=== PATIENT | male | born 1935 | race African-American/Black ===

== ENCOUNTER 2016-10-03 15:33 | Inpatient (IN) ==
[2016-10-03] MEDS ORDERED: MAGNESIUM SULF RIDER 2 GM in PREMIX 1 EACH IV PRN (17:44)
[2016-10-03] MEDS ORDERED: DOCUSATE SODIUM 100 MG CAPSULE PO PRN (17:44)
[2016-10-03] MEDS ORDERED: ZALEPLON 5 MG CAPSULE PO PRN (17:44)
[2016-10-03] MEDS ORDERED: ONDANSETRON 4 MG/2 ML VIAL IV PRN (17:44)
[2016-10-03] MEDS ORDERED: MAGNESIUM SULF RIDER 4 GM in PREMIX 1 EACH IV PRN (17:44)
--- NOTE | 2016-10-03 17:58 | Cardiology History & Physical ---
Assessment and Plan (1) Edema Status: Acute Assessment and plan: 81-year-old black male, history of nonischemic cardiomyopathy, with recovered ejection fraction. Hypertension, chronic A. fib, history of CVA. He is presenting with edema, significant 3rd spacing, involving pericardial and pleural space and periphery. He is hemodynamically stable. -Edema. Assess etiology. Check CBC, CMP, TFTs, CRP, ESR. We'll initiate diuresis for decompensated right-sided heart failure, volume overload and work him up for potential extracardiac factors. -CXR -Continue anticoagulation for atrial fibrillation. -Resume BP regimen -Keep on telemetry Current Visit: Yes (2) NICM (nonischemic cardiomyopathy) Status: Acute Current Visit: Yes (3) Atrial fibrillation Status: Acute Current Visit: Yes (4) HTN (hypertension) Status: Acute Current Visit: Yes History of Present Illness Chief complaint: CHF, pericardial/pleural effusion History of present illness: Mr. Celaya is a 81 year old BM, followed by dr. Valle, with history of nonischemic cardiomyopathy, recovered ejection fraction, chronic pericardial effusion. He noticed progressive shortness of breath, weakness for the past 3 weeks. In office echo today with a for moderate to large pericardial effusion, without tamponade, also pleural effusion. He was hospitalized for inpatient management. He also has chronic atrial fibrillation, history of CVA, hypertension, hyperlipidemia. He is resting comfortably in bed currently, does not complain of chest pain. Shortness of breath is moderate. He also has tense bilateral lower extremity swelling. Home Medications Medication Instructions Recorded Confirmed Type Aspirin EC Tab 81 mg PO DAILY 10/03/16 10/03/16 History Carvedilol [Coreg] 25 mg PO BID 10/03/16 10/03/16 History Dabigatran [Pradaxa] 150 mg PO BID 10/03/16 10/03/16 History Finasteride [Proscar] 5 mg PO DAILY 10/03/16 10/03/16 History Furosemide Tab [Lasix Tab] 40 mg PO DAILY 10/03/16 10/03/16 History Gabapentin Cap/Tab [Neurontin 300 mg PO DAILY 10/03/16 10/03/16 History Cap/Tab] Levothyroxine Tab [Synthroid Tab] 125 mcg PO DAILY@0700 10/03/16 10/03/16 History Lisinopril 40 mg PO DAILY 10/03/16 10/03/16 History Lovastatin 20 mg PO BEDTIME 10/03/16 10/03/16 History Omeprazole 20 mg PO DAILY 10/03/16 10/03/16 History Polyethylene Glycol 3350 17 gm PO DAILY PRN 10/03/16 10/03/16 History amLODIPine [Norvasc] 5 mg PO DAILY 10/03/16 10/03/16 History hydroCHLOROthiazide 12.5 mg PO DAILY 10/03/16 10/03/16 History [Hydrochlorothiazide] Allergies Allergy/AdvReac Type Severity Reaction Status Date / Time No Known Allergies Allergy Verified 10/03/16 16:40 12 point system: reviewed and no additional remarkable complaints except as stated Medical,Surgical,& Family Hx - Medical History Cardio: History of: CAD, Hypertension Neurology: History of: Cerebrovascular Accident (1996 (speech and left sided weakness)) HEENT: History of: Eye Problem (prostethic eye) - Surgical History Cardiac Surgeries: Patient Denies: Cardiac Catheterization - Social History Smoking Status: Former smoker Frequency of Alcohol Use: None Cardiology Physical Exam - Constitutional Vitals: Intake and Output 10/03/16 10/03/16 10/03/16 07:59 15:59 23:59 Output Total 300 / 300 Balance -300 / -300 Output: Urine 300 / 300 Other: Voiding Method Urinal Weight 104.3 kg Patient Weight 10/03/16 23:59 Weight 104.3 kg General appearance: over weight - Head Head exam: Present: normal inspection - Eye Eye exam: Absent: conjunctival injection Pupils: Absent: dilated - ENT ENT exam: Present: normal exam - Neck Neck exam: Present: normal inspection - Respiratory Respiratory exam: Present: decreased breath sounds. Absent: accessory muscle use, prolonged expiratory phase - Cardiovascular Cardiovascular exam: Present: regular rate and rhythm, systolic murmur - GI/Abdominal GI/Abdominal exam: Present: hypoactive bowel sounds - Extremities Exam Extremities exam: Present: edema (3+, tense) - Back Exam Back exam: Present: normal inspection - Neurological Exam Neurological exam: Present: alert, oriented X3 - Psychiatric Psychiatric exam: Present: normal affect, normal mood - Skin Skin exam: Present: normal color, warm. Absent: cyanosis Result/EKG - Labs Lab Results: I have reviewed the past 24 hour labs - EKG EKG results: interpreted by me Quality Measures - VTE Contraindication to Pharmacological VTE Prophylaxis: Already on Theraputic Agent , No Prophylaxis Needed
[2016-10-03] MEDS ORDERED: POLYETHYLENE GLYCOL POWDER 17 GM PACK PO PRN (18:06)
--- NOTE | 2016-10-03 18:21 | XRay Report ---
XR chest 1V portable Indication: SOB Comparison: None Technique: Single frontal view of the chest Findings: Marked cardiomegaly. Hazy opacification within the bilateral mid and lower lungs suspicious for pulmonary edema and less likely pneumonia. Small bilateral pleural fluid suggested. Surgical clips noted within the neck base. Osseous and surrounding soft tissue structures demonstrate no acute abnormality. IMPRESSION: As above. PROCEDURE INTERPRETED AT [facility] DEPARTMENT OF RADIOLOGY Final Report Signed by: Dr Jarrett Huff
[2016-10-03 18:55] LABS: Basophils # 0.1 10*3/uL (0.0-0.2); Basophils % 0.9 % (0.0-0.8); Eosinophils % 0.5 % (0.00-10.9); Hematocrit 39.6 VOL% (42.0-52.0); Hemoglobin 12.8 GM/DL (14.0-18.0); Immature Granulocytes % 1.1 %; Immature Granulocytes Absolute 0.06 #; Lymphocytes # 2.3 10*3/uL (1.4-4.0); Lymphocytes % 40.5 % (21.2-54.2); Mean Corpuscular HGB Conc 32.3 GM/DL (32-36); Mean Corpuscular Hemoglobin 30 PG (27-34); Mean Corpuscular Volume 93.8 FL (87-102); Mean Platelet Volume 11.2 FL (9.6-12.0); Monocytes # 0.7 10*3/uL (0.11-0.8); Monocytes % 12.5 % (1.7-12.7); Neutrophils # 2.5 10*3/uL (1.4-7.4); Neutrophils % 44.5 % (38.7-73.9); Platelet Count 111 10*3/uL (130-400); Red Blood Count 4.22 10*6/uL (3.8-5.5); Red Cell Distribution Width 14.7 % (9.3-17.3); White Blood Count 5.7 10*3/uL (4.5-13.71)
[2016-10-03 19:23] LABS: Albumin 3.4 G/DL (3.4-5.0); Bilirubin,Total 0.7 MG/DL (0.2-1.0); Calcium 8.5 MG/DL (8.5-10.1); Magnesium 2.1 MG/DL (1.8-2.4); Osmolality,Calculated 281.3 MOS/KG (273-304); Potassium 3.6 MMOL/L (3.5-5.1); Thyroid Stimulating Hormone 24.3 uIU/ml (0.358-3.74); Troponin I Only < 0.015 NG/ML (0.00-0.045)
[2016-10-03] MEDS: FUROSEMIDE 40 MG/4 ML VIAL IV SCH (19:24)
[2016-10-03] MEDS: DABIGATRAN 150 MG CAPSULE PO SCH (20:44)
[2016-10-03] MEDS: CARVEDILOL 25 MG TABLET PO SCH (20:44)
[2016-10-03] MEDS ORDERED: LOVASTATIN 20 MG TABLET PO SCH (21:00)
--- NOTE | 2016-10-03 22:43 | Ultrasound Report ---
US thyroid Indication: Hypothyroid. Comparison: None. Technique: Multiple longitudinal and transverse real-time sonographic images of the thyroid are obtained. Findings: The right lobe of the thyroid measures 2.0 x 0.7 x 1.3 cm. The left lobe of the thyroid measures 2.3 x 1.2 x 0.6 cm. The thyroid isthmus measures 0.28 cm in thickness. Solid appearing hypoechoic nodule demonstrated within the right thyroid lobe which measures up to 1.3 cm. IMPRESSION: Solid appearing hypoechoic nodule demonstrated within the right thyroid lobe which measures up to 1.3 cm. Recommend continued ultrasound surveillance. PROCEDURE INTERPRETED AT [facility] DEPARTMENT OF RADIOLOGY Final Report Signed by: Dr Jarrett Huff
[2016-10-04] MEDS ORDERED: LEVOTHYROXINE 125 MCG TABLET PO SCH (07:00)
--- NOTE | 2016-10-04 07:39 | EKG Report ---
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
[2016-10-04 08:19] LABS: Basophils % 0.9 % (0.0-0.8); Eosinophils % 0.9 % (0.00-10.9); Hematocrit 38.9 VOL% (42.0-52.0); Hemoglobin 12.5 GM/DL (14.0-18.0); Immature Granulocytes % 0.6 %; Immature Granulocytes Absolute 0.03 #; Lymphocytes # 1.9 10*3/uL (1.4-4.0); Lymphocytes % 41.8 % (21.2-54.2); Mean Corpuscular HGB Conc 32.1 GM/DL (32-36); Mean Corpuscular Hemoglobin 30 PG (27-34); Mean Platelet Volume 11.3 FL (9.6-12.0); Monocytes # 0.8 10*3/uL (0.11-0.8); Monocytes % 16.9 % (1.7-12.7); Neutrophils # 1.8 10*3/uL (1.4-7.4); Neutrophils % 38.9 % (38.7-73.9); Platelet Count 136 10*3/uL (130-400); Red Blood Count 4.23 10*6/uL (3.8-5.5); Red Cell Distribution Width 14.7 % (9.3-17.3); White Blood Count 4.6 10*3/uL (4.5-13.71)
[2016-10-04 08:40] LABS: Hypochromasia 1+; Lymphocytes 62 % (20-55); Microcytosis 1+; Platelet Estimate Adequate; Segmented Neutrophils 27 % (50-85); Total Cells Counted 100
--- NOTE | 2016-10-04 08:41 | EKG Report ---
Stationary ECG Study [facility] Test Date: 10/03/2016 6:05:19 PM Pat Name: JOSEPH LICONA Department: Room: 264 Gender: M Set Decorator: ANAHY : 1935 Requested by: Esteban Jose Order Number: [id number] Reading MD: NICHOLAS FUNG Intervals [place] Rate: 93 P: 999 CO: 0 QRS: 32 QRSD: 85 T: 56 QT: 343 QTc: 394 Interpretive Statements ATRIAL FIBRILLATION ABNORMAL RHYTHM ECG Electronically Signed On 10-04-16 11:43:53 RETAIL CLERK by NICHOLAS FUNG [id number]
[2016-10-04 08:51] LABS: Calcium 8.5 MG/DL (8.5-10.1); Magnesium 2.2 MG/DL (1.8-2.4); Osmolality,Calculated 278.4 MOS/KG (273-304); Potassium 3.3 MMOL/L (3.5-5.1)
[2016-10-04] MEDS ORDERED: FINASTERIDE 5 MG TABLET PO SCH (09:00)
[2016-10-04] MEDS ORDERED: GABAPENTIN 300 MG CAPSULE PO SCH (09:00)
[2016-10-04] MEDS ORDERED: ASPIRIN EC 81 MG TABLET PO SCH (09:00)
[2016-10-04] MEDS ORDERED: LISINOPRIL 20 MG TABLET PO SCH (09:00)
[2016-10-04] MEDS ORDERED: PANTOPRAZOLE 40 MG TABLET PO SCH ×2 (09:00)
[2016-10-04] MEDS: FUROSEMIDE 40 MG/4 ML VIAL IV SCH (09:42)
[2016-10-04] MEDS: CARVEDILOL 25 MG TABLET PO SCH (09:42)
[2016-10-04] MEDS: DABIGATRAN 150 MG CAPSULE PO SCH (09:42)
[2016-10-04] MEDS ORDERED: LEVOTHYROXINE 175 MCG TABLET PO SCH (14:48)
--- NOTE | 2016-10-04 15:10 | Discharge Summary ---
Hospital Course - Hospital Course Hospital Course: Mr. Rodriguez is an 81-year-old black man, history of nonischemic cardiomyopathy, recovered ejection fraction, chronic atrial fibrillation, anticoagulated prolapse. He had progressive shortness of breath for a month now. He was evaluated recently and CT scan showed pericardial and pleural effusion. He was admitted for workup and treatment of suspected heart failure. On admission, he had bilateral myxedema, the oxygen saturation was normal, he was not having any orthopnea or orthostatic symptoms. Labs showed no evidence of myocardial injury. His heart rate remained in the normal range, occasionally bradycardic, in atrial fibrillation. IV Lasix was used, provided symptomatic relief. Labs showed elevated TSH of 25 , but normal free T4. His home Synthroid dose is 125 g daily. This was increased 175 g. Thyroid ultrasound confirmed a solitary thyroid nodule. -Follow-up with Dr. Valle in one week. -He will need outpatient workup for solitary thyroid nodule. -Continue Synthroid at 175 g daily, recheck TFTs in 4-6 weeks. -Lasix 40 mg by mouth twice a day. This was increased from 40 mg once a day. -Started potassium supplement 20 mics a day as he developed mild hypokalemia with iv diuresis. Cont lisinopril -continue anticoagulation for AF. Rate well controlled. Diagnosis - Discharge Diagnosis (1) Edema Status: Acute (2) NICM (nonischemic cardiomyopathy) Status: Acute (3) Atrial fibrillation Status: Acute (4) HTN (hypertension) Status: Acute Discharge Plan - Discharge Data Disposition: Disch To Home/Self Care Condition at Discharge: Stable Discharge Diet: advance to your usual diet Activity: resume usual activities as tolerated Hygiene: no restrictions Weight Bearing at Discharge: full weight bearing Driving: not until seen by doctor Contact your physician if you experience:: fever over 101, Difficulty voiding, Redness or swelling, Nausea/Vomiting, Shortness of breath, Bleeding, pain uncontrolled by pain medications - Discharge Medications New Furosemide Tab [Lasix Tab] 40 mg PO BID DIURETIC #60 tablet Potassium Chloride Cap/Tab [K Dur] 20 meq PO DAILY #30 tablet Continue Dabigatran [Pradaxa] 150 mg PO BID Polyethylene Glycol 3350 17 gm PO DAILY PRN PRN Reason: Constipation Aspirin EC Tab 81 mg PO DAILY Omeprazole 20 mg PO DAILY Lovastatin 20 mg PO BEDTIME Lisinopril 40 mg PO DAILY Gabapentin Cap/Tab [Neurontin Cap/Tab] 300 mg PO DAILY Finasteride [Proscar] 5 mg PO DAILY Carvedilol [Coreg] 25 mg PO BID Discontinued Levothyroxine Tab [Synthroid Tab] 125 mcg PO DAILY@0700 Furosemide Tab [Lasix Tab] 40 mg PO DAILY hydroCHLOROthiazide [Hydrochlorothiazide] 12.5 mg PO DAILY amLODIPine [Norvasc] 5 mg PO DAILY - Follow Up or Referral Follow Up: Kendra Valle MD [Physician] - 1 Week - Forms/Instructions Exam - Constitutional Vitals: Period Temp Pulse Resp BP Sys/Novak Pulse Ox Last 24 Hr 97.1 F-99.2 F 74-88 13-24 118-178/75-120 92-98 General appearance: over weight - Head Head exam: Present: normal inspection - Eye Eye exam: Absent: conjunctival injection Pupils: Absent: dilated - ENT ENT exam: Present: normal external ear exam - Neck Neck exam: Present: normal inspection - Respiratory Respiratory exam: Present: decreased breath sounds - Cardiovascular Cardiovascular exam: Present: irregular rhythm, systolic murmur - GI/Abdominal GI/Abdominal exam: Present: normal bowel sounds - Extremities Exam Extremities exam: Present: other (myxedema) - Back Exam Back exam: Present: normal inspection - Neurological Exam Neurological exam: Present: alert, oriented X3, other (slow speech) - Psychiatric Psychiatric exam: Present: normal affect, normal mood - Skin Skin exam: Present: normal color, warm. Absent: cyanosis Discharge Results Procedures and tests throughout hospitalization: Pending Orders 10/03/16 16:37 MRSA Surveillence, Inf Control Routine 10/04/16 07:27 Free T3 (Triiodothyronine), S IN AM Labs on day of discharge: Labs from last 24 hours 10/04/16 10/04/16 10/03/16 07:27 07:27 18:06 WBC 4.6 RBC 4.23 Hgb 12.5 L Hct 38.9 L MCV 92.0 MCH 30 MCHC 32.1 RDW 14.7 Plt Count 136 D MPV 11.3 Neut % (Auto) 38.9 Lymph % (Auto) 41.8 Woods % (Auto) 16.9 H Eos % (Auto) 0.9 Baso % (Auto) 0.9 H Neut # (Auto) 1.8 Lymph # (Auto) 1.9 Woods # (Auto) 0.8 Eos # (Auto) 0.0 Baso # (Auto) 0.0 Total Counted 100 Immature Gran % 0.6 Nucleated RBC % 0.0 Immature Gran # 0.03 Segmented Neutrophils 27 L Lymphocytes 62 H Monocytes 11 Nucleated RBCs # 0.00 Platelet Estimate Adequate Hypochromasia 1+ Microcytosis 1+ ESR Westergren Sodium 140 Potassium 3.3 L Chloride 98 Carbon Dioxide 34 H Anion Gap 11.3 BUN 15 Creatinine 1.00 GFR Calculation 108 BUN/Creatinine Ratio 15.00 Glucose 79 Calculated Osmolality 278.4 Calcium 8.5 Magnesium 2.2 Total Bilirubin AST ALT Alkaline Phosphatase Total Creatine Kinase CK-MB (CK-2) Troponin I C-Reactive Protein B-Natriuretic Peptide Total Protein Albumin Globulin Albumin/Globulin Ratio Free T4 1.00 TSH 3rd Generation 10/03/16 10/03/16 10/03/16 18:06 18:06 18:06 WBC RBC Hgb Hct MCV MCH MCHC RDW Plt Count MPV Neut % (Auto) Lymph % (Auto) Woods % (Auto) Eos % (Auto) Baso % (Auto) Neut # (Auto) Lymph # (Auto) Woods # (Auto) Eos # (Auto) Baso # (Auto) Total Counted Immature Gran % Nucleated RBC % Immature Gran # Segmented Neutrophils Lymphocytes Monocytes Nucleated RBCs # Platelet Estimate Hypochromasia Microcytosis ESR Westergren 4 Sodium Potassium Chloride Carbon Dioxide Anion Gap BUN Creatinine GFR Calculation BUN/Creatinine Ratio Glucose Calculated Osmolality Calcium Magnesium Total Bilirubin AST ALT Alkaline Phosphatase Total Creatine Kinase CK-MB (CK-2) Troponin I C-Reactive Protein < 0.29 B-Natriuretic Peptide 473 H Total Protein Albumin Globulin Albumin/Globulin Ratio Free T4 TSH 3rd Generation 10/03/16 10/03/16 10/03/16 18:06 18:06 18:06 WBC 5.7 RBC 4.22 Hgb 12.8 L Hct 39.6 L MCV 93.8 MCH 30 MCHC 32.3 RDW 14.7 Plt Count 111 L MPV 11.2 Neut % (Auto) 44.5 Lymph % (Auto) 40.5 Woods % (Auto) 12.5 Eos % (Auto) 0.5 Baso % (Auto) 0.9 H Neut # (Auto) 2.5 Lymph # (Auto) 2.3 Woods # (Auto) 0.7 Eos # (Auto) 0.0 Baso # (Auto) 0.1 Total Counted Immature Gran % 1.1 Nucleated RBC % 0.0 Immature Gran # 0.06 Segmented Neutrophils Lymphocytes Monocytes Nucleated RBCs # 0.00 Platelet Estimate Hypochromasia Microcytosis ESR Westergren Sodium 141 Potassium 3.6 Chloride 101 Carbon Dioxide 33 H Anion Gap 10.6 BUN 14 Creatinine 1.00 GFR Calculation 107 BUN/Creatinine Ratio 14.00 Glucose 96 Calculated Osmolality 281.3 Calcium 8.5 Magnesium 2.1 Total Bilirubin 0.70 AST 10 ALT 9 L Alkaline Phosphatase 39 L Total Creatine Kinase 39 CK-MB (CK-2) < 1.0 Troponin I < 0.015 C-Reactive Protein B-Natriuretic Peptide Total Protein 7.0 Albumin 3.4 Globulin 3.6 H Albumin/Globulin Ratio 0.9 L Free T4 TSH 3rd Generation 24.300 H Preliminary micro results at discharge 10/03/16 16:37 MRSA Surveillance Culture - Preliminary Nares No MRSA isolated. - Imaging and Cardiology Cardiology Procedure: image reviewed by me, report reviewed by me DS: Provider Date of admission: 10/03/16 17:44 Primary care physician: Alana Sepulveda Attending physician on admission: Esteban Jose MD Consults: 10/03/16 19:26 Consult to Pharmacy [CONS] Routine Reason for Pharmacy Consult: Adjust Meds Renal Funct Discharging clinician: Esteban Jose MD Expected date of discharge: 10/04/16
[2016-10-04] MEDS ORDERED: POTASSIUM CHLORIDE 20 MEQ TABLET PO SCH (15:30)
[2016-10-04 15:54] VITALS: BP 122/77
[2016-10-04] MEDS ORDERED: FUROSEMIDE 40 MG TABLET PO SCH (16:00)
== END 2016-10-04 16:45 | disposition home or self-care (01) | DRG 292 ==
LOC: EDBD → N.CC 15:54 → N.TELES 10-04 04:34
PROVIDERS: ADMIT Internal Medicine Clinical Cardiac Electrophysiology; ATTEND Internal Medicine Clinical Cardiac Electrophysiology

== ENCOUNTER 2016-12-14 10:14 | Inpatient (IN) ==
[2016-12-14] MEDS ORDERED: DIPH/TET/ACEL PERT BOOSTER VACCINE 0.5 ML VIAL IM ONE ×2 (10:30→11:08)
[2016-12-14] MEDS ORDERED: METOPROLOL TARTRATE 5 MG/5 ML VIAL IV STA (10:30)
--- NOTE | 2016-12-14 10:42 | Emergency Department Note ---
Jaron Cruz Brittany, am scribing for, and in the presence of, Emir Del Valle MD 10: 36. Ivon Cruz James D, MD, personally performed the services described in this documentation, ascribed by Merary Salmeron in my presence, and it is both accurate and complete . Arrival - Arrival Chief Complaint: Syncope Stated Complaint: SYNCOPE/ SOB ED Nursing Triage Note: PT WAS SITTING IN HIS CHAIR AT HOME AND HAD SYNCOPE EPISODE. PT DENIES HEADACHE. PT HAS NO DEFICITS. PTS BP NOTED TO BE EXTREMLY ELEVATED IN TRIAGE. PT DENIES TAKING MORNING MEDS. PT HAS HEMTOMA TO LT.OCCIPITAL AREA. NOSE LACERATION NOTED. PT VOIDED ON HIMSELF DURING THIS INCIDENT. 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 He reports he was sitting in a chair when he passed out. He reports he only remembers sitting in his chair and becoming lightheaded and dizzy. He reports he noticed his heart rate to be racing. His family states the syncopal episode was not witnessed. His found him passed out on the front porch. Pt denies any neck pain, MAHAN, or chest pain, but notes mild abd pain. Pt is currently taking Pradaxa. Pt has no other complaints/pain in the ED at this time. Pt has a PMHx of CHF, CAD, CVA, HTN, peripheral neuropathy, A-fib , and dyslipidemia. Pt denies a surgical Hx. Pt denies a family medical Hx. Pt denies a social Hx. 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) Consistency: constant Severity: moderate Allergies/Adverse Reactions: Allergies Allergy/AdvReac Type Severity Reaction Status Date / Time No Known Allergies Allergy Unverified 12/14/16 10:18 Home Medications: Home Medications Medication Instructions Recorded Confirmed Type Aspirin EC Tab 81 mg PO DAILY 10/03/16 12/14/16 History Carvedilol [Coreg] 25 mg PO BID 10/03/16 12/14/16 History Dabigatran [Pradaxa] 150 mg PO BID 10/03/16 12/14/16 History Finasteride [Proscar] 5 mg PO DAILY 10/03/16 12/14/16 History Gabapentin Cap/Tab [Neurontin 300 mg PO DAILY 10/03/16 12/14/16 History Cap/Tab] Lisinopril 40 mg PO DAILY 10/03/16 12/14/16 History Lovastatin 20 mg PO BEDTIME 10/03/16 12/14/16 History Levothyroxine Tab [Synthroid Tab] 175 mcg PO DAILY@0700 #30 tablet 10/04/16 Rx Furosemide Tab [Lasix Tab] 20 mg PO BID DIURETIC 12/14/16 12/14/16 History Potassium Chloride [Klor-Con M20] 20 meq PO DAILY 12/14/16 12/14/16 History hydrALAZINE TAB [Apresoline Tab] 50 mg PO TID 12/14/16 12/14/16 History Review of System - Review of System 12 point system: reviewed and no additional remarkable complaints except as stated - Review of System Cardiovascular: Present: syncope. Absent: chest pain Gastrointestinal: Present: abdominal pain (Mild abd pain ) Musculoskeletal: Absent: neck pain Neurological: Absent: headache Additional ROS comments: Elevated BP Medical,Surgical,& Family Hx - Medical History Cardio: History of: CHF, CAD, Hypertension, Valvular Heart Disease (A-FIB) Neurology: History of: Cerebrovascular Accident, Peripheral Neuropathy HEENT: History of: Eye Problem (prostethic eye) Endocrine: History of: Dyslipidemia - Surgical History Cardiac Surgeries: Patient Denies: Cardiac Catheterization - Social History Smoking Status: Unknown if ever smoked Exam Vital Signs: Vital Signs Temperature 97.4 F L 12/14/16 10:15 Pulse Rate 104 H 12/14/16 10:15 Respiratory Rate 26 H 12/14/16 10:15 Blood Pressure 181/123 12/14/16 10:15 O2 Sat by Pulse Oximetry 99 12/14/16 10:15 GENERAL: This is a chronically ill appearing black male in no apparent distress. VITAL SIGNS: Reviewed HEENT: Abrasion of the left parietal scalp. Small abrasion overlying the nasal bridge. Right cornea opacified, left pupil round reactive to light. Extraocular movements are intact. Oropharynx is benign with moist mucous membranes. NECK: Neck is soft and supple without tenderness. There are no masses. There is no lymphadenopathy. LUNGS: Lungs are clear to auscultation. Chest rises symmetrically. There is no chest wall tenderness. CV: Heart is irregularly irregular without murmurs rubs or gallops. ABDOMEN: Abdomen is soft, nontender to palpation. There are no abdominal abnormal masses palpated. There is no organomegaly. Bowel sounds are present and active. SKIN: Skin is warm and dry. No rash. EXTREMITIES: Patient has full range of motion without tenderness. There is no pedal edema. NEUROLOGIC: Awake alert and oriented 4. Cranial nerves II through XII are grossly intact. Motor is 5 over 5 in all extremities bilaterally. GCS is 15. Course - Consultations Consultation #1: Discussed with hospitalist. Patient will be admitted to their service. Time: 13:15 Results - Labs CBC & BMP: 12/14/16 10:29 12/14/16 10:29 Lab Results: I have reviewed the patients labs Labs: Laboratory Tests 12/14/16 12/14/16 10:29 10:29 INR 2.8 Troponin I < 0.015 - EKG EKG results: interpreted by ERMD - Impressions EKG: Atrial fib with a rate of 90, occasional PVCs, nonspecific ST-T wave changes, normal axis. - Diagnostic Findings Procedure: Chest x-ray: image reviewed by me (Massive cardiomegaly, minimal increased pulmonary markings bilaterally.), CT: image reviewed by me (CT head: No acute intracranial lesion or hemorrhage. CT cervical spine: No acute fracture or subluxation. Patient has multilevel DDD.) Disposition Clinical Impression: Syncope, Atrial fibrillation, Chronic anticoagulation Case discussed with: patient, patient's family Disposition: Still a Patient Condition: Stable Time of Disposition: 13:15
[2016-12-14 10:55] LABS: Basophils % 0.7 % (0.0-0.8); Eosinophils % 0.2 % (0.00-10.9); Hematocrit 40.1 VOL% (42.0-52.0); Hemoglobin 12.5 GM/DL (14.0-18.0); Immature Granulocytes % 0.9 %; Immature Granulocytes Absolute 0.05 #; Lymphocytes # 1.8 10*3/uL (1.4-4.0); Lymphocytes % 33.2 % (21.2-54.2); Mean Corpuscular HGB Conc 31.2 GM/DL (32-36); Mean Corpuscular Hemoglobin 30 PG (27-34); Mean Corpuscular Volume 96.6 FL (87-102); Mean Platelet Volume 11.9 FL (9.6-12.0); Monocytes # 0.7 10*3/uL (0.11-0.8); Monocytes % 12.8 % (1.7-12.7); Neutrophils # 2.9 10*3/uL (1.4-7.4); Neutrophils % 52.2 % (38.7-73.9); Platelet Count 124 T/CUMM (130-400); Red Blood Count 4.15 MC/CUMM (3.8-5.5); Red Cell Distribution Width 14.3 % (9.3-17.3); White Blood Count 5.6 T/CUMM (4-12)
[2016-12-14] MEDS ORDERED: hydrALAZINE 20 MG/1 ML VIAL IV STA (11:00)
--- NOTE | 2016-12-14 11:00 | EKG Report ---
Stationary ECG Study [facility] Test Date: 12/14/2016 10:58:29 AM Pat Name: JOSEPH LICONA Department: Room: Gender: M Cook Pressure: CLARA : 1935 Requested by: Emir Mendoza Order Number: [id number] Reading MD: KELLY BRICENO Intervals [place] Rate: 90 P: 999 FL: 0 QRS: 48 QRSD: 87 T: 49 QT: 338 QTc: 385 Interpretive Statements ATRIAL FIBRILLATION WITH ABERRANT CONDUCTION OR VENTRICULAR PREMATURE COMPLEXES Electronically Signed On 12-16-16 18:44:26 CDT by KELLY BRICENO [email or web address]
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
[2016-12-14] MEDS ORDERED: hydrALAZINE 20 MG/1 ML VIAL ONE (11:07)
[2016-12-14] MEDS ORDERED: METOPROLOL TARTRATE 5 MG/5 ML VIAL IV ONE (11:07)
--- NOTE | 2016-12-14 11:08 | XRay Report ---
Portable chest Date: 12/14/2016 Clinical history: Shortness of breath Comparison: 10/03/2016 Technique: Portable AP sitting chest Findings: Prominent cardiomegaly with the heart having a globular configuration. Progressive parenchymal findings with small pleural effusions. Postoperative findings within the thyroid bed with degenerative changes. Impression: Prominent cardiomegaly with the heart having a globular configuration which consistent with cardiomyopathy or pericardial effusion. Progressive mild to moderate CHF with small pleural effusions. PROCEDURE INTERPRETED AT [facility] DEPARTMENT OF RADIOLOGY Final Report Signed by: Dr. Reina Cordova
--- NOTE | 2016-12-14 11:17 | CT Report ---
Exam: CT cervical spine without contrast Date: 12/14/2016 Comparison: None Reason: Neck pain, neck injury, syncope Technique: Axial images of the cervical spine were obtained without the use of contrast. Sagittal and coronal reformatted images were also acquired. Total DLP is 316.30 mGy*cm. Findings: Unfortunately the scans are degraded by motion artifact. The alignment of the cervical spine is unremarkable with no definite fracture, dislocation, or spinal cord pathology. Postoperative findings in the thyroid bed with arterial calcifications. At C2-C3, diffuse osteophyte/disc complex which contacts the thecal sac. No spinal stenosis with minimal right foraminal stenosis. At C3-C4, diffuse osteophyte/disc complex which compresses the thecal sac. Minimal spinal stenosis and right foraminal stenosis with moderate left foraminal stenosis. At C4-C5, diffuse osteophyte/disc complex which compresses the thecal sac. Minimal spinal stenosis with moderate bilateral foraminal stenosis. At C5-C6, disc space narrowing with diffuse osteophyte/disc complex which compresses the thecal sac. Minimal to moderate spinal stenosis with moderate to severe bilateral foraminal stenosis. At C6-C7, disc space narrowing with diffuse osteophyte/disc complex which compresses the thecal sac. Minimal spinal stenosis and bilateral foraminal stenosis. At C7-T1, diffuse osteophyte/disc complex which contacts the thecal sac. No spinal stenosis or foraminal stenosis. Impression: Motion artifact limits the exam. No definite acute fracture or dislocation with multilevel DDD as above noted. Postoperative findings in the thyroid bed. This CT exam was performed using one or more of the following dose reduction techniques: Automatic exposure control, adjustment of the MA and/or KV according to patient size, or use of iterative reconstruction technique. PROCEDURE INTERPRETED AT [facility] DEPARTMENT OF RADIOLOGY Final Report Signed by: Dr. Reina Cordova
[2016-12-14 11:35] LABS: Alanine Aminotransferase 10 U/L (16-61); Albumin 3.6 G/DL (3.4-5.0); Alkaline Phosphatase 41 U/L (45-117); Aspartate Amino Transferase 12 U/L (0-37); Blood Urea Nitrogen 22 MG/DL (7-18); Calcium 8.5 MG/DL (8.5-10.1); Glucose 96 MG/DL (74-106); Magnesium 2.1 MG/DL (1.8-2.4); Osmolality,Calculated 290.7 MOS/KG (273-304); Potassium 3.9 MMOL/L (3.5-5.1); Sodium 145 MMOL/L (136-145); Total Protein 7.2 G/DL (6.4-8.3); Troponin I Only < 0.015 NG/ML (0.00-0.045)
[2016-12-14 11:39] LABS: INR 2.8
[2016-12-14 11:41] LABS: PT Patient Result 31.9 SECS
[2016-12-14 13:41] LABS: Apearance,Urine CLEAR (Clear); Bilirubin,Urine Negative (Negative); Blood, Urine Small mg/dL (Negative); Glucose,Urine (UA) Negative (Negative); Hyaline Casts,Urine 6 /LPF (0-3); Ketones,Urine Negative (Negative); Mucus,Urine Occasional /LPF (Occasional); Nitrite,Urine Negative (Negative); Protein,Urine Negative; RBC,Urine 2 /HPF (0-4); Squamous Epithelial Cell,Urine Occasional /HPF (0-10); Urine Color Straw (Yellow); Urine Specific Gravity 1.005 (1.001-1.035); Urine Urobilinogen < 2.0 EU/DL (0.2-1.0)
[2016-12-14] MEDS ORDERED: FUROSEMIDE 40 MG/4 ML VIAL IV STA (13:42)
[2016-12-14] MEDS ORDERED: DOCUSATE SODIUM 100 MG CAPSULE PO PRN (13:42)
[2016-12-14] MEDS ORDERED: ONDANSETRON 4 MG/2 ML VIAL IV PRN (13:42)
[2016-12-14] MEDS ORDERED: ACETAMINOPHEN 325 MG TABLET PO PRN (13:42)
[2016-12-14] MEDS ORDERED: ALBUTEROL/IPRATROPIUM 3 ML NEB RESP TX PRN (13:46)
--- NOTE | 2016-12-14 13:52 | Hospitalist History & Physical ---
Assessment and Plan (1) Syncope Status: Acute Assessment and plan: We will admit this patient and perform a full work-up. Will obtain carotid doppler, echo, and CXR. We will monitor his neurological status closely for any subtle changes. Current Visit: Yes (2) Atrial fibrillation Status: Acute Assessment and plan: Will resume home medications as previously ordered for rate control. Current Visit: No History of Present Illness Chief complaint: Ground level fall secondary to syncope History of present illness: This is a pleasant 81 year old elderly - [place] man with a rather impressive medical history of NICM, A-fib, HTN, CVA, and peripheral neuropath that presented to the ED after sustaining a ground-level fall after a syncopal episode. Apparently, the patient was sitting outside in a chair when he suddenly became lightheaded and passed out. Prior to this presenting episode, he states that his heart started "racing" while he was standing up,which prompted him to sit in the chair. He has no memory of what transpired proceeding these events. He remembers waking up with his standing over him yelling loudly. He is currently coagulated with Pradaxa. He was evaluated and multiple radiographs were obtained; which revealed no acute abnormalities. Due to his advanced age and con-morbidities, he will be admitted under the hospitalist services for continuation of care. Home Medications Medication Instructions Recorded Confirmed Type Aspirin EC Tab 81 mg PO DAILY 10/03/16 12/14/16 History Carvedilol [Coreg] 25 mg PO BID 10/03/16 12/14/16 History Dabigatran [Pradaxa] 150 mg PO BID 10/03/16 12/14/16 History Finasteride [Proscar] 5 mg PO DAILY 10/03/16 12/14/16 History Gabapentin Cap/Tab [Neurontin 300 mg PO DAILY 10/03/16 12/14/16 History Cap/Tab] Lisinopril 40 mg PO DAILY 10/03/16 12/14/16 History Lovastatin 20 mg PO BEDTIME 10/03/16 12/14/16 History Levothyroxine Tab [Synthroid Tab] 175 mcg PO DAILY@0700 #30 tablet 10/04/16 Rx Furosemide Tab [Lasix Tab] 20 mg PO BID DIURETIC 12/14/16 12/14/16 History Potassium Chloride [Klor-Con M20] 20 meq PO DAILY 12/14/16 12/14/16 History hydrALAZINE TAB [Apresoline Tab] 50 mg PO TID 12/14/16 12/14/16 History Allergies Allergy/AdvReac Type Severity Reaction Status Date / Time No Known Allergies Allergy Unverified 12/14/16 10:18 Medical,Surgical,& Family Hx - Medical History Cardio: History of: CHF, CAD, Hypertension, Valvular Heart Disease (A-FIB) Neurology: History of: Cerebrovascular Accident, Peripheral Neuropathy HEENT: History of: Eye Problem (prostethic eye) Endocrine: History of: Dyslipidemia - Surgical History Cardiac Surgeries: Patient Denies: Cardiac Catheterization - Social History Smoking Status: Unknown if ever smoked - Constitutional Constitutional: Absent: anorexia, chills, daytime sleepiness, excessive sweating , fatigue, fever(s), increased appetite, weakness, weight gain, weight loss - EENT Eyes: Absent: diplopia, loss of vision Ears: Absent: as per HPI Nose, mouth and throat: Present: as per HPI, vertigo. Absent: dysphagia, epistaxis, headache(s), neck mass, neck pain, sore throat - Cardiovascular Cardiovascular: Present: lightheadedness, palpitations. Absent: chest pain at rest, chest pain with activity, claudication - Respiratory Respiratory: Present: dyspnea, wheezing - Gastrointestinal Gastrointestinal: Present: abdominal pain. Absent: nausea, vomiting - Genitourinary Genitourinary: Present: as per HPI - Musculoskeletal Musculoskeletal: Present: as per HPI - Neurological Neurological: Present: headache(s), syncope - Psychiatric Psychiatric: Present: as per HPI - Hematologic/Lymphatic Hematologic/Lymphatic: Present: easy bleeding (Uses Pradaxa), easy bruising Exam - Constitutional Vitals: Period Temp Pulse Resp BP Sys/Novak Pulse Ox Last 24 Hr 97.4 F-97.4 F 87-104 18-26 181-204/123-127 86-99 General appearance: normal weight, mild distress - Head Head exam: Present: normal inspection - Eye Eye exam: Present: EOMI. Absent: periorbital swelling, scleral icterus, laceration to eyelids Pupils: Present: PREMA, normal accommodation - ENT ENT exam: Present: normal exam - Neck Neck exam: Present: normal inspection. Absent: lymphadenopathy, meningismus, tenderness, thyromegaly - Respiratory Respiratory exam: Present: accessory muscle use. Absent: wheezes - Cardiovascular Cardiovascular exam: Present: irregular rhythm. Absent: carotid bruit, diastolic murmur, gallop, JVD, rubs, systolic murmur - GI/Abdominal GI/Abdominal exam: Present: normal bowel sounds, tenderness - Extremities Exam Extremities exam: Present: normal inspection, full ROM, edema (+3 to bilateral lower extremties) - Back Exam Back exam: Present: normal inspection - Neurological Exam Neurological exam: Present: alert, oriented X3, CN II-XII intact - Psychiatric Psychiatric exam: Present: normal affect - Skin Skin exam: Present: normal color, dry Results - Labs CBC & BMP: 12/14/16 10:29 12/14/16 10:29 Lab Results: I have reviewed the past 24 hour labs
[2016-12-14] MEDS ORDERED: FUROSEMIDE 40 MG/4 ML VIAL ONE (14:18)
[2016-12-14 14:24] LABS: Risk Ratio 2.43
--- NOTE | 2016-12-14 16:32 | Ultrasound Report ---
US carotid duplex BI Indication: Syncope. Comparison: None. Technique: Multiple longitudinal and transverse real-time sonographic images of the bilateral carotid arterial systems are obtained with grayscale, spectral, and color Doppler analysis. Findings: Peak systolic velocities within the right CCA, proximal ICA, and distal ICA are 57, 40, and 40 cm/s respectively. Peak systolic velocities within the left CCA, proximal ICA, and distal ICA are 56, 93, and 90 cm/s respectively. ICA/CCA ratios on the right and left are 0.7 and 1.7 respectively. Antegrade flow demonstrated within the bilateral vertebral arteries. Grayscale imaging demonstrates mild bilateral atherosclerotic plaque formation. IMPRESSION: No convincing sonographic evidence of significant (50% or greater) narrowing of either cervical internal carotid artery. NASCET criteria utilized. PROCEDURE INTERPRETED AT [facility] DEPARTMENT OF RADIOLOGY Final Report Signed by: Dr Jarrett Huff
[2016-12-15 06:49] LABS: Basophils % 0.6 % (0.0-0.8); Eosinophils % 0.1 % (0.00-10.9); Hematocrit 36.6 VOL% (42.0-52.0); Hemoglobin 11.3 GM/DL (14.0-18.0); Immature Granulocytes % 0.7 %; Immature Granulocytes Absolute 0.05 #; Lymphocytes # 1.8 10*3/uL (1.4-4.0); Lymphocytes % 25.4 % (21.2-54.2); Mean Corpuscular HGB Conc 30.9 GM/DL (32-36); Mean Corpuscular Hemoglobin 30 PG (27-34); Mean Corpuscular Volume 96.6 FL (87-102); Mean Platelet Volume 11.3 FL (9.6-12.0); Monocytes % 13.9 % (1.7-12.7); Neutrophils # 4.2 10*3/uL (1.4-7.4); Neutrophils % 59.3 % (38.7-73.9); Platelet Count 105 T/CUMM (130-400); Red Blood Count 3.79 MC/CUMM (3.8-5.5); Red Cell Distribution Width 14.3 % (9.3-17.3); White Blood Count 7.1 T/CUMM (4-12)
--- NOTE | 2016-12-15 07:16 | EKG Report ---
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
--- NOTE | 2016-12-15 07:18 | XRay Report ---
Exam: Chest 2 views Date: December 15, 2016 at 5:58 AM Comparison: Chest 1 view December 14, 2016 Reason: Shortness of breath Findings: The cardiac silhouette is again enlarged, and there are surgical clips at the thyroid bed. There are mild scattered opacities within both lower lung zones, mainly on the left. This likely represents atelectasis and possibly minimal pulmonary edema. Superimposed pneumonia is not excluded at the left lower lung zone. No pneumothorax is identified, but minimal bilateral pleural fluid is suspected. The osseous structures appear stable. Impression: There is interval improvement in the previously seen pulmonary edema. However, there are persistent mild scattered opacities within both lower lung zones, mainly on the left. This likely represents atelectasis and possibly minimal pulmonary edema. Superimposed pneumonia is not excluded at the left lower lung zone. PROCEDURE INTERPRETED AT [facility] DEPARTMENT OF RADIOLOGY Final Report Signed by: Dr. Konstantin Ahumada
[2016-12-15 07:38] LABS: Albumin 3.1 G/DL (3.4-5.0); Bilirubin,Total 1.1 MG/DL (0.2-1.0); Calcium 8.3 MG/DL (8.5-10.1); Osmolality,Calculated 294.4 MOS/KG (273-304); Potassium 3.4 MMOL/L (3.5-5.1); Thyroid Stimulating Hormone 5.66 uIU/ml (0.358-3.74); Total Protein 6.3 G/DL (6.4-8.3)
[2016-12-15] MEDS ORDERED: FUROSEMIDE 40 MG/4 ML VIAL IV ONE (08:00)
--- NOTE | 2016-12-15 08:07 | Hospitalist Progress Note ---
Assessment and Plan (1) Syncope Status: Acute Assessment and plan: The patient was admitted to the hospital with a fainting episode. Carotid Doppler study reveals no evidence of stenosis. Neurology consultation is not available this week. The patient is improving with diuresis. Will restart his home medications today and observe an additional 24 hours. We will recheck electrolytes tomorrow and anticipate discharge home if the patient's current improvement holds. Current Visit: Yes Qualifiers: Syncope type: vasovagal syncope Qualified Code(s): R55 - Syncope and collapse (2) NICM (nonischemic cardiomyopathy) Status: Acute Current Visit: No (3) Atrial fibrillation Status: Acute Current Visit: No Hospitalist: Subjective Interval history: The patient was admitted yesterday evening after he had a fall from chair to the ground. The patient had some palpitations prior to the fall. The patient has chronic atrial fibrillation. We had some diuresis yesterday. The patient feels better today and less breathless. Exam - Constitutional Vitals: Period Temp Pulse Resp BP Sys/Novak Pulse Ox Last 24 Hr 97.4 F-99.6 F 81-101 16-26 125-159/68-114 91-100 Exam: Constitutional System: No distress. No tremulousness. Laying flat Head: Normocephalic, atraumatic. Ears, Nose and Throat System: No evidence of Otitis or Mastoiditis. No epistaxis or discharge Eyes System: Pupils equal, round, and reactive. Extraocular muscles intact. Neck: Supple, without adenopathy, 1+ jugular venous distention. No thyromegaly , neck mass, or prior surgery apparent. Respiratory System: Chest few rales in bases to auscultation. Cardiovascular System: Heart with irregular rate and rhythm. No murmur. GI System: Abdomen soft, nontender. Normo active bowel sounds present. Musculoskeletal System: limbs with no pedal edema. Full distal pulses. Neurological System: No discernable sensory deficit. No aphasia Psychiatric System: Conversation is rational Results - Labs CBC & BMP: 12/15/16 06:03 12/15/16 06:03 Lab Results: I have reviewed the past 24 hour labs Quality Measures - Stroke Symptom Onset Unknown: No
[2016-12-15] MEDS: FINASTERIDE 5 MG TABLET PO SCH (09:29)
[2016-12-15] MEDS: POTASSIUM CHLORIDE 20 MEQ TABLET PO SCH (09:29)
[2016-12-15] MEDS: DABIGATRAN 150 MG CAPSULE PO SCH ×2 (09:29→20:53)
[2016-12-15] MEDS: ASPIRIN EC 81 MG TABLET PO SCH (09:29)
[2016-12-15] MEDS: GABAPENTIN 300 MG CAPSULE PO SCH (09:29)
[2016-12-15] MEDS: CARVEDILOL 25 MG TABLET PO SCH ×2 (09:29→20:53)
[2016-12-15] MEDS: PANTOPRAZOLE 40 MG TABLET PO SCH (09:30)
[2016-12-15] MEDS: LISINOPRIL 20 MG TABLET PO SCH (09:30)
--- NOTE | 2016-12-15 15:43 | ECHO Report ---
Beto Celaya Exam Date: 12/15/2016 14:21 Referring Physician: Technologist: Halina Clark RDCS Age: 81 Ht (in): 72 Wt (lb): 250 Gender: M Exam Location: [facility] Echo Indications: Syncope and collapse, Atrial fibrillation, Cardiomyopathy, unspecified, Dyspnea, unspecified, Peripheral neuropathy, previous CVA BP: 145 / 83 HR: 75 Rhythm: Atrial fibrillation Technical Quality: Good IMPRESSIONS Preserved ejection fraction 55% with no regional wall motion abnormality. Atrial fibrillation Moderate to large pericardial effusion with no evidence of right atrial or ventricular collapse and no significant variation in mitral inflow with a marginal variation in tricuspid inflow but atrial fibrillation with resting heart rate of 57 bpm. The most variation occurs with prolonged RR intervals. There is no respirometer tracing. There is a left pleural effusion. Right atrial and ventricular enlargement with pulmonary hypertension estimated to be 54 mmHg plus the right atrial pressure MEASUREMENTS (Male / Female) Normal Values 2D ECHO LV Diastolic Diameter PLAX 4.9 cm 4.2 - 5.9 / 3.9 - 5.3 cm LV Systolic Diameter PLAX 2.6 cm LV Fractional Shortening PLAX 46.5 % IVS Diastolic Thickness 1.0 cm 0.6 - 1.0 / 0.6 - 0.9 cm LVPW Diastolic Thickness 1.0 cm 0.6 - 1.0 / 0.6 - 0.9 cm RV Internal Dim ED PLAX 3.2 cm Aortic Root Diameter 3.6 cm LA Systolic Diameter LX 6.6 cm 3.0 - 4.0 / 2.7 - 3.8 cm DOPPLER TR Peak Velocity 368.0 cm/s TR Peak Gradient 54.2 mmHg FINDINGS Left Ventricle Normal left ventricular cavity size. Normal left ventricular wall thickness. Left ventricular ejection fraction is estimated at 55 %. Diastolic parameters are incomplete. The patient is in atrial fibrillation Right Ventricle The right ventricle is increased in size and function is normal. There is no collapse of the right ventricle in diastole. Right Atrium Moderately increased right atrial size. There is no collapse of the right atrium Left Atrium Moderately increased left atrial size. There is no collapse of the left atrium Mitral Valve Mitral valve sclerosis. Mild mitral annular calcification. Mild mitral valve regurgitation. Aortic Valve Moderate aortic valve calcification. Mean gradient 11 mmHg, ELOISE 2 cm. Mild aortic valve regurgitation with pressure half-time exceeding 500 ms Tricuspid Valve Morphologically normal tricuspid valve. Mild tricuspid valve regurgitation. Tricuspid regurgitation velocities suggest a RVSP of 54 mmHg plus the right atrial pressure.. Pulmonic Valve Morphologically normal pulmonic valve. Trace pulmonary valve regurgitation. Pericardium Moderate to large pericardial effusion. There is no evidence of right atrial or right ventricular collapse. There is approximately 7% variation of mitral inflow by respiratory change and a 40% variation of tricuspid inflow variation with respirations however the patient is in atrial fibrillation and there is great variation in heart rate. The patient's heart rate is 57 bpm at the time of the inflow measurements. Aorta Normal ascending aorta dimension. Mary Crowe (Electronically Signed) Final Date: 15 December 2016 15:42
[2016-12-15] MEDS: FUROSEMIDE 20 MG TABLET PO SCH (17:22)
[2016-12-15] MEDS ORDERED: LOVASTATIN 20 MG TABLET PO SCH (21:00)
[2016-12-16 06:49] LABS: Magnesium 2.1 MG/DL (1.8-2.4); Osmolality,Calculated 292.6 MOS/KG (273-304); Potassium 3.5 MMOL/L (3.5-5.1)
[2016-12-16] MEDS ORDERED: LEVOTHYROXINE 175 MCG TABLET PO SCH (07:00)
[2016-12-16 08:30] VITALS: BP 113/64
[2016-12-16] MEDS: GABAPENTIN 300 MG CAPSULE PO SCH (08:32)
[2016-12-16] MEDS: DABIGATRAN 150 MG CAPSULE PO SCH (08:32)
[2016-12-16] MEDS: ASPIRIN EC 81 MG TABLET PO SCH (08:32)
[2016-12-16] MEDS: LISINOPRIL 20 MG TABLET PO SCH (08:33)
[2016-12-16] MEDS: FINASTERIDE 5 MG TABLET PO SCH (08:33)
[2016-12-16] MEDS: PANTOPRAZOLE 40 MG TABLET PO SCH (08:33)
[2016-12-16] MEDS: POTASSIUM CHLORIDE 20 MEQ TABLET PO SCH (08:33)
[2016-12-16] MEDS: CARVEDILOL 25 MG TABLET PO SCH (08:33)
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
[2016-12-16] MEDS: FUROSEMIDE 20 MG TABLET PO SCH (11:04)
[2016-12-16] MEDS ORDERED: FUROSEMIDE 40 MG TABLET PO SCH (16:00)
--- NOTE | 2016-12-26 16:34 | Physician Query Form ---
CLICK EDIT DOCUMENT TO SELECT QUERY ANSWER --> OK --> SIGN Desiree Downs RN Clinical [employer] W) [phone] (f) [phone] [email or web address] PROVIDERS: Make your selection(s) from the choices in EACH section by typing an "x" and enter comments in the comment section. Please use your independent medical judgment in providing your response. This request does not imply that any particular answer is desired or expected. CLINICAL INDICATORS: (Providers should not edit this section) Based on documentation of "Acute syncope" "Acute Afib" "he noticed his heart rate to be racing" "Will observe cardiac rhythm overnight" Based on the above, could you clarify the appropriate diagnosis, if significant , that supports the above abnormalities and additional evaluation, monitoring, and/or treatment rendered: ( X) Acute syncope due to Afib ( ) Acute syncope NOT due to Afib ( ) Acute syncope due to other ( ) Other, please specify: ( ) Clinically unable to determine COMMENTS: Use of terms such as suspected, likely, or probable (associated with a specific diagnosis that is being evaluated, monitored, or treated as if it exists) are acceptable and can be restated in the discharge summary if not ruled out. [email or web address]
--- NOTE | 2016-12-28 16:34 | Physician Query Form ---
CLICK EDIT DOCUMENT TO SELECT QUERY ANSWER --> OK --> SIGN Desiree Downs RN Clinical Sh[employer] Cutter W) [phone] (f) [phone] [email or web address] PROVIDERS: Make your selection(s) from the choices in EACH section by typing an "x" and enter comments in the comment section. Please use your independent medical judgment in providing your response. This request does not imply that any particular answer is desired or expected. CLINICAL INDICATORS: (Providers should not edit this section) Based on documentation of history of CHF. "weakness and shortness of breath" "improved rapidly with some doses of IV Lasix" Echo shows an EF of 55%. Please provide further specificity regarding CHF. ACUITY: ( X) Acute ( ) Chronic ( ) Acute on Chronic ( ) Clinicallly unable to determine TYPE: ( ) Systolic ( X) Diastolic ( ) Combined Systolic/Diastolic ( ) Other, please specify: ( ) Clinically unable to determine ( ) The patient does NOT have CHF COMMENTS: Use of terms such as suspected, likely, or probable (associated with a specific diagnosis that is being evaluated, monitored, or treated as if it exists) are acceptable and can be restated in the discharge summary if not ruled out. [facility]
== END 2016-12-16 11:37 | disposition home or self-care (01) | DRG 308 ==
LOC: EDUNIT# → EDBD → N.ED 10:14 → N.EDINP 13:39 → N.5E 15:05
PROVIDERS: ADMIT Internal Medicine; ATTEND Internal Medicine

== ENCOUNTER 2017-01-11 19:02 | Inpatient (IN) ==
[2017-01-11] MEDS ORDERED: VECURONIUM 10 MG VIAL IV ONE ×5 (19:22→21:15)
[2017-01-11] MEDS: PHENYLEPHRINE DRIP 40 MG/250 ML PREMIX IV SCH (19:26)
[2017-01-11] MEDS ORDERED: PHENYLEPHRINE DRIP 40 MG/250 ML PREMIX IV ONE ×2 (19:26→22:17)
[2017-01-11] MEDS ORDERED: CLINDAMYCIN INJ 50 ML IV ONE (19:29)
[2017-01-11] MEDS ORDERED: SODIUM CHLORIDE 0.9% 500 ML IV STA (19:33)
[2017-01-11] MEDS ORDERED: CLINDAMYCIN INJ 600 MG in PREMIX 1 EACH IV STA (19:33)
[2017-01-11] MEDS ORDERED: methylPREDNISolone SOD SUC 125 MG/2 ML VIAL IV STA (19:33)
[2017-01-11] MEDS ORDERED: VANCOMYCIN INJ 1,000 MG in SODIUM CHLORIDE 0.9% 250 ML IV STA (19:33)
[2017-01-11] MEDS ORDERED: FUROSEMIDE 100 MG/10 ML VIAL IV STA (19:33)
[2017-01-11] MEDS ORDERED: MORPHINE 2 MG/1 ML SYRINGE IV STA (19:33)
[2017-01-11] MEDS ORDERED: ONDANSETRON 4 MG/2 ML VIAL IV STA (19:33)
[2017-01-11] MEDS ORDERED: ETOMIDATE 20 MG/10 ML VIAL IV ONE (19:42)
[2017-01-11] MEDS ORDERED: SUCCINYLCHOLINE 200 MG/10 ML VIAL ONE (19:43)
--- NOTE | 2017-01-11 19:49 | XRay Report ---
Portable chest Date: 01/11/2017 Clinical history: Endotracheal tube placement Comparison: 12/20/2016 Technique: Portable AP sitting chest Findings: Persistent prominent cardiomegaly with uncoiling of the aorta. The endotracheal tube is in satisfactory position. Decreased diffuse parenchymal findings with smaller pleural effusions. Persistent atelectasis with stable mediastinum. Degenerative changes are noted with postoperative findings in the thyroid bed. Impression: Improved but persistent [id number] pulmonary edema with smaller pleural effusions. Subsegmental atelectasis. The endotracheal tube is in satisfactory position. PROCEDURE INTERPRETED AT [facility] DEPARTMENT OF RADIOLOGY Final Report Signed by: Dr. Reina Cordova
[2017-01-11 19:53] LABS: Apearance,Urine Slightly Hazy (Clear); Bacteria,Urine Few /HPF (Few); Bilirubin,Urine Negative (Negative); Blood, Urine Negative (Negative); Glucose,Urine (UA) Negative (Negative); Hyaline Casts,Urine 6 /LPF (0-3); Ketones,Urine Negative (Negative); Mucus,Urine Occasional /LPF (Occasional); Nitrite,Urine Negative (Negative); Protein,Urine Negative; RBC,Urine 1 /HPF (0-4); Urine Color Yellow (Yellow); Urine Specific Gravity 1.014 (1.001-1.035); WBC,Urine 22 /HPF (0-6)
[2017-01-11 19:57] LABS: ABG Base Excess 7.2 MMOL/L (-2.5-2.5); ABG Oxygen Saturation 97.1 % (95-100); ABG PCO2 54.6 MM HG (35-48); ABG TCO2 29.8 MMOL/L (23-27); Allen Test Positive; Pt O2 Delivery Device Ventilator
[2017-01-11] MEDS ORDERED: methylPREDNISolone SOD SUC 125 MG/2 ML VIAL ONE (20:09)
[2017-01-11] MEDS ORDERED: MORPHINE 2 MG/1 ML SYRINGE ONE (20:09)
[2017-01-11] MEDS ORDERED: ONDANSETRON 4 MG/2 ML VIAL ONE (20:09)
[2017-01-11] MEDS ORDERED: FUROSEMIDE 20 MG/2 ML VIAL ONE (20:09)
[2017-01-11] MEDS ORDERED: FUROSEMIDE 40 MG/4 ML VIAL ONE (20:09)
--- NOTE | 2017-01-11 20:11 | Emergency Department Note ---
Rai Cruz Mantricia, am scribing for, and in the presence of, Ovidio Ballard MD 19:28. Elio Cruz Charles R, MD, personally performed the services described in this documentation, ascribed by Scot Atwood in my presence, and it is both accurate and complete . Arrival - Arrival Chief Complaint: Shortness of Breath Stated Complaint: aspiration ED Nursing Triage Note: ems states pt became sob while being fed at [facility]. pt is on nrb at 10l, 96% o2 sat, gurgling respirations. Mode of Arrival: Stretcher Source: EMS Time Seen by Provider: 01/11/17 19:13 - History of Present Illness HPI Narrative: Pt is a 81 y/o black male arriving to ED by EMS with c/o SOB. EMS states pt became SOB while being fed at [facility]. Pt is on NRB at 10l, 96% o2 sat, and gurgling respirations. Onset (ago): day(s) Consistency: constant Severity scale (1-10): 10 Allergies/Adverse Reactions: Allergies Allergy/AdvReac Type Severity Reaction Status Date / Time No Known Allergies Allergy Verified 12/20/16 00:54 Home Medications: Home Medications Medication Instructions Recorded Confirmed Type Aspirin EC Tab 81 mg PO DAILY 10/03/16 01/11/17 History Carvedilol [Coreg] 25 mg PO BID 10/03/16 01/11/17 History Dabigatran [Pradaxa] 150 mg PO BID 10/03/16 01/11/17 History Finasteride [Proscar] 5 mg PO DAILY 10/03/16 01/11/17 History Gabapentin Cap/Tab [Neurontin 300 mg PO DAILY 10/03/16 01/11/17 History Cap/Tab] Lisinopril 40 mg PO DAILY 10/03/16 01/11/17 History Lovastatin 20 mg PO BEDTIME 10/03/16 01/11/17 History Levothyroxine Tab [Synthroid Tab] 175 mcg PO DAILY@0700 #30 tablet 10/04/16 Rx Potassium Chloride [Klor-Con M20] 20 meq PO DAILY 12/14/16 01/11/17 History hydrALAZINE TAB [Apresoline Tab] 50 mg PO TID 12/14/16 01/11/17 History Furosemide Tab [Lasix Tab] 40 mg PO BID DIURETIC #90 tablet 12/16/16 01/11/17 Rx NIFEdipine [Nifedipine ER] 30 mg PO DAILY 01/11/17 01/11/17 History Review of System - Review of System ROS unobtainable: due to endotracheal tube - Review of System Constitutional: Present: other (SOB) Respiratory: Present: respiratory distress Medical,Surgical,& Family Hx - Medical History Cardio: History of: CHF, CAD, Hypertension, Valvular Heart Disease (A-FIB) Neurology: History of: Cerebrovascular Accident, Peripheral Neuropathy HEENT: History of: Eye Problem (prostethic eye) Endocrine: History of: Dyslipidemia - Surgical History Cardiac Surgeries: Patient Denies: Cardiac Catheterization - Social History Smoking Status: Unknown if ever smoked Frequency of Alcohol Use: None Type of Drug Use: Unknown Exam Vital Signs: Vital Signs Temperature 100.6 F H 01/11/17 19:10 Pulse Rate 136 H 01/11/17 19:10 Respiratory Rate 12 01/11/17 21:14 Blood Pressure 78/54 01/11/17 19:10 O2 Sat by Pulse Oximetry 96 01/11/17 19:10 - General Exam limited due to: other (anasarca edema up to breasts) General appearance: in distress - Head Head exam: Present: atraumatic, normocephalic, normal inspection - Eye Eye exam: Present: normal appearance, PERRL, EOMI - ENT ENT exam: Present: normal exam, normal oropharynx - Neck Neck exam: Present: trachea midline. Absent: tenderness - Chest Chest inspection: Present: normal inspection, symmetric chest wall rise. Absent : tenderness - Respiratory Respiratory exam: Present: other (gurgling) - Cardiovascular Cardiovascular exam: Present: normal rhythm, tachycardia, normal heart sounds - Abdominal Exam Abdominal exam: Present: soft, distention. Absent: tenderness, guarding, rebound - Extremities Exam Extremities exam: Present: pedal edema (full of fluid). Absent: tenderness - Neurological Exam Neurological exam: Present: alert. Absent: oriented X3 (unresponsive) - Skin Skin exam: Present: warm, dry, intact, normal color Course Course Narrative: Family was notified the patient's condition being critical and the intubation - Reevaluation(s) Reevaluation #1: After intubation patient has done much better with O2 saturations near 100%. The flash pulmonary edema has significantly improved. Of note there was food in the airway just above the vocal cords when I was intubated the patient suggestive of aspiration which also is is confirmed by family members who saw the patient aspirated food at the alf Time: 20:11 - Consultations Consultation #1: Dr De La Rosa will admit pt Time: 21:31 Procedures - Central Line Placement Right Femoral Time Out Performed: No Patient Placed on Monitor/Pulse Ox: Yes MD Prep: gown, gloves Ultrasound Used for Placement: Yes (Triple lumen confirmed) Central Line Lumen Inserted: triple Post Procedure: sutured in place, good blood return, all ports aspirated, flushed, capped, sterile dressing applied Patient Tolerated Procedure: well Complications: none - Intubation Time out performed: Yes sedative: Etomidate Mg Given: 10 paralytic: Vecuronium Mg Given: 10 Laryngoscope: fiber optic video scope Assist Device Used: fiber optic device ET Tube Size: 7.5 ET Tube Uncuffed: Yes Tube Secured Depth (cm): 23 Tube Secured Location: lips Tube Placement Confirmation: visualized tube passing through cords, equal breath sounds bilaterally, confirmation detector color change Patient Tolerated Procedure: no complications Intubation Complications: none Results - Labs CBC & BMP: 01/11/17 20:38 01/11/17 20:38 Lab Results: I have reviewed the patients labs - Diagnostic Findings Procedure: Chest x-ray: report reviewed by me ( The tip of the nasogastric tube projects in the stomach just beyond the GE junction. Improved but persistent [id number] pulmonary edema with smaller pleural effusions. Subsegmental atelectasis. The endotracheal tube is in satisfactory position. ) Critical Care Time Critical Care Time: Yes Total Critical Care Time: 90 (intubation) Disposition Clinical Impression: Congestive heart failure, NICM (nonischemic cardiomyopathy), Atrial fibrillation, Acute respiratory failure, Aspiration into airway, Fever, UTI ( urinary tract infection), Hypotension, Sepsis Case discussed with: patient, patient's family Disposition: Still a Patient Condition: Critical Time of Disposition: 20:10
[2017-01-11] MEDS ORDERED: NOREPINEPHRINE 4 MG/4 ML VIAL IV ONE (20:24)
[2017-01-11] MEDS: NOREPINEPHRINE 16 MG in SODIUM CHLORIDE 0.9% 234 ML IV SCH (20:32)
--- NOTE | 2017-01-11 20:32 | XRay Report ---
Portable chest Date: 01/11/2017 Clinical history: Nasogastric tube placement Comparison: 01/11/2017 Technique: Portable AP sitting chest Findings: The tip of the nasogastric tube projects in the stomach just beyond the GE junction. Impression: The tip of the nasogastric tube projects in the stomach just beyond the GE junction. The tube should be advanced farther into the stomach. PROCEDURE INTERPRETED AT [facility] DEPARTMENT OF RADIOLOGY Final Report Signed by: Dr. Reina Cordova
[2017-01-11] MEDS ORDERED: DILTIAZEM 50 MG/10 ML VIAL IV ONE (20:50)
[2017-01-11] MEDS ORDERED: DILTIAZEM 50 MG/10 ML VIAL IV STA (20:51)
[2017-01-11 21:03] LABS: Basophils % 0.1 % (0.0-0.8); Eosinophils % 0.2 % (0.00-10.9); Hematocrit 35.2 VOL% (42.0-52.0); Hemoglobin 10.5 GM/DL (14.0-18.0); Immature Granulocytes % 0.5 %; Immature Granulocytes Absolute 0.07 #; Lymphocytes # 0.9 10*3/uL (1.4-4.0); Lymphocytes % 6.4 % (21.2-54.2); Mean Corpuscular HGB Conc 29.8 GM/DL (32-36); Mean Corpuscular Hemoglobin 30 PG (27-34); Mean Corpuscular Volume 100.3 FL (87-102); Mean Platelet Volume 11.7 FL (9.6-12.0); Monocytes # 0.7 10*3/uL (0.11-0.8); Monocytes % 4.9 % (1.7-12.7); Neutrophils # 12.4 10*3/uL (1.4-7.4); Neutrophils % 87.9 % (38.7-73.9); Platelet Count 235 T/CUMM (130-400); Red Blood Count 3.51 MC/CUMM (3.8-5.5); Red Cell Distribution Width 15.1 % (9.3-17.3); White Blood Count 14.2 T/CUMM (4-12)
[2017-01-11] MEDS ORDERED: SODIUM CHLORIDE 0.9% 1,000 ML IV STA (21:06)
[2017-01-11 21:12] LABS: INR 1.6
[2017-01-11] MEDS ORDERED: VECURONIUM 10 MG VIAL IV STA (21:20)
[2017-01-11] MEDS ORDERED: VANCOMYCIN 1,000 MG VIAL ONE (21:26)
[2017-01-11 21:35] LABS: Albumin 2.1 G/DL (3.4-5.0); Bilirubin,Total 0.4 MG/DL (0.2-1.0); Calcium 7.4 MG/DL (8.5-10.1); Magnesium 2.3 MG/DL (1.8-2.4); Osmolality,Calculated 305.1 MOS/KG (273-304); Potassium 4.6 MMOL/L (3.5-5.1); Total Protein 6.2 G/DL (6.4-8.3); Troponin I Only 0.018 NG/ML (0.00-0.045)
[2017-01-11] MEDS ORDERED: ALBUTEROL/IPRATROPIUM 3 ML NEB RESP TX PRN (21:40)
[2017-01-11] MEDS ORDERED: ONDANSETRON 4 MG/2 ML VIAL IV PRN (21:40)
[2017-01-11] MEDS ORDERED: ALBUTEROL 2.5 MG/3 ML NEB RESP TX PRN (21:45)
[2017-01-11] MEDS ORDERED: LEVOFLOXACIN INJ 750 MG in PREMIX 1 EACH IV SCH (22:00)
[2017-01-11] MEDS ORDERED: ENOXAPARIN 30 MG/0.3 ML SYRINGE SUBCUT SCH (22:00)
[2017-01-11] MEDS ORDERED: PROPOFOL 1,000 MG/100 ML BOTTLE IV ONE (23:00)
[2017-01-11] MEDS: DEXTROSE 5% NACL 0.45% 1,000 ML IV SCH (23:15)
[2017-01-11] MEDS: PROPOFOL 1,000 MG/100 ML BOTTLE IV SCH (23:15)
[2017-01-11 23:54] LABS: ABG HCO3 29.9 MMOL/L (20-26); ABG Oxygen Saturation 99.3 % (95-100); ABG PCO2 54.4 MM HG (35-48); ABG PH 7.384 (7.35-7.45); ABG TCO2 29.1 MMOL/L (23-27); Allen Test Positive; Pt O2 Delivery Device Ventilator
[2017-01-12] MEDS: PHENYLEPHRINE DRIP 40 MG/250 ML PREMIX IV SCH ×3 (00:05→19:03)
--- NOTE | 2017-01-12 00:10 | Hospitalist History & Physical ---
Assessment and Plan - Time spent with patient Time spent with patient: Greater than 30 minutes (1) Sepsis Status: Acute Assessment and plan: Due to aspiration pneumonia Lactic acid 1.4. Current Visit: Yes Qualifiers: Sepsis type: sepsis due to unspecified organism Qualified Code(s): A41.9 - Sepsis, unspecified organism (2) Aspiration pneumonia Status: Acute Assessment and plan: Patient started on Levaquin and Azactam. Consult pulmonary for vent management. Admit to ICU Current Visit: Yes Qualifiers: Aspiration pneumonia type: due to regurgitated food Laterality: right Lung location: unspecified part of lung Qualified Code(s): J69.0 - Pneumonitis due to inhalation of food and vomit (3) History of intracranial hemorrhage Status: Acute Assessment and plan: Intracranial hemorrhage on Pradaxa 3 weeks ago. Required hospitalization at [facility]. Current Visit: Yes (4) Atrial fibrillation Status: Chronic Current Visit: No Qualifiers: Atrial fibrillation type: chronic Qualified Code(s): I48.2 - Chronic atrial fibrillation (5) HTN (hypertension) Status: Chronic Current Visit: No Qualifiers: Hypertension type: essential hypertension Qualified Code(s): I10 - Essential (primary) hypertension (6) Acute respiratory failure Status: Acute Assessment and plan: Due to acute aspiration syndrome and pneumonia. Current Visit: Yes Qualifiers: Respiratory failure complication: hypoxia Qualified Code(s): J96.01 - Acute respiratory failure with hypoxia (7) Hypotension Status: Acute Current Visit: Yes Qualifiers: Hypotension type: unspecified hypotension type Qualified Code(s): I95.9 - Hypotension, unspecified (8) Acute kidney injury Status: Acute Assessment and plan: Secondary to sepsis. Continue IV fluids. Current Visit: Yes History of Present Illness Chief complaint: Shortness of breath, gurgling respirations History of present illness: Mr. Celaya is a 81 year old male arriving to ED by EMS with c/o SOB. EMS states pt became SOB while being fed at [facility]. Pt is on NRB at 10 L, 96% o2 sat, and gurgling respirations. The patient was emergently intubated in the emergency department for acute respiratory failure. He was noted to have food particulates at the vocal cords and is believed to have aspirated. His daughter is at the bedside and provides all of the history. The patient was recently hospitalized in [place] for intracranial hemorrhage related to anticoagulation. This has since been discontinued. The patient spent approximately 2-3 weeks in the hospital in [place]. [facility] where he has been for approximately 1 week. As a result of his recent brain hemorrhage, the patient has had some difficulty swallowing and was on a pured diet. This further suggests and confirms his acute presentation of acute aspiration and aspiration syndrome causing respiratory failure. The patient's also noted to have sacral decubitus ulcer which the family reports began during his hospitalization in [place] approximately 3 weeks ago. Prior to his brain hemorrhage, a month ago, the patient was otherwise mobile and lived at home. His history is significant for prior ischemic stroke 15 or more years ago. At this time he is intubated and sedated and is hypotensive on pressor therapy. He is critically ill and is being transferred to the intensive care unit. Home Medications Medication Instructions Recorded Confirmed Type Aspirin EC Tab 81 mg PO DAILY 10/03/16 01/11/17 History Carvedilol [Coreg] 25 mg PO BID 10/03/16 01/11/17 History Dabigatran [Pradaxa] 150 mg PO BID 10/03/16 01/11/17 History Finasteride [Proscar] 5 mg PO DAILY 10/03/16 01/11/17 History Gabapentin Cap/Tab [Neurontin 300 mg PO DAILY 10/03/16 01/11/17 History Cap/Tab] Lisinopril 40 mg PO DAILY 10/03/16 01/11/17 History Lovastatin 20 mg PO BEDTIME 10/03/16 01/11/17 History Levothyroxine Tab [Synthroid Tab] 175 mcg PO DAILY@0700 #30 tablet 10/04/16 Rx Potassium Chloride [Klor-Con M20] 20 meq PO DAILY 12/14/16 01/11/17 History hydrALAZINE TAB [Apresoline Tab] 50 mg PO TID 12/14/16 01/11/17 History Furosemide Tab [Lasix Tab] 40 mg PO BID DIURETIC #90 tablet 12/16/16 01/11/17 Rx NIFEdipine [Nifedipine ER] 30 mg PO DAILY 01/11/17 01/11/17 History Allergies Allergy/AdvReac Type Severity Reaction Status Date / Time No Known Allergies Allergy Verified 12/20/16 00:54 Medical,Surgical,& Family Hx - Medical History Cardio: History of: Cerebrovascular Disease, CHF, CAD, Hypertension, Valvular Heart Disease (A-FIB) Neurology: History of: Cerebral Hemorrhage (Recent hemorrhage 3-4 weeks ago), Cerebrovascular Accident (Ischemic stroke 15+ years ago), Peripheral Neuropathy HEENT: History of: Eye Problem (prostethic eye) Endocrine: History of: Dyslipidemia - Surgical History Cardiac Surgeries: Patient Denies: Cardiac Catheterization - Family History Family History: Reports;: Family Hypertension - Social History Smoking Status: Unknown if ever smoked Frequency of Alcohol Use: None Type of Drug Use: Unknown Marital Status: Lives With:: custodial Functional capacity: bed bound ROS unobtainable: due to endotracheal tube Exam - Constitutional Vitals: Period Temp Pulse Resp BP Sys/Novak Pulse Ox Last 24 Hr 98 12-12 117/76 99 Exam: Constitutional System: Mild distress. No tremulousness. Intubated and sedated Head: Normocephalic, atraumatic. Ears, Nose and Throat System: No pain or tenderness. No epistaxis or discharge. endotracheal tube in place. Eyes System: Pupils equal, round, and reactive. Neck: Supple, without adenopathy, No jugular venous distention. No thyromegaly, neck mass, or prior surgery apparent. Respiratory System: Chest with rhonchi to auscultation bilaterally. Cardiovascular System: Heart with regular rate and rhythm. No murmur. GI System: Abdomen soft, nontender. Normo active bowel sounds present. Musculoskeletal System: limbs with 2-3+ pedal edema bilaterally. Full distal pulses. Neurological System: No discernable sensory deficit. No aphasia Psychiatric System: Conversation is rational Sacral decubitus ulcer noted Results - Labs CBC & BMP: 01/11/17 20:38 01/11/17 20:38 Lab Results: I have reviewed the past 24 hour labs - Diagnostic Findings Procedure: X-ray: image reviewed by me, report reviewed by me Quality Measures - VTE Contraindication to Pharmacological VTE Prophylaxis: Already on Theraputic Agent , No Prophylaxis Needed
[2017-01-12] MEDS: ALBUTEROL/IPRATROPIUM 3 ML NEB RESP TX SCH ×4 (00:39→19:10)
[2017-01-12] MEDS: AZTREONAM 2,000 MG in SODIUM CHLORIDE 0.9% 100 ML IV SCH ×4 (02:04→20:24)
[2017-01-12 02:53] LABS: ABG Base Excess 7.9 MMOL/L (-2.5-2.5); ABG HCO3 32.9 MMOL/L (20-26); ABG Oxygen Saturation 98.9 % (95-100); ABG PCO2 47.8 MM HG (35-48); ABG PH 7.455 (7.35-7.45); ABG PO2 187.8 MM HG (80-95); ABG TCO2 34.3 MMOL/L (23-27); Allen Test Positive; Pt O2 Delivery Device Ventilator
[2017-01-12 04:12] LABS: Basophils % 0.1 % (0.0-0.8); Hematocrit 34.6 VOL% (42.0-52.0); Hemoglobin 10.4 GM/DL (14.0-18.0); Immature Granulocytes % 1.2 %; Immature Granulocytes Absolute 0.25 #; Lymphocytes # 0.8 10*3/uL (1.4-4.0); Lymphocytes % 3.9 % (21.2-54.2); Mean Corpuscular HGB Conc 30.1 GM/DL (32-36); Mean Corpuscular Hemoglobin 30 PG (27-34); Mean Corpuscular Volume 100.3 FL (87-102); Mean Platelet Volume 11.5 FL (9.6-12.0); Monocytes # 0.4 10*3/uL (0.11-0.8); Monocytes % 1.9 % (1.7-12.7); Neutrophils # 20.1 10*3/uL (1.4-7.4); Neutrophils % 92.9 % (38.7-73.9); Platelet Count 228 T/CUMM (130-400); Red Blood Count 3.45 MC/CUMM (3.8-5.5); Red Cell Distribution Width 15.1 % (9.3-17.3); White Blood Count 21.6 T/CUMM (4-12)
[2017-01-12 05:21] LABS: Band Neutrophils 2 % (0-10); Hypochromasia 1+; Lymphocytes 2 % (20-55); Platelet Estimate Adequate; Segmented Neutrophils 92 % (50-85); Total Cells Counted 100
[2017-01-12 05:25] LABS: Bilirubin,Total 0.5 MG/DL (0.2-1.0); Calcium 7.8 MG/DL (8.5-10.1); Magnesium 2.5 MG/DL (1.8-2.4); Osmolality,Calculated 308.1 MOS/KG (273-304); Potassium 4.5 MMOL/L (3.5-5.1); Total Protein 5.8 G/DL (6.4-8.3)
[2017-01-12] MEDS: DEXTROSE 5% NACL 0.45% 1,000 ML IV SCH ×3 (06:15→22:28)
--- NOTE | 2017-01-12 06:45 | EKG Report ---
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
--- NOTE | 2017-01-12 07:53 | XRay Report ---
XR chest 1V portable Indication: Shortness of breath Comparison: 11 January 2017 Findings: The heart and mediastinum are stable in size and configuration. The lines and tubes are unchanged in position. The pulmonary vascularity is normal in caliber. There is increased in the bilateral lower lung density right greater than left. No other lung infiltrates, effusions, pneumothorax or other abnormality is demonstrated. Impression: Increased bilateral lower lung density, may indicate atelectasis or infiltrate. PROCEDURE INTERPRETED AT [facility] DEPARTMENT OF RADIOLOGY Final Report Signed by: Dr. Jackson Adam
--- NOTE | 2017-01-12 08:34 | Pulmonology Consult Note ---
History of Present Illness Chief complaint: Ventilator. Aspiration. Hypotension. History of present illness: Mr. Celaya is a 81 year old black male whom I been asked to see in pulmonary consultation for evaluation and treatment and management of pulmonary problems and mechanical ventilation. This patient became short of breath while being fed at [facility]. He required emergency intubation in the emergency room for acute respiratory failure. He had food particles on the vocal cords and it was thought that he had aspirated. His daughter said he was recently hospitalized in [place] for intracranial hemorrhage related to anticoagulation. Since that time anticoagulation has been discontinued. Patient has atrial fib and I assume that this is the reason he was anticoagulated but he also has massive lower extremity edema. He was in the hospital in [place] for 2-3 weeks and was discharged to a [place] [facility] where he been for a week. He was on a pured diet because he had trouble swallowing. On his admit exam he was also noted to have a sacral decubitus ulcer family said that prior to his hospitalization in [place] he was mobile and lived at home.. Note that this patient's home medicines include Pradaxa. The review of systems was obtained from the patient's admit notes. Patient is unable to give a review of systems of the remainder of the review of systems is negative. Allergies. See below Home medicines. See below Past history. November 2016 hospitalization at [place] for enter cerebral bleed related to anticoagulation. Distant past history of a stroke. Atrial fib. High blood pressure. Hyperlipidemia. Hypothyroidism. BPH. Valvular heart disease. History of peripheral neuropathy. He has a prosthetic eye. Social history. Does not use alcohol. Tobacco status is unknown. . Lives in a [place] [facility] and is bedbound. Family history. Positive high blood pressure Chest x-ray. Bilateral pleural effusions greater on the right than the left. Bibasilar atelectasis. ABGs. Mechanical ventilation. FiO2 80%. PH is 7.455, PCO2 is 47.8, PO2 is 188 and bicarb is 32.9. Lab. Sodium is 149. Potassium is 4.5. Creatinine and admission was 1.7 has fallen 1.6 with a BUN of 37. Calcium is low magnesium is slightly high at 2.5. Protein and albumin are low at 5.8 and 2.0 respectively. Globulin is high at 3.8. Urine shows no evidence of infection. Amylase and lipase are normal. Natruretic peptide is elevated 377. C-reactive protein is elevated 10.3. Sedimentation rate is 8. Physical exam Vital signs. See below Neurologic. Patient can be aroused. Neck. Symmetrical. Lymphatics. No submandibular cervical supraclavicular or epitrochlear adenopathy Chest. Mild large airway congestion Heart irregular atrial fib at about 110 bpm Abdomen. Obese. Rare bowel sounds Lower extremities. +2/4 bilateral pedal and pretibial edema that extends at least to the tibial plateaus. Arterial. Carotids are faintly palpable. Upper extremity pulses are palpable lower extremity pulses nonpalpable Venous exam neck and upper extremities are normal lower extremities show chronic venous stasis changes The remainder the exam is noncontributory. Impression. 1. Acute respiratory failure requiring intubation mechanical ventilation. Sunflower to be secondary to acute aspiration. 2. Recent intracerebral bleed with neuro logical sequela including difficulty swallowing 3. Hypothyroidism 4. Mild anemia 5. Low calcium probably secondary to low albumin. Look for vitamin D deficiency. 6. Hypotension requiring pressor agents. 7. Hypoproteinemia, hypoalbuminemia, mild increase globulins. 8. Atrial fib 9. Valvular heart disease. Type unknown 10. History of high blood pressure 11. Azotemia. Creatinine 1.6. 12. See past history. Plan. 1. Bronchoscopy to evaluate for aspiration 2. Repeat BNP 3. Doppler venograms of lower extremities 4. Ankle ventilation weaning protocol 5. Mechanical ventilation physical therapy protocol 6. Agree with protocol antibiotics but will decrease Levaquin from 750-500 mg because of azotemia. 7. Wean pressor agents as tolerated 8. TSH 9. Echocardiogram. Evaluate output and abnormal valves 10. Vitamin D level 11. See orders 6. Do not anticoagulate as part of the deep venous thrombophlebitis prevention protocol 7. Proton pump inhibitor protocol Home Medications Medication Instructions Recorded Confirmed Type Aspirin EC Tab 81 mg PO DAILY 10/03/16 01/11/17 History Carvedilol [Coreg] 25 mg PO BID 10/03/16 01/11/17 History Dabigatran [Pradaxa] 150 mg PO BID 10/03/16 01/11/17 History Finasteride [Proscar] 5 mg PO DAILY 10/03/16 01/11/17 History Gabapentin Cap/Tab [Neurontin 300 mg PO DAILY 10/03/16 01/11/17 History Cap/Tab] Lisinopril 40 mg PO DAILY 10/03/16 01/11/17 History Lovastatin 20 mg PO BEDTIME 10/03/16 01/11/17 History Levothyroxine Tab [Synthroid Tab] 175 mcg PO DAILY@0700 #30 tablet 10/04/16 Rx Potassium Chloride [Klor-Con M20] 20 meq PO DAILY 12/14/16 01/11/17 History hydrALAZINE TAB [Apresoline Tab] 50 mg PO TID 12/14/16 01/11/17 History Furosemide Tab [Lasix Tab] 40 mg PO BID DIURETIC #90 tablet 12/16/16 01/11/17 Rx NIFEdipine [Nifedipine ER] 30 mg PO DAILY 01/11/17 01/11/17 History Allergies Allergy/AdvReac Type Severity Reaction Status Date / Time No Known Allergies Allergy Verified 12/20/16 00:54 Exam (Pulmonay) H&P - Constitutional Vitals: Period Temp Pulse Resp BP Sys/Novak Pulse Ox Last 24 Hr 98.4 F 98-137 12-18 73-135/50-91 93-100 Medical,Surgical,& Family Hx - Medical History Cardio: History of: Cerebrovascular Disease, CHF, CAD, Hypertension, Valvular Heart Disease (A-FIB) Neurology: History of: Cerebral Hemorrhage (Recent hemorrhage 3-4 weeks ago), Cerebrovascular Accident (Ischemic stroke 15+ years ago), Peripheral Neuropathy HEENT: History of: Eye Problem (prostethic eye) Endocrine: History of: Dyslipidemia - Surgical History Cardiac Surgeries: Patient Denies: Cardiac Catheterization Neurologic Surgeries: Surgical HX of: Cerebral Hemorrhage (Recent hemorrhage 3- 4 weeks ago) - Family History Family History: Reports;: Family Hypertension - Social History Smoking Status: Unknown if ever smoked Frequency of Alcohol Use: None Type of Drug Use: Unknown Results - Labs CBC & BMP: 01/12/17 04:05 01/12/17 04:05 Quality Measures - VTE Contraindication to Pharmacological VTE Prophylaxis: Already on Theraputic Agent , No Prophylaxis Needed
[2017-01-12] MEDS ORDERED: ASPIRIN EC 81 MG TABLET PO SCH (09:00)
[2017-01-12] MEDS ORDERED: DABIGATRAN 150 MG CAPSULE PO SCH (09:00)
[2017-01-12] MEDS ORDERED: IBUPROFEN 600 MG TABLET PO PRN (10:18)
[2017-01-12] MEDS ORDERED: ALUMINUM/MAGNES/SIMETH MAX STR 30 ML UDCUP PO PRN (10:19)
[2017-01-12] MEDS ORDERED: DEXTROSE 50% 25 GM/50 ML VIAL IV PRN (10:21)
[2017-01-12] MEDS ORDERED: GLUCAGON 1 MG VIAL IM PRN (10:21)
[2017-01-12] MEDS: ASPIRIN CHEW 81 MG TABLET PO SCH (10:28)
--- NOTE | 2017-01-12 11:05 | Event Note ---
In hospital diagnostic and therapeutic fiberoptic bronchoscopy. Lavages from the right upper lung, right lower lung, left upper lung and left lower lung were sent for Gram stain, bacterial cultures, fungal stains and cultures. This is a 81-year-old black male who is admitted with respiratory failure. In the emergency room he required intubation mechanical ventilation. History was that he had aspirated. His chest x-ray showed atelectasis at both bases. He had been suctioned as thoroughly as possible and these changes did not resolve. For these reasons she was evaluated with fiberoptic bronchoscopy. #7-1/2 endotracheal tube is in good position. Distal trachea was normal the peter was sharp. The right mainstem bronchus was totally occluded with thick tenacious secretions and what appeared to be pured food. Along the way a small piece of meat was pulled out and a number of green peas were pulled out. These were mainly in the right lower lung. There was some mild underlying erythema and edema. The right lower lung subsegments were lavaged until clear. There was a good bit of retained secretions and possible gastric material in the right upper lung. There was some associated erythema. Right upper lung was lavaged until clear. The right mainstem bronchus was also full of secretions. Mixed in with this was pured food but no intact piece or meat was found. The left upper lung and left lower lung segments were lavaged until clear. There was erosive friable bronchitis in the right lower lung. The bronchitis was not stenotic. There were no endobronchial lesions that appear to be cancerous on either side. The patient tolerated procedure well there were no complications. Follow-up x- ray is pending Impression. 1. Respiratory failure requiring intubation mechanical ventilation. 2. Aspiration of food and gastric contents 3. Ineffective cough 4. Retained food gastric contents and secretions 5. Mild friable erosive bronchitis in the right upper lung, right lower lung, left upper lung and left lower lung. 6. Atelectasis. 7. See above Plan. 1. Check bronchoscopy specimens 2. Follow-up x-ray
--- NOTE | 2017-01-12 11:16 | General Surgery Consult Note ---
Assessment and Plan (1) Sacral decubitus ulcer Status: Acute Assessment and plan: This patient has a large infected sacral decubitus ulcer. He was presumed to be septic from aspiration pneumonia but I think is definitely possible that this is a source control problem with his infected sacral decubitus ulcer. He is on 2 pressors and is very sick but I think debridement will be necessary to eliminate this is an infectious cause of his illness. We will get consent from family and do this shortly. Current Visit: Yes History of Present Illness Chief complaint: Sepsis History of present illness: Mr. Celaya is a 81 year old male who is admitted from snf thought to be secondary to aspiration pneumonia sepsis but a large decubitus wound was found on his sacrum altering him today had a very foul odor to it. Patient is intubated and on 2 separate pressors. He is tachycardic in the 120s. White blood cell count is elevated. Home Medications Medication Instructions Recorded Confirmed Type Aspirin EC Tab 81 mg PO DAILY 10/03/16 01/11/17 History Carvedilol [Coreg] 25 mg PO BID 10/03/16 01/11/17 History Dabigatran [Pradaxa] 150 mg PO BID 10/03/16 01/11/17 History Finasteride [Proscar] 5 mg PO DAILY 10/03/16 01/11/17 History Gabapentin Cap/Tab [Neurontin 300 mg PO DAILY 10/03/16 01/11/17 History Cap/Tab] Lisinopril 40 mg PO DAILY 10/03/16 01/11/17 History Lovastatin 20 mg PO BEDTIME 10/03/16 01/11/17 History Levothyroxine Tab [Synthroid Tab] 175 mcg PO DAILY@0700 #30 tablet 10/04/16 Rx Potassium Chloride [Klor-Con M20] 20 meq PO DAILY 12/14/16 01/11/17 History hydrALAZINE TAB [Apresoline Tab] 50 mg PO TID 12/14/16 01/11/17 History Furosemide Tab [Lasix Tab] 40 mg PO BID DIURETIC #90 tablet 12/16/16 01/11/17 Rx NIFEdipine [Nifedipine ER] 30 mg PO DAILY 01/11/17 01/11/17 History Allergies Allergy/AdvReac Type Severity Reaction Status Date / Time No Known Allergies Allergy Verified 12/20/16 00:54 Medical,Surgical,& Family Hx - Medical History Cardio: History of: Cerebrovascular Disease, CHF, CAD, Hypertension, Valvular Heart Disease (A-FIB) Neurology: History of: Cerebral Hemorrhage (Recent hemorrhage 3-4 weeks ago), Cerebrovascular Accident (Ischemic stroke 15+ years ago), Peripheral Neuropathy HEENT: History of: Eye Problem (prostethic eye) Endocrine: History of: Dyslipidemia - Surgical History Cardiac Surgeries: Patient Denies: Cardiac Catheterization Neurologic Surgeries: Surgical HX of: Cerebral Hemorrhage (Recent hemorrhage 3- 4 weeks ago) - Family History Family History: Reports;: Family Hypertension - Social History Smoking Status: Unknown if ever smoked Frequency of Alcohol Use: None Type of Drug Use: Unknown - Constitutional Constitutional: Present: as per HPI - EENT Nose, mouth and throat: Present: as per HPI - Cardiovascular Cardiovascular: Present: as per HPI - Respiratory Respiratory: Present: as per HPI - Gastrointestinal Gastrointestinal: Present: as per HPI - Genitourinary Genitourinary: Present: as per HPI - Musculoskeletal Musculoskeletal: Present: as per HPI - Neurological Neurological: Present: as per HPI - Endocrine Endocrine: Present: as per HPI Hematologic/Lymphatic: Present: as per HPI Exam - Constitutional Vitals: Period Temp Pulse Resp BP Sys/Novak Pulse Ox Last 24 Hr 98.0 F-98.4 F 95-137 10-18 73-135/50-91 9-100 General appearance: severe distress, over weight - Head Head exam: Present: normal inspection, normocephalic - ENT ENT exam: Present: normal exam Mouth exam: Present: normal external inspection - Neck Neck exam: Present: normal inspection, trachea midline - Respiratory Respiratory exam: Present: other (coarse breath sounds bilaterally) - Cardiovascular Cardiovascular exam: Present: tachycardia. Absent: irregular rhythm, systolic murmur - GI/Abdominal GI/Abdominal exam: Present: soft. Absent: tenderness, rebound - Extremities Exam Extremities exam: Present: edema - Back Exam Back exam: Present: normal inspection - Skin Skin exam: Present: normal color, warm, other (Large sacral decubitus wound with foul odor and no active drainage) Quality Measures - VTE Contraindication to Pharmacological VTE Prophylaxis: Already on Theraputic Agent , No Prophylaxis Needed Results - Labs CBC & BMP: 01/12/17 04:05 01/12/17 04:05 - Diagnostic Findings Procedure: Chest x-ray: image reviewed by me, report reviewed by me
[2017-01-12 11:35] LABS: Free T4 (Free Thyroxine) 0.86 NG/DL (0.76-1.46); Thyroid Stimulating Hormone 5.8 uIU/ml (0.358-3.74)
[2017-01-12] MEDS ORDERED: BUPIVACAINE MPF 0.25% /EPI 30 ML VIAL ONE (12:21)
[2017-01-12] MEDS ORDERED: LIDOCAINE 2%/EPI 20 ML VIAL ONE (12:21)
[2017-01-12] MEDS: INSULIN LISPRO 100 UNIT/ML SUBCUT SCH ×2 (12:38→17:57)
--- NOTE | 2017-01-12 13:46 | Operative Note ---
Date of procedure: 01/12/17 Pre-op diagnosis: Infected necrotic sacral decubitus ulcer stage IV Post-op diagnosis: same Procedure: Preoperative diagnosis Infected stage IV sacral decubitus ulcer Postoperative diagnosis Same Procedures performed Excisional debridement of necrotic skin and subcutaneous tissue sacral decubitus ulcer measuring 100 cm Findings An extensive area of necrosis was present over the sacrum with purulent foul- smelling fluid. Excisional debridement was performed back to healthy bleeding tissue. Complications None apparent Specimen Cultures Anesthesia GETA Blood loss 10 mL Indications Infected stage IV sacral decubitus ulcer Description of procedure The patient was taken to the operating room and transferred to the operating table in supine position. General anesthesia was administered. The patient was rolled into a right lateral decubitus position. The buttocks and sacrum was prepped with Betadine and draped sterilely. Timeout was performed. Excisional debridement was performed of the skin and subcutaneous tissue with the Bovie electrocautery measuring 100 cm total over the sacral decubitus wound. The wound had some foul-smelling fluid fluid coming out of it and cultures were sent from this to the lab. The debridement was performed back to healthy tissue that was bleeding well with the exception of the sloughing area over the sacrum and the coccyx which was left alone with hopes for chemical debridement of this. The wound was packed with Dakin's wet-to-dry dressing and the patient was transferred back to the ICU Anesthesia: JASMYNE Surgeon / Physician: Bernard Adler Estimated blood loss: minimal Specimens: other (cultures) Condition: critical Disposition: ICU Results - Labs CBC & BMP: 01/12/17 04:05 01/12/17 04:05 Discharge Plan - Discharge Medications No Action Dabigatran [Pradaxa] 150 mg PO BID Aspirin EC Tab 81 mg PO DAILY Levothyroxine Tab [Synthroid Tab] 175 mcg PO DAILY@0700 #30 tablet hydrALAZINE TAB [Apresoline Tab] 50 mg PO TID Potassium Chloride [Klor-Con M20] 20 meq PO DAILY NIFEdipine [Nifedipine ER] 30 mg PO DAILY Lovastatin 20 mg PO BEDTIME Lisinopril 40 mg PO DAILY Gabapentin Cap/Tab [Neurontin Cap/Tab] 300 mg PO DAILY Finasteride [Proscar] 5 mg PO DAILY Carvedilol [Coreg] 25 mg PO BID Furosemide Tab [Lasix Tab] 40 mg PO BID DIURETIC #90 tablet - Follow Up or Referral - Forms/Instructions
[2017-01-12] MEDS ORDERED: MIDAZOLAM 2 MG/2 ML VIAL ONE (13:57)
--- NOTE | 2017-01-12 14:32 | Ultrasound Report ---
Exam: Bilateral lower extremity venous Doppler ultrasound Comparison: None Clinical history: Lower extremity edema Technique: Duplex scan of the lower extremity veins using B-mode/grayscale scaled imaging and Doppler spectral analysis and color flow. Findings: Major venous structures of the lower extremities demonstrate a normal course and caliber. Normal color-flow study and spectral analysis. There is normal compression and augmentation of bilateral common femoral, superficial femoral and popliteal veins. The proximal bilateral greater saphenous veins appear to be patent. Impression: No evidence to suggest deep venous thrombosis within either lower extremity. Ultrasound images were captured and stored. PROCEDURE INTERPRETED AT [facility] DEPARTMENT OF RADIOLOGY Final Report Signed by: Dr. Reina Cordova
[2017-01-12] MEDS: PANTOPRAZOLE 40 MG VIAL IV SCH (14:57)
[2017-01-12] MEDS: PROPOFOL 1,000 MG/100 ML BOTTLE IV SCH (15:14)
--- NOTE | 2017-01-12 15:31 | ECHO Report ---
Beto Celaya Exam Date: 01/12/2017 12:19 Referring Physician: Technologist: Halina Clark RDCS Age: 81 Ht (in): 70 Wt (lb): 248 Gender: M Exam Location: [facility] [place] Echo Indications: Aspiration, Shortness of breath, Acute respiratory failure, unspecified whether with hypoxia or hypercapnia, Edema, unspecified, Pleural effusion, not elsewhere classified, Atrial fibrillation BP: 102 / 77 HR: 103 Rhythm: Atrial fibrillation Technical Quality: IMPRESSIONS Technically adequate study 3+ left atrial enlargement Normal LV systolic function with ejection fraction estimated to be 60% without segmental wall motion normality 1+ aortic stenosis (mean and peak gradient 12/18 mmHg), and 1+ aortic regurgitation Mitral annular calcification with 1+ MR 2-3+ TR with RVSP 39 mmHg plus RAP Small to moderate-size circumferential pericardial effusion, without findings to suggest temporal Pleural effusions noted MEASUREMENTS (Male / Female) Normal Values 2D ECHO LV Diastolic Diameter PLAX 4.3 cm 4.2 - 5.9 / 3.9 - 5.3 cm LV Systolic Diameter PLAX 2.3 cm LV Fractional Shortening PLAX 47.9 % IVS Diastolic Thickness 0.9 cm 0.6 - 1.0 / 0.6 - 0.9 cm LVPW Diastolic Thickness 0.9 cm 0.6 - 1.0 / 0.6 - 0.9 cm RV Internal Dim ED PLAX 3.0 cm Aortic Root Diameter 3.4 cm LA Systolic Diameter LX 5.3 cm 3.0 - 4.0 / 2.7 - 3.8 cm DOPPLER TR Peak Velocity 311.0 cm/s TR Peak Gradient 38.7 mmHg FINDINGS Left Ventricle Normal left ventricular cavity size. Normal left ventricular wall thickness. Left ventricular ejection fraction is estimated at 60 %. Right Ventricle The right ventricle is normal in size and function. Right Atrium Mild atrial enlargement in apical view (elongated RA). Left Atrium Mild atrial enlargement in apical view (elongated LA). Mitral Valve Mildly thickened mitral valve with mild mitral regurgitation. Aortic Valve Aortic valve sclerosis. Mean gradient 12 mmHg, ELOISE 2.6 cm. Tricuspid Valve Morphologically normal tricuspid valve. Mild tricuspid valve regurgitation. Tricuspid regurgitation velocities suggest a PAP of 49 mmHg. Pulmonic Valve Morphologically normal pulmonic valve without significant stenosis. There is no pulmonic regurgitation. Pericardium Small pericardial effusion. Right and left pleural effusion. Aorta Normal ascending aorta dimension. Alan Ashby (Electronically Signed) Final Date: 12 January 2017 15:13
[2017-01-12] MEDS: CARVEDILOL 25 MG TABLET PO SCH (20:27)
[2017-01-12] MEDS: LEVOFLOXACIN INJ 500 MG in PREMIX 1 EACH IV SCH (21:36)
[2017-01-13] MEDS: INSULIN LISPRO 100 UNIT/ML SUBCUT SCH ×4 (00:13→17:59)
[2017-01-13] MEDS: ALBUTEROL/IPRATROPIUM 3 ML NEB RESP TX SCH ×4 (00:33→19:54)
[2017-01-13] MEDS: PHENYLEPHRINE DRIP 40 MG/250 ML PREMIX IV SCH ×6 (01:04→22:46)
[2017-01-13] MEDS: AZTREONAM 2,000 MG in SODIUM CHLORIDE 0.9% 100 ML IV SCH ×4 (02:11→19:28)
[2017-01-13 04:55] LABS: ABG Base Excess 4.4 MMOL/L (-2.5-2.5); ABG HCO3 28.4 MMOL/L (20-26); ABG Oxygen Saturation 99.7 % (95-100); ABG PCO2 45.3 MM HG (35-48); ABG PH 7.421 (7.35-7.45); ABG TCO2 26.6 MMOL/L (23-27)
[2017-01-13] MEDS: PROPOFOL 1,000 MG/100 ML BOTTLE IV SCH (05:08)
[2017-01-13] MEDS: NOREPINEPHRINE 16 MG in SODIUM CHLORIDE 0.9% 234 ML IV SCH (05:09)
[2017-01-13 05:31] LABS: Calcium 7.6 MG/DL (8.5-10.1); Magnesium 2.2 MG/DL (1.8-2.4); Osmolality,Calculated 307.4 MOS/KG (273-304); Potassium 3.9 MMOL/L (3.5-5.1)
[2017-01-13 05:47] LABS: Phosphorous 3.9 MG/DL (2.5-4.9); Prealbumin 4.9 MG/DL (20-40)
[2017-01-13] MEDS: DEXTROSE 5% NACL 0.45% 1,000 ML IV SCH ×3 (06:08→22:46)
[2017-01-13] MEDS: LEVOTHYROXINE 175 MCG TABLET PO SCH (06:09)
--- NOTE | 2017-01-13 09:04 | Event Note ---
General Surgery Progress Note Chief complaint This patient is a 81-year-old man who was admitted with aspiration pneumonia and sepsis but also found to have a foul-smelling sacral decubitus wound that was controlled with excisional debridement with drainage of abscess on 01/12/2017 Interval history The patient initially weaned off pressors nicely but he is now going back on his requirements of phenylephrine. He does wake up and follows some commands per the nurses. Physical exam The patient is afebrile but he is hypotensive and on phenylephrine His sacral decubitus wound has some necrotic tissue at the superior aspect of the wound on the muscle level but there is no foul odor or purulent drainage today. Labs Reviewed Imaging Reviewed Assessment and plan Continue wound care with Dakin's twice daily to the sacral wound. We will see how much debridement diskettes with dressing changes but he may need to go back to the operating room sometime next week if he continues to have areas of necrosis that is not controlled with dressing changes. I do not feel that there is any infectious source control problems at the sacral decubitus wound at this time.
--- NOTE | 2017-01-13 09:20 | XRay Report ---
History: Endotracheal tube placement. History of CHF, hypertension, and coronary artery disease Date: 01/13/2017 Study: Chest x-ray AP portable Comparison exam: 01/12/2017 The endotracheal tube is well-positioned with its tip approximately 4 cm superior to the level of the peter. The nasogastric tube enters the stomach. There is continued cardiomegaly. The mediastinal contours are unchanged. The pulmonary vasculature is not grossly engorged. There is patchy and strandy bibasilar atelectasis/infiltrate, improved on the right and increased on the left. There is at least mild bilateral pleural effusion. Surgical clips overlie the thyroid bed region bilaterally as before. Osseous structures are similar. Impression: Satisfactory positioning of endotracheal tube. Continued bibasilar atelectasis/infiltrate, improved on the right and increased on the left PROCEDURE INTERPRETED AT [facility] DEPARTMENT OF RADIOLOGY Final Report Signed by: Dr. Shraddha Ford
[2017-01-13] MEDS: CARVEDILOL 25 MG TABLET PO SCH ×2 (09:22→20:59)
[2017-01-13] MEDS: ASPIRIN CHEW 81 MG TABLET PO SCH (09:22)
[2017-01-13] MEDS: PANTOPRAZOLE 40 MG VIAL IV SCH (09:22)
[2017-01-13] MEDS: FINASTERIDE 5 MG TABLET PO SCH (09:23)
[2017-01-13] MEDS ORDERED: SODIUM HYPOCHLORITE 0.25% IRRIG 473 ML BOTTLE TOP SCH (09:30)
[2017-01-13] MEDS: SODIUM HYPOCHLORITE 0.25% IRRIG 473 ML BOTTLE TOP SCH (10:06)
--- NOTE | 2017-01-13 10:48 | Pulmonology Progress Note ---
Pulmonary - PN: Subj Interval history: 81y/o M with respiratory failure due to aspiration 2/2 recent ICH. Overnight levophed was titrated off but pt continues on neosynephrine. CPAP trials are ongoing. ETT in good position on CXR this AM. Sacral decub ulcer evaluated / debrided at bedside this AM without any reported areas concerning for infection , but area of necrosis may need repeat OR trip early next week. Exam (Progress Note) - Constitutional Vitals: Period Temp Pulse Resp BP Sys/Novak Pulse Ox Last 24 Hr 96.9 F-98.5 F 88-123 12-14 84-138/49-81 95-100 General appearance: normal weight, no acute distress - Head Head exam: Present: normal inspection - Eye Eye exam: Present: EOMI Pupils: Present: PREMA - ENT ENT exam: Present: normal exam - Neck Neck exam: Present: normal inspection - Respiratory Respiratory exam: Present: clear to auscultation bilaterally - Cardiovascular Cardiovascular exam: Present: irregular rhythm. Absent: gallop, rubs - GI/Abdominal GI/Abdominal exam: Present: normal bowel sounds, soft - Extremities Exam Extremities exam: Present: normal inspection - Neurological Exam Neurological exam: Present: other (sedated on ventilator) - Skin Skin exam: Present: warm, dry Results - Labs CBC & BMP: 01/12/17 04:05 01/13/17 04:50 - Diagnostic Findings Procedure: Chest x-ray: image reviewed by me (worsened left basilar opacification, improved on Right. Cardiomegaly. ETT in good position.) Assessment and Plan (1) Acute respiratory failure Status: Acute Assessment and plan: 2/2 aspiration event & volume overload. Doing well on vent. Plan to titrate down FiO2 as tolerated for goal sat >90%. Continue CPAP trials. Daily CXR to monitor worsened left effusion / atelectasis. Current Visit: Yes Qualifiers: Respiratory failure complication: hypoxia Qualified Code(s): J96.01 - Acute respiratory failure with hypoxia (2) Acute kidney injury Status: Acute Assessment and plan: Slowly improving, trend & dose meds appropriately. Current Visit: Yes (3) Aspiration pneumonia Status: Acute Assessment and plan: Continue current antibiotics & need recheck CBC this AM given the up-trending WBC yesterday. Current Visit: Yes Qualifiers: Aspiration pneumonia type: due to regurgitated food Laterality: right Lung location: unspecified part of lung Qualified Code(s): J69.0 - Pneumonitis due to inhalation of food and vomit (4) Hypotension Status: Acute Assessment and plan: Requiring pressors. Urine culture positive yesterday, possible new source for infection. Continue antibiotics & wean pressors as allowed. Current Visit: Yes Qualifiers: Hypotension type: unspecified hypotension type Qualified Code(s): I95.9 - Hypotension, unspecified (5) History of intracranial hemorrhage Status: Acute Current Visit: Yes (6) Urinary tract infection Status: Acute Assessment and plan: GPC on urine culture, awaiting speciation. Continue current antibiotics. Current Visit: Yes
--- NOTE | 2017-01-13 12:05 | Hospitalist Progress Note ---
Assessment and Plan (1) Aspiration pneumonia Status: Acute Assessment and plan: Impression: 1. Aspiration pneumonia, improving 2. Atrial fibrillation, rate control 3. Acute respiratory failure, improved Plan: The patient appears to be improving. He is currently on spontaneous ventilator settings. He is still requiring some pressure support. We will continue current management, including IV antibiotics and ventilator support until pulmonary feels like it is safe to extubate. This note was completed using [employer] voice recognition software. 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 Current Visit: Yes Qualifiers: Aspiration pneumonia type: due to regurgitated food Laterality: right Lung location: unspecified part of lung Qualified Code(s): J69.0 - Pneumonitis due to inhalation of food and vomit Hospitalist: Subjective Interval history: Follow-up aspiration pneumonia with sepsis and atrial fibrillation. The patient remains fairly comfortable on the ventilator. We appreciate pulmonary assistance. Heart rate is controlled. He is currently on spontaneous ventilation with pressure support. Exam - Constitutional Vitals: Period Temp Pulse Resp BP Sys/Novak Pulse Ox Last 24 Hr 96.9 F-98.5 F 88-123 12-18 82-138/49-81 95-100 Heart rate is irregular with a rate of about 100. Cardiac examination reveals a regular rhythm with no murmur or gallop. Tones are distant. He has scattered rhonchi in the chest. Abdomen is soft without any significant mass. He has generalized anasarca, likely due to malnutrition and hypoalbuminemia. Results - Labs CBC & BMP: 01/12/17 04:05 01/13/17 04:50 Lab Results: I have reviewed the past 24 hour labs Quality Measures - VTE Contraindication to Pharmacological VTE Prophylaxis: Already on Theraputic Agent , No Prophylaxis Needed
[2017-01-13] MEDS: LEVOFLOXACIN INJ 500 MG in PREMIX 1 EACH IV SCH (20:59)
[2017-01-14] MEDS: ALBUTEROL/IPRATROPIUM 3 ML NEB RESP TX SCH ×4 (00:25→19:36)
[2017-01-14] MEDS: PHENYLEPHRINE INJ 160 MG in SODIUM CHLORIDE 0.9% 234 ML IV SCH ×2 (01:26→19:12)
[2017-01-14] MEDS: NOREPINEPHRINE 16 MG in SODIUM CHLORIDE 0.9% 234 ML IV SCH ×2 (01:44→21:25)
[2017-01-14] MEDS: INSULIN LISPRO 100 UNIT/ML SUBCUT SCH ×4 (01:45→17:53)
[2017-01-14] MEDS: AZTREONAM 2,000 MG in SODIUM CHLORIDE 0.9% 100 ML IV SCH ×4 (02:24→19:14)
[2017-01-14] MEDS: SODIUM HYPOCHLORITE 0.25% IRRIG 473 ML BOTTLE TOP SCH ×2 (04:00→08:39)
[2017-01-14 04:48] LABS: ABG Base Excess 3.9 MMOL/L (-2.5-2.5); ABG HCO3 27.9 MMOL/L (20-26); ABG Oxygen Saturation 99.3 % (95-100); ABG PCO2 42.8 MM HG (35-48); ABG PH 7.433 (7.35-7.45); ABG TCO2 25.9 MMOL/L (23-27)
[2017-01-14 05:23] LABS: Calcium 7.2 MG/DL (8.5-10.1); Osmolality,Calculated 303.6 MOS/KG (273-304); Potassium 3.7 MMOL/L (3.5-5.1)
[2017-01-14] MEDS: LEVOTHYROXINE 175 MCG TABLET PO SCH (07:01)
[2017-01-14] MEDS: DEXTROSE 5% NACL 0.45% 1,000 ML IV SCH (07:01)
[2017-01-14] MEDS: PROPOFOL 1,000 MG/100 ML BOTTLE IV SCH ×2 (07:21→18:47)
[2017-01-14] MEDS: PANTOPRAZOLE 40 MG VIAL IV SCH (08:38)
[2017-01-14] MEDS: ASPIRIN CHEW 81 MG TABLET PO SCH (08:39)
[2017-01-14] MEDS: FINASTERIDE 5 MG TABLET PO SCH (08:39)
--- NOTE | 2017-01-14 08:42 | XRay Report ---
History: Patient on ventilator. History of CHF, hypertension, and coronary artery disease Date: 01/14/2017 Study: Chest x-ray AP portable Comparison exam: 01/13/2017 The endotracheal and nasogastric tubes are stable in position. There is continued cardiomegaly. The mediastinal contour is unchanged. The pulmonary vasculature is slightly prominent. There is continued hazy density over the lower lung zones, left greater than right, which may represent a combination of layering pleural effusion and underlying atelectasis/edema. Likely no gross overall change has occurred when allowing for shifting pleural effusion. There is no pneumothorax. Osseous structures are unchanged. Impression: No gross overall change when allowing for differences in shifting pleural effusion. PROCEDURE INTERPRETED AT [facility] DEPARTMENT OF RADIOLOGY Final Report Signed by: Dr. Shraddha Ford
[2017-01-14] MEDS: CARVEDILOL 25 MG TABLET PO SCH (11:07)
--- NOTE | 2017-01-14 11:12 | Hospitalist Progress Note ---
Assessment and Plan (1) Aspiration pneumonia Status: Acute Assessment and plan: Impression: 1. Aspiration pneumonia, improving 2. Atrial fibrillation, rate control 3. Acute respiratory failure, improved Plan: The patient appears to be improving. Continue on spontaneous ventilator settings. He is still requiring some pressure support. We will continue current management, including IV antibiotics and ventilator support until pulmonary feels like it is safe to extubate. Hold carvedilol for now, until his blood pressures able to tolerate it. We could consider diuretics if his blood pressure comes up with the discontinuation of the carvedilol.. This note was completed using [employer] voice recognition software. 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 Current Visit: Yes Qualifiers: Aspiration pneumonia type: due to regurgitated food Laterality: right Lung location: unspecified part of lung Qualified Code(s): J69.0 - Pneumonitis due to inhalation of food and vomit Hospitalist: Subjective Interval history: Follow-up aspiration pneumonia with acute respiratory failure and atrial fibrillation. The patient remains on spontaneous ventilation with a rate of about 16 and 10 cm of pressure support. He appears to be tolerating this fairly well. The generalized anasarca persists. His heart rate is controlled, but he has become hypotensive with administration of the carvedilol. He is tolerating tube feedings. Exam - Constitutional Vitals: Period Temp Pulse Resp BP Sys/Novak Pulse Ox Last 24 Hr 97.4 F-98.7 F 83-120 11-24 81-133/33-78 97-100 He is afebrile. Heart is irregular with no murmur. He has a few rhonchi in the chest. He has generalized pitting edema. Response to noxious stimulation is minimal. Results - Labs CBC & BMP: 01/12/17 04:05 01/14/17 04:20 Lab Results: I have reviewed the past 24 hour labs (Creatinine is down to normal. BUN remains elevated.) Quality Measures - VTE Contraindication to Pharmacological VTE Prophylaxis: Already on Theraputic Agent , No Prophylaxis Needed
--- NOTE | 2017-01-14 12:47 | Pulmonology Progress Note ---
Pulmonary - PN: Subj Interval history: 81y/o M with respiratory failure due to aspiration 2/2 recent ICH. Overnight patient continued to require low-dose Surinder-Synephrine. CPAP trials are ongoing and patient is doing well. OR for surgical debridement is planned for tomorrow. One blood culture growing gram-negative rods. Urine culture growing GPC's.. Exam (Progress Note) - Constitutional Vitals: Period Temp Pulse Resp BP Sys/Novak Pulse Ox Last 24 Hr 97.4 F-98.7 F 83-120 11-24 81-133/33-78 97-100 General appearance: over weight - Head Head exam: Present: normal inspection - Eye Eye exam: Present: EOMI Pupils: Present: PREMA - Neck Neck exam: Present: normal inspection - Respiratory Respiratory exam: Present: rales (Bibasilar). Absent: accessory muscle use - Cardiovascular Cardiovascular exam: Present: irregular rhythm - GI/Abdominal GI/Abdominal exam: Present: normal bowel sounds, soft. Absent: tenderness - Extremities Exam Extremities exam: Present: edema (Anasarca) - Neurological Exam Neurological exam: Present: alert, CN II-XII intact - Skin Skin exam: Present: warm, dry Results - Labs CBC & BMP: 01/12/17 04:05 01/14/17 04:20 - Diagnostic Findings Procedure: Chest x-ray: image reviewed by me (Significant volume overload with bilateral pleural effusions) Assessment and Plan (1) Acute respiratory failure Status: Acute Assessment and plan: 2/2 aspiration event & volume overload. Doing well on vent and tolerating CPAP trials well. Patient will likely be able to be extubated after OR procedure tomorrow. Current Visit: Yes Qualifiers: Respiratory failure complication: hypoxia Qualified Code(s): J96.01 - Acute respiratory failure with hypoxia (2) Acute kidney injury Status: Acute Assessment and plan: Improved. Current Visit: Yes (3) Aspiration pneumonia Status: Acute Assessment and plan: Continue current antibiotics. Recheck CBC. Current Visit: Yes Qualifiers: Aspiration pneumonia type: due to regurgitated food Laterality: right Lung location: unspecified part of lung Qualified Code(s): J69.0 - Pneumonitis due to inhalation of food and vomit (4) Hypotension Status: Acute Assessment and plan: Requiring pressors. Urine culture positive yesterday, possible new source for infection. Continue antibiotics & wean pressors as allowed. Current Visit: Yes Qualifiers: Hypotension type: unspecified hypotension type Qualified Code(s): I95.9 - Hypotension, unspecified (5) History of intracranial hemorrhage Status: Acute Current Visit: Yes (6) Urinary tract infection Status: Acute Assessment and plan: GPC on urine culture, awaiting speciation. Continue current antibiotics while awaiting speciation. Current Visit: Yes (7) Blood bacterial culture positive Status: Acute Assessment and plan: Gram-negative rods from one blood culture. Should be adequately covered by aztreonam and Levaquin. Current Visit: Yes (8) Congestive heart failure Status: Acute Assessment and plan: Significant evidence of volume overload on exam and chest x-ray. Will discontinue IV fluids and recommend diuresis once blood pressure allows. Current Visit: Yes (9) Sacral decubitus ulcer Status: Acute Assessment and plan: Surgical debridement in the OR is planned for tomorrow. Defer to surgery Current Visit: Yes
--- NOTE | 2017-01-14 13:04 | Event Note ---
General Surgery Progress Note Chief complaint This patient is a 81-year-old man who was admitted with aspiration pneumonia and sepsis but also found to have a foul-smelling sacral decubitus wound that was controlled with excisional debridement with drainage of abscess on 01/12/2017 Interval history There are no significant changes today. Physical exam The patient is afebrile but he is hypotensive and on phenylephrine and he is on a stable amount compared to yesterday His sacral decubitus wound has some necrotic tissue at the superior aspect of the wound on the muscle level but there is no foul odor or purulent drainage today. This has not progressed at all since yesterday Labs Reviewed Imaging Reviewed Assessment and plan Continue wound care with Dakin's twice daily to the sacral wound. Continue local wound care. No further debridement is needed at this time.
[2017-01-14] MEDS: LEVOFLOXACIN INJ 500 MG in PREMIX 1 EACH IV SCH (21:26)
[2017-01-15] MEDS: INSULIN LISPRO 100 UNIT/ML SUBCUT SCH ×4 (00:31→18:19)
[2017-01-15] MEDS: ALBUTEROL/IPRATROPIUM 3 ML NEB RESP TX SCH ×4 (00:52→19:20)
[2017-01-15] MEDS: AZTREONAM 2,000 MG in SODIUM CHLORIDE 0.9% 100 ML IV SCH ×4 (02:00→20:29)
[2017-01-15 03:53] LABS: ABG HCO3 30.2 MMOL/L (20-26); ABG Oxygen Saturation 98.9 % (95-100); ABG PH 7.474 (7.35-7.45); ABG TCO2 31.4 MMOL/L (23-27)
[2017-01-15] MEDS: SODIUM HYPOCHLORITE 0.25% IRRIG 473 ML BOTTLE TOP SCH ×2 (04:00→08:14)
[2017-01-15 04:02] LABS: Basophils % 0.2 % (0.0-0.8); Eosinophils # 0.1 10*3/uL (0.0-0.87); Eosinophils % 1.1 % (0.00-10.9); Hematocrit 32.5 VOL% (42.0-52.0); Hemoglobin 9.8 GM/DL (14.0-18.0); Immature Granulocytes % 0.5 %; Immature Granulocytes Absolute 0.07 #; Lymphocytes # 2.3 10*3/uL (1.4-4.0); Lymphocytes % 18.3 % (21.2-54.2); Mean Corpuscular HGB Conc 30.2 GM/DL (32-36); Mean Corpuscular Hemoglobin 30 PG (27-34); Mean Corpuscular Volume 97.9 FL (87-102); Mean Platelet Volume 11.8 FL (9.6-12.0); Monocytes # 1.1 10*3/uL (0.11-0.8); Monocytes % 8.8 % (1.7-12.7); Neutrophils # 9.1 10*3/uL (1.4-7.4); Neutrophils % 71.1 % (38.7-73.9); Platelet Count 262 T/CUMM (130-400); Red Blood Count 3.32 MC/CUMM (3.8-5.5); Red Cell Distribution Width 14.6 % (9.3-17.3); White Blood Count 12.8 T/CUMM (4-12)
[2017-01-15 04:26] LABS: Calcium 7.1 MG/DL (8.5-10.1); Osmolality,Calculated 302.6 MOS/KG (273-304); Potassium 3.6 MMOL/L (3.5-5.1)
[2017-01-15 04:29] LABS: Hypochromasia 1+; Platelet Estimate Adequate
[2017-01-15 04:40] LABS: Phosphorous 2.4 MG/DL (2.5-4.9); Prealbumin 8.2 MG/DL (20-40)
[2017-01-15] MEDS: PHENYLEPHRINE INJ 160 MG in SODIUM CHLORIDE 0.9% 234 ML IV SCH (05:54)
[2017-01-15] MEDS: LEVOTHYROXINE 175 MCG TABLET PO SCH (06:00)
[2017-01-15] MEDS: PROPOFOL 1,000 MG/100 ML BOTTLE IV SCH ×2 (07:14→21:21)
--- NOTE | 2017-01-15 07:26 | XRay Report ---
XR chest 1V portable Indication: Intubation Comparison: Chest x-ray 01/14/2017 Technique: Portable AP chest was performed. Findings: Multiple tubes and medical support devices appear stable. Haziness in the lung bases as well as somewhat more focal stranding opacities in the left lung base are unchanged. Small bilateral pleural effusions are suggested. Impression: 1. Appearance of the chest suggests little interval change. Findings as detailed. 01/15/2017 7:22 AM PROCEDURE INTERPRETED AT [facility] DEPARTMENT OF RADIOLOGY Final Report Signed by: Dr. Tej Martinez
[2017-01-15] MEDS: PANTOPRAZOLE 40 MG VIAL IV SCH (08:13)
[2017-01-15] MEDS: FINASTERIDE 5 MG TABLET PO SCH (08:13)
[2017-01-15] MEDS: ASPIRIN CHEW 81 MG TABLET PO SCH (08:13)
--- NOTE | 2017-01-15 10:24 | Pulmonology Progress Note ---
Pulmonary - PN: Subj Interval history: This is a 81-year-old black male. I saw him in pulmonary consultation on 2016. He had aspirated and he required fiberoptic bronchoscopy. Small pieces of meat and multiple green peas were removed during bronchoscopy. See my note concerning that. My impressions were. 1. Acute respiratory failure requiring intubation mechanical ventilation. Ursa to be secondary to acute aspiration. 2. Recent intracerebral bleed with neuro logical sequela including difficulty swallowing 3. Hypothyroidism 4. Mild anemia 5. Low calcium probably secondary to low albumin. Look for vitamin D deficiency. 01/15/2017, vitamin D level is low 6. Hypotension requiring pressor agents. For 2016. Now normotensive off pressors. 7. Hypoproteinemia, hypoalbuminemia, mild increase globulins. 8. Atrial fib 9. Valvular heart disease. Type unknown. 01/15/2017. Echocardiogram showed ejection fraction of 60%. There was +1 aortic stenosis with a mean peak gradient of 12/18 mmHg, +1 aortic regurgitation, +1 mitral regurgitation. Pulmonary artery pressures were 39 mmHg with +2 or 3 tricuspid regurgitation. Small to moderate size circumferential pericardial effusion with no evidence of tamponade. Pleural fluid was also noted. 10. History of high blood pressure 11. Azotemia. Creatinine 1.6. 12. See past history. 01/15/2017. Today's chest x-ray shows cardiomegaly with small bilateral pleural effusions and atelectasis in the right middle lung and the left lower lung. ABGs on mechanical ventilation showed pH is 7.47, PCO2 of 42, PO2 of 158 and a bicarb of 30.2. Natruretic peptide is elevated at 300. Vitamin D level is low at 6.8. White blood cell count is 12,800 with 71 segs 18 lymphs and 9 monos. Electrolytes are normal. Creatinine has dropped from 1.70-1.00 with a BUN of 47. Urine has grown Enterococcus faecalis. Blood cultures from 01/11/2017 were reported as growing a gram-negative tommie. Cultures and sensitivities are not yet available. Bronchial lavage from 01/12/2017 is growing a yeast. Abscess culture from 01/12/2017 is growing a gram-negative tommie and gram-positive cocci. So far no identification or sensitivities to antibiotics are available. Labs been reviewed. Medicines have been reviewed. Physical exam. Vital signs. See below. Neurologic. Patient can be awakened. Neck. Symmetrical. No meningismus Lymphatics. No submandibular cervical supraclavicular or epitrochlear adenopathy Chest. Mild coarse large airway congestion Heart. No gallop Abdomen. Rare bowel sounds. Extremities. Nothing to suggest deep venous thrombophlebitis. The remainder the exam is noncontributory. Plan. 1. 01/12/2017. Bronchoscopy to evaluate for aspiration 2. Repeat BNP 3. 01/12/2017. Doppler venograms of lower extremities 4. 01/12/2017. Mechanical ventilation weaning protocol 5. 01/12/2017. Mechanical ventilation physical therapy protocol 6. 01/12/2017. Agree with protocol antibiotics but will decrease Levaquin from 750-500 mg because of azotemia. 7. 01/12/2017. Wean pressor agents as tolerated 8. TSH 9. Echocardiogram. Evaluate output and abnormal valves 10. Vitamin D level 11. See orders 12. 01/15/2017. Follow-up fiberoptic bronchoscopy has been scheduled for 2016. Continue weaning protocol. Patient is now on stage IV. See my note above from today. Exam (Progress Note) - Constitutional Vitals: Period Temp Pulse Resp BP Sys/Novak Pulse Ox Last 24 Hr 97.5 F-99.4 F 84-122 2-22 83-134/50-76 97-100 Results - Labs CBC & BMP: 01/15/17 03:40 01/15/17 03:40
--- NOTE | 2017-01-15 11:22 | Event Note ---
General Surgery Progress Note Chief complaint This patient is a 81-year-old man who was admitted with aspiration pneumonia and sepsis but also found to have a foul-smelling sacral decubitus wound that was controlled with excisional debridement with drainage of abscess on 01/12/2017 Interval history The patient has no changes medically. He still on the ventilator. Physical exam The sacral wound is starting to clean up some with dressing changes there is no purulent drainage or foul odor Labs Reviewed Imaging Reviewed Assessment and plan Continue wound care with Dakin's twice daily to the sacral wound. Continue local wound care. No further debridement is needed at this time.
[2017-01-15] MEDS: CHOLECALCIFEROL 1,000 UNIT TABLET PO SCH (11:48)
--- NOTE | 2017-01-15 17:22 | Hospitalist Progress Note ---
Assessment and Plan (1) Acute respiratory failure Status: Acute Assessment and plan: Continue attempts to wean off the vent. Dr. Ventura and tends to bronched tomorrow again. Previous bronched on the growing Alexandria albicans. Current Visit: Yes Qualifiers: Respiratory failure complication: hypoxia Qualified Code(s): J96.01 - Acute respiratory failure with hypoxia (2) Aspiration pneumonia Status: Acute Assessment and plan: Status post bronched 1 on 01/12. Intend to bronched again tomorrow. Continue aztreonam, started daptomycin and Rocephin. Current Visit: Yes Qualifiers: Aspiration pneumonia type: due to regurgitated food Laterality: right Lung location: unspecified part of lung Qualified Code(s): J69.0 - Pneumonitis due to inhalation of food and vomit (3) Bacteremia Status: Acute Assessment and plan: Growing gram-negative rods most likely E. coli. Repeat blood cultures today. Change antibiotics from Levaquin to Rocephin Current Visit: Yes (4) Septic shock Status: Acute Assessment and plan: Still on pressors, Coreg on hold Current Visit: Yes (5) Atrial fibrillation Status: Chronic Assessment and plan: Still in atrial fib not rate controlled due to hypotension Current Visit: No Qualifiers: Atrial fibrillation type: chronic Qualified Code(s): I48.2 - Chronic atrial fibrillation (6) Urinary tract infection Status: Acute Assessment and plan: Growing enterococcus will start daptomycin Current Visit: Yes (7) Acute kidney injury Status: Acute Assessment and plan: Renal failure improving creatinine from 1.70 down to 1 Current Visit: Yes (8) Sacral decubitus ulcer Status: Acute Assessment and plan: Wound culture growing E. coli, Enterococcus faecalis, Bacteroides uniform is, continue aztreonam, added daptomycin and Rocephin. Current Visit: Yes (9) Anasarca Status: Acute Assessment and plan: cont tube feeding, low albumin, will give 25% tid Current Visit: Yes (10) Pericardial effusion Status: Acute Assessment and plan: consult Cardiology for opinion, noted on echo Current Visit: Yes Hospitalist: Subjective Interval history: Severe diffuse anasarca. Still on the vent slow to wean. Still requiring FiO2 of 60%. Patient will switch to Dr. Carranza tomorrow. Patient is a good [facility] candidate. Patient has very diminished bowel sounds. Patient is still on pressors. Exam - Constitutional Vitals: Period Temp Pulse Resp BP Sys/Novak Pulse Ox Last 24 Hr 97.5 F-99.4 F 75-119 2-26 90-135/51-74 93-100 Exam: Heart Rate-[irregular rate and rhythm] Lungs-[clear but diminished] GI-[diminished bs soft, distended with edema] Ext-[severe diffuse anasarca] Neuro [Motor 4/5], [alert and oriented times 1] psych [normal mood and affect] General [no acute distress] Results - Labs CBC & BMP: 01/15/17 03:40 01/15/17 03:40 Lab Results: I have reviewed the past 24 hour labs Labs: Ulcer growing Bacteroides uniform us, E. coli and Enterococcus faecalis. Bronched specimen growing Alexandria albicans. Urine culture growing Enterococcus faecalis and blood cultures growing gram-negative rods - Diagnostic Findings Procedure: Chest x-ray: report reviewed by me (Bilateral opacities), Ultrasound : report reviewed by me (Echo showed EF of 60% with 3+ left atrial enlargement, 1+ aortic stenosis and 1+ aortic regurg, 3+ tricuspid regurg with PA P of 39 moderate size pericardial effusion) Quality Measures - VTE Contraindication to Pharmacological VTE Prophylaxis: Already on Theraputic Agent , No Prophylaxis Needed
[2017-01-15] MEDS: cefTRIAXone 2,000 MG in SODIUM CHLORIDE 0.9% 100 ML IV SCH (19:05)
[2017-01-15] MEDS: NOREPINEPHRINE 16 MG in SODIUM CHLORIDE 0.9% 234 ML IV SCH (21:17)
[2017-01-16] MEDS: ALBUTEROL/IPRATROPIUM 3 ML NEB RESP TX SCH ×4 (00:42→19:22)
[2017-01-16] MEDS: AZTREONAM 2,000 MG in SODIUM CHLORIDE 0.9% 100 ML IV SCH ×4 (02:30→20:01)
[2017-01-16 04:39] LABS: ABG Base Excess 3.9 MMOL/L (-2.5-2.5); ABG HCO3 27.9 MMOL/L (20-26); ABG Oxygen Saturation 99.2 % (95-100); ABG PCO2 46.3 MM HG (35-48); ABG PH 7.409 (7.35-7.45); ABG TCO2 26.2 MMOL/L (23-27); Basophils % 0.2 % (0.0-0.8); Eosinophils # 0.3 10*3/uL (0.0-0.87); Eosinophils % 2.8 % (0.00-10.9); Hematocrit 32.3 VOL% (42.0-52.0); Hemoglobin 9.9 GM/DL (14.0-18.0); Immature Granulocytes % 0.5 %; Immature Granulocytes Absolute 0.05 #; Lymphocytes # 2.1 10*3/uL (1.4-4.0); Lymphocytes % 20.1 % (21.2-54.2); Mean Corpuscular HGB Conc 30.7 GM/DL (32-36); Mean Corpuscular Hemoglobin 30 PG (27-34); Mean Corpuscular Volume 97.6 FL (87-102); Mean Platelet Volume 11.8 FL (9.6-12.0); Monocytes # 0.9 10*3/uL (0.11-0.8); Monocytes % 8.8 % (1.7-12.7); Neutrophils # 7.2 10*3/uL (1.4-7.4); Neutrophils % 67.6 % (38.7-73.9); Platelet Count 255 T/CUMM (130-400); Red Blood Count 3.31 MC/CUMM (3.8-5.5); Red Cell Distribution Width 14.5 % (9.3-17.3); White Blood Count 10.7 T/CUMM (4-12)
[2017-01-16] MEDS: SODIUM HYPOCHLORITE 0.25% IRRIG 473 ML BOTTLE TOP SCH ×2 (04:47→08:59)
[2017-01-16 05:03] LABS: Hypochromasia Slight; Platelet Estimate Normal
[2017-01-16 05:28] LABS: Calcium 7.6 MG/DL (8.5-10.1); Osmolality,Calculated 303.6 MOS/KG (273-304); Potassium 3.8 MMOL/L (3.5-5.1)
[2017-01-16] MEDS: INSULIN LISPRO 100 UNIT/ML SUBCUT SCH ×4 (05:54→17:39)
[2017-01-16] MEDS: PHENYLEPHRINE INJ 160 MG in SODIUM CHLORIDE 0.9% 234 ML IV SCH (05:55)
[2017-01-16] MEDS: LEVOTHYROXINE 175 MCG TABLET PO SCH (05:59)
--- NOTE | 2017-01-16 07:17 | XRay Report ---
Single view of the chest. Indication: Ventilated patient. Comparison: January 15, 2017. The heart is enlarged. An endotracheal tube and nasogastric tube are unchanged in position. The pulmonary vasculature is normal. There is atelectasis and pleural effusion at the right base. There is infiltrate and pleural effusion at the left base. Surgical clips are noted at thoracic inlet area. Degenerative changes are noted in the spinal column. Impression: Worsening right basilar atelectasis. Improved aeration of the left lung. PROCEDURE INTERPRETED AT [facility] DEPARTMENT OF RADIOLOGY Final Report Signed by: Dr. Yulia Brito
[2017-01-16 07:20] LABS: INR 1.2; PT Patient Result 12.7 SECS; Partial Thromboplastin Time 34.5 SECS (0-40)
[2017-01-16] MEDS: PROPOFOL 1,000 MG/100 ML BOTTLE IV SCH (08:59)
[2017-01-16] MEDS: FINASTERIDE 5 MG TABLET PO SCH (08:59)
[2017-01-16] MEDS: CHOLECALCIFEROL 1,000 UNIT TABLET PO SCH (08:59)
[2017-01-16] MEDS: ASPIRIN CHEW 81 MG TABLET PO SCH (08:59)
[2017-01-16] MEDS: PANTOPRAZOLE 40 MG VIAL IV SCH (09:49)
--- NOTE | 2017-01-16 10:13 | Cardiology Consult Note ---
<Melissa Garcia E - Last Filed: 01/16/17 11:31> Assessment and Plan - Time spent with patient Time spent with patient: Greater than 30 minutes (1) CVA (cerebral vascular accident) Status: Chronic Assessment and plan: See plan of care listed below Current Visit: Yes (2) Acute respiratory failure Status: Acute Assessment and plan: See plan of care listed below Current Visit: Yes Qualifiers: Respiratory failure complication: hypoxia Qualified Code(s): J96.01 - Acute respiratory failure with hypoxia (3) Anasarca Status: Acute Assessment and plan: See plan of care listed below Current Visit: Yes (4) Aspiration pneumonia Status: Acute Assessment and plan: See plan of care listed below Current Visit: Yes Qualifiers: Aspiration pneumonia type: due to regurgitated food Laterality: right Lung location: unspecified part of lung Qualified Code(s): J69.0 - Pneumonitis due to inhalation of food and vomit (5) Atrial fibrillation Status: Chronic Assessment and plan: See plan of care listed below Current Visit: Yes Qualifiers: Atrial fibrillation type: paroxysmal Qualified Code(s): I48.0 - Paroxysmal atrial fibrillation (6) History of intracranial hemorrhage Status: Resolved Assessment and plan: See plan of care listed below Current Visit: Yes (7) Pericardial effusion Status: Chronic Assessment and plan: See plan of care listed below Current Visit: Yes (8) Septic shock Status: Acute Current Visit: Yes (9) HTN (hypertension) Status: Chronic Assessment and plan: See plan of care listed below Current Visit: No Qualifiers: Hypertension type: essential hypertension Qualified Code(s): I10 - Essential (primary) hypertension (10) Anemia Status: Acute Assessment and plan: See plan of care listed below Current Visit: Yes History of Present Illness - Data of Consult Patient: known to practice within the last 3 years Consult date: 01/16/17 Requesting Physician: Mary Zhu - Consult Narrative Reason for consult: Atrial fibrillation, pericardial effusion History of present illness: EARTH MOVER: DR. NELL VALLE PATIENT IS BEING SEEN IN THE CCU. The majority of this information is taken from medical records and staff as there is no family at the bedside and the patient is intubated. Mr. Celaya, 81-year-old -[place] male, routinely followed by Dr. Nell Valle. He was last seen in cardiology clinic October 13, 2016. Risk factors include: Advanced age, hypertension, dyslipidemia, tobaccoism, obesity, stroke and sedentary lifestyle. He is followed for dilated cardiomyopathy which has resolved, atrial fibrillation, hypertension and stroke. He also has had a chronic pericardial effusion. September 2016 he was found to have a moderate to large pericardial effusion and pleural effusion, significant overall edema. He was hospitalized and treated for myxedema. Repeat echocardiogram performed during this hospital stay reveals EF 60%, PAP 49 mmHg, small to moderate size pericardial effusion, right and left pleural effusions. Mr. Celaya presented to the emergency department by EMS January 11, 2017 after becoming extremely short of breath while being fed at [facility]. He was emergently intubated in the emergency department for acute respiratory failure. He was noted to have food particulates at the vocal cords and is believed to have aspirated. He was also found to have a large sacral decubitus and he is currently being treated for sepsis. The patient was recently hospitalized in [place] for intracranial hemorrhage related to anticoagulation. This has since been discontinued. The patient spent approximately 2-3 weeks in the hospital in [place], [place]. He was then discharged to the senior living where he had been for approximately 1 week. As a result of his recent brain hemorrhage, the patient has had some difficulty swallowing and was on a pured diet. Prior to his brain hemorrhage, a month ago, it is reported that the patient was otherwise mobile and lived at home. At this time, his white blood cell count has normalized. He remains anemic. He is waking and responding appropriately to questions asked. ASSESSMENT/PLAN: 1. RESPIRATORY FAILURE - currently intubated 2. ATRIAL FIBRILLATION, PAROXYSMAL -avoiding anticoagulants due to recent intracranial hemorrhage. He is on low-dose aspirin. He is rate controlled 3. RECENT INTRACRANIAL HEMORRHAGE -avoiding anticoagulants. 4. SEPSIS -seems to be improving. Continue to follow accordingly 5. PERICARDIAL EFFUSION - echocardiogram performed reveals small to moderate sized pericardial without tamponade. 6. ANEMIA -continue to monitor hemoglobin and hematocrit closely 7. UNDERLYING HYPERTENSION -has required pressors, now normotensive off of pressors. Will eventually introduce beta blockade when able. 8. CVA -history of CVA approximately 15 years ago. CC: Ely Carranza MD - Home Medications and Allergies Home Medications: Home Medications Medication Instructions Recorded Confirmed Type Aspirin EC Tab 81 mg PO DAILY 10/03/16 01/11/17 History Carvedilol [Coreg] 25 mg PO BID 10/03/16 01/11/17 History Dabigatran [Pradaxa] 150 mg PO BID 10/03/16 01/11/17 History Finasteride [Proscar] 5 mg PO DAILY 10/03/16 01/11/17 History Gabapentin Cap/Tab [Neurontin 300 mg PO DAILY 10/03/16 01/11/17 History Cap/Tab] Lisinopril 40 mg PO DAILY 10/03/16 01/11/17 History Lovastatin 20 mg PO BEDTIME 10/03/16 01/11/17 History Levothyroxine Tab [Synthroid Tab] 175 mcg PO DAILY@0700 #30 tablet 10/04/16 Rx Potassium Chloride [Klor-Con M20] 20 meq PO DAILY 12/14/16 01/11/17 History hydrALAZINE TAB [Apresoline Tab] 50 mg PO TID 12/14/16 01/11/17 History Furosemide Tab [Lasix Tab] 40 mg PO BID DIURETIC #90 tablet 12/16/16 01/11/17 Rx NIFEdipine [Nifedipine ER] 30 mg PO DAILY 01/11/17 01/11/17 History Allergies/Adverse Reactions: Allergies Allergy/AdvReac Type Severity Reaction Status Date / Time No Known Allergies Allergy Verified 12/20/16 00:54 ROS unobtainable: due to endotracheal tube Medical,Surgical,& Family Hx - Medical History Cardio: History of: Cerebrovascular Disease, CHF, Hypertension, Valvular Heart Disease (A-FIB) Neurology: History of: Cerebral Hemorrhage (Recent hemorrhage 3-4 weeks ago), Cerebrovascular Accident (Ischemic stroke 15+ years ago), Peripheral Neuropathy HEENT: History of: Eye Problem (prostethic eye) Endocrine: History of: Dyslipidemia - Surgical History Cardiac Surgeries: Patient Denies: Cardiac Catheterization Neurologic Surgeries: Surgical HX of: Cerebral Hemorrhage (Recent hemorrhage 3- 4 weeks ago) - Family History Family History: Reports;: Family Hypertension - Social History Smoking Status: Unknown if ever smoked Frequency of Alcohol Use: None Type of Drug Use: Unknown Physical Examination Vital Signs Temp Pulse Resp BP Pulse Ox 100.6 F H 136 H 33 H 78/54 96 01/11/17 19:10 01/11/17 19:10 01/11/17 19:10 01/11/17 19:10 01/11/17 19:10 General: [Intubated] [cooperative. ] [Appears comfortable. Anasarca noted] HEENT: [normocephalic, atraumatic. Mucous membranes moist. No jaundice noted. ] Neck: Unable to assess for JVD due to habitus. No lymphadenopathy noted. No carotid bruit appreciated Cardiac: [Irregularly irregular rhythm, controlled rate] [No obvious murmur rub or gallop.] Lungs: [Relatively clear without wheezes.] Intubated. Symmetrical chest wall movements noted Abdomen: Distended with hypoactive bowel sounds. Seems to be nontender. Musculoskeletal: Decreased range of motion is noted. Extremities: Right hand cold and edematous. Bilateral radial pulses 2+. General massive edema noted. Capillary refill less than 3 seconds. Skin: Large sacral decubiti noted. No unusual lesions Neuro: Awake, alert and obeys commands though intubated. No essential tremor is appreciated. Result/EKG - Labs CBC & BMP: 01/16/17 04:30 01/16/17 04:30 Lab Results: I have reviewed the past 24 hour labs Labs: Laboratory Results - last 24 hr 01/15/17 01/15/17 01/15/17 11:50 17:30 23:47 WBC RBC Hgb Hct MCV MCH MCHC RDW Plt Count MPV Neut % (Auto) Lymph % (Auto) Woods % (Auto) Eos % (Auto) Baso % (Auto) Neut # (Auto) Lymph # (Auto) Woods # (Auto) Eos # (Auto) Baso # (Auto) Immature Gran % Nucleated RBC % Immature Gran # Nucleated RBCs # Platelet Estimate Hypochromasia Morphology Comment INR PT Patient/Control Mix Circ Anticoag PTT ABG pH ABG pCO2 ABG pO2 ABG HCO3 ABG Total CO2 ABG O2 Saturation ABG Base Excess Sodium Potassium Chloride Carbon Dioxide Anion Gap BUN Creatinine GFR Calculation BUN/Creatinine Ratio Glucose POC Glucose 98 111 H 103 Calculated Osmolality Calcium 01/16/17 01/16/17 01/16/17 04:30 04:30 04:30 WBC 10.7 RBC 3.31 L Hgb 9.9 L Hct 32.3 L MCV 97.6 MCH 30 MCHC 30.7 L RDW 14.5 Plt Count 255 MPV 11.8 Neut % (Auto) 67.6 Lymph % (Auto) 20.1 L Woods % (Auto) 8.8 Eos % (Auto) 2.8 Baso % (Auto) 0.2 Neut # (Auto) 7.2 Lymph # (Auto) 2.1 Woods # (Auto) 0.9 H Eos # (Auto) 0.3 Baso # (Auto) 0.0 Immature Gran % 0.5 Nucleated RBC % 0.0 Immature Gran # 0.05 Nucleated RBCs # 0.00 Platelet Estimate Normal Hypochromasia Slight Morphology Comment INR PT Patient/Control Mix Circ Anticoag PTT ABG pH 7.409 ABG pCO2 46.3 ABG pO2 155.0 H ABG HCO3 27.9 H ABG Total CO2 26.2 ABG O2 Saturation 99.2 ABG Base Excess 3.9 H Sodium 146 H Potassium 3.8 Chloride 111 H Carbon Dioxide 30 Anion Gap 8.8 BUN 48 H Creatinine 0.80 GFR Calculation 134 BUN/Creatinine Ratio 60.00 H Glucose 108 H POC Glucose Calculated Osmolality 303.6 Calcium 7.6 L 01/16/17 01/16/17 05:44 07:21 WBC RBC Hgb Hct MCV MCH MCHC RDW Plt Count MPV Neut % (Auto) Lymph % (Auto) Woods % (Auto) Eos % (Auto) Baso % (Auto) Neut # (Auto) Lymph # (Auto) Woods # (Auto) Eos # (Auto) Baso # (Auto) Immature Gran % Nucleated RBC % Immature Gran # Nucleated RBCs # Platelet Estimate Hypochromasia Morphology Comment INR 1.2 PT Patient/Control Mix 12.7 D Circ Anticoag PTT 34.5 ABG pH ABG pCO2 ABG pO2 ABG HCO3 ABG Total CO2 ABG O2 Saturation ABG Base Excess Sodium Potassium Chloride Carbon Dioxide Anion Gap BUN Creatinine GFR Calculation BUN/Creatinine Ratio Glucose POC Glucose 95 Calculated Osmolality Calcium - Diagnostic Findings Procedure: Chest x-ray: report reviewed by me - EKG EKG results: interpreted by me EKG shows: atrial fibrillation Quality Measures - VTE Contraindication to Pharmacological VTE Prophylaxis: Already on Theraputic Agent , No Prophylaxis Needed <Nell Valle - Last Filed: 01/16/17 13:31> History of Present Illness - Consult Narrative History of present illness: I have personally interviewed and evaluated the patient, reviewed the chart and discussed medical decision-making with Practitioner Radha. I have read this note and agree with her documentation here in. The patient is having difficulties with aspiration, he is now status post bronchoscopy again. We will continue with the current supportive care. CC: Ely Carranza MD Physical Examination Vital Signs Temp Pulse Resp BP Pulse Ox 100.6 F H 136 H 33 H 78/54 96 01/11/17 19:10 01/11/17 19:10 01/11/17 19:10 01/11/17 19:10 01/11/17 19:10 Result/EKG - Labs CBC & BMP: 01/16/17 04:30 01/16/17 04:30 Labs: Laboratory Results - last 24 hr 01/15/17 01/15/17 01/16/17 17:30 23:47 04:30 WBC 10.7 RBC 3.31 L Hgb 9.9 L Hct 32.3 L MCV 97.6 MCH 30 MCHC 30.7 L RDW 14.5 Plt Count 255 MPV 11.8 Neut % (Auto) 67.6 Lymph % (Auto) 20.1 L Woods % (Auto) 8.8 Eos % (Auto) 2.8 Baso % (Auto) 0.2 Neut # (Auto) 7.2 Lymph # (Auto) 2.1 Woods # (Auto) 0.9 H Eos # (Auto) 0.3 Baso # (Auto) 0.0 Immature Gran % 0.5 Nucleated RBC % 0.0 Immature Gran # 0.05 Nucleated RBCs # 0.00 Platelet Estimate Normal Hypochromasia Slight Morphology Comment INR PT Patient/Control Mix Circ Anticoag PTT ABG pH ABG pCO2 ABG pO2 ABG HCO3 ABG Total CO2 ABG O2 Saturation ABG Base Excess Sodium Potassium Chloride Carbon Dioxide Anion Gap BUN Creatinine GFR Calculation BUN/Creatinine Ratio Glucose POC Glucose 111 H 103 Calculated Osmolality Calcium 01/16/17 01/16/17 01/16/17 04:30 04:30 05:44 WBC RBC Hgb Hct MCV MCH MCHC RDW Plt Count MPV Neut % (Auto) Lymph % (Auto) Woods % (Auto) Eos % (Auto) Baso % (Auto) Neut # (Auto) Lymph # (Auto) Woods # (Auto) Eos # (Auto) Baso # (Auto) Immature Gran % Nucleated RBC % Immature Gran # Nucleated RBCs # Platelet Estimate Hypochromasia Morphology Comment INR PT Patient/Control Mix Circ Anticoag PTT ABG pH 7.409 ABG pCO2 46.3 ABG pO2 155.0 H ABG HCO3 27.9 H ABG Total CO2 26.2 ABG O2 Saturation 99.2 ABG Base Excess 3.9 H Sodium 146 H Potassium 3.8 Chloride 111 H Carbon Dioxide 30 Anion Gap 8.8 BUN 48 H Creatinine 0.80 GFR Calculation 134 BUN/Creatinine Ratio 60.00 H Glucose 108 H POC Glucose 95 Calculated Osmolality 303.6 Calcium 7.6 L 01/16/17 01/16/17 07:21 12:42 WBC RBC Hgb Hct MCV MCH MCHC RDW Plt Count MPV Neut % (Auto) Lymph % (Auto) Woods % (Auto) Eos % (Auto) Baso % (Auto) Neut # (Auto) Lymph # (Auto) Woods # (Auto) Eos # (Auto) Baso # (Auto) Immature Gran % Nucleated RBC % Immature Gran # Nucleated RBCs # Platelet Estimate Hypochromasia Morphology Comment INR 1.2 PT Patient/Control Mix 12.7 D Circ Anticoag PTT 34.5 ABG pH ABG pCO2 ABG pO2 ABG HCO3 ABG Total CO2 ABG O2 Saturation ABG Base Excess Sodium Potassium Chloride Carbon Dioxide Anion Gap BUN Creatinine GFR Calculation BUN/Creatinine Ratio Glucose POC Glucose 50 L Calculated Osmolality Calcium
--- NOTE | 2017-01-16 10:26 | Hospitalist Progress Note ---
Assessment and Plan - Time spent with patient Time spent with patient: Greater than 30 minutes (1) Acute respiratory failure Status: Acute Assessment and plan: Continue vent management. Current Visit: Yes Qualifiers: Respiratory failure complication: hypoxia Qualified Code(s): J96.01 - Acute respiratory failure with hypoxia (2) Septic shock Status: Acute Assessment and plan: Continue current management. Current Visit: Yes (3) Aspiration pneumonia Status: Acute Assessment and plan: Continue antibiotics. Current Visit: Yes Qualifiers: Aspiration pneumonia type: due to regurgitated food Laterality: right Lung location: unspecified part of lung Qualified Code(s): J69.0 - Pneumonitis due to inhalation of food and vomit (4) Bacteremia Status: Acute Assessment and plan: Continue antibiotics. Current Visit: Yes (5) Urinary tract infection Status: Acute Assessment and plan: Continue antibiotics. Current Visit: Yes (6) Anasarca Status: Acute Current Visit: Yes (7) Sacral decubitus ulcer Status: Acute Assessment and plan: Surgery on board. Continue dakins and antibiotics. No further debridement planned. Current Visit: Yes (8) Atrial fibrillation Status: Chronic Assessment and plan: Continue current management. Current Visit: No Qualifiers: Atrial fibrillation type: chronic Qualified Code(s): I48.2 - Chronic atrial fibrillation (9) Pericardial effusion Status: Acute Assessment and plan: Defer to cardiology. Current Visit: Yes Hospitalist: Subjective Interval history: Continues to require pressor support. Has been tolerating CPAP trials. Exam - Constitutional Vitals: Period Temp Pulse Resp BP Sys/Novak Pulse Ox Last 24 Hr 97.5 F-97.8 F 70-119 10-26 92-136/51-99 93-100 General appearance: no acute distress - Head Head exam: Present: normal inspection, normocephalic, atraumatic - Eye Eye exam: Present: EOMI Pupils: Present: PREMA - ENT ENT exam: Present: other (ET tube) - Neck Neck exam: Present: normal inspection - Respiratory Respiratory exam: Present: clear to auscultation bilaterally. Absent: rhonchi, wheezes - Cardiovascular Cardiovascular exam: Present: irregular rhythm. Absent: gallop, rubs, systolic murmur - GI/Abdominal GI/Abdominal exam: Present: normal bowel sounds, soft. Absent: distended, firm , guarding, tenderness, rebound - Extremities Exam Extremities exam: Present: edema. Absent: calf tenderness Results - Labs CBC & BMP: 01/16/17 04:30 01/16/17 04:30 Lab Results: I have reviewed the past 24 hour labs Quality Measures - VTE Contraindication to Pharmacological VTE Prophylaxis: Already on Theraputic Agent , No Prophylaxis Needed
--- NOTE | 2017-01-16 10:36 | Event Note ---
In hospital diagnostic and therapeutic fiberoptic bronchoscopy. Right lower lung and left lower lung lavages. Specimens sent for bacterial and fungal studies. This is an 81-year-old male patient who has had a previous bronchoscopy for removal of gastric and food contents and pulmonary contents after aspiration. See that procedure dictation for additional details. Pieces of meat multiple green peas were present. Patient has done much better since that time. On chest x-ray he does have bibasilar atelectasis. He is on the ventilator. His cough is an effective. He is thought to have retained secretions and possibly retained gastric contents. He also needs reculturing. Also he needs reevaluation of gastric acid injury. For these reasons patient's evaluated with fiberoptic bronchoscopy. The endotracheal tube is in good position. The distal trachea was normal. The peter was sharp. Right mainstem bronchus contained secretions that extended slightly into the right upper lung and the right middle lung. There were copious thick tenacious secretions in the right lower lung which were removed with lavage. The underlying erosive bronchitis with some 90% resolved. There was no residual stenosis. I did not see any endobronchial lesions that appear to be cancerous. There was some mild to moderate collapsibility of the large and small airways. Specimens were sent for the studies listed above. Left mainstem bronchus was full of thick tenacious secretions which were easily removed. The left upper lung was spared and the previously noted erosive friable bronchitis in the lingula had resolved. In the left lower lung there were copious secretions in the subsegments were lavaged until clear. Previously noted erosive friable bronchitis was 90-95% resolved. The large and small airways showed collapsibility compatible with an element of COPD. There were no endobronchial lesions to suggest cancer. Specimens were sent for the studies noted above. The patient tolerated procedure well there were no complications. Impression. 1. Recent aspiration of food and gastric contents. Resolved 2. Ineffective cough. 3. Retained secretions 4. Bibasilar atelectasis 5. Healing endobronchial gastric acid injuries. 6. Mechanical ventilation 7. See above. Plan. 1. Follow-up chest x-ray 2. Check bronchoscopy specimens
--- NOTE | 2017-01-16 10:42 | Pulmonology Progress Note ---
Pulmonary - PN: Subj Interval history: This is a 81-year-old black male. I saw him in pulmonary consultation on 2016. He had aspirated and he required fiberoptic bronchoscopy. Small pieces of meat and multiple green peas were removed during bronchoscopy. See my note concerning that. My impressions were. 1. Acute respiratory failure requiring intubation mechanical ventilation. [place] to be secondary to acute aspiration. 2. Recent intracerebral bleed with neuro logical sequela including difficulty swallowing 3. Hypothyroidism 4. Mild anemia 5. Low calcium probably secondary to low albumin. Look for vitamin D deficiency. 01/15/2017, vitamin D level is low 6. Hypotension requiring pressor agents. For 2016. Now normotensive off pressors. 7. Hypoproteinemia, hypoalbuminemia, mild increase globulins. 8. Atrial fib 9. Valvular heart disease. Type unknown. 01/15/2017. Echocardiogram showed ejection fraction of 60%. There was +1 aortic stenosis with a mean peak gradient of 12/18 mmHg, +1 aortic regurgitation, +1 mitral regurgitation. Pulmonary artery pressures were 39 mmHg with +2 or 3 tricuspid regurgitation. Small to moderate size circumferential pericardial effusion with no evidence of tamponade. Pleural fluid was also noted. 10. History of high blood pressure 11. Azotemia. Creatinine 1.6. 12. See past history. 01/15/2017. Today's chest x-ray shows cardiomegaly with small bilateral pleural effusions and atelectasis in the right middle lung and the left lower lung. ABGs on mechanical ventilation showed pH is 7.47, PCO2 of 42, PO2 of 158 and a bicarb of 30.2. Natruretic peptide is elevated at 300. Vitamin D level is low at 6.8. White blood cell count is 12,800 with 71 segs 18 lymphs and 9 monos. Electrolytes are normal. Creatinine has dropped from 1.70-1.00 with a BUN of 47. Urine has grown Enterococcus faecalis. Blood cultures from 01/11/2017 were reported as growing a gram-negative tommie. Cultures and sensitivities are not yet available. Bronchial lavage from 01/12/2017 is growing a yeast. Abscess culture from 01/12/2017 is growing a gram-negative tommie and gram-positive cocci. So far no identification or sensitivities to antibiotics are available. Labs been reviewed. Medicines have been reviewed. 01/16/2017. Earlier today the patient had a fiberoptic bronchoscopy. See report. Gastric acid injuries are healing. There is mild to moderate underlying COPD with collapsible large and small airways. I found no additional food particles. Patient had a moderate amount of retained secretions which were removed. These were predominantly in the right lower left lower lung where there has been some atelectasis on his chest x-ray. He tolerated procedure well and I have discussed the procedure with Dr. Dolly Manzanares. ABGs look good. Patient is much stronger. He is progressing very well with his weaning protocol. Tomorrow morning at 5 AM I am going to give him a T- tube trial to 7 AM and will check his blood gases and his status at that time. Electrolytes normal. Creatinine is 0.8 with a BUN of 48. White count is 10, 700 down from 21,600. H&H is stable at 9.9/32.3. Physical exam. Vital signs. See below. Neurologic. Patient can be awakened easily and he is now cooperative.. Neck. Symmetrical. No meningismus Lymphatics. No submandibular cervical supraclavicular or epitrochlear adenopathy Chest. Mild large airway congestion Heart. No gallop Abdomen. Rare bowel sounds. Extremities. Nothing to suggest deep venous thrombophlebitis. The remainder the exam is noncontributory. Plan. 1. 01/12/2017. Bronchoscopy to evaluate for aspiration 2. Repeat BNP 3. 01/12/2017. Doppler venograms of lower extremities 4. 01/12/2017. Mechanical ventilation weaning protocol 5. 01/12/2017. Mechanical ventilation physical therapy protocol 6. 01/12/2017. Agree with protocol antibiotics but will decrease Levaquin from 750-500 mg because of azotemia. 7. 01/12/2017. Wean pressor agents as tolerated 8. TSH 9. Echocardiogram. Evaluate output and abnormal valves 10. Vitamin D level 11. See orders 12. 01/15/2017. Follow-up fiberoptic bronchoscopy has been scheduled for 2016. Continue weaning protocol. Patient is now on stage IV. See my note above from today. 13. 01/16/2017. See today's note above Exam (Progress Note) - Constitutional Vitals: Period Temp Pulse Resp BP Sys/Novak Pulse Ox Last 24 Hr 97.5 F-97.8 F 70-119 10-26 92-136/51-99 93-100 Results - Labs CBC & BMP: 01/16/17 04:30 01/16/17 04:30
[2017-01-16] MEDS ORDERED: SUCCINYLCHOLINE 200 MG/10 ML VIAL ONE (11:25)
[2017-01-16] MEDS ORDERED: ETOMIDATE 20 MG/10 ML VIAL IV ONE (11:45)
[2017-01-16] MEDS ORDERED: ROCURONIUM 100 MG/10 ML VIAL IV ONE (11:45)
--- NOTE | 2017-01-16 11:54 | Anesthesia Procedures ---
Anesthesia Procedures - Intubation Time out performed intubation: Yes Sedative: Etomidate Mg given sedative: 16 Paralytic: Rocuronium Mg given paralytic: 50 Laryngoscope: other (Bougie tube exchanger) Assist Device Used: Bougie ET Tube Size: 7.5 ET Tube Uncuffed: No Tube Secured Depth (cm): 22 Tube Secured Location: teeth Tube Placement Confirmation: equal breath sounds bilaterally, no breath sounds over epigastrium, confirmation detector color change Patient tolerated procedure intubation: well Intubation Complications: none Additional Commets: Called for oett exchange due to leaking cuff. Tube exchange with bougie. No comps. VSS
[2017-01-16] MEDS: cefTRIAXone 2,000 MG in SODIUM CHLORIDE 0.9% 100 ML IV SCH (17:39)
[2017-01-16] MEDS ORDERED: FUROSEMIDE 40 MG/4 ML VIAL IV ONE (18:00)
[2017-01-16] MEDS: NOREPINEPHRINE 16 MG in SODIUM CHLORIDE 0.9% 234 ML IV SCH (20:34)
[2017-01-17] MEDS: PROPOFOL 1,000 MG/100 ML BOTTLE IV SCH
[2017-01-17] MEDS: INSULIN LISPRO 100 UNIT/ML SUBCUT SCH ×4 (00:30→18:08)
[2017-01-17] MEDS: ALBUTEROL/IPRATROPIUM 3 ML NEB RESP TX SCH ×4 (00:48→20:09)
[2017-01-17] MEDS ORDERED: HEPARIN/NACL 0.9% 2 UNITS/ML 500 ML IV ONE (01:30)
[2017-01-17] MEDS: AZTREONAM 2,000 MG in SODIUM CHLORIDE 0.9% 100 ML IV SCH ×4 (01:52→20:28)
[2017-01-17] MEDS: SODIUM HYPOCHLORITE 0.25% IRRIG 473 ML BOTTLE TOP SCH ×3 (02:00→21:46)
[2017-01-17] MEDS: PHENYLEPHRINE INJ 160 MG in SODIUM CHLORIDE 0.9% 234 ML IV SCH ×2 (02:14→10:15)
[2017-01-17 04:25] LABS: ABG Base Excess 5.6 MMOL/L (-2.5-2.5); ABG Oxygen Saturation 98.7 % (95-100); ABG PCO2 43.5 MM HG (35-48); ABG PH 7.457 (7.35-7.45); ABG PO2 176.3 MM HG (80-95); ABG TCO2 31.4 MMOL/L (23-27)
[2017-01-17 04:36] LABS: Calcium 7.8 MG/DL (8.5-10.1); Osmolality,Calculated 307.4 MOS/KG (273-304); Potassium 3.8 MMOL/L (3.5-5.1)
[2017-01-17 04:49] LABS: Basophils % 0.2 % (0.0-0.8); Eosinophils # 0.3 10*3/uL (0.0-0.87); Eosinophils % 3.4 % (0.00-10.9); Hematocrit 31.2 VOL% (42.0-52.0); Hemoglobin 9.6 GM/DL (14.0-18.0); Immature Granulocytes % 0.6 %; Immature Granulocytes Absolute 0.05 #; Lymphocytes # 1.8 10*3/uL (1.4-4.0); Lymphocytes % 21.2 % (21.2-54.2); Mean Corpuscular HGB Conc 30.8 GM/DL (32-36); Mean Corpuscular Hemoglobin 30 PG (27-34); Mean Corpuscular Volume 97.2 FL (87-102); Monocytes # 0.9 10*3/uL (0.11-0.8); Monocytes % 11.2 % (1.7-12.7); Neutrophils # 5.2 10*3/uL (1.4-7.4); Neutrophils % 63.4 % (38.7-73.9); Platelet Count 246 T/CUMM (130-400); Red Blood Count 3.21 MC/CUMM (3.8-5.5); Red Cell Distribution Width 14.5 % (9.3-17.3); White Blood Count 8.3 T/CUMM (4-12)
--- NOTE | 2017-01-17 06:40 | XRay Report ---
XR chest 1V portable Indication: Status post fiberoptic bronchoscopy January 16. Intubation. Comparison: Chest x-ray 01/16/2017 Technique: Portable AP chest was performed. Findings: Endotracheal tube terminates at the level of aortic knob. NG tube is present is not well visualized below the mid chest secondary to the degree of penetration. Opacities in the lower chest have somewhat worsened on the right with less definition of the right hemidiaphragm now present. Linear opacification of the left chest has worsened and may reflect focal airspace disease or atelectasis. Upper lungs remain clear. Cardiomegaly is stable. Bones and soft tissues are stable. Impression: 1. Dependent atelectasis and/or dependent pleural fluid within the bilateral chest could be considered. Right sinus slightly worsened since comparison. 2. Minimal worsening of airspace disease left mid chest could in part reflect atelectasis. 01/17/2017 6:35 AM PROCEDURE INTERPRETED AT [facility] DEPARTMENT OF RADIOLOGY Final Report Signed by: Dr. Tej Martinez
[2017-01-17] MEDS: LEVOTHYROXINE 175 MCG TABLET PO SCH (07:00)
[2017-01-17 07:37] LABS: ABG Base Excess 3.6 MMOL/L (-2.5-2.5); ABG HCO3 27.7 MMOL/L (20-26); ABG PCO2 49.6 MM HG (35-48); ABG PH 7.383 (7.35-7.45); ABG TCO2 26.7 MMOL/L (23-27)
--- NOTE | 2017-01-17 08:33 | Cardiology Progress Note ---
<Melissa Garcia E - Last Filed: 01/17/17 08:19> Assessment and Plan - Time spent with patient Time spent with patient: Greater than 30 minutes (1) CVA (cerebral vascular accident) Status: Chronic Assessment and plan: See plan of care listed below Current Visit: Yes (2) Acute respiratory failure Status: Acute Assessment and plan: See plan of care listed below Current Visit: Yes Qualifiers: Respiratory failure complication: hypoxia Qualified Code(s): J96.01 - Acute respiratory failure with hypoxia (3) Anasarca Status: Acute Assessment and plan: See plan of care listed below Current Visit: Yes (4) Aspiration pneumonia Status: Acute Assessment and plan: See plan of care listed below Current Visit: Yes Qualifiers: Aspiration pneumonia type: due to regurgitated food Laterality: right Lung location: unspecified part of lung Qualified Code(s): J69.0 - Pneumonitis due to inhalation of food and vomit (5) Atrial fibrillation Status: Chronic Assessment and plan: See plan of care listed below Current Visit: Yes Qualifiers: Atrial fibrillation type: paroxysmal Qualified Code(s): I48.0 - Paroxysmal atrial fibrillation (6) History of intracranial hemorrhage Status: Resolved Assessment and plan: See plan of care listed below Current Visit: Yes (7) Pericardial effusion Status: Chronic Assessment and plan: See plan of care listed below Current Visit: Yes (8) Septic shock Status: Acute Current Visit: Yes (9) HTN (hypertension) Status: Chronic Assessment and plan: See plan of care listed below Current Visit: No Qualifiers: Hypertension type: essential hypertension Qualified Code(s): I10 - Essential (primary) hypertension (10) Anemia Status: Acute Assessment and plan: See plan of care listed below Current Visit: Yes Cardiology - PN: Subj Interval history: History of present illness: PALEOLOGY PROFESSOR: DR. NELL VALLE PATIENT IS BEING SEEN IN THE CCU. The majority of this information is taken from medical records and staff as there is no family at the bedside and the patient is intubated. SUMMARY: History of hypertension, myxedema, dyslipidemia, tobaccoism, obesity, stroke, dilated cardiomyopathy (resolved), atrial fibrillation, chronic pericardial effusion. September 2016 he was found to have a moderate to large pericardial effusion and pleural effusion, significant overall edema. He was hospitalized and treated for myxedema. Repeat echocardiogram performed during January 12, 2017 reveals EF 60%, PAP 49 mmHg, small to moderate size pericardial effusion, right and left pleural effusions. Patient was admitted January 11, 2017 , emergently intubated and being treated for sepsis related to probable aspiration pneumonia, significant sacral decubitus. Patient was recently hospitalized in [place] for intracranial hemorrhage related to anticoagulation, therefor anticoagulation is an option. JANUARY 17, 2017: Patient underwent bronchoscopy yesterday. He remains intubated though he wakes and follows commands appropriately. It is reported that he responded well to 40 mg IV Lasix yesterday. Urine osmolality is elevated with increase in BUN/ creatinine ratio. Due to the significant edema, could consider albumin followed by Lasix to see if we can draw some of his fluid from his tissues. Vascularly, he is dry. His heart rate is now elevated in the 100s. Blood pressure will tolerate low-dose calcium channel camilo and will incorporate this morning. ASSESSMENT/PLAN: 1. RESPIRATORY FAILURE - currently intubated 2. ATRIAL FIBRILLATION, PAROXYSMAL - avoiding anticoagulants due to recent intracranial hemorrhage. He is on low-dose aspirin. He is rate is higher today we will start a low-dose calcium channel camilo. 3. RECENT INTRACRANIAL HEMORRHAGE - avoiding anticoagulants. 4. SEPSIS -seems to be improving - Continue to follow accordingly 5. PERICARDIAL EFFUSION - echocardiogram performed reveals small to moderate sized pericardial without tamponade. 6. ANEMIA - continue to monitor hemoglobin and hematocrit closely 7. UNDERLYING HYPERTENSION - has required pressors, now normotensive off of pressors. Will eventually introduce beta blockade when able. 8. CVA - history of CVA approximately 15 years ago. Exam (Progress Note) - Constitutional Vitals: Period Temp Pulse Resp BP Sys/Novak Pulse Ox Last 24 Hr 97.8 F-98.6 F 62-118 8-28 88-135/48-77 95-100 Exam: General: [Intubated] [cooperative. ] [Appears comfortable. Anasarca noted] HEENT: [normocephalic, atraumatic. Mucous membranes moist. No jaundice noted. ] Neck: Unable to assess for JVD due to habitus. No lymphadenopathy noted. No carotid bruit appreciated Cardiac: [Irregularly irregular rhythm, controlled rate] [No obvious murmur rub or gallop.] Lungs: [Relatively clear without wheezes.] Intubated. Symmetrical chest wall movements noted Abdomen: Distended with hypoactive bowel sounds. Seems to be nontender. Musculoskeletal: Decreased range of motion is noted. Extremities: Right hand cold and edematous. Bilateral radial pulses 2+. General massive edema noted. Capillary refill less than 3 seconds. Skin: Large sacral decubiti noted. No unusual lesions Neuro: Awake, alert and obeys commands though intubated. No essential tremor is appreciated. Result/EKG - Labs CBC & BMP: 01/17/17 04:15 01/17/17 04:00 Lab Results: I have reviewed the past 24 hour labs Labs: Laboratory Results - last 24 hr 01/16/17 01/16/17 01/16/17 12:42 13:38 17:39 WBC RBC Hgb Hct MCV MCH MCHC RDW Plt Count MPV Neut % (Auto) Lymph % (Auto) [place] % (Auto) Eos % (Auto) Baso % (Auto) Neut # (Auto) Lymph # (Auto) [place] # (Auto) Eos # (Auto) Baso # (Auto) Immature Gran % Nucleated RBC % Immature Gran # Nucleated RBCs # ABG pH ABG pCO2 ABG pO2 ABG HCO3 ABG Total CO2 ABG O2 Saturation ABG Base Excess Sodium Potassium Chloride Carbon Dioxide Anion Gap BUN Creatinine GFR Calculation BUN/Creatinine Ratio Glucose POC Glucose 50 L 104 69 L Calculated Osmolality Calcium 01/16/17 01/16/17 01/17/17 19:01 23:25 04:00 WBC RBC Hgb Hct MCV MCH MCHC RDW Plt Count MPV Neut % (Auto) Lymph % (Auto) [place] % (Auto) Eos % (Auto) Baso % (Auto) Neut # (Auto) Lymph # (Auto) [place] # (Auto) Eos # (Auto) Baso # (Auto) Immature Gran % Nucleated RBC % Immature Gran # Nucleated RBCs # ABG pH 7.457 H ABG pCO2 43.5 ABG pO2 176.3 H ABG HCO3 30.0 H ABG Total CO2 31.4 H ABG O2 Saturation 98.7 ABG Base Excess 5.6 H Sodium Potassium Chloride Carbon Dioxide Anion Gap BUN Creatinine GFR Calculation BUN/Creatinine Ratio Glucose POC Glucose 108 H 106 Calculated Osmolality Calcium 01/17/17 01/17/17 01/17/17 04:00 04:15 05:13 WBC 8.3 RBC 3.21 L Hgb 9.6 L Hct 31.2 L MCV 97.2 MCH 30 MCHC 30.8 L RDW 14.5 Plt Count 246 MPV 12.0 Neut % (Auto) 63.4 Lymph % (Auto) 21.2 [place] % (Auto) 11.2 Eos % (Auto) 3.4 Baso % (Auto) 0.2 Neut # (Auto) 5.2 Lymph # (Auto) 1.8 [place] # (Auto) 0.9 H Eos # (Auto) 0.3 Baso # (Auto) 0.0 Immature Gran % 0.6 Nucleated RBC % 0.0 Immature Gran # 0.05 Nucleated RBCs # 0.00 ABG pH ABG pCO2 ABG pO2 ABG HCO3 ABG Total CO2 ABG O2 Saturation ABG Base Excess Sodium 147 H Potassium 3.8 Chloride 111 H Carbon Dioxide 30 Anion Gap 9.8 BUN 58 H D Creatinine 0.80 GFR Calculation 133 BUN/Creatinine Ratio 72.00 H Glucose 105 POC Glucose 86 Calculated Osmolality 307.4 H Calcium 7.8 L 01/17/17 07:24 WBC RBC Hgb Hct MCV MCH MCHC RDW Plt Count MPV Neut % (Auto) Lymph % (Auto) [place] % (Auto) Eos % (Auto) Baso % (Auto) Neut # (Auto) Lymph # (Auto) [place] # (Auto) Eos # (Auto) Baso # (Auto) Immature Gran % Nucleated RBC % Immature Gran # Nucleated RBCs # ABG pH 7.383 ABG pCO2 49.6 H ABG pO2 136.0 H ABG HCO3 27.7 H ABG Total CO2 26.7 ABG O2 Saturation 99.0 ABG Base Excess 3.6 H Sodium Potassium Chloride Carbon Dioxide Anion Gap BUN Creatinine GFR Calculation BUN/Creatinine Ratio Glucose POC Glucose Calculated Osmolality Calcium - Diagnostic Findings Procedure: Chest x-ray: report reviewed by me - EKG EKG results: interpreted by me EKG shows: atrial fibrillation Quality Measures - VTE Contraindication to Pharmacological VTE Prophylaxis: Already on Theraputic Agent , No Prophylaxis Needed <Nell Valle - Last Filed: 01/17/17 20:56> Cardiology - PN: Subj Interval history: I have personally interviewed and evaluated the patient, reviewed the chart and discussed medical decision-making with Practitioner Radha. I have read this note and agree with her documentation here in with the following correction: Under summary the last sentence should read therefore anticoagulation is not an option. Exam (Progress Note) - Constitutional Vitals: Period Temp Pulse Resp BP Sys/Novak Pulse Ox Last 24 Hr 97.0 F-98.6 F 77-131 8-29 60-144/38-77 84-100 Result/EKG - Labs CBC & BMP: 01/17/17 04:15 01/17/17 04:00 Labs: Laboratory Results - last 24 hr 01/16/17 01/17/17 01/17/17 23:25 04:00 04:00 WBC RBC Hgb Hct MCV MCH MCHC RDW Plt Count MPV Neut % (Auto) Lymph % (Auto) [place] % (Auto) Eos % (Auto) Baso % (Auto) Neut # (Auto) Lymph # (Auto) [place] # (Auto) Eos # (Auto) Baso # (Auto) Immature Gran % Nucleated RBC % Immature Gran # Nucleated RBCs # ABG pH 7.457 H ABG pCO2 43.5 ABG pO2 176.3 H ABG HCO3 30.0 H ABG Total CO2 31.4 H ABG O2 Saturation 98.7 ABG Base Excess 5.6 H Sodium 147 H Potassium 3.8 Chloride 111 H Carbon Dioxide 30 Anion Gap 9.8 BUN 58 H D Creatinine 0.80 GFR Calculation 133 BUN/Creatinine Ratio 72.00 H Glucose 105 POC Glucose 106 Calculated Osmolality 307.4 H Calcium 7.8 L B-Natriuretic Peptide 01/17/17 01/17/17 01/17/17 04:15 05:13 07:24 WBC 8.3 RBC 3.21 L Hgb 9.6 L Hct 31.2 L MCV 97.2 MCH 30 MCHC 30.8 L RDW 14.5 Plt Count 246 MPV 12.0 Neut % (Auto) 63.4 Lymph % (Auto) 21.2 [place] % (Auto) 11.2 Eos % (Auto) 3.4 Baso % (Auto) 0.2 Neut # (Auto) 5.2 Lymph # (Auto) 1.8 [place] # (Auto) 0.9 H Eos # (Auto) 0.3 Baso # (Auto) 0.0 Immature Gran % 0.6 Nucleated RBC % 0.0 Immature Gran # 0.05 Nucleated RBCs # 0.00 ABG pH 7.383 ABG pCO2 49.6 H ABG pO2 136.0 H ABG HCO3 27.7 H ABG Total CO2 26.7 ABG O2 Saturation 99.0 ABG Base Excess 3.6 H Sodium Potassium Chloride Carbon Dioxide Anion Gap BUN Creatinine GFR Calculation BUN/Creatinine Ratio Glucose POC Glucose 86 Calculated Osmolality Calcium B-Natriuretic Peptide 01/17/17 01/17/17 01/17/17 09:40 12:20 18:05 WBC RBC Hgb Hct MCV MCH MCHC RDW Plt Count MPV Neut % (Auto) Lymph % (Auto) [place] % (Auto) Eos % (Auto) Baso % (Auto) Neut # (Auto) Lymph # (Auto) [place] # (Auto) Eos # (Auto) Baso # (Auto) Immature Gran % Nucleated RBC % Immature Gran # Nucleated RBCs # ABG pH 7.272 L ABG pCO2 69.9 H* ABG pO2 64.4 L ABG HCO3 27.2 H ABG Total CO2 29.6 H ABG O2 Saturation 89.5 L ABG Base Excess 3.3 H Sodium Potassium Chloride Carbon Dioxide Anion Gap BUN Creatinine GFR Calculation BUN/Creatinine Ratio Glucose POC Glucose 96 123 H Calculated Osmolality Calcium B-Natriuretic Peptide 01/17/17 Unknown WBC RBC Hgb Hct MCV MCH MCHC RDW Plt Count MPV Neut % (Auto) Lymph % (Auto) [place] % (Auto) Eos % (Auto) Baso % (Auto) Neut # (Auto) Lymph # (Auto) [place] # (Auto) Eos # (Auto) Baso # (Auto) Immature Gran % Nucleated RBC % Immature Gran # Nucleated RBCs # ABG pH ABG pCO2 ABG pO2 ABG HCO3 ABG Total CO2 ABG O2 Saturation ABG Base Excess Sodium Potassium Chloride Carbon Dioxide Anion Gap BUN Creatinine GFR Calculation BUN/Creatinine Ratio Glucose POC Glucose Calculated Osmolality Calcium B-Natriuretic Peptide 216 H
[2017-01-17] MEDS: DILTIAZEM 30 MG TABLET PO SCH ×4 (09:00→21:46)
[2017-01-17] MEDS: CHOLECALCIFEROL 1,000 UNIT TABLET PO SCH (09:00)
[2017-01-17] MEDS: FINASTERIDE 5 MG TABLET PO SCH (09:00)
[2017-01-17] MEDS: ASPIRIN CHEW 81 MG TABLET PO SCH (09:00)
[2017-01-17] MEDS ORDERED: methylPREDNISolone SOD SUC 125 MG/2 ML VIAL IV ONE (09:36)
[2017-01-17] MEDS ORDERED: ALBUTEROL 2.5 MG/3 ML NEB RESP TX ONE (09:36)
[2017-01-17] MEDS ORDERED: LIDOCAINE 100 MG/5 ML SYRINGE ONE (09:48)
[2017-01-17] MEDS ORDERED: PROPOFOL 200 MG/20 ML VIAL IV ONE ×2 (09:48→10:03)
[2017-01-17] MEDS ORDERED: LIDOCAINE 2% 20 ML VIAL MISC INJ ONE (10:00)
[2017-01-17] MEDS ORDERED: SUCCINYLCHOLINE 200 MG/10 ML VIAL ONE (10:01)
[2017-01-17] MEDS ORDERED: SUCCINYLCHOLINE 200 MG/10 ML VIAL IV ONE (10:03)
[2017-01-17] MEDS ORDERED: PHENYLEPHRINE DRIP 40 MG/250 ML PREMIX IV ONE (10:06)
[2017-01-17] MEDS ORDERED: PHENYLEPHRINE 50 MG/5 ML VIAL IV ONE (10:10)
[2017-01-17] MEDS ORDERED: PHENYLEPHRINE DRIP 40 MG/250 ML PREMIX IV SCH (10:15)
[2017-01-17] MEDS: PANTOPRAZOLE 40 MG VIAL IV SCH (10:22)
[2017-01-17 10:54] LABS: ABG Base Excess 3.3 MMOL/L (-2.5-2.5); ABG HCO3 27.2 MMOL/L (20-26); ABG Oxygen Saturation 89.5 % (95-100); ABG PH 7.272 (7.35-7.45); ABG PO2 64.4 MM HG (80-95); ABG TCO2 29.6 MMOL/L (23-27)
[2017-01-17 10:56] LABS: ABG PCO2 69.9 MM HG (35-48)
--- NOTE | 2017-01-17 11:50 | Pulmonology Progress Note ---
Pulmonary - PN: Subj Interval history: Michael Rodarte, ANP-BC, GNP-BC, acting as scribe for Dr. Beto Ventura This is a 81-year-old black male. We saw him in initial pulmonary consultation on 01/12/2017. He had aspirated and he required fiberoptic bronchoscopy. Small pieces of meat and multiple green peas were removed during bronchoscopy. See the bronchoscopy note concerning that. At the time of our initial consultation, our impressions were: 1. Acute respiratory failure requiring intubation mechanical ventilation. [place] to be secondary to acute aspiration. 2. Recent intracerebral bleed with neuro logical sequela including difficulty swallowing 3. Hypothyroidism 4. Mild anemia 5. Low calcium probably secondary to low albumin. Look for vitamin D deficiency. 01/15/2017, vitamin D level is low 6. Hypotension requiring pressor agents. For 2016. Now normotensive off pressors. 7. Hypoproteinemia, hypoalbuminemia, mild increase globulins. 8. Atrial fib 9. Valvular heart disease. Type unknown. 01/15/2017. Echocardiogram showed ejection fraction of 60%. There was +1 aortic stenosis with a mean peak gradient of 12/18 mmHg, +1 aortic regurgitation, +1 mitral regurgitation. Pulmonary artery pressures were 39 mmHg with +2 or 3 tricuspid regurgitation. Small to moderate size circumferential pericardial effusion with no evidence of tamponade. Pleural fluid was also noted. 10. History of high blood pressure 11. Azotemia. Creatinine 1.6. 12. See past history. 01/15/2017. Today's chest x-ray shows cardiomegaly with small bilateral pleural effusions and atelectasis in the right middle lung and the left lower lung. ABGs on mechanical ventilation showed pH is 7.47, PCO2 of 42, PO2 of 158 and a bicarb of 30.2. Natruretic peptide is elevated at 300. Vitamin D level is low at 6.8. White blood cell count is 12,800 with 71 segs 18 lymphs and 9 monos. Electrolytes are normal. Creatinine has dropped from 1.70-1.00 with a BUN of 47. Urine has grown Enterococcus faecalis. Blood cultures from 01/11/2017 were reported as growing a gram-negative tommie. Cultures and sensitivities are not yet available. Bronchial lavage from 01/12/2017 is growing a yeast. Abscess culture from 01/12/2017 is growing a gram-negative tommie and gram-positive cocci. So far no identification or sensitivities to antibiotics are available. Labs been reviewed. Medicines have been reviewed. 01/16/2017. Earlier today the patient had a fiberoptic bronchoscopy. See report. Gastric acid injuries are healing. There is mild to moderate underlying COPD with collapsible large and small airways. I found no additional food particles. Patient had a moderate amount of retained secretions which were removed. These were predominantly in the right lower left lower lung where there has been some atelectasis on his chest x-ray. He tolerated procedure well and I have discussed the procedure with Dr. Dolly Manzanares. ABGs look good. Patient is much stronger. He is progressing very well with his weaning protocol. Tomorrow morning at 5 AM I am going to give him a T- tube trial to 7 AM and will check his blood gases and his status at that time. Electrolytes normal. Creatinine is 0.8 with a BUN of 48. White count is 10, 700 down from 21,600. H&H is stable at 9.9/32.3. 01/17/2017. The patient's ABGs this morning on T-tube showed a pH of 7.383, PCO2 49.6, PO2 136.0, bicarb 27.7, and oxygen saturation 99%. Patient looks strong so we elected to extubate him. However, shortly thereafter the patient became tachycardic and tachypneic. He appeared as though he was going to tire out, so the decision was made to reintubate the patient. Chest x-ray shows what appeared to be atelectasis and possible pleural fluid. BNP, however, was only 216. Will restart the weaning protocol and continued physical therapy protocol. Medications have been reviewed. We made no changes today. Labs have been reviewed. White count is 8300 with a normal differential; H&H 9.6/31.2; platelet count 246,000; creatinine 0.80, BUN 58, sodium 147, potassium 3.8 Exam (Progress Note) - Constitutional Vitals: Period Temp Pulse Resp BP Sys/Novak Pulse Ox Last 24 Hr 97.0 F-98.6 F 62-131 8-29 88-135/48-75 84-100 Exam: Chest with mild large airway congestion Heart no gallop Abdomen is nondistended with rare bowel sounds Extremities with nothing to suggest acute deep venous thrombophlebitis Psychiatric/neurologic the patient can be awakened easily and is cooperative otherwise unchanged Plan: Continue vent weaning and physical therapy protocols. Daily chest x-ray and ABGs while on the ventilator. See orders. Results - Labs CBC & BMP: 01/17/17 04:15 01/17/17 04:00
--- NOTE | 2017-01-17 15:32 | Anesthesia Procedures ---
Anesthesia Procedures - Intubation Sedative: other Mg given sedative: 150 (Propofol) Paralytic: Succinylcholine Mg given paralytic: 120 Laryngoscope: Joce ET Tube Size: 8 Tube Secured Depth (cm): 23 Tube Secured Location: lips Tube Placement Confirmation: visualized tube passing through cords, equal breath sounds bilaterally, no breath sounds over epigastrium, confirmation by capnometry, confirmation detector color change Patient tolerated procedure intubation: well, no complications Intubation Complications: hypotension Additional Commets: Lidocaine 100 mg IV given before intubation. Pt was intubated at 10:05am. Immediately after intubation pt was hypotensive and Neosynephrine 80 mcg IV X1 was given and patient was started on Neosynephrine infusion. BP was normalized.
[2017-01-17] MEDS ORDERED: SPIRONOLACTONE 25 MG TABLET PO ONE (17:17)
--- NOTE | 2017-01-17 17:21 | Hospitalist Progress Note ---
Assessment and Plan - Time spent with patient Time spent with patient: Greater than 30 minutes (1) Sepsis Status: Acute Assessment and plan: Due to aspiration pneumonia and decubitus ulcer. Patient failed extubation. Continue antibiotics and consider LTAC. Current Visit: Yes Qualifiers: Sepsis type: sepsis due to unspecified organism Qualified Code(s): A41.9 - Sepsis, unspecified organism (2) Aspiration pneumonia Status: Acute Assessment and plan: Patient started on Rocephin and Azactam. Consult pulmonary for vent management. Current Visit: Yes Qualifiers: Aspiration pneumonia type: due to regurgitated food Laterality: right Lung location: unspecified part of lung Qualified Code(s): J69.0 - Pneumonitis due to inhalation of food and vomit (3) History of intracranial hemorrhage Status: Resolved Assessment and plan: Intracranial hemorrhage on Pradaxa 4 weeks ago. Required hospitalization at [facility]. Not receiving DVT prophylaxis with low molecular weight heparin or heparin due to his recent intracranial hemorrhage. Will use SCDs and aspirin instead. Current Visit: Yes (4) Atrial fibrillation Status: Chronic Assessment and plan: Rate controlled with Cardizem. No anticoagulation secondary to recent intracranial hemorrhage Current Visit: No Qualifiers: Atrial fibrillation type: chronic Qualified Code(s): I48.2 - Chronic atrial fibrillation (5) HTN (hypertension) Status: Chronic Current Visit: No Qualifiers: Hypertension type: essential hypertension Qualified Code(s): I10 - Essential (primary) hypertension (6) Acute respiratory failure Status: Acute Assessment and plan: Due to pneumonia and severe debility. Current Visit: Yes Qualifiers: Respiratory failure complication: hypoxia Qualified Code(s): J96.01 - Acute respiratory failure with hypoxia (7) Sacral decubitus ulcer Status: Acute Current Visit: Yes (8) Bacteremia Status: Acute Current Visit: Yes Hospitalist: Subjective Interval history: Patient seen and examined. No acute events overnight. Case discussed with nursing staff. Labs reviewed. The patient was extubated this morning but did not tolerate it well. He required reintubation. I appreciate anesthesia's help with this. Exam - Constitutional Vitals: Period Temp Pulse Resp BP Sys/Novak Pulse Ox Last 24 Hr 97.0 F-98.6 F 81-131 8-29 60-144/38-77 84-100 Exam: Constitutional System: Mild distress. No tremulousness. Head: Normocephalic, atraumatic. Ears, Nose and Throat System: No pain or tenderness. No epistaxis or discharge. endotracheal tube in place. Eyes System: Pupils equal, round, and reactive. Extraocular muscles intact. Neck: Supple, without adenopathy, No jugular venous distention. No thyromegaly, neck mass, or prior surgery apparent. Respiratory System: Chest coarse rhonchi to auscultation. Cardiovascular System: Heart with irregular rate and rhythm. No murmur. GI System: Abdomen soft, nontender. Normo active bowel sounds present. Musculoskeletal System: limbs with 3+ pitting edema. Full distal pulses. Neurological System: Patient intubated and sedated Psychiatric System: Conversation is not possible at this time secondary to patient's condition. Results - Labs CBC & BMP: 01/17/17 04:15 01/17/17 04:00 Lab Results: I have reviewed the past 24 hour labs - Diagnostic Findings Procedure: Chest x-ray: image reviewed by me, report reviewed by me Quality Measures - VTE Contraindication to Pharmacological VTE Prophylaxis: Already on Theraputic Agent , No Prophylaxis Needed
[2017-01-17] MEDS: ALBUMIN 25% 25 GM in PREMIX 1 EACH IV SCH (17:35)
[2017-01-17] MEDS: cefTRIAXone 2,000 MG in SODIUM CHLORIDE 0.9% 100 ML IV SCH (17:36)
[2017-01-17] MEDS: FUROSEMIDE 40 MG/4 ML VIAL IV SCH (18:31)
[2017-01-17] MEDS: AMPICILLIN INJ 1,000 MG in SODIUM CHLORIDE 0.9% 100 ML IV SCH (21:46)
[2017-01-18] MEDS: ALBUTEROL/IPRATROPIUM 3 ML NEB RESP TX SCH ×4 (01:02→20:01)
[2017-01-18] MEDS: INSULIN LISPRO 100 UNIT/ML SUBCUT SCH ×4 (02:30→18:39)
[2017-01-18] MEDS: AZTREONAM 2,000 MG in SODIUM CHLORIDE 0.9% 100 ML IV SCH ×4 (02:52→21:11)
[2017-01-18] MEDS ORDERED: ALBUMIN 25% 25 GM in PREMIX 1 EACH IV SCH (03:00)
[2017-01-18] MEDS: ALBUMIN 25% 25 GM in PREMIX 1 EACH IV SCH ×3 (04:07→18:40)
[2017-01-18 04:56] LABS: Basophils % 0.1 % (0.0-0.8); Hematocrit 32.3 VOL% (42.0-52.0); Immature Granulocytes % 0.9 %; Immature Granulocytes Absolute 0.09 #; Lymphocytes # 1.6 10*3/uL (1.4-4.0); Lymphocytes % 15.8 % (21.2-54.2); Mean Corpuscular Hemoglobin 30 PG (27-34); Mean Corpuscular Volume 95.8 FL (87-102); Mean Platelet Volume 11.9 FL (9.6-12.0); Monocytes # 0.5 10*3/uL (0.11-0.8); Monocytes % 5.3 % (1.7-12.7); Neutrophils # 7.8 10*3/uL (1.4-7.4); Neutrophils % 77.9 % (38.7-73.9); Platelet Count 257 T/CUMM (130-400); Red Blood Count 3.37 MC/CUMM (3.8-5.5); Red Cell Distribution Width 14.4 % (9.3-17.3)
[2017-01-18 05:03] LABS: ABG Base Excess 3.6 MMOL/L (-2.5-2.5); ABG HCO3 27.9 MMOL/L (20-26); ABG Oxygen Saturation 98.6 % (95-100); ABG PCO2 41.4 MM HG (35-48); ABG PH 7.447 (7.35-7.45); ABG PO2 148.2 MM HG (80-95); ABG TCO2 29.2 MMOL/L (23-27)
[2017-01-18] MEDS: AMPICILLIN INJ 1,000 MG in SODIUM CHLORIDE 0.9% 100 ML IV SCH ×3 (05:18→21:11)
[2017-01-18 05:34] LABS: Alanine Aminotransferase 17 U/L (16-61); Albumin 2.1 G/DL (3.4-5.0); Alkaline Phosphatase 51 U/L (45-117); Aspartate Amino Transferase 16 U/L (0-37); Bilirubin,Total < 0.39 MG/DL (0.2-1.0); Blood Urea Nitrogen 58 MG/DL (7-18); Calcium 7.7 MG/DL (8.5-10.1); Glucose 131 MG/DL (74-106); Osmolality,Calculated 307.6 MOS/KG (273-304); Sodium 146 MMOL/L (136-145); Total Protein 6.1 G/DL (6.4-8.3)
[2017-01-18 05:40] LABS: Magnesium 2.4 MG/DL (1.8-2.4); Phosphorous 3.4 MG/DL (2.5-4.9); Prealbumin 10.2 MG/DL (20-40)
[2017-01-18] MEDS: PROPOFOL 1,000 MG/100 ML BOTTLE IV SCH (06:11)
--- NOTE | 2017-01-18 06:22 | XRay Report ---
XR chest 1V portable Indication: Ventilator Comparison: Chest x-ray 01/17/2017 Technique: Portable AP chest was performed. Findings: Worsening opacification left upper chest suggests worsening atelectasis of the left lung. Patient is rotated slightly to the left. Haziness right lung base is stable suggesting atelectasis or dependent pleural fluid. Right upper lung is clear. Multiple tubes and medical support devices appear stable. Bones and soft tissues are stable. Impression: 1. Patient is rotated to the left and worsened opacification of the left chest suggests left lung atelectasis. A component of pleural fluid is not excluded. 2. Right lung base suggest atelectasis and/or dependent pleural fluid. The appearance of the right chest demonstrates little change. 01/18/2017 6:18 AM PROCEDURE INTERPRETED AT [facility] DEPARTMENT OF RADIOLOGY Final Report Signed by: Dr. Tej Martinez
[2017-01-18] MEDS: LEVOTHYROXINE 175 MCG TABLET PO SCH (06:29)
[2017-01-18] MEDS: FINASTERIDE 5 MG TABLET PO SCH (08:49)
[2017-01-18] MEDS: CHOLECALCIFEROL 1,000 UNIT TABLET PO SCH (08:49)
[2017-01-18] MEDS: DILTIAZEM 30 MG TABLET PO SCH ×4 (08:49→21:11)
[2017-01-18] MEDS: FUROSEMIDE 40 MG/4 ML VIAL IV SCH ×2 (08:50→16:00)
[2017-01-18] MEDS: PANTOPRAZOLE 40 MG VIAL IV SCH (08:50)
[2017-01-18] MEDS: SODIUM HYPOCHLORITE 0.25% IRRIG 473 ML BOTTLE TOP SCH ×2 (08:50→21:11)
[2017-01-18] MEDS: ASPIRIN CHEW 81 MG TABLET PO SCH (08:50)
--- NOTE | 2017-01-18 10:39 | Event Note ---
In hospital therapeutic and diagnostic fiberoptic bronchoscopy. Left upper lung left lower lung and right lower lung lavages were sent for Gram stain, bacterial cultures and fungal stains and cultures. This is an 81-year-old black male who is on mechanical ventilation he has an ineffective cough he has a white out (atelectasis) of the left lung. He has previously been evaluated for aspiration and he had a good bit of food in his lungs. He has reevaluated and retreated with fiberoptic bronchoscopy for these reasons. The endotracheal tube is in good position. The distal trachea was normal. The peter was sharp. The left mainstem bronchus contained only a small amount of sputum there was more than usual retention of sputum in the left upper lung and the left lower lung and these areas were lavaged until clear. These specimens were sent for the studies noted above. There is collapsibility of the large and small airways compatible with underlying COPD. The right mainstem bronchus contained a little sputum and this extended into the right lower lung which was lavaged. The large and small airways were collapsible. I saw no food particles. Specimens were sent for the studies noted above. The patient tolerated procedure well. There were no complications. Impression. 1. Atelectasis of the left lung. At least partially secondary to retained secretions. The amount of sputum retention was less than expected. Look for pleural effusion. 2. Recent aspiration 3. Retained secretions 4. Ineffective cough 5. Intubation mechanical ventilation. Plan. 1. Follow-up chest x-ray 2. Follow-up bronchoscopy results
--- NOTE | 2017-01-18 11:23 | XRay Report ---
XR chest 1V portable Indication: Status post fiberoptic bronchoscopy. Comparison: Chest x-ray 01/18/2017. Technique: Portable AP chest was performed. Findings: Improved aeration of the mid to upper left lung is demonstrated. Haziness in the right lung base and persistent haziness in the left lung base are noted. Heart size is stable. Multiple tubes and medical support devices appear stable. Impression: 1. Improved aeration of the mid to upper left lung. 2. Residual bilateral dependent pleural fluid collections and/or atelectatic changes could be considered. Infectious process left chest is not excluded. 01/18/2017 11:20 AM PROCEDURE INTERPRETED AT [facility] DEPARTMENT OF RADIOLOGY Final Report Signed by: Dr. Tej Martinez
--- NOTE | 2017-01-18 11:35 | Pulmonology Progress Note ---
Pulmonary - PN: Subj Interval history: Michael Rodarte, ANP-BC, GNP-BC, acting as scribe for Dr. Beto Ventura This is a 81-year-old black male. We saw him in initial pulmonary consultation on 01/12/2017. He had aspirated and he required fiberoptic bronchoscopy. Small pieces of meat and multiple green peas were removed during bronchoscopy. See the bronchoscopy note concerning that. At the time of our initial consultation, our impressions were: 1. Acute respiratory failure requiring intubation mechanical ventilation. [place] to be secondary to acute aspiration. 2. Recent intracerebral bleed with neuro logical sequela including difficulty swallowing 3. Hypothyroidism 4. Mild anemia 5. Low calcium probably secondary to low albumin. Look for vitamin D deficiency. 01/15/2017, vitamin D level is low 6. Hypotension requiring pressor agents. For 2016. Now normotensive off pressors. 7. Hypoproteinemia, hypoalbuminemia, mild increase globulins. 8. Atrial fib 9. Valvular heart disease. Type unknown. 01/15/2017. Echocardiogram showed ejection fraction of 60%. There was +1 aortic stenosis with a mean peak gradient of 12/18 mmHg, +1 aortic regurgitation, +1 mitral regurgitation. Pulmonary artery pressures were 39 mmHg with +2 or 3 tricuspid regurgitation. Small to moderate size circumferential pericardial effusion with no evidence of tamponade. Pleural fluid was also noted. 10. History of high blood pressure 11. Azotemia. Creatinine 1.6. 12. See past history. 01/15/2017. Today's chest x-ray shows cardiomegaly with small bilateral pleural effusions and atelectasis in the right middle lung and the left lower lung. ABGs on mechanical ventilation showed pH is 7.47, PCO2 of 42, PO2 of 158 and a bicarb of 30.2. Natruretic peptide is elevated at 300. Vitamin D level is low at 6.8. White blood cell count is 12,800 with 71 segs 18 lymphs and 9 monos. Electrolytes are normal. Creatinine has dropped from 1.70-1.00 with a BUN of 47. Urine has grown Enterococcus faecalis. Blood cultures from 01/11/2017 were reported as growing a gram-negative tommie. Cultures and sensitivities are not yet available. Bronchial lavage from 01/12/2017 is growing a yeast. Abscess culture from 01/12/2017 is growing a gram-negative tommie and gram-positive cocci. So far no identification or sensitivities to antibiotics are available. Labs been reviewed. Medicines have been reviewed. 01/16/2017. Earlier today the patient had a fiberoptic bronchoscopy. See report. Gastric acid injuries are healing. There is mild to moderate underlying COPD with collapsible large and small airways. I found no additional food particles. Patient had a moderate amount of retained secretions which were removed. These were predominantly in the right lower left lower lung where there has been some atelectasis on his chest x-ray. He tolerated procedure well and I have discussed the procedure with Dr. Dolly Manzanares. ABGs look good. Patient is much stronger. He is progressing very well with his weaning protocol. Tomorrow morning at 5 AM I am going to give him a T- tube trial to 7 AM and will check his blood gases and his status at that time. Electrolytes normal. Creatinine is 0.8 with a BUN of 48. White count is 10, 700 down from 21,600. H&H is stable at 9.9/32.3. 01/17/2017. The patient's ABGs this morning on T-tube showed a pH of 7.383, PCO2 49.6, PO2 136.0, bicarb 27.7, and oxygen saturation 99%. Patient looks strong so we elected to extubate him. However, shortly thereafter the patient became tachycardic and tachypneic. He appeared as though he was going to tire out, so the decision was made to reintubate the patient. Chest x-ray shows what appeared to be atelectasis and possible pleural fluid. BNP, however, was only 216. Will restart the weaning protocol and continued physical therapy protocol. 01/18/2017. Chest x-ray this morning showed a complete white out of the left lung. We proceeded with fiberoptic bronchoscopy and this showed atelectasis of the left lung. It was felt this was at least partially secondary to retained secretions. The amount of sputum retention however was less than expected. Chest x-ray was repeated approximately 30 minutes later this showed improved aeration of the mid to upper left lung, but there was a left pleural effusion. We have consulted interventional radiology for a diagnostic and therapeutic thoracentesis. The patient was reintubated yesterday. See above. He is on the weaning protocol as well as physical therapy protocol. Medications have been reviewed. We made no changes today. Labs have been reviewed. White count is 10,000 with 77.9% segs; H&H 10.0/32.3; platelet count 257,000; creatinine 0.90, BUN 58, sodium 146, potassium 4.0, magnesium 2.4; liver function tests within normal limits; calcium is low at 7.7 reflecting a low albumin of 2.1, total protein 6.1 ABGs this morning on mechanical ventilation and an FiO2 of 60% showed a pH of 7.447, PCO2 41.4, PO2 148.2, bicarb 27.9, and oxygen saturation 98.6%. Exam (Progress Note) - Constitutional Vitals: Period Temp Pulse Resp BP Sys/Novak Pulse Ox Last 24 Hr 97.9 F-98.7 F 70-147 8-24 110-152/44-85 94-100 Exam: Chest with mild large airway congestion, decreased sounds on left Heart no gallop Abdomen is nondistended with rare bowel sounds Extremities with nothing to suggest acute deep venous thrombophlebitis Psychiatric/neurologic the patient can be awakened easily and is cooperative; otherwise unchanged Plan: Continue vent weaning and physical therapy protocols. Daily chest x-ray and ABGs while on the ventilator. Consult interventional radiology for therapeutic and diagnostic thoracentesis. See orders. Results - Labs CBC & BMP: 01/18/17 04:45 01/18/17 04:45
--- NOTE | 2017-01-18 14:12 | Cardiology Progress Note ---
<Pam Henley E - Last Filed: 01/18/17 14:05> Assessment and Plan - Time spent with patient Time spent with patient: Less than 30 minutes (1) Atrial fibrillation Status: Chronic Assessment and plan: See plan of care listed below Current Visit: No Qualifiers: Atrial fibrillation type: chronic Qualified Code(s): I48.2 - Chronic atrial fibrillation (2) Acute respiratory failure Status: Acute Assessment and plan: See plan of care listed below Current Visit: Yes Qualifiers: Respiratory failure complication: hypoxia Qualified Code(s): J96.01 - Acute respiratory failure with hypoxia (3) Anasarca Status: Acute Assessment and plan: See plan of care listed below Current Visit: Yes (4) Anemia Status: Acute Assessment and plan: See plan of care listed below Current Visit: Yes (5) Aspiration pneumonia Status: Acute Assessment and plan: See plan of care listed below Current Visit: Yes Qualifiers: Aspiration pneumonia type: due to regurgitated food Laterality: right Lung location: unspecified part of lung Qualified Code(s): J69.0 - Pneumonitis due to inhalation of food and vomit (6) Sacral decubitus ulcer Status: Acute Assessment and plan: See plan of care listed below Current Visit: Yes (7) Septic shock Status: Acute Assessment and plan: See plan of care listed below Current Visit: Yes (8) CVA (cerebral vascular accident) Status: Chronic Assessment and plan: See plan of care listed below Current Visit: Yes (9) Pericardial effusion Status: Chronic Assessment and plan: See plan of care listed below Current Visit: Yes (10) History of intracranial hemorrhage Status: Resolved Assessment and plan: See plan of care listed below Current Visit: Yes (11) HTN (hypertension) Status: Chronic Assessment and plan: See plan of care listed below Current Visit: No Qualifiers: Hypertension type: essential hypertension Qualified Code(s): I10 - Essential (primary) hypertension Cardiology - PN: Subj Interval history: [employer] CONSULTANT: DR. NELL VALLE PATIENT IS BEING SEEN IN THE CCU. The majority of this information is taken from medical records and staff as there is no family at the bedside and the patient is intubated. SUMMARY: History of hypertension, myxedema, dyslipidemia, tobaccoism, obesity, stroke, dilated cardiomyopathy (resolved), atrial fibrillation, chronic pericardial effusion. September 2016 he was found to have a moderate to large pericardial effusion and pleural effusion, significant overall edema. He was hospitalized and treated for myxedema. Repeat echocardiogram performed during January 12, 2017 reveals EF 60%, PAP 49 mmHg, small to moderate size pericardial effusion, right and left pleural effusions. Patient was admitted January 11, 2017 , emergently intubated and being treated for sepsis related to probable aspiration pneumonia, significant sacral decubitus. Patient was recently hospitalized in [place] for intracranial hemorrhage related to anticoagulation, therefor anticoagulation is not an option. JANUARY 17, 2017: Patient underwent bronchoscopy yesterday. He remains intubated though he wakes and follows commands appropriately. It is reported that he responded well to 40 mg IV Lasix yesterday. Urine osmolality is elevated with increase in BUN/ creatinine ratio. Due to the significant edema, could consider albumin followed by Lasix to see if we can draw some of his fluid from his tissues. Vascularly, he is dry. His heart rate is now elevated in the 100s. Blood pressure will tolerate low-dose calcium channel camilo and will incorporate this morning. January 18, 2017: Patient remains intubated but is easily arousable to verbal stimuli and follows commands appropriately. Albumin/Lasix was initiated yesterday due to an elevated urine osmolality with increase in BUN/creatinine ratio. His edema has improved slightly. He was started on a calcium channel camilo yesterday. He was previously requiring vasopressor support but is now normotensive. We will reintroduce beta-camilo today and see if he is able to tolerate. His heart rate has been elevated in the 110's-120's today. ASSESSMENT/PLAN: 1. RESPIRATORY FAILURE - currently intubated 2. ATRIAL FIBRILLATION, PAROXYSMAL - avoiding anticoagulants due to recent intracranial hemorrhage. He is on low-dose aspirin. Rates have been higher in the past couple days. Calcium channel camilo was initiated yesterday. Blood pressure is now normotensive. We will reintroduce beta camilo and adjust as needed. 3. RECENT INTRACRANIAL HEMORRHAGE - avoiding anticoagulants. 4. SEPSIS -seems to be improving - Continue to follow accordingly 5. PERICARDIAL EFFUSION - echocardiogram performed reveals small to moderate sized pericardial without tamponade. 6. ANEMIA - continue to monitor hemoglobin and hematocrit closely 7. UNDERLYING HYPERTENSION - has required pressors, now normotensive off of pressors. Will reintroduce low-dose beta camilo today and adjust as tolerated. 8. CVA - history of CVA approximately 15 years ago. Exam (Progress Note) - Constitutional Vitals: Period Temp Pulse Resp BP Sys/Novak Pulse Ox Last 24 Hr 97.9 F-98.7 F 70-147 8-24 114-152/44-85 94-100 Exam: General: [Intubated] [cooperative. ] [Appears comfortable. Anasarca noted] HEENT: [normocephalic, atraumatic. Mucous membranes moist. No jaundice noted. ] Neck: Unable to assess for JVD due to habitus. No lymphadenopathy noted. No carotid bruit appreciated Cardiac: [Irregularly irregular rhythm, controlled rate] [No obvious murmur rub or gallop.] Lungs: Coarse rhonchi. Intubated with ventilated breath sounds. Symmetrical chest wall movements noted Abdomen: Distended with hypoactive bowel sounds. Seems to be nontender. Musculoskeletal: Decreased range of motion is noted. Extremities: Right hand cold and edematous. Bilateral radial pulses 2+. General massive edema noted. Capillary refill less than 3 seconds. Skin: Large sacral decubiti noted. No unusual lesions Neuro: Awake, alert and obeys commands though intubated. No essential tremor is appreciated. Result/EKG - Labs CBC & BMP: 01/18/17 04:45 01/18/17 04:45 Lab Results: I have reviewed the past 24 hour labs Labs: Laboratory Results - last 24 hr 01/17/17 01/18/17 01/18/17 18:05 00:25 04:45 WBC RBC Hgb Hct MCV MCH MCHC RDW Plt Count MPV Neut % (Auto) Lymph % (Auto) Williamson % (Auto) Eos % (Auto) Baso % (Auto) Neut # (Auto) Lymph # (Auto) Williamson # (Auto) Eos # (Auto) Baso # (Auto) Immature Gran % Nucleated RBC % Immature Gran # Nucleated RBCs # ABG pH ABG pCO2 ABG pO2 ABG HCO3 ABG Total CO2 ABG O2 Saturation ABG Base Excess Sodium Potassium Chloride Carbon Dioxide Anion Gap BUN Creatinine GFR Calculation BUN/Creatinine Ratio Glucose POC Glucose 123 H 138 H Calculated Osmolality Calcium Phosphorus 3.4 Magnesium 2.4 Total Bilirubin AST ALT Alkaline Phosphatase Total Protein Albumin Globulin Albumin/Globulin Ratio Prealbumin 10.2 L 01/18/17 01/18/17 01/18/17 04:45 04:45 04:45 WBC 10.0 RBC 3.37 L Hgb 10.0 L Hct 32.3 L MCV 95.8 MCH 30 MCHC 31.0 L RDW 14.4 Plt Count 257 MPV 11.9 Neut % (Auto) 77.9 H Lymph % (Auto) 15.8 L Williamson % (Auto) 5.3 Eos % (Auto) 0.0 Baso % (Auto) 0.1 Neut # (Auto) 7.8 H Lymph # (Auto) 1.6 Williamson # (Auto) 0.5 Eos # (Auto) 0.0 Baso # (Auto) 0.0 Immature Gran % 0.9 Nucleated RBC % 0.0 Immature Gran # 0.09 Nucleated RBCs # 0.00 ABG pH 7.447 ABG pCO2 41.4 ABG pO2 148.2 H ABG HCO3 27.9 H ABG Total CO2 29.2 H ABG O2 Saturation 98.6 ABG Base Excess 3.6 H Sodium 146 H Potassium 4.0 Chloride 109 H Carbon Dioxide 29 Anion Gap 12.0 BUN 58 H Creatinine 0.90 GFR Calculation 128 BUN/Creatinine Ratio 64.00 H Glucose 131 H POC Glucose Calculated Osmolality 307.6 H Calcium 7.7 L Phosphorus Magnesium Total Bilirubin < 0.39 AST 16 ALT 17 Alkaline Phosphatase 51 Total Protein 6.1 L Albumin 2.1 L Globulin 4.0 H Albumin/Globulin Ratio 0.5 L Prealbumin 01/18/17 01/18/17 06:10 11:47 WBC RBC Hgb Hct MCV MCH MCHC RDW Plt Count MPV Neut % (Auto) Lymph % (Auto) Williamson % (Auto) Eos % (Auto) Baso % (Auto) Neut # (Auto) Lymph # (Auto) Williamson # (Auto) Eos # (Auto) Baso # (Auto) Immature Gran % Nucleated RBC % Immature Gran # Nucleated RBCs # ABG pH ABG pCO2 ABG pO2 ABG HCO3 ABG Total CO2 ABG O2 Saturation ABG Base Excess Sodium Potassium Chloride Carbon Dioxide Anion Gap BUN Creatinine GFR Calculation BUN/Creatinine Ratio Glucose POC Glucose 111 H 118 H Calculated Osmolality Calcium Phosphorus Magnesium Total Bilirubin AST ALT Alkaline Phosphatase Total Protein Albumin Globulin Albumin/Globulin Ratio Prealbumin - EKG EKG results: interpreted by me EKG shows: atrial fibrillation Quality Measures - VTE Contraindication to Pharmacological VTE Prophylaxis: Already on Theraputic Agent , No Prophylaxis Needed <Nell Valle - Last Filed: 01/18/17 17:19> Cardiology - PN: Subj Interval history: I have personally interviewed and evaluated the patient, reviewed the chart and discussed medical decision-making with practitioner Kale. I have read this note and agree with her documentation here in. The patient was extubated and then reintubated, he will undergo thoracentesis by interventional radiology. Exam (Progress Note) - Constitutional Vitals: Period Temp Pulse Resp BP Sys/Novak Pulse Ox Last 24 Hr 97.9 F-98.7 F 70-147 8-26 114-157/44-85 94-100 Result/EKG - Labs CBC & BMP: 01/18/17 04:45 01/18/17 04:45 Labs: Laboratory Results - last 24 hr 01/17/17 01/18/17 01/18/17 18:05 00:25 04:45 WBC RBC Hgb Hct MCV MCH MCHC RDW Plt Count MPV Neut % (Auto) Lymph % (Auto) Williamson % (Auto) Eos % (Auto) Baso % (Auto) Neut # (Auto) Lymph # (Auto) Williamson # (Auto) Eos # (Auto) Baso # (Auto) Immature Gran % Nucleated RBC % Immature Gran # Nucleated RBCs # ABG pH ABG pCO2 ABG pO2 ABG HCO3 ABG Total CO2 ABG O2 Saturation ABG Base Excess Sodium Potassium Chloride Carbon Dioxide Anion Gap BUN Creatinine GFR Calculation BUN/Creatinine Ratio Glucose POC Glucose 123 H 138 H Calculated Osmolality Calcium Phosphorus 3.4 Magnesium 2.4 Total Bilirubin AST ALT Alkaline Phosphatase Total Protein Albumin Globulin Albumin/Globulin Ratio Prealbumin 10.2 L 01/18/17 01/18/17 01/18/17 04:45 04:45 04:45 WBC 10.0 RBC 3.37 L Hgb 10.0 L Hct 32.3 L MCV 95.8 MCH 30 MCHC 31.0 L RDW 14.4 Plt Count 257 MPV 11.9 Neut % (Auto) 77.9 H Lymph % (Auto) 15.8 L Williamson % (Auto) 5.3 Eos % (Auto) 0.0 Baso % (Auto) 0.1 Neut # (Auto) 7.8 H Lymph # (Auto) 1.6 Williamson # (Auto) 0.5 Eos # (Auto) 0.0 Baso # (Auto) 0.0 Immature Gran % 0.9 Nucleated RBC % 0.0 Immature Gran # 0.09 Nucleated RBCs # 0.00 ABG pH 7.447 ABG pCO2 41.4 ABG pO2 148.2 H ABG HCO3 27.9 H ABG Total CO2 29.2 H ABG O2 Saturation 98.6 ABG Base Excess 3.6 H Sodium 146 H Potassium 4.0 Chloride 109 H Carbon Dioxide 29 Anion Gap 12.0 BUN 58 H Creatinine 0.90 GFR Calculation 128 BUN/Creatinine Ratio 64.00 H Glucose 131 H POC Glucose Calculated Osmolality 307.6 H Calcium 7.7 L Phosphorus Magnesium Total Bilirubin < 0.39 AST 16 ALT 17 Alkaline Phosphatase 51 Total Protein 6.1 L Albumin 2.1 L Globulin 4.0 H Albumin/Globulin Ratio 0.5 L Prealbumin 01/18/17 01/18/17 06:10 11:47 WBC RBC Hgb Hct MCV MCH MCHC RDW Plt Count MPV Neut % (Auto) Lymph % (Auto) Williamson % (Auto) Eos % (Auto) Baso % (Auto) Neut # (Auto) Lymph # (Auto) Williamson # (Auto) Eos # (Auto) Baso # (Auto) Immature Gran % Nucleated RBC % Immature Gran # Nucleated RBCs # ABG pH ABG pCO2 ABG pO2 ABG HCO3 ABG Total CO2 ABG O2 Saturation ABG Base Excess Sodium Potassium Chloride Carbon Dioxide Anion Gap BUN Creatinine GFR Calculation BUN/Creatinine Ratio Glucose POC Glucose 111 H 118 H Calculated Osmolality Calcium Phosphorus Magnesium Total Bilirubin AST ALT Alkaline Phosphatase Total Protein Albumin Globulin Albumin/Globulin Ratio Prealbumin
--- NOTE | 2017-01-18 14:21 | Hospitalist Progress Note ---
Assessment and Plan (1) Sepsis Status: Acute Assessment and plan: Due to aspiration pneumonia and decubitus ulcer. Patient failed extubation. Continue antibiotics and consider LTAC. Current Visit: Yes Qualifiers: Sepsis type: sepsis due to unspecified organism Qualified Code(s): A41.9 - Sepsis, unspecified organism (2) Aspiration pneumonia Status: Acute Assessment and plan: Patient started on Rocephin and Azactam. Consult pulmonary for vent management. Current Visit: Yes Qualifiers: Aspiration pneumonia type: due to regurgitated food Laterality: right Lung location: unspecified part of lung Qualified Code(s): J69.0 - Pneumonitis due to inhalation of food and vomit (3) History of intracranial hemorrhage Status: Resolved Assessment and plan: Intracranial hemorrhage on Pradaxa 4 weeks ago. Required hospitalization at [facility]. Not receiving DVT prophylaxis with low molecular weight heparin or heparin due to his recent intracranial hemorrhage. Will use SCDs and aspirin instead. Current Visit: Yes (4) Atrial fibrillation Status: Chronic Assessment and plan: Rate controlled with Cardizem. No anticoagulation secondary to recent intracranial hemorrhage Current Visit: No Qualifiers: Atrial fibrillation type: chronic Qualified Code(s): I48.2 - Chronic atrial fibrillation (5) HTN (hypertension) Status: Chronic Current Visit: No Qualifiers: Hypertension type: essential hypertension Qualified Code(s): I10 - Essential (primary) hypertension (6) Acute respiratory failure Status: Acute Assessment and plan: Due to pneumonia and severe debility. Continue supportive care with mechanical ventilation. Pulmonary following. Consider LTAC referral Current Visit: Yes Qualifiers: Respiratory failure complication: hypoxia Qualified Code(s): J96.01 - Acute respiratory failure with hypoxia (7) Sacral decubitus ulcer Status: Acute Current Visit: Yes (8) Bacteremia Status: Acute Current Visit: Yes Hospitalist: Subjective Interval history: Patient seen and examined. No acute events overnight. Case discussed with nursing staff. Labs reviewed. Remains intubated and sedated. I had a lengthy discussion with the LTAC construction representative as well as our pillowcase maker regarding this patient's referral. His insurance will not consider him for LTAC until he is off IV sedation. We will attempt to wean him from diprivan and give as needed Ativan while he is intubated. Exam - Constitutional Vitals: Period Temp Pulse Resp BP Sys/Novak Pulse Ox Last 24 Hr 97.9 F-98.7 F 70-147 8-24 114-152/44-85 94-100 Exam: Constitutional System: Mild distress. No tremulousness. Head: Normocephalic, atraumatic. Ears, Nose and Throat System: No pain or tenderness. No epistaxis or discharge. endotracheal tube in place. Copious secretions and drooling noted Eyes System: Pupils equal, round, and reactive. Extraocular muscles intact. Neck: Supple, without adenopathy, No jugular venous distention. No thyromegaly, neck mass, or prior surgery apparent. Respiratory System: Chest coarse rhonchi to auscultation. Cardiovascular System: Heart with irregular rate and rhythm. No murmur. GI System: Abdomen soft, nontender. Normo active bowel sounds present. Musculoskeletal System: limbs with 3+ pitting edema. Full distal pulses. Neurological System: Patient intubated and sedated Psychiatric System: Conversation is not possible at this time secondary to patient's condition. Results - Labs CBC & BMP: 01/18/17 04:45 01/18/17 04:45 Lab Results: I have reviewed the past 24 hour labs - Diagnostic Findings Procedure: Chest x-ray: image reviewed by me, report reviewed by me Quality Measures - VTE Contraindication to Pharmacological VTE Prophylaxis: Already on Theraputic Agent , No Prophylaxis Needed
[2017-01-18] MEDS: CARVEDILOL 3.125 MG TABLET PO SCH ×2 (15:59→21:11)
--- NOTE | 2017-01-18 16:41 | Post Interventional Procedure ---
Pre-op diagnosis: Pleural effusion Post-op diagnosis: same Procedure: Ultrasound-guided left thoracentesis Radiologist: Juni Chavez Anesthesia: local Specimens: other (1000 cc of clear, straw-colored pleural fluid to the laboratory) Estimated blood loss: none Complications: none Condition: stable Assessment and Plan - Time spent with patient Time spent with patient: Less than 30 minutes
--- NOTE | 2017-01-18 17:06 | Ultrasound Report ---
US thoracentesis Indication: Left pleural effusion. ULTRASOUND-GUIDED THORACENTESIS Description: A formal timeout was performed. Maximum sterile barrier technique was used. A left pleural effusion was identified with ultrasound. The left back was prepped and draped in sterile fashion. Under sonographic guidance, a 6 Cam[place]onian pigtail catheter was advanced into the effusion using trocar technique. A captured sonographic image documents needle position. The needle was removed. Through the catheter, we obtained a total of 1000 cc of straw-colored, clear fluid. The catheter was removed. A bandage was placed at the puncture site. The patient tolerated the procedure well. Specimen: 1000 cc left pleural fluid. Chest radiograph is pending. Impression: Ultrasound-guided thoracentesis. PROCEDURE INTERPRETED AT [facility] DEPARTMENT OF RADIOLOGY Final Report Signed by: Juni Chavez M.D.
--- NOTE | 2017-01-18 17:07 | XRay Report ---
XR chest post procedure Indication: Left thoracentesis. Post procedure chest radiograph, 2 views: Inspiratory and expiratory views of the chest were obtained. No pneumothorax on the left. Left pleural effusion has been completely evacuated when compared earlier today. Tiny right effusion is again noted. Cardiomegaly, endotracheal tube and NG tube are stable. Impression: No pneumothorax following left thoracentesis. PROCEDURE INTERPRETED AT [facility] DEPARTMENT OF RADIOLOGY Final Report Signed by: Juni Chavez M.D.
[2017-01-18 17:31] LABS: RBC,Pleural Fluid 637 T/CUMM
[2017-01-18 17:43] LABS: Eosinophils,Pleural Fluid 1 %; Lymphocytes,Pleural Fluid 22 %; Monocytes,Pleural Fluid 41 %; Neutrophils,Pleural Fluid 36 %
[2017-01-18] MEDS: cefTRIAXone 2,000 MG in SODIUM CHLORIDE 0.9% 100 ML IV SCH (18:39)
[2017-01-18] MEDS: LORazepam 2 MG/1 ML VIAL IV PRN ×2 (18:40→23:09)
[2017-01-19] MEDS: ALBUTEROL/IPRATROPIUM 3 ML NEB RESP TX SCH ×4 (00:06→19:06)
[2017-01-19] MEDS: INSULIN LISPRO 100 UNIT/ML SUBCUT SCH ×4 (00:43→18:09)
[2017-01-19] MEDS: ALBUMIN 25% 25 GM in PREMIX 1 EACH IV SCH ×3 (02:14→18:16)
[2017-01-19] MEDS: AZTREONAM 2,000 MG in SODIUM CHLORIDE 0.9% 100 ML IV SCH ×4 (02:14→20:40)
[2017-01-19 04:51] LABS: ABG Base Excess 4.6 MMOL/L (-2.5-2.5); ABG HCO3 28.6 MMOL/L (20-26); ABG Oxygen Saturation 99.6 % (95-100); ABG PCO2 46.8 MM HG (35-48); ABG PH 7.414 (7.35-7.45); ABG TCO2 27.3 MMOL/L (23-27)
[2017-01-19 05:06] LABS: Basophils % 0.2 % (0.0-0.8); Eosinophils % 0.3 % (0.00-10.9); Hematocrit 31.4 VOL% (42.0-52.0); Hemoglobin 9.6 GM/DL (14.0-18.0); Immature Granulocytes Absolute 0.19 #; Lymphocytes # 1.8 10*3/uL (1.4-4.0); Mean Corpuscular HGB Conc 30.6 GM/DL (32-36); Mean Corpuscular Hemoglobin 30 PG (27-34); Mean Corpuscular Volume 96.6 FL (87-102); Mean Platelet Volume 11.8 FL (9.6-12.0); Monocytes # 1.2 10*3/uL (0.11-0.8); Monocytes % 12.9 % (1.7-12.7); Neutrophils # 6.1 10*3/uL (1.4-7.4); Neutrophils % 65.6 % (38.7-73.9); Platelet Count 254 T/CUMM (130-400); Red Blood Count 3.25 MC/CUMM (3.8-5.5); Red Cell Distribution Width 14.8 % (9.3-17.3); White Blood Count 9.3 T/CUMM (4-12)
[2017-01-19 05:50] LABS: Albumin 2.8 G/DL (3.4-5.0); Bilirubin,Total 0.5 MG/DL (0.2-1.0); Calcium 8.3 MG/DL (8.5-10.1); Osmolality,Calculated 305.6 MOS/KG (273-304); Potassium 3.8 MMOL/L (3.5-5.1); Total Protein 6.2 G/DL (6.4-8.3)
[2017-01-19] MEDS: AMPICILLIN INJ 1,000 MG in SODIUM CHLORIDE 0.9% 100 ML IV SCH ×3 (06:02→21:20)
[2017-01-19] MEDS: LEVOTHYROXINE 175 MCG TABLET PO SCH (06:26)
--- NOTE | 2017-01-19 06:46 | XRay Report ---
XR chest 1V portable Indication: Intubation Comparison: Chest x-ray 01/18/2017 Technique: Portable AP chest was performed. Findings: Endotracheal tube terminates at the sternoclavicular junction. NG tube remains present not well-visualized below the lower chest. The degree of cardiomegaly is stable. Central vascular prominence has increased since comparison. Lungs demonstrate little interval change. Impression: 1. Change in the prominence of the central vasculature may in part reflect differences in inspiration and crowding. Venous congestive changes are not excluded. 2. Otherwise little change in the chest. 01/19/2017 6:42 AM PROCEDURE INTERPRETED AT [facility] DEPARTMENT OF RADIOLOGY Final Report Signed by: Dr. Tej Martinez
--- NOTE | 2017-01-19 07:05 | Cardiology Progress Note ---
<Melissa Garcia E - Last Filed: 01/19/17 10:56> Assessment and Plan - Time spent with patient Time spent with patient: Greater than 30 minutes (1) CVA (cerebral vascular accident) Status: Chronic Assessment and plan: See plan of care listed below Current Visit: Yes (2) Acute respiratory failure Status: Acute Assessment and plan: See plan of care listed below Current Visit: Yes Qualifiers: Respiratory failure complication: hypoxia Qualified Code(s): J96.01 - Acute respiratory failure with hypoxia (3) Anasarca Status: Acute Assessment and plan: See plan of care listed below Current Visit: Yes (4) Aspiration pneumonia Status: Acute Assessment and plan: See plan of care listed below Current Visit: Yes Qualifiers: Aspiration pneumonia type: due to regurgitated food Laterality: right Lung location: unspecified part of lung Qualified Code(s): J69.0 - Pneumonitis due to inhalation of food and vomit (5) Atrial fibrillation Status: Chronic Assessment and plan: See plan of care listed below Current Visit: Yes Qualifiers: Atrial fibrillation type: paroxysmal Qualified Code(s): I48.0 - Paroxysmal atrial fibrillation (6) History of intracranial hemorrhage Status: Resolved Assessment and plan: See plan of care listed below Current Visit: Yes (7) Pericardial effusion Status: Chronic Assessment and plan: See plan of care listed below Current Visit: Yes (8) Septic shock Status: Acute Current Visit: Yes (9) HTN (hypertension) Status: Chronic Assessment and plan: See plan of care listed below Current Visit: No Qualifiers: Hypertension type: essential hypertension Qualified Code(s): I10 - Essential (primary) hypertension (10) Anemia Status: Acute Assessment and plan: See plan of care listed below Current Visit: Yes Cardiology - PN: Subj Interval history: Interval history: DIRECTOR BIOINFORMATICS: DR. NELL VALLE PATIENT IS BEING SEEN IN THE CCU. The majority of this information is taken from medical records and staff as there is no family at the bedside and the patient is intubated. SUMMARY: History of hypertension, myxedema, dyslipidemia, tobaccoism, obesity, stroke, dilated cardiomyopathy (resolved), atrial fibrillation, chronic pericardial effusion. September 2016 he was found to have a moderate to large pericardial effusion and pleural effusion, significant overall edema. He was hospitalized and treated for myxedema. Repeat echocardiogram performed during January 12, 2017 reveals EF 60%, PAP 49 mmHg, small to moderate size pericardial effusion, right and left pleural effusions. Patient was admitted January 11, 2017 , emergently intubated and being treated for sepsis related to probable aspiration pneumonia, significant sacral decubitus. Patient was recently hospitalized in [place] for intracranial hemorrhage related to anticoagulation, therefor anticoagulation is not an option. JANUARY 17, 2017: Patient underwent bronchoscopy yesterday. He remains intubated though he wakes and follows commands appropriately. It is reported that he responded well to 40 mg IV Lasix yesterday. Urine osmolality is elevated with increase in BUN/ creatinine ratio. Due to the significant edema, could consider albumin followed by Lasix to see if we can draw some of his fluid from his tissues. Vascularly, he is dry. His heart rate is now elevated in the 100s. Blood pressure will tolerate low-dose calcium channel camilo and will incorporate this morning. January 18, 2017: Patient remains intubated but is easily arousable to verbal stimuli and follows commands appropriately. Albumin/Lasix was initiated yesterday due to an elevated urine osmolality with increase in BUN/creatinine ratio. His edema has improved slightly. He was started on a calcium channel camilo yesterday. He was previously requiring vasopressor support but is now normotensive. We will reintroduce beta-camilo today and see if he is able to tolerate. His heart rate has been elevated in the 110's-120's today. JANUARY 19, 2017: Mother no change in patient's condition overnight. He remains intubated but arouses easily. Labs are stable. Hemoglobin and hematocrit 9.6 and 31.4 respectively. Creatinine is stable. Still has paroxysms of atrial fibrillation. Aspirin 81 mg continues. Today, I will increase his carvedilol from 3.125 mg orally twice daily to 6.25 mg orally twice daily. May consider weaning the calcium channel camilo over the weekend and maximizing his beta- blockade. Avoiding anticoagulants due to recent intracranial hemorrhage. ASSESSMENT/PLAN: 1. RESPIRATORY FAILURE - currently intubated 2. ATRIAL FIBRILLATION, PAROXYSMAL - avoiding anticoagulants due to recent intracranial hemorrhage. He is on low-dose aspirin. Rates have been averaging around 100-110. Today, will increase his beta-blockade and potentially , over the weekend, calcium channel camilo may be stopped with increase of beta - camilo. 3. RECENT INTRACRANIAL HEMORRHAGE - avoiding anticoagulants. 4. SEPSIS -seems to be improving - Continue to follow accordingly 5. PERICARDIAL EFFUSION - echocardiogram performed reveals small to moderate sized pericardial without tamponade. Stable 6. ANEMIA - continue to monitor hemoglobin and hematocrit closely 7. UNDERLYING HYPERTENSION - has required pressors, now normotensive off of pressors. Increase beta camilo. 8. CVA - history of CVA approximately 15 years ago. Exam (Progress Note) - Constitutional Vitals: Period Temp Pulse Resp BP Sys/Novak Pulse Ox Last 24 Hr 98.0 F-98.3 F 70-147 10-26 127-158/44-91 96-100 Exam: General: [Intubated] [cooperative. ] [Appears comfortable. Anasarca noted] HEENT: [normocephalic, atraumatic. Mucous membranes moist. No jaundice noted. ] Neck: Unable to assess for JVD due to habitus. No lymphadenopathy noted. No carotid bruit appreciated Cardiac: [Irregularly irregular rhythm, controlled rate] [No obvious murmur rub or gallop.] Lungs: [Relatively clear without wheezes.] Intubated. Symmetrical chest wall movements noted Abdomen: Distended with hypoactive bowel sounds. Seems to be nontender. Musculoskeletal: Decreased range of motion is noted. Extremities: Right hand cold and edematous. Bilateral radial pulses 2+. General massive edema noted. Capillary refill less than 3 seconds. Skin: Large sacral decubiti noted. No unusual lesions Neuro: Awake, alert and obeys commands though intubated. No essential tremor is appreciated. Result/EKG - Labs CBC & BMP: 01/19/17 04:00 01/19/17 04:54 Lab Results: I have reviewed the past 24 hour labs Labs: Laboratory Results - last 24 hr 01/18/17 01/18/17 01/18/17 11:47 17:39 17:51 WBC RBC Hgb Hct MCV MCH MCHC RDW Plt Count MPV Neut % (Auto) Lymph % (Auto) [place] % (Auto) Eos % (Auto) Baso % (Auto) Neut # (Auto) Lymph # (Auto) [place] # (Auto) Eos # (Auto) Baso # (Auto) Immature Gran % Nucleated RBC % Immature Gran # Nucleated RBCs # ABG pH ABG pCO2 ABG pO2 ABG HCO3 ABG Total CO2 ABG O2 Saturation ABG Base Excess Sodium Potassium Chloride Carbon Dioxide Anion Gap BUN Creatinine GFR Calculation BUN/Creatinine Ratio Glucose POC Glucose 118 H 110 H 112 H Calculated Osmolality Calcium Total Bilirubin AST ALT Alkaline Phosphatase Total Protein Albumin Globulin Albumin/Globulin Ratio Fluid Total Protein Fluid LDH Fluid Amylase Fluid Lipase Pleural WBC Pleural RBC Pleural Tot Cell Ct Pleural Neutrophils Pleural Lymphocytes Pleural Monocytes Pleural Eosinophils Pleural Glucose 01/18/17 01/18/17 01/18/17 Unknown Unknown Unknown WBC RBC Hgb Hct MCV MCH MCHC RDW Plt Count MPV Neut % (Auto) Lymph % (Auto) [place] % (Auto) Eos % (Auto) Baso % (Auto) Neut # (Auto) Lymph # (Auto) [place] # (Auto) Eos # (Auto) Baso # (Auto) Immature Gran % Nucleated RBC % Immature Gran # Nucleated RBCs # ABG pH ABG pCO2 ABG pO2 ABG HCO3 ABG Total CO2 ABG O2 Saturation ABG Base Excess Sodium Potassium Chloride Carbon Dioxide Anion Gap BUN Creatinine GFR Calculation BUN/Creatinine Ratio Glucose POC Glucose Calculated Osmolality Calcium Total Bilirubin AST ALT Alkaline Phosphatase Total Protein Albumin Globulin Albumin/Globulin Ratio Fluid Total Protein Fluid LDH Fluid Amylase 8 Fluid Lipase Pleural WBC 131 Pleural RBC [address] 100 Pleural Neutrophils 36 Pleural Lymphocytes 22 Pleural Monocytes 41 Pleural Eosinophils 1 Pleural Glucose 126 01/18/17 01/18/17 01/18/17 Unknown Unknown Unknown WBC RBC Hgb Hct MCV MCH MCHC RDW Plt Count MPV Neut % (Auto) Lymph % (Auto) [place] % (Auto) Eos % (Auto) Baso % (Auto) Neut # (Auto) Lymph # (Auto) [place] # (Auto) Eos # (Auto) Baso # (Auto) Immature Gran % Nucleated RBC % Immature Gran # Nucleated RBCs # ABG pH ABG pCO2 ABG pO2 ABG HCO3 ABG Total CO2 ABG O2 Saturation ABG Base Excess Sodium Potassium Chloride Carbon Dioxide Anion Gap BUN Creatinine GFR Calculation BUN/Creatinine Ratio Glucose POC Glucose Calculated Osmolality Calcium Total Bilirubin AST ALT Alkaline Phosphatase Total Protein Albumin Globulin Albumin/Globulin Ratio Fluid Total Protein 2.2 Fluid LDH 69 Fluid Amylase Fluid Lipase 11 Pleural WBC Pleural RBC Pleural Tot Cell Ct Pleural Neutrophils Pleural Lymphocytes Pleural Monocytes Pleural Eosinophils Pleural Glucose 01/19/17 01/19/17 01/19/17 00:04 04:00 04:52 WBC 9.3 RBC 3.25 L Hgb 9.6 L Hct 31.4 L MCV 96.6 MCH 30 MCHC 30.6 L RDW 14.8 Plt Count 254 MPV 11.8 Neut % (Auto) 65.6 Lymph % (Auto) 19.0 L [place] % (Auto) 12.9 H Eos % (Auto) 0.3 Baso % (Auto) 0.2 Neut # (Auto) 6.1 Lymph # (Auto) 1.8 [place] # (Auto) 1.2 H Eos # (Auto) 0.0 Baso # (Auto) 0.0 Immature Gran % 2.0 Nucleated RBC % 0.0 Immature Gran # 0.19 Nucleated RBCs # 0.00 ABG pH 7.414 ABG pCO2 46.8 ABG pO2 149.0 H ABG HCO3 28.6 H ABG Total CO2 27.3 H ABG O2 Saturation 99.6 ABG Base Excess 4.6 H Sodium Potassium Chloride Carbon Dioxide Anion Gap BUN Creatinine GFR Calculation BUN/Creatinine Ratio Glucose POC Glucose 94 Calculated Osmolality Calcium Total Bilirubin AST ALT Alkaline Phosphatase Total Protein Albumin Globulin Albumin/Globulin Ratio Fluid Total Protein Fluid LDH Fluid Amylase Fluid Lipase Pleural WBC Pleural RBC Pleural Tot Cell Ct Pleural Neutrophils Pleural Lymphocytes Pleural Monocytes Pleural Eosinophils Pleural Glucose 01/19/17 01/19/17 04:54 06:10 WBC RBC Hgb Hct MCV MCH MCHC RDW Plt Count MPV Neut % (Auto) Lymph % (Auto) [place] % (Auto) Eos % (Auto) Baso % (Auto) Neut # (Auto) Lymph # (Auto) [place] # (Auto) Eos # (Auto) Baso # (Auto) Immature Gran % Nucleated RBC % Immature Gran # Nucleated RBCs # ABG pH ABG pCO2 ABG pO2 ABG HCO3 ABG Total CO2 ABG O2 Saturation ABG Base Excess Sodium 146 H Potassium 3.8 Chloride 110 H Carbon Dioxide 30 Anion Gap 9.8 BUN 58 H Creatinine 0.80 GFR Calculation 134 BUN/Creatinine Ratio 72.00 H Glucose 98 POC Glucose 78 Calculated Osmolality 305.6 H Calcium 8.3 L Total Bilirubin 0.50 AST 14 ALT 13 L Alkaline Phosphatase 45 Total Protein 6.2 L Albumin 2.8 L Globulin 3.4 Albumin/Globulin Ratio 0.8 L Fluid Total Protein Fluid LDH Fluid Amylase Fluid Lipase Pleural WBC Pleural RBC Pleural Tot Cell Ct Pleural Neutrophils Pleural Lymphocytes Pleural Monocytes Pleural Eosinophils Pleural Glucose - EKG EKG results: interpreted by me EKG shows: atrial fibrillation Quality Measures - VTE Contraindication to Pharmacological VTE Prophylaxis: Already on Theraputic Agent , No Prophylaxis Needed <Nell Valle - Last Filed: 01/19/17 19:06> Cardiology - PN: Subj Interval history: I have personally interviewed and evaluated the patient, reviewed the chart and discussed medical decision-making with Practitioner Radha. I have read this note and agree with her documentation here in. Exam (Progress Note) - Constitutional Vitals: Period Temp Pulse Resp BP Sys/Novak Pulse Ox Last 24 Hr 97.1 F-98.5 F 83-115 5-19 127-162/68-93 99-100 Result/EKG - Labs CBC & BMP: 01/19/17 04:00 01/19/17 04:54 Labs: Laboratory Results - last 24 hr 01/19/17 01/19/17 01/19/17 00:04 04:00 04:52 WBC 9.3 RBC 3.25 L Hgb 9.6 L Hct 31.4 L MCV 96.6 MCH 30 MCHC 30.6 L RDW 14.8 Plt Count 254 MPV 11.8 Neut % (Auto) 65.6 Lymph % (Auto) 19.0 L [place] % (Auto) 12.9 H Eos % (Auto) 0.3 Baso % (Auto) 0.2 Neut # (Auto) 6.1 Lymph # (Auto) 1.8 [place] # (Auto) 1.2 H Eos # (Auto) 0.0 Baso # (Auto) 0.0 Immature Gran % 2.0 Nucleated RBC % 0.0 Immature Gran # 0.19 Nucleated RBCs # 0.00 ABG pH 7.414 ABG pCO2 46.8 ABG pO2 149.0 H ABG HCO3 28.6 H ABG Total CO2 27.3 H ABG O2 Saturation 99.6 ABG Base Excess 4.6 H Sodium Potassium Chloride Carbon Dioxide Anion Gap BUN Creatinine GFR Calculation BUN/Creatinine Ratio Glucose POC Glucose 94 Calculated Osmolality Calcium Total Bilirubin AST ALT Alkaline Phosphatase Total Protein Albumin Globulin Albumin/Globulin Ratio 01/19/17 01/19/17 01/19/17 04:54 06:10 11:27 WBC RBC Hgb Hct MCV MCH MCHC RDW Plt Count MPV Neut % (Auto) Lymph % (Auto) [place] % (Auto) Eos % (Auto) Baso % (Auto) Neut # (Auto) Lymph # (Auto) [place] # (Auto) Eos # (Auto) Baso # (Auto) Immature Gran % Nucleated RBC % Immature Gran # Nucleated RBCs # ABG pH ABG pCO2 ABG pO2 ABG HCO3 ABG Total CO2 ABG O2 Saturation ABG Base Excess Sodium 146 H Potassium 3.8 Chloride 110 H Carbon Dioxide 30 Anion Gap 9.8 BUN 58 H Creatinine 0.80 GFR Calculation 134 BUN/Creatinine Ratio 72.00 H Glucose 98 POC Glucose 78 77 Calculated Osmolality 305.6 H Calcium 8.3 L Total Bilirubin 0.50 AST 14 ALT 13 L Alkaline Phosphatase 45 Total Protein 6.2 L Albumin 2.8 L Globulin 3.4 Albumin/Globulin Ratio 0.8 L 01/19/17 01/19/17 01/19/17 15:57 17:57 18:03 WBC RBC Hgb Hct MCV MCH MCHC RDW Plt Count MPV Neut % (Auto) Lymph % (Auto) [place] % (Auto) Eos % (Auto) Baso % (Auto) Neut # (Auto) Lymph # (Auto) [place] # (Auto) Eos # (Auto) Baso # (Auto) Immature Gran % Nucleated RBC % Immature Gran # Nucleated RBCs # ABG pH ABG pCO2 ABG pO2 ABG HCO3 ABG Total CO2 ABG O2 Saturation ABG Base Excess Sodium Potassium Chloride Carbon Dioxide Anion Gap BUN Creatinine GFR Calculation BUN/Creatinine Ratio Glucose POC Glucose 61 L 67 L 81 Calculated Osmolality Calcium Total Bilirubin AST ALT Alkaline Phosphatase Total Protein Albumin Globulin Albumin/Globulin Ratio
[2017-01-19] MEDS: CHOLECALCIFEROL 1,000 UNIT TABLET PO SCH (09:39)
[2017-01-19] MEDS: FINASTERIDE 5 MG TABLET PO SCH (09:40)
[2017-01-19] MEDS: SODIUM HYPOCHLORITE 0.25% IRRIG 473 ML BOTTLE TOP SCH ×2 (09:40→21:21)
[2017-01-19] MEDS: CARVEDILOL 3.125 MG TABLET PO SCH (09:41)
[2017-01-19] MEDS: DILTIAZEM 30 MG TABLET PO SCH ×4 (09:42→21:20)
[2017-01-19] MEDS: ASPIRIN CHEW 81 MG TABLET PO SCH (09:42)
[2017-01-19] MEDS: PANTOPRAZOLE 40 MG VIAL IV SCH (09:43)
[2017-01-19] MEDS: FUROSEMIDE 40 MG/4 ML VIAL IV SCH ×2 (09:46→18:12)
[2017-01-19] MEDS: SPIRONOLACTONE 25 MG TABLET PO SCH ×2 (09:56→21:20)
--- NOTE | 2017-01-19 11:12 | Pulmonology Progress Note ---
Pulmonary - PN: Subj Interval history: Michael Rodarte, ANP-BC, GNP-BC, acting as scribe for Dr. Beto Ventura This is a 81-year-old black male. We saw him in initial pulmonary consultation on 01/12/2017. He had aspirated and he required fiberoptic bronchoscopy. Small pieces of meat and multiple green peas were removed during bronchoscopy. See the bronchoscopy note concerning that. At the time of our initial consultation, our impressions were: 1. Acute respiratory failure requiring intubation mechanical ventilation. [place] to be secondary to acute aspiration. 2. Recent intracerebral bleed with neuro logical sequela including difficulty swallowing 3. Hypothyroidism 4. Mild anemia 5. Low calcium probably secondary to low albumin. Look for vitamin D deficiency. 01/15/2017, vitamin D level is low 6. Hypotension requiring pressor agents. For 2016. Now normotensive off pressors. 7. Hypoproteinemia, hypoalbuminemia, mild increase globulins. 8. Atrial fib 9. Valvular heart disease. Type unknown. 01/15/2017. Echocardiogram showed ejection fraction of 60%. There was +1 aortic stenosis with a mean peak gradient of 12/18 mmHg, +1 aortic regurgitation, +1 mitral regurgitation. Pulmonary artery pressures were 39 mmHg with +2 or 3 tricuspid regurgitation. Small to moderate size circumferential pericardial effusion with no evidence of tamponade. Pleural fluid was also noted. 10. History of high blood pressure 11. Azotemia. Creatinine 1.6. 12. See past history. 01/15/2017. Today's chest x-ray shows cardiomegaly with small bilateral pleural effusions and atelectasis in the right middle lung and the left lower lung. ABGs on mechanical ventilation showed pH is 7.47, PCO2 of 42, PO2 of 158 and a bicarb of 30.2. Natruretic peptide is elevated at 300. Vitamin D level is low at 6.8. White blood cell count is 12,800 with 71 segs 18 lymphs and 9 monos. Electrolytes are normal. Creatinine has dropped from 1.70-1.00 with a BUN of 47. Urine has grown Enterococcus faecalis. Blood cultures from 01/11/2017 were reported as growing a gram-negative tommie. Cultures and sensitivities are not yet available. Bronchial lavage from 01/12/2017 is growing a yeast. Abscess culture from 01/12/2017 is growing a gram-negative tommie and gram-positive cocci. So far no identification or sensitivities to antibiotics are available. Labs been reviewed. Medicines have been reviewed. 01/16/2017. Earlier today the patient had a fiberoptic bronchoscopy. See report. Gastric acid injuries are healing. There is mild to moderate underlying COPD with collapsible large and small airways. I found no additional food particles. Patient had a moderate amount of retained secretions which were removed. These were predominantly in the right lower left lower lung where there has been some atelectasis on his chest x-ray. He tolerated procedure well and I have discussed the procedure with Dr. Dolly Manzanares. ABGs look good. Patient is much stronger. He is progressing very well with his weaning protocol. Tomorrow morning at 5 AM I am going to give him a T- tube trial to 7 AM and will check his blood gases and his status at that time. Electrolytes normal. Creatinine is 0.8 with a BUN of 48. White count is 10, 700 down from 21,600. H&H is stable at 9.9/32.3. 01/17/2017. The patient's ABGs this morning on T-tube showed a pH of 7.383, PCO2 49.6, PO2 136.0, bicarb 27.7, and oxygen saturation 99%. Patient looks strong so we elected to extubate him. However, shortly thereafter the patient became tachycardic and tachypneic. He appeared as though he was going to tire out, so the decision was made to reintubate the patient. Chest x-ray shows what appeared to be atelectasis and possible pleural fluid. BNP, however, was only 216. Will restart the weaning protocol and continued physical therapy protocol. 01/18/2017. Chest x-ray this morning showed a complete white out of the left lung. We proceeded with fiberoptic bronchoscopy and this showed atelectasis of the left lung. It was felt this was at least partially secondary to retained secretions. The amount of sputum retention however was less than expected. Chest x-ray was repeated approximately 30 minutes later this showed improved aeration of the mid to upper left lung, but there was a left pleural effusion. We have consulted interventional radiology for a diagnostic and therapeutic thoracentesis. The patient was reintubated yesterday. See above. He is on the weaning protocol as well as physical therapy protocol. 01/19/2017. Patient had a thoracentesis yesterday by interventional radiology. This was a transudate. Postprocedure chest x-ray and today shows that the left pleural effusion was completely evacuated. The patient continues to have cardiomegaly. This could possibly be some minimal right pleural fluid. There is no growth on the pleural fluid at 12 hours. Today we discussed the case with Dr. De La Rosa and have coordinated our care. He is being continued on the vent weaning protocol. He apparently has an air leak in his ET tube cuff. Either Dr. De La Rosa or anesthesiology will change this out today. The patient has good tidal volumes and his oxygen saturations are 100%. Medications have been reviewed. We made no changes today. Labs have been reviewed. White count is 9300 with 65.6% segs; H&H 9.6/31.4; platelet count 254,000; creatinine 0.80, BUN 58, sodium 146, potassium 3.8; calcium is low at 8.3 reflecting a low albumin of 2.8, total protein 6.2; liver function tests are within normal limits ABGs this morning on mechanical ventilation and an FiO2 of 60% showed a pH of 7.414, PCO2 46.8, PO2 149.0, bicarb 28.6, and oxygen saturation 99.6%. Exam (Progress Note) - Constitutional Vitals: Period Temp Pulse Resp BP Sys/Novak Pulse Ox Last 24 Hr 98.0 F-98.3 F 70-121 5-26 127-158/62-91 99-100 Exam: Chest with mild large airway congestion, much better air movement Heart no gallop Abdomen is nondistended with rare bowel sounds Extremities with nothing to suggest acute deep venous thrombophlebitis Psychiatric/neurologic the patient can be awakened easily and is cooperative; otherwise unchanged Plan: Continue vent weaning and physical therapy protocols. Daily chest x-ray and ABGs while on the ventilator. See orders. Results - Labs CBC & BMP: 01/19/17 04:00 01/19/17 04:54
[2017-01-19] MEDS: CARVEDILOL 6.25 MG TABLET PO SCH ×2 (12:45→21:21)
--- NOTE | 2017-01-19 12:50 | Anesthesia Procedures ---
Anesthesia Procedures - Intubation Time out performed intubation: Yes Sedative: other (propofol 200mg) Mg given sedative: 200 Paralytic: Succinylcholine Mg given paralytic: 200 Laryngoscope: other Assist Device Used: Bougie ET Tube Size: 8 ET Tube Uncuffed: No Tube Secured Depth (cm): 24 Tube Secured Location: lips (corner of mouth. previous tube at 24cm) Tube Placement Confirmation: equal breath sounds bilaterally, confirmation detector color change Patient tolerated procedure intubation: well, no complications Intubation Complications: none Additional Commets: 1230: Called to exchange endotracheal tube per Dr. Ventura request. Pt awake. VSS. Procedure explained to patient. Tube feedings turned off. NG to suction without residual return Sedation/paralytic given as noted per RSI Tube exchanged over bougie without complications. Placement confirmed and CXR ordered. Pt tolerated without complications. Surinder given for BP support. RN at bedside. VS at 1245: Hr 119, BP 127/71 Sao2 100% cuff pressure measured per RT at 30cm H20
[2017-01-19] MEDS ORDERED: SUCCINYLCHOLINE 200 MG/10 ML VIAL ONE (12:57)
[2017-01-19] MEDS ORDERED: PROPOFOL 200 MG/20 ML VIAL IV ONE (12:57)
--- NOTE | 2017-01-19 13:16 | XRay Report ---
XR chest 1V portable Indication: Intubation Comparison: Chest x-ray 01/19/2017 Technique: Portable AP chest was performed. Findings: Multiple tubes and medical support devices appear stable. The degree of cardiomegaly is stable. Since comparison study has been interval increase in haziness in the mid to lower chest bilaterally with persistent opacification of the medial left hemidiaphragm. Bones and soft tissues appear stable. Surgical clips bilaterally present in the lower neck compatible with prior thyroid surgery appears stable. Impression: 1. Worsening haziness in the lung bases bilaterally present suggests worsening atelectasis or component of dependent pleural fluid. 01/19/2017 1:12 PM PROCEDURE INTERPRETED AT [facility] DEPARTMENT OF RADIOLOGY Final Report Signed by: Dr. Tej Martinez
--- NOTE | 2017-01-19 14:24 | Hospitalist Progress Note ---
Assessment and Plan (1) Sepsis Status: Acute Assessment and plan: Due to aspiration pneumonia and decubitus ulcer. Patient failed extubation. Continue antibiotics and consider LTAC. Current Visit: Yes Qualifiers: Sepsis type: sepsis due to unspecified organism Qualified Code(s): A41.9 - Sepsis, unspecified organism (2) Aspiration pneumonia Status: Acute Assessment and plan: Patient started on Rocephin and Azactam. Consult pulmonary for vent management. Current Visit: Yes Qualifiers: Aspiration pneumonia type: due to regurgitated food Laterality: right Lung location: unspecified part of lung Qualified Code(s): J69.0 - Pneumonitis due to inhalation of food and vomit (3) History of intracranial hemorrhage Status: Resolved Assessment and plan: Intracranial hemorrhage on Pradaxa 4 weeks ago. Required hospitalization at [facility]. Not receiving DVT prophylaxis with low molecular weight heparin or heparin due to his recent intracranial hemorrhage. Will use SCDs and aspirin instead. Current Visit: Yes (4) Atrial fibrillation Status: Chronic Assessment and plan: Rate controlled with Cardizem. No anticoagulation secondary to recent intracranial hemorrhage Current Visit: No Qualifiers: Atrial fibrillation type: chronic Qualified Code(s): I48.2 - Chronic atrial fibrillation (5) HTN (hypertension) Status: Chronic Current Visit: No Qualifiers: Hypertension type: essential hypertension Qualified Code(s): I10 - Essential (primary) hypertension (6) Acute respiratory failure Status: Acute Assessment and plan: Due to pneumonia and severe debility. Continue supportive care with mechanical ventilation. Pulmonary following. Consider LTAC referral Current Visit: Yes Qualifiers: Respiratory failure complication: hypoxia Qualified Code(s): J96.01 - Acute respiratory failure with hypoxia (7) Sacral decubitus ulcer Status: Acute Current Visit: Yes (8) Bacteremia Status: Acute Current Visit: Yes Hospitalist: Subjective Interval history: Patient seen and examined. Case discussed with Dr. Ventura and nursing staff at the bedside. He appears to have an air leak in his ET tube. We will attempt to change it out for an 8.0 tube. Not quite ready for extubation yet. Has copious secretions. Exam - Constitutional Vitals: Period Temp Pulse Resp BP Sys/Novak Pulse Ox Last 24 Hr 97.1 F-98.3 F 70-115 5-26 127-158/62-91 99-100 Exam: Constitutional System: Mild distress. No tremulousness. Head: Normocephalic, atraumatic. Ears, Nose and Throat System: No pain or tenderness. No epistaxis or discharge. endotracheal tube in place. Copious secretions and drooling noted Eyes System: Pupils equal, round, and reactive. Extraocular muscles intact. Neck: Supple, without adenopathy, No jugular venous distention. No thyromegaly, neck mass, or prior surgery apparent. Respiratory System: Chest coarse rhonchi to auscultation. Cardiovascular System: Heart with irregular rate and rhythm. No murmur. GI System: Abdomen soft, nontender. Normo active bowel sounds present. Musculoskeletal System: limbs with 3+ pitting edema. Full distal pulses. Neurological System: Patient intubated and sedated Psychiatric System: Conversation is not possible at this time secondary to patient's condition. Results - Labs CBC & BMP: 01/19/17 04:00 01/19/17 04:54 Lab Results: I have reviewed the past 24 hour labs - Diagnostic Findings Procedure: Chest x-ray: image reviewed by me, report reviewed by me Quality Measures - VTE Contraindication to Pharmacological VTE Prophylaxis: Already on Theraputic Agent , No Prophylaxis Needed
[2017-01-19] MEDS: cefTRIAXone 2,000 MG in SODIUM CHLORIDE 0.9% 100 ML IV SCH (18:11)
[2017-01-20] MEDS: INSULIN LISPRO 100 UNIT/ML SUBCUT SCH ×4 (00:03→17:52)
[2017-01-20] MEDS: ALBUTEROL/IPRATROPIUM 3 ML NEB RESP TX SCH ×4 (01:22→19:29)
[2017-01-20] MEDS: AZTREONAM 2,000 MG in SODIUM CHLORIDE 0.9% 100 ML IV SCH ×4 (02:16→20:11)
[2017-01-20] MEDS: LORazepam 2 MG/1 ML VIAL IV PRN (02:17)
[2017-01-20] MEDS: ALBUMIN 25% 25 GM in PREMIX 1 EACH IV SCH ×3 (02:17→18:41)
[2017-01-20] MEDS: MORPHINE 2 MG/1 ML SYRINGE IV PRN (02:17)
[2017-01-20] MEDS ORDERED: AMIODARONE INJ 450 MG in DEXTROSE 5% 241 ML IV SCH ×2 (05:00→11:00)
[2017-01-20 05:19] LABS: Basophils % 0.3 % (0.0-0.8); Eosinophils # 0.1 10*3/uL (0.0-0.87); Eosinophils % 0.9 % (0.00-10.9); Hemoglobin 9.6 GM/DL (14.0-18.0); Immature Granulocytes % 1.9 %; Immature Granulocytes Absolute 0.21 #; Lymphocytes # 1.9 10*3/uL (1.4-4.0); Lymphocytes % 17.7 % (21.2-54.2); Mean Corpuscular Hemoglobin 30 PG (27-34); Mean Corpuscular Volume 97.5 FL (87-102); Mean Platelet Volume 11.7 FL (9.6-12.0); Monocytes # 1.4 10*3/uL (0.11-0.8); Monocytes % 13.1 % (1.7-12.7); Neutrophils # 7.2 10*3/uL (1.4-7.4); Neutrophils % 66.1 % (38.7-73.9); Platelet Count 265 T/CUMM (130-400); Red Blood Count 3.18 MC/CUMM (3.8-5.5); Red Cell Distribution Width 14.8 % (9.3-17.3); White Blood Count 10.9 T/CUMM (4-12)
[2017-01-20 05:20] LABS: ABG Base Excess 5.6 MMOL/L (-2.5-2.5); ABG HCO3 29.5 MMOL/L (20-26); ABG Oxygen Saturation 99.1 % (95-100); ABG PCO2 47.3 MM HG (35-48); ABG PH 7.424 (7.35-7.45); ABG TCO2 28.1 MMOL/L (23-27)
[2017-01-20 05:52] LABS: Calcium 8.7 MG/DL (8.5-10.1); Magnesium 2.5 MG/DL (1.8-2.4); Osmolality,Calculated 306.4 MOS/KG (273-304); Potassium 3.7 MMOL/L (3.5-5.1)
[2017-01-20 06:12] LABS: Albumin 3.1 G/DL (3.4-5.0); Bilirubin,Total 0.6 MG/DL (0.2-1.0); Calcium 8.8 MG/DL (8.5-10.1); Osmolality,Calculated 306.4 MOS/KG (273-304); Potassium 3.7 MMOL/L (3.5-5.1); Total Protein 6.3 G/DL (6.4-8.3)
[2017-01-20] MEDS: AMPICILLIN INJ 1,000 MG in SODIUM CHLORIDE 0.9% 100 ML IV SCH ×3 (06:20→21:29)
[2017-01-20] MEDS: LEVOTHYROXINE 175 MCG TABLET PO SCH (06:33)
[2017-01-20] MEDS ORDERED: MIDAZOLAM 10 MG/2 ML VIAL ONE (08:21)
--- NOTE | 2017-01-20 08:47 | Pulmonology Progress Note ---
Pulmonary - PN: Subj Interval history: This 81-year-old white male has respiratory failure. He has been doing weaning trials fairly well but he has continued to have problems with biting his endotracheal tube. Once again he has not air leak because he bit off the lobe of his ET tube cuff. His chest x-ray today shows white out of the left lung. He had been doing so well on CPAP but I was considering extubation but with the chest x-ray looking worse we will just reintubated. This time I will do it nasally so we will be able to bite the tube. He has had a respiratory arrest but his mental status appears to be pretty good. He has had a left thoracentesis done earlier. Exam (Progress Note) - Constitutional Vitals: Period Temp Pulse Resp BP Sys/Novak Pulse Ox Last 24 Hr 97.1 F-98.7 F 89-130 5-21 127-162/67-93 93-100 Exam: Patient is responsive. Has coarse respirations. Vital signs are normal. Pupils react to light. Neck supple no bruits. Chest shows coarse rhonchi on the right side. Decreased breath sounds on the left side. Heart normal rate and rhythm no murmurs. Abdomen soft nontender. Bowel sounds present. Extremities no clubbing cyanosis edema. Calves are nontender. Results - Labs CBC & BMP: 01/20/17 05:15 01/20/17 05:15 Lab Results: I have reviewed the past 24 hour labs - Diagnostic Findings Procedure: Chest x-ray: image reviewed by me (White out of left lung. ET tube in good position.) Assessment and Plan (1) Atelectasis of left lung Status: Acute Assessment and plan: He has a white out of the left lung again. His cuff is leaking. We changed that his endotracheal tube to a nasotracheal tube. Bronchoscoped him and remove thick secretions from the left long. Please see dictation of that. Will not be able to extubate today Current Visit: Yes (2) NICM (nonischemic cardiomyopathy) Status: Chronic Assessment and plan: As cardiomyopathy with congestive heart failure. Managed by cardiology Current Visit: Yes (3) Acute respiratory failure Status: Acute Assessment and plan: ABGs actually look okay. Will resume CPAP trials after ET tube has been changed. Current Visit: Yes Qualifiers: Respiratory failure complication: hypoxia Qualified Code(s): J96.01 - Acute respiratory failure with hypoxia (4) Aspiration pneumonia Status: Acute Assessment and plan: Likely lead to white out of left lung. On empiric antibiotics. Current Visit: Yes Qualifiers: Aspiration pneumonia type: due to regurgitated food Laterality: right Lung location: unspecified part of lung Qualified Code(s): J69.0 - Pneumonitis due to inhalation of food and vomit
--- NOTE | 2017-01-20 08:50 | Operative Note ---
Date of procedure: 01/20/17 (Fiberoptic bronchoscopy with nasotracheal intubation) Pre-op diagnosis: White out left lung, respiratory failure Post-op diagnosis: same Procedure: After appropriate time out to be sure we were dealing with Beto Littlejohn, a 7.5 Malian nasotracheal tube was placed in the left naris. Fiberoptic bronchoscope was introduced via the nasotracheal tube. When I was able to visualize the larynx we had the respiratory therapy staff to extubate. We then advanced the bronchoscope quickly to visualize the vocal cords. Topical anesthesia was applied with Xylocaine. The patient was given 10 mg of Versed prior to the procedure incidentally. We advanced the bronchoscope into the trachea and the endotracheal tube over the bronchoscope. The bronchoscope was removed. Patient was placed on 100% oxygen. An oxygen saturation got back up to 100%, we reintroduced the bronchoscope and removed retained secretions from the left main bronchus as well as left upper and lower lobes. There were no olga lidia plugs. The right side look pretty clear. Tip of the endotracheal tube was about 4 cm above the peter which is acceptable. Fiberoptic bronchoscope was removed. Patient remained on the ventilator in the CCU in stable condition Anesthesia: conscious sedation Surgeon / Physician: Dylon Lam Estimated blood loss: none Specimens: other (Bronchial washings for cultures) Condition: stable Disposition: ICU (Actually cc) Results - Labs CBC & BMP: 01/20/17 05:15 01/20/17 05:15 Discharge Plan - Discharge Medications No Action Dabigatran [Pradaxa] 150 mg PO BID Aspirin EC Tab 81 mg PO DAILY Levothyroxine Tab [Synthroid Tab] 175 mcg PO DAILY@0700 #30 tablet hydrALAZINE TAB [Apresoline Tab] 50 mg PO TID Potassium Chloride [Klor-Con M20] 20 meq PO DAILY NIFEdipine [Nifedipine ER] 30 mg PO DAILY Lovastatin 20 mg PO BEDTIME Lisinopril 40 mg PO DAILY Gabapentin Cap/Tab [Neurontin Cap/Tab] 300 mg PO DAILY Finasteride [Proscar] 5 mg PO DAILY Carvedilol [Coreg] 25 mg PO BID Furosemide Tab [Lasix Tab] 40 mg PO BID DIURETIC #90 tablet - Follow Up or Referral - Forms/Instructions
[2017-01-20] MEDS ORDERED: LIDOCAINE 1% 20 ML VIAL MISC INJ ONE (08:51)
[2017-01-20] MEDS ORDERED: MIDAZOLAM 2 MG/2 ML VIAL IV ONE (08:51)
[2017-01-20] MEDS: PANTOPRAZOLE 40 MG VIAL IV SCH (09:25)
[2017-01-20] MEDS: FUROSEMIDE 40 MG/4 ML VIAL IV SCH ×2 (09:26→17:49)
[2017-01-20] MEDS: CHOLECALCIFEROL 1,000 UNIT TABLET PO SCH (09:26)
[2017-01-20] MEDS: CARVEDILOL 6.25 MG TABLET PO SCH (09:27)
[2017-01-20] MEDS: FINASTERIDE 5 MG TABLET PO SCH (09:27)
[2017-01-20] MEDS: ASPIRIN CHEW 81 MG TABLET PO SCH (09:27)
[2017-01-20] MEDS: SPIRONOLACTONE 25 MG TABLET PO SCH ×2 (09:27→21:29)
[2017-01-20] MEDS: SODIUM HYPOCHLORITE 0.25% IRRIG 473 ML BOTTLE TOP SCH ×2 (09:29→21:30)
[2017-01-20] MEDS: DILTIAZEM 30 MG TABLET PO SCH ×4 (09:29→21:30)
--- NOTE | 2017-01-20 10:09 | XRay Report ---
Exam: XR chest 1V portable Indication: Intubated Comparison study: 01/20/2017 Findings: Endotracheal tube is in similar position. Esophagogastric tube has been removed. Conus medullaris enlarged, similar to prior. There is slight improved aeration on the left with similar prominent basilar opacities likely representing atelectasis than residual moderate pleural effusions. There is no pneumothorax. Surgical kesyhawn in the neck base are most compatible with prior thyroid surgery. Impression: Improved aeration within the left upper lung. Residual basilar atelectasis and [id number] bilateral pleural effusions. Similar position of endotracheal tube. Similar cardiomegaly. PROCEDURE INTERPRETED AT [facility] DEPARTMENT OF RADIOLOGY Final Report Signed by: Osito Lopez
--- NOTE | 2017-01-20 11:03 | Hospitalist Progress Note ---
Assessment and Plan (1) Sepsis Status: Acute Assessment and plan: Due to aspiration pneumonia and decubitus ulcer. Patient failed extubation. Continue antibiotics and consider LTAC. Current Visit: Yes Qualifiers: Sepsis type: sepsis due to unspecified organism Qualified Code(s): A41.9 - Sepsis, unspecified organism (2) Aspiration pneumonia Status: Acute Assessment and plan: Patient started on Rocephin and Azactam. Consult pulmonary for vent management. Current Visit: Yes Qualifiers: Aspiration pneumonia type: due to regurgitated food Laterality: right Lung location: unspecified part of lung Qualified Code(s): J69.0 - Pneumonitis due to inhalation of food and vomit (3) History of intracranial hemorrhage Status: Resolved Assessment and plan: Intracranial hemorrhage on Pradaxa 4 weeks ago. Required hospitalization at [facility]. Not receiving DVT prophylaxis with low molecular weight heparin or heparin due to his recent intracranial hemorrhage. Will use SCDs and aspirin instead. Current Visit: Yes (4) Atrial fibrillation Status: Chronic Assessment and plan: Rate controlled with Cardizem. No anticoagulation secondary to recent intracranial hemorrhage Current Visit: No Qualifiers: Atrial fibrillation type: chronic Qualified Code(s): I48.2 - Chronic atrial fibrillation (5) HTN (hypertension) Status: Chronic Current Visit: No Qualifiers: Hypertension type: essential hypertension Qualified Code(s): I10 - Essential (primary) hypertension (6) Acute respiratory failure Status: Acute Assessment and plan: Due to pneumonia and severe debility. Continue supportive care with mechanical ventilation. Pulmonary following. Consider LTAC referral Current Visit: Yes Qualifiers: Respiratory failure complication: hypoxia Qualified Code(s): J96.01 - Acute respiratory failure with hypoxia (7) Sacral decubitus ulcer Status: Acute Current Visit: Yes (8) Bacteremia Status: Acute Current Visit: Yes Hospitalist: Subjective Interval history: Patient seen and examined. Case discussed with Dr. Lam on rounds. The patient has chewed through the cuff on the ET tube and now has another air leak. His chest x-ray shows atelectasis of the left lung. Bronchoscopy with replacement of his ET tube is planned by Dr. Lam. His help is greatly appreciated. Otherwise the patient seems stable on the ventilator but remains very edematous. Exam - Constitutional Vitals: Period Temp Pulse Resp BP Sys/Novak Pulse Ox Last 24 Hr 97.1 F-98.7 F 89-130 5-21 127-162/63-93 93-100 Exam: Constitutional System: No distress. No tremulousness. Head: Normocephalic, atraumatic. Ears, Nose and Throat System: No pain or tenderness. No epistaxis or discharge. endotracheal tube in place. Copious secretions and drooling noted Eyes System: Pupils equal, round, and reactive. Extraocular muscles intact. Neck: Supple, without adenopathy, No jugular venous distention. No thyromegaly, neck mass, or prior surgery apparent. Respiratory System: Chest coarse rhonchi to auscultation. Cardiovascular System: Heart with irregular rate and rhythm. No murmur. GI System: Abdomen soft, nontender. Normo active bowel sounds present. Edematous Musculoskeletal System: limbs with 3+ pitting edema. Full distal pulses. Neurological System: Patient intubated and sedated Psychiatric System: Conversation is not possible at this time secondary to patient's condition. Results - Labs CBC & BMP: 01/20/17 05:15 01/20/17 05:15 Lab Results: I have reviewed the past 24 hour labs - Diagnostic Findings Procedure: Chest x-ray: image reviewed by me, report reviewed by me Quality Measures - VTE Contraindication to Pharmacological VTE Prophylaxis: Already on Theraputic Agent , No Prophylaxis Needed
--- NOTE | 2017-01-20 11:05 | XRay Report ---
Exam: XR chest 1V portable Indication: Feeding tube placement Comparison study: 01/20/2017 8:46 AM Findings: Limited study. The feeding tube is looped in the midesophagus. Repositioning is recommended. Impression: Feeding tube within the mid esophagus. Repositioning is required. PROCEDURE INTERPRETED AT [facility] DEPARTMENT OF RADIOLOGY Final Report Signed by: Osito Lopez
--- NOTE | 2017-01-20 11:28 | XRay Report ---
XR chest 1V portable Clinical Information: Recheck placement of Keofed Comparison: 01/11/2017 at 10:45 AM Findings: Feeding tube is now within the stomach. Prominent opacification overlying the left chest appears similar to prior but is only partially imaged. Impression: Feeding tube within the stomach. PROCEDURE INTERPRETED AT [facility] DEPARTMENT OF RADIOLOGY Final Report Signed by: Osito Lopez
--- NOTE | 2017-01-20 13:58 | XRay Report ---
Exam: XR chest 1V portable Indication: Intubated Comparison study: 01/19/2017 Findings: Endotracheal tube is in similar position. Esophagogastric tube travels below the field of view. There has been worsening of opacity with near complete opacification of the left hemithorax likely representing atelectasis/pleural fluid. Right lung also demonstrates basilar opacities which are slightly increased from prior likely representing atelectasis/pleural fluid. There is no pneumothorax identified. Osseous structures appear stable. Impression: Stable position of endotracheal and esophagogastric tubes. Worsening of opacification of the left hemithorax and right lung base likely representing increasing pleural fluid and atelectasis. PROCEDURE INTERPRETED AT [facility] DEPARTMENT OF RADIOLOGY Final Report Signed by: Osito Lopez
--- NOTE | 2017-01-20 16:05 | Cardiology Progress Note ---
Assessment and Plan (1) Atrial fibrillation Status: Chronic Current Visit: No Qualifiers: Atrial fibrillation type: chronic Qualified Code(s): I48.2 - Chronic atrial fibrillation (2) Acute respiratory failure Status: Acute Current Visit: Yes Qualifiers: Respiratory failure complication: hypoxia Qualified Code(s): J96.01 - Acute respiratory failure with hypoxia (3) NICM (nonischemic cardiomyopathy) Status: Chronic Current Visit: Yes (4) HTN (hypertension) Status: Chronic Current Visit: No Qualifiers: Hypertension type: essential hypertension Qualified Code(s): I10 - Essential (primary) hypertension (5) Sepsis Status: Acute Current Visit: Yes Qualifiers: Sepsis type: sepsis due to unspecified organism Qualified Code(s): A41.9 - Sepsis, unspecified organism (6) History of intracranial hemorrhage Status: Resolved Current Visit: Yes (7) Pericardial effusion Status: Chronic Current Visit: Yes Cardiology - PN: Subj Interval history: He was some tachycardic last night, he has been in atrial fibrillation during the stay and there is no documented sinus rhythm in the chart. He treated through his ET tube, this was exchanged this morning and he underwent bronchoscopy with lavage of some retained secretions. Hemodynamics are stable. ASSESSMENT/PLAN: 1. RESPIRATORY FAILURE - currently intubated, continuing with supportive care. 2. ATRIAL FIBRILLATION, PAROXYSMAL - avoiding anticoagulants due to recent intracranial hemorrhage. He is on low-dose aspirin. I will increase the beta- camilo therapy to improve his rate control. 3. RECENT INTRACRANIAL HEMORRHAGE - avoiding anticoagulants. 4. SEPSIS -seems to be improving - Continue to follow accordingly 5. PERICARDIAL EFFUSION - echocardiogram performed reveals small to moderate sized pericardial without tamponade. Stable 6. ANEMIA - continue to monitor hemoglobin and hematocrit closely 7. UNDERLYING HYPERTENSION - has required pressors, now hypertensive off of pressors. Increase beta camilo. 8. CVA - history of CVA approximately 15 years ago. Exam (Progress Note) - Constitutional Vitals: Period Temp Pulse Resp BP Sys/Novak Pulse Ox Last 24 Hr 97.1 F-98.7 F 76-130 10-21 127-161/57-91 93-100 Exam: General appearance: Over weight, no acute distress, intubated, not spontaneously arousable during the exam, although will respond to stimulation. - Head Head exam: Present: normocephalic, atraumatic,. Absent: hematoma, laceration - Eye Eye exam: Absent: conjunctival injection, nystagmus, periorbital swelling, scleral icterus, laceration to eyelids Pupils: Present: PREMA. Absent: constricted, dilated, fixed, irregular, unequal - ENT ENT exam: Present: normal exam, normal external ear exam - Neck Neck exam: Present: normal inspection. Absent: lymphadenopathy, meningismus, tenderness, thyromegaly - Respiratory Respiratory exam: Present: clear to auscultation bilaterally anteriorly, there is normal rise with ventilated breaths. Absent: accessory muscle use, chest wall tenderness - Cardiovascular Cardiovascular exam: Present: Irregularly irregular rate and rhythm. Absent: carotid bruit, gallop, JVD, rubs - GI/Abdominal GI/Abdominal exam: Present: normal bowel sounds. Absent: distended, firm, guarding, hernia, mass, tenderness, rebound, soft - Extremities Exam Extremities exam: Present: normal inspection, normal capillary refill. Absent: calf tenderness, edema - Back Exam Back exam: Unable to assess due to patient being on the ventilator - Neurological Exam Neurological exam: Unable to fully assess due to patient being on the ventilator. She does appear to move all 4 extremities. - Psychiatric Psychiatric exam: Unable to assess due to patient being on the ventilator. - Skin Skin exam: Present: normal color, warm, dry, intact. Absent: cyanosis, diaphoretic, rash, urticaria Result/EKG - Labs CBC & BMP: 01/20/17 05:15 01/20/17 05:15 Lab Results: I have reviewed the past 24 hour labs Labs: Laboratory Results - last 24 hr 01/19/17 01/19/17 01/19/17 15:57 17:57 18:03 WBC RBC Hgb Hct MCV MCH MCHC RDW Plt Count MPV Neut % (Auto) Lymph % (Auto) Crosby % (Auto) Eos % (Auto) Baso % (Auto) Neut # (Auto) Lymph # (Auto) Crosby # (Auto) Eos # (Auto) Baso # (Auto) Immature Gran % Nucleated RBC % Immature Gran # Nucleated RBCs # ABG pH ABG pCO2 ABG pO2 ABG HCO3 ABG Total CO2 ABG O2 Saturation ABG Base Excess Sodium Potassium Chloride Carbon Dioxide Anion Gap BUN Creatinine GFR Calculation BUN/Creatinine Ratio Glucose POC Glucose 61 L 67 L 81 Calculated Osmolality Calcium Magnesium Total Bilirubin AST ALT Alkaline Phosphatase Total Protein Albumin Globulin Albumin/Globulin Ratio 01/19/17 01/20/17 01/20/17 23:25 05:00 05:10 WBC RBC Hgb Hct MCV MCH MCHC RDW Plt Count MPV Neut % (Auto) Lymph % (Auto) Crosby % (Auto) Eos % (Auto) Baso % (Auto) Neut # (Auto) Lymph # (Auto) Crosby # (Auto) Eos # (Auto) Baso # (Auto) Immature Gran % Nucleated RBC % Immature Gran # Nucleated RBCs # ABG pH 7.424 ABG pCO2 47.3 ABG pO2 140.0 H ABG HCO3 29.5 H ABG Total CO2 28.1 H ABG O2 Saturation 99.1 ABG Base Excess 5.6 H Sodium Potassium Chloride Carbon Dioxide Anion Gap BUN Creatinine GFR Calculation BUN/Creatinine Ratio Glucose POC Glucose 73 L 105 Calculated Osmolality Calcium Magnesium Total Bilirubin AST ALT Alkaline Phosphatase Total Protein Albumin Globulin Albumin/Globulin Ratio 01/20/17 01/20/17 01/20/17 05:15 05:15 05:15 WBC 10.9 RBC 3.18 L Hgb 9.6 L Hct 31.0 L MCV 97.5 MCH 30 MCHC 31.0 L RDW 14.8 Plt Count 265 MPV 11.7 Neut % (Auto) 66.1 Lymph % (Auto) 17.7 L Crosby % (Auto) 13.1 H Eos % (Auto) 0.9 Baso % (Auto) 0.3 Neut # (Auto) 7.2 Lymph # (Auto) 1.9 Crosby # (Auto) 1.4 H Eos # (Auto) 0.1 Baso # (Auto) 0.0 Immature Gran % 1.9 Nucleated RBC % 0.0 Immature Gran # 0.21 Nucleated RBCs # 0.00 ABG pH ABG pCO2 ABG pO2 ABG HCO3 ABG Total CO2 ABG O2 Saturation ABG Base Excess Sodium 147 H 147 H Potassium 3.7 3.7 Chloride 112 H 111 H Carbon Dioxide 29 29 Anion Gap 9.7 10.7 BUN 53 H 53 H Creatinine 0.60 L 0.70 GFR Calculation 151 142 BUN/Creatinine Ratio 88.00 H 75.00 H Glucose 121 H 119 H POC Glucose Calculated Osmolality 306.4 H 306.4 H Calcium 8.7 8.8 Magnesium 2.5 H Total Bilirubin 0.60 AST 13 ALT 12 L Alkaline Phosphatase 41 L Total Protein 6.3 L Albumin 3.1 L Globulin 3.2 Albumin/Globulin Ratio 0.9 L 01/20/17 11:43 WBC RBC Hgb Hct MCV MCH MCHC RDW Plt Count MPV Neut % (Auto) Lymph % (Auto) Crosby % (Auto) Eos % (Auto) Baso % (Auto) Neut # (Auto) Lymph # (Auto) Crosby # (Auto) Eos # (Auto) Baso # (Auto) Immature Gran % Nucleated RBC % Immature Gran # Nucleated RBCs # ABG pH ABG pCO2 ABG pO2 ABG HCO3 ABG Total CO2 ABG O2 Saturation ABG Base Excess Sodium Potassium Chloride Carbon Dioxide Anion Gap BUN Creatinine GFR Calculation BUN/Creatinine Ratio Glucose POC Glucose 96 Calculated Osmolality Calcium Magnesium Total Bilirubin AST ALT Alkaline Phosphatase Total Protein Albumin Globulin Albumin/Globulin Ratio - Diagnostic Findings Procedure: Chest x-ray: report reviewed by me Quality Measures - VTE Contraindication to Pharmacological VTE Prophylaxis: Already on Theraputic Agent , No Prophylaxis Needed
[2017-01-20] MEDS: cefTRIAXone 2,000 MG in SODIUM CHLORIDE 0.9% 100 ML IV SCH (17:57)
[2017-01-20] MEDS: CARVEDILOL 12.5 MG TABLET PO SCH (21:30)
[2017-01-21] MEDS: ALBUTEROL/IPRATROPIUM 3 ML NEB RESP TX SCH ×4 (01:40→19:48)
[2017-01-21] MEDS: INSULIN LISPRO 100 UNIT/ML SUBCUT SCH ×4 (02:52→17:42)
[2017-01-21] MEDS: AZTREONAM 2,000 MG in SODIUM CHLORIDE 0.9% 100 ML IV SCH ×4 (02:53→19:59)
[2017-01-21] MEDS: ALBUMIN 25% 25 GM in PREMIX 1 EACH IV SCH ×3 (03:33→19:18)
[2017-01-21 05:08] LABS: ABG Base Excess 6.7 MMOL/L (-2.5-2.5); ABG HCO3 30.6 MMOL/L (20-26); ABG Oxygen Saturation 98.6 % (95-100); ABG PCO2 48.9 MM HG (35-48); ABG PH 7.426 (7.35-7.45); ABG TCO2 29.4 MMOL/L (23-27)
[2017-01-21] MEDS: AMPICILLIN INJ 1,000 MG in SODIUM CHLORIDE 0.9% 100 ML IV SCH ×3 (05:30→21:28)
[2017-01-21 05:51] LABS: Calcium 8.3 MG/DL (8.5-10.1); Magnesium 2.3 MG/DL (1.8-2.4); Osmolality,Calculated 307.3 MOS/KG (273-304); Potassium 3.9 MMOL/L (3.5-5.1)
[2017-01-21] MEDS: LEVOTHYROXINE 175 MCG TABLET PO SCH (06:28)
--- NOTE | 2017-01-21 08:21 | Pulmonology Progress Note ---
Pulmonary - PN: Subj Interval history: This 81-year-old white male has respiratory failure. He has been doing weaning trials fairly well but he has continued to have problems with biting his endotracheal tube. Once again he has not air leak because he bit off the lobe of his ET tube cuff. His chest x-ray today shows white out of the left lung. He had been doing so well on CPAP but I was considering extubation but with the chest x-ray looking worse we will just reintubated. This time I will do it nasally so we will be able to bite the tube. He has had a respiratory arrest but his mental status appears to be pretty good. He has had a left thoracentesis done earlier. 01/21/2017 chest x-ray shows better aeration of the left lung but it appears that he does still have a left pleural effusion. The pleural fluid that was withdrawn 3 days ago is now growing a gram-positive coccus. Must assume this is an empyema. Will get a chest CT and see how much fluid is there. May need a pleural catheter placed. Exam (Progress Note) - Constitutional Vitals: Period Temp Pulse Resp BP Sys/Novak Pulse Ox Last 24 Hr 97.6 F-98.7 F 70-106 10-22 107-180/49-85 10-100 Exam: Patient is responsive. Has coarse respirations. Vital signs are normal. Pupils react to light. Neck supple no bruits. Chest shows coarse rhonchi on the right side. Decreased breath sounds on the left side. Heart normal rate and rhythm no murmurs. Abdomen soft nontender. Bowel sounds present. Extremities no clubbing cyanosis edema. Calves are nontender. Little change from yesterday. Results - Labs CBC & BMP: 01/20/17 05:15 01/21/17 04:30 Lab Results: I have reviewed the past 24 hour labs - Diagnostic Findings Procedure: Chest x-ray: image reviewed by me (Upper half of left lung well aerated. Still some atelectasis of the left base and probably a left pleural effusion.) Assessment and Plan (1) Atelectasis of left lung Status: Acute Assessment and plan: He has a white out of the left lung again. His cuff is leaking. We changed that his endotracheal tube to a nasotracheal tube. Bronchoscoped him and remove thick secretions from the left long. Please see dictation of that. Will not be able to extubate today 01/21/2017 left lung better expanded. Current Visit: Yes (2) NICM (nonischemic cardiomyopathy) Status: Chronic Assessment and plan: As cardiomyopathy with congestive heart failure. Managed by cardiology 01/21/2017 defer to cardiology. Current Visit: Yes (3) Acute respiratory failure Status: Acute Assessment and plan: ABGs actually look okay. Will resume CPAP trials after ET tube has been changed. 01/21/2017 proceeding with CPAP trials. Current Visit: Yes Qualifiers: Respiratory failure complication: hypoxia Qualified Code(s): J96.01 - Acute respiratory failure with hypoxia (4) Aspiration pneumonia Status: Acute Assessment and plan: Likely lead to white out of left lung. On empiric antibiotics. 01/21/2017 continuing broad-spectrum antibiotics. Current Visit: Yes Qualifiers: Aspiration pneumonia type: due to regurgitated food Laterality: right Lung location: unspecified part of lung Qualified Code(s): J69.0 - Pneumonitis due to inhalation of food and vomit (5) Pleural effusion, left Status: Acute Assessment and plan: Earlier tap appeared to be transient negative. However it has grown gram- positive cocci. Concerned that this is an empyema. CT is ordered. May need pleural drainage if there is a significant amount of fluid. Await final culture and sensitivity report from the pleural fluid. Continue current antibiotics for now Current Visit: Yes
[2017-01-21] MEDS: FUROSEMIDE 40 MG/4 ML VIAL IV SCH ×2 (08:39→16:48)
[2017-01-21] MEDS: DILTIAZEM 30 MG TABLET PO SCH ×4 (09:50→20:08)
[2017-01-21] MEDS: PANTOPRAZOLE 40 MG VIAL IV SCH (09:50)
[2017-01-21] MEDS: CHOLECALCIFEROL 1,000 UNIT TABLET PO SCH (09:50)
[2017-01-21] MEDS: SPIRONOLACTONE 25 MG TABLET PO SCH ×2 (09:50→20:08)
[2017-01-21] MEDS: ASPIRIN CHEW 81 MG TABLET PO SCH (09:50)
[2017-01-21] MEDS: CARVEDILOL 12.5 MG TABLET PO SCH ×2 (09:51→20:08)
[2017-01-21] MEDS: SODIUM HYPOCHLORITE 0.25% IRRIG 473 ML BOTTLE TOP SCH ×2 (09:51→20:08)
[2017-01-21] MEDS: FINASTERIDE 5 MG TABLET PO SCH (09:51)
[2017-01-21] MEDS: CLINDAMYCIN INJ 600 MG in PREMIX 1 EACH IV SCH ×2 (09:57→16:49)
--- NOTE | 2017-01-21 10:07 | CT Report ---
CT chest wo con Technique: Axial CT imaging of the chest was performed without administration of intravenous contrast. Coronal and sagittal reformatted images were additionally created and submitted for review. Dose reduction: This CT exam was performed using one or more of the following dose reduction techniques: Automated exposure control, automated adjustment of the mA and/or KV according to patient size, or use of iterative reconstruction technique. Total DLP: 828.9 mGy*cm Clinical history: Left pleural effusion Comparison: chest radiograph 01/21/2017 Findings: Please note, lack of intravenous contrast limits evaluation. CHEST: Mediastinum/vessels: There is a moderate pericardial effusion. Evaluation of the aorta and great vessels is severely limited given lack of intravenous contrast. Thyroid/lymph nodes: No obvious adenopathy is identified within the chest. Thyroid gland appears within normal limits. Lungs: There are posterior basilar atelectatic changes noted bilaterally. There is a small right pleural effusion. There is a moderate to large left pleural effusion. Underlying infiltrates/pneumonia are difficult to exclude. The endotracheal tube is noted in position terminating 4 cm from the peter. Esophagogastric tube travels into the stomach. No acute abnormality is identified within the visualized upper abdomen. BONES: No acute or suspicious appearing osseous abnormalities are identified. Calcific density within the gallbladder neck is most compatible with a stone. Impression: 1. Bilateral pleural effusions, moderately large on the left. Posterior basilar atelectasis is also noted. Additional infiltrates within the areas of atelectasis are difficult to exclude given lack of intravenous contrast. 2. Moderate-sized pericardial effusion. 3. Cholelithiasis. PROCEDURE INTERPRETED AT [facility] DEPARTMENT OF RADIOLOGY Final Report Signed by: Osito Lopez
--- NOTE | 2017-01-21 10:45 | Hospitalist Progress Note ---
Assessment and Plan (1) Sepsis Status: Acute Assessment and plan: Patient failed extubation. Continue antibiotics and consider LTAC. The patient has a large left pleural effusion with possible empyema. Pleural fluid has grown gram-positive cocci. Follow-up final cultures. Consider drain placement. He has been evaluated for LTAC at [facility] however his insurance does not allow for dipper Van or Versed or any sedation. He is receiving Ativan as needed and is tolerating that well. He is receiving ampicillin, Azactam, clindamycin. Current Visit: Yes Qualifiers: Sepsis type: sepsis due to unspecified organism Qualified Code(s): A41.9 - Sepsis, unspecified organism (2) Aspiration pneumonia Status: Acute Assessment and plan: Patient started on ampicillin and clindamycin and Azactam. Consult pulmonary for vent management. Patient was initially extubated and reintubated within a few hours. He has developed bilateral pleural effusions worse on the left. Continue to monitor and consider repeat thoracentesis versus drain placement. Current Visit: Yes Qualifiers: Aspiration pneumonia type: due to regurgitated food Laterality: right Lung location: unspecified part of lung Qualified Code(s): J69.0 - Pneumonitis due to inhalation of food and vomit (3) History of intracranial hemorrhage Status: Resolved Assessment and plan: Intracranial hemorrhage on Pradaxa 5 weeks ago. Required hospitalization at [facility]. Not receiving DVT prophylaxis with low molecular weight heparin or heparin due to his recent intracranial hemorrhage. Will use SCDs and aspirin instead. Current Visit: Yes (4) Atrial fibrillation Status: Chronic Assessment and plan: Rate controlled with Cardizem drip. No anticoagulation secondary to recent intracranial hemorrhage Current Visit: No Qualifiers: Atrial fibrillation type: chronic Qualified Code(s): I48.2 - Chronic atrial fibrillation (5) HTN (hypertension) Status: Chronic Current Visit: No Qualifiers: Hypertension type: essential hypertension Qualified Code(s): I10 - Essential (primary) hypertension (6) Acute respiratory failure Status: Acute Assessment and plan: Due to pneumonia and severe debility. Continue supportive care with mechanical ventilation. Pulmonary following. Consider LTAC referral Current Visit: Yes Qualifiers: Respiratory failure complication: hypoxia Qualified Code(s): J96.01 - Acute respiratory failure with hypoxia (7) Sacral decubitus ulcer Status: Acute Current Visit: Yes (8) Bacteremia Status: Acute Current Visit: Yes Hospitalist: Subjective Interval history: Mr. Buchanan remains intubated. He had his endotracheal tube replaced yesterday and underwent bronchoscopy with removal of secretions and reexpansion of the left lung. CT scan of the chest this morning shows a significant left greater than right pleural effusion. Pleural fluid from a few days ago is growing gram positive cocci. Consideration being given to the possibility of an empyema and placement of a pleural drain. Pulmonary and cardiology following. He remains on Cardizem drip for A. fib with RVR-now rate controlled. Exam - Constitutional Vitals: Period Temp Pulse Resp BP Sys/Novak Pulse Ox Last 24 Hr 97.6 F-98.7 F 70-117 10-22 107-180/49-85 10-100 Exam: Constitutional System: No distress. No tremulousness. Head: Normocephalic, atraumatic. Ears, Nose and Throat System: No pain or tenderness. No epistaxis or discharge. Nasally placed endotracheal tube in place. Copious secretions and drooling noted Eyes System: Pupils equal, round, and reactive. Extraocular muscles intact. Neck: Supple, without adenopathy, No jugular venous distention. No thyromegaly, neck mass, or prior surgery apparent. Respiratory System: Chest coarse rhonchi to auscultation. Decreased breath sounds on the left . Cardiovascular System: Heart with irregular rate and rhythm. No murmur. GI System: Abdomen soft, nontender. Normo active bowel sounds present. Edematous Musculoskeletal System: limbs with 3+ pitting edema. Full distal pulses. Neurological System: Patient intubated and sedated Psychiatric System: Conversation is not possible at this time secondary to patient's condition. Results - Labs CBC & BMP: 01/20/17 05:15 01/21/17 04:30 Lab Results: I have reviewed the past 24 hour labs - Diagnostic Findings Procedure: Chest x-ray: image reviewed by me, report reviewed by me, CT - chest : image reviewed by me, report reviewed by me Quality Measures - VTE Contraindication to Pharmacological VTE Prophylaxis: Already on Theraputic Agent , No Prophylaxis Needed
--- NOTE | 2017-01-21 15:39 | XRay Report ---
Exam: XR chest 1V portable Indication: Integrated Comparison study: 01/20/2017 Findings: Endotracheal tube and esophagogastric tube appear in grossly similar positions. Marked cardiomegaly is similar to prior. There is slight improved aeration within the left upper lung. Basilar opacities are similar to prior likely representing atelectasis and moderate pleural effusions. There is no pneumothorax. Impression: Stable position of endotracheal and esophagogastric tubes. Slight improved aeration within the left upper lobe with residual basilar atelectasis and moderate pleural effusions noted. PROCEDURE INTERPRETED AT [facility] DEPARTMENT OF RADIOLOGY Final Report Signed by: Osito Lopez
--- NOTE | 2017-01-21 17:41 | Cardiology Progress Note ---
Assessment and Plan (1) Atrial fibrillation Status: Chronic Current Visit: No Qualifiers: Atrial fibrillation type: chronic Qualified Code(s): I48.2 - Chronic atrial fibrillation (2) Acute respiratory failure Status: Acute Current Visit: Yes Qualifiers: Respiratory failure complication: hypoxia Qualified Code(s): J96.01 - Acute respiratory failure with hypoxia (3) NICM (nonischemic cardiomyopathy) Status: Chronic Current Visit: Yes (4) HTN (hypertension) Status: Chronic Current Visit: No Qualifiers: Hypertension type: essential hypertension Qualified Code(s): I10 - Essential (primary) hypertension (5) Sepsis Status: Acute Current Visit: Yes Qualifiers: Sepsis type: sepsis due to unspecified organism Qualified Code(s): A41.9 - Sepsis, unspecified organism (6) History of intracranial hemorrhage Status: Resolved Current Visit: Yes (7) Pericardial effusion Status: Chronic Current Visit: Yes Cardiology - PN: Subj Interval history: The patient has a history of persistent atrial fibrillation and intracranial hemorrhage. He is being treated for pneumonia with empyema, respiratory failure. He does also have a moderate size pericardial effusion. Overall the evening was uneventful, there are no new complaints. ASSESSMENT/PLAN: 1. RESPIRATORY FAILURE - currently intubated, continuing with supportive care. 2. ATRIAL FIBRILLATION, PAROXYSMAL - avoiding anticoagulants due to recent intracranial hemorrhage. He is on low-dose aspirin. This is currently rate controlled. 3. RECENT INTRACRANIAL HEMORRHAGE - avoiding anticoagulants. 4. SEPSIS -seems to be improving - Continue to follow accordingly 5. PERICARDIAL EFFUSION - echocardiogram performed reveals small to moderate sized pericardial without tamponade. Stable 6. ANEMIA - continue to monitor hemoglobin and hematocrit closely 7. UNDERLYING HYPERTENSION - has required pressors, now tolerating calcium channel camilo and beta camilo. 8. CVA - history of CVA approximately 15 years ago. Exam (Progress Note) - Constitutional Vitals: Period Temp Pulse Resp BP Sys/Novak Pulse Ox Last 24 Hr 97.1 F-98.7 F 64-117 10-27 106-180/46-85 10-100 Exam: General appearance: Over weight, no acute distress, intubated, not spontaneously arousable during the exam, although will respond to stimulation. - Head Head exam: Present: normocephalic, atraumatic,. Absent: hematoma, laceration - Eye Eye exam: Absent: conjunctival injection, nystagmus, periorbital swelling, scleral icterus, laceration to eyelids Pupils: Present: PREMA. Absent: constricted, dilated, fixed, irregular, unequal - ENT ENT exam: Present: normal exam, normal external ear exam - Neck Neck exam: Present: normal inspection. Absent: lymphadenopathy, meningismus, tenderness, thyromegaly - Respiratory Respiratory exam: Present: clear to auscultation bilaterally anteriorly, there is normal rise with ventilated breaths. Absent: accessory muscle use, chest wall tenderness - Cardiovascular Cardiovascular exam: Present: Irregularly irregular rate and rhythm. Absent: carotid bruit, gallop, JVD, rubs - GI/Abdominal GI/Abdominal exam: Present: normal bowel sounds. Absent: distended, firm, guarding, hernia, mass, tenderness, rebound, soft - Extremities Exam Extremities exam: Present: normal inspection, normal capillary refill. Absent: calf tenderness, edema - Back Exam Back exam: Unable to assess due to patient being on the ventilator - Neurological Exam Neurological exam: Unable to fully assess due to patient being on the ventilator. She does appear to move all 4 extremities. - Psychiatric Psychiatric exam: Unable to assess due to patient being on the ventilator. - Skin Skin exam: Present: normal color, warm, dry, intact. Absent: cyanosis, diaphoretic, rash, urticaria Result/EKG - Labs CBC & BMP: 01/20/17 05:15 01/21/17 04:30 Lab Results: I have reviewed the past 24 hour labs Labs: Laboratory Results - last 24 hr 01/20/17 01/21/17 01/21/17 17:52 00:14 04:30 ABG pH ABG pCO2 ABG pO2 ABG HCO3 ABG Total CO2 ABG O2 Saturation ABG Base Excess Sodium 148 H Potassium 3.9 Chloride 111 H Carbon Dioxide 31 Anion Gap 9.9 BUN 50 H Creatinine 0.70 GFR Calculation 142 BUN/Creatinine Ratio 71.00 H Glucose 113 H POC Glucose 86 130 H Calculated Osmolality 307.3 H Calcium 8.3 L Magnesium 2.3 01/21/17 01/21/17 01/21/17 04:30 05:53 10:58 ABG pH 7.426 ABG pCO2 48.9 H ABG pO2 114.0 H ABG HCO3 30.6 H ABG Total CO2 29.4 H ABG O2 Saturation 98.6 ABG Base Excess 6.7 H Sodium Potassium Chloride Carbon Dioxide Anion Gap BUN Creatinine GFR Calculation BUN/Creatinine Ratio Glucose POC Glucose 132 H 149 H Calculated Osmolality Calcium Magnesium 01/21/17 17:16 ABG pH ABG pCO2 ABG pO2 ABG HCO3 ABG Total CO2 ABG O2 Saturation ABG Base Excess Sodium Potassium Chloride Carbon Dioxide Anion Gap BUN Creatinine GFR Calculation BUN/Creatinine Ratio Glucose POC Glucose 138 H Calculated Osmolality Calcium Magnesium - Diagnostic Findings Procedure: Chest x-ray: report reviewed by me Quality Measures - VTE Contraindication to Pharmacological VTE Prophylaxis: Already on Theraputic Agent , No Prophylaxis Needed
[2017-01-21] MEDS: LORazepam 2 MG/1 ML VIAL IV PRN (20:07)
[2017-01-22] MEDS: INSULIN LISPRO 100 UNIT/ML SUBCUT SCH ×5 (00:11→23:45)
[2017-01-22] MEDS: ALBUTEROL/IPRATROPIUM 3 ML NEB RESP TX SCH ×4 (01:19→20:15)
[2017-01-22] MEDS: CLINDAMYCIN INJ 600 MG in PREMIX 1 EACH IV SCH ×3 (01:41→17:50)
[2017-01-22] MEDS: MORPHINE 2 MG/1 ML SYRINGE IV PRN (02:27)
[2017-01-22] MEDS: LORazepam 2 MG/1 ML VIAL IV PRN (02:27)
[2017-01-22] MEDS: AZTREONAM 2,000 MG in SODIUM CHLORIDE 0.9% 100 ML IV SCH ×2 (02:27→08:40)
[2017-01-22] MEDS: ALBUMIN 25% 25 GM in PREMIX 1 EACH IV SCH (03:24)
[2017-01-22 05:03] LABS: ABG Base Excess 7.4 MMOL/L (-2.5-2.5); ABG HCO3 32.4 MMOL/L (20-26); ABG Oxygen Saturation 96.6 % (95-100); ABG PCO2 48.1 MM HG (35-48); ABG PH 7.446 (7.35-7.45); ABG PO2 87.8 MM HG (80-95); ABG TCO2 33.9 MMOL/L (23-27)
[2017-01-22 05:27] LABS: Calcium 8.4 MG/DL (8.5-10.1); Magnesium 2.3 MG/DL (1.8-2.4); Potassium 3.5 MMOL/L (3.5-5.1)
[2017-01-22] MEDS: AMPICILLIN INJ 1,000 MG in SODIUM CHLORIDE 0.9% 100 ML IV SCH ×3 (05:35→20:29)
--- NOTE | 2017-01-22 07:14 | XRay Report ---
Referring Physician: Michael Rodarte Exam: XR chest 1V portable Date: January 22, 2017 at 3:14 AM Reason: Ventilation Comparison: Chest one view portable January 21, 2017 Findings: An endotracheal tube and feeding tube are again place. Surgical clips are noted at the lower neck. The cardiac silhouette is again enlarged. There are scattered opacities within the mid and lower lung zones bilaterally. This is concerning for pulmonary edema, atelectasis and possibly pneumonia. No pneumothorax is identified, but there is mild bilateral pleural fluid, left greater than right. The osseous structures appear stable. Impression: There is improvement aeration of both lungs with decreased pleural fluid. PROCEDURE INTERPRETED AT [facility] DEPARTMENT OF RADIOLOGY Final Report Signed by: Dr. Konstantin Ahumada
[2017-01-22] MEDS ORDERED: POTASSIUM CHLORIDE RIDER 10 MEQ in PREMIX 1 EACH IV PRN (08:05)
[2017-01-22] MEDS: POTASSIUM CHLORIDE RIDER 20 MEQ in PREMIX 1 EACH IV PRN (09:03)
[2017-01-22] MEDS: PANTOPRAZOLE 40 MG VIAL IV SCH (09:04)
[2017-01-22] MEDS: FUROSEMIDE 40 MG/4 ML VIAL IV SCH (09:04)
[2017-01-22] MEDS: CARVEDILOL 12.5 MG TABLET PO SCH (09:11)
[2017-01-22] MEDS: LEVOTHYROXINE 175 MCG TABLET PO SCH (09:11)
[2017-01-22] MEDS: FINASTERIDE 5 MG TABLET PO SCH (09:11)
[2017-01-22] MEDS: ASPIRIN CHEW 81 MG TABLET PO SCH (09:11)
[2017-01-22] MEDS: CHOLECALCIFEROL 1,000 UNIT TABLET PO SCH (09:11)
[2017-01-22] MEDS: DILTIAZEM 30 MG TABLET PO SCH ×4 (09:12→20:29)
[2017-01-22] MEDS: SPIRONOLACTONE 25 MG TABLET PO SCH ×2 (09:12→20:29)
--- NOTE | 2017-01-22 09:31 | IR History and Physical Update ---
IR Pre-Procedure - History and Physical Reason for procedure:: 81 yoM known to me from prior thoracentesis. Now asked by primary svc to place left chest drain in anticipation of tx to LTAC. - Dictation Physical: refer to H&P completed by admitting physician - Physical Exam Vital Signs: Last Vital Signs Temp 97.4 F L 01/22/17 08:00 Pulse 115 H 01/22/17 09:12 Resp 15 01/22/17 08:00 BP 170/85 01/22/17 09:12 Pulse Ox 100 01/22/17 08:00 - Sedation ASA Class: III - Risks Risks: Procedures explained. Risks discussed include, but not limited to, the following:[ ] All questions answered. The following alternatives were discussed:[ ] Assessment and Plan - Time spent with patient Time spent with patient: Less than 30 minutes
--- NOTE | 2017-01-22 09:33 | Cardiology Progress Note ---
<Melissa Garcia E - Last Filed: 01/22/17 09:25> Assessment and Plan - Time spent with patient Time spent with patient: Greater than 30 minutes (1) CVA (cerebral vascular accident) Status: Chronic Assessment and plan: See plan of care listed below Current Visit: Yes (2) Acute respiratory failure Status: Acute Assessment and plan: See plan of care listed below Current Visit: Yes Qualifiers: Respiratory failure complication: hypoxia Qualified Code(s): J96.01 - Acute respiratory failure with hypoxia (3) Anasarca Status: Acute Assessment and plan: See plan of care listed below Current Visit: Yes (4) Aspiration pneumonia Status: Acute Assessment and plan: See plan of care listed below Current Visit: Yes Qualifiers: Aspiration pneumonia type: due to regurgitated food Laterality: right Lung location: unspecified part of lung Qualified Code(s): J69.0 - Pneumonitis due to inhalation of food and vomit (5) Atrial fibrillation Status: Chronic Assessment and plan: See plan of care listed below Current Visit: Yes Qualifiers: Atrial fibrillation type: paroxysmal Qualified Code(s): I48.0 - Paroxysmal atrial fibrillation (6) History of intracranial hemorrhage Status: Resolved Assessment and plan: See plan of care listed below Current Visit: Yes (7) Pericardial effusion Status: Chronic Assessment and plan: See plan of care listed below Current Visit: Yes (8) Septic shock Status: Acute Current Visit: Yes (9) HTN (hypertension) Status: Chronic Assessment and plan: See plan of care listed below Current Visit: No Qualifiers: Hypertension type: essential hypertension Qualified Code(s): I10 - Essential (primary) hypertension (10) Anemia Status: Acute Assessment and plan: See plan of care listed below Current Visit: Yes (11) Anasarca Status: Acute Current Visit: Yes Cardiology - PN: Subj Interval history: ROUNDER AND BACKER: DR. NELL SHIPLEY SUMMARY: History of hypertension, myxedema, dyslipidemia, tobaccoism, obesity, stroke, dilated cardiomyopathy (resolved), atrial fibrillation, chronic pericardial effusion. September 2016 he was found to have a moderate to large pericardial effusion and pleural effusion, significant overall edema. He was hospitalized and treated for myxedema. Repeat echocardiogram performed during January 12, 2017 reveals EF 60%, PAP 49 mmHg, small to moderate size pericardial effusion, right and left pleural effusions. Patient was admitted January 11, 2017 , emergently intubated and being treated for sepsis related to probable aspiration pneumonia with empyema, significant sacral decubitus. Patient was recently hospitalized in [place] for intracranial hemorrhage related to anticoagulation, therefor anticoagulation is not an option. JANUARY 22, 2017: Over the weekend, no significant change in his condition. He remains intubated but arouses easily. CT chest Sunday revealed moderate to large left pleural effusion. He is being considered for chest tube this morning. Continues to have paroxysms of atrial fibrillation. This morning, heart rate is averaged 90-110 bpm. Blood pressure will allow for increase in beta-blockade. I will increase Coreg to 25 mg orally twice daily. He is also taking diltiazem 30 mg 4 times daily. Labs pending for this morning. Aspirin 81 mg continues. Avoiding anticoagulants due to recent intracranial hemorrhage. ASSESSMENT/PLAN: 1. RESPIRATORY FAILURE - currently intubated 2. ATRIAL FIBRILLATION, PAROXYSMAL - avoiding anticoagulants due to recent intracranial hemorrhage. He is on low-dose aspirin. Rates have been averaging around 100-110. Today, will increase his beta-blockade for better rate control. 3. RECENT INTRACRANIAL HEMORRHAGE - avoiding anticoagulants. 4. SEPSIS - seems to be improving. 5. PERICARDIAL EFFUSION - echocardiogram performed reveals small to moderate sized pericardial without tamponade. Stable 6. ANEMIA - continue to monitor hemoglobin and hematocrit closely 7. UNDERLYING HYPERTENSION - has required pressors, now tolerating beta camilo and calcium channel camilo. Increasing beta camilo. 8. CVA - history of CVA approximately 15 years ago. 9. ANASARCA - Aldactone added over the weekend. Continue to monitor labs closely. Overall, his anasarca has improved minimally. 10. MYXEDEMA, HISTORY OF - continue current plan of care Exam (Progress Note) - Constitutional Vitals: Period Temp Pulse Resp BP Sys/Novak Pulse Ox Last 24 Hr 97.1 F-99.5 F 64-117 14-27 106-170/46-85 97-100 Exam: General: [Intubated] [cooperative. ] [Appears comfortable. Anasarca noted] HEENT: [normocephalic, atraumatic. Mucous membranes moist. No jaundice noted. ] Neck: Unable to assess for JVD due to habitus. No lymphadenopathy noted. No carotid bruit appreciated Cardiac: [Irregularly irregular rhythm, controlled rate] [No obvious murmur rub or gallop.] Lungs: [Relatively clear without wheezes.] Intubated. Symmetrical chest wall movements noted Abdomen: Distended with hypoactive bowel sounds. Seems to be nontender. Musculoskeletal: Decreased range of motion is noted. Extremities: Right hand cold and edematous. Bilateral radial pulses 2+. General massive edema noted. Capillary refill less than 3 seconds. Skin: Large sacral decubiti noted. No unusual lesions Neuro: Awake, alert and obeys commands though intubated. No essential tremor is appreciated. Result/EKG - Labs CBC & BMP: 01/20/17 05:15 01/22/17 04:55 Lab Results: I have reviewed the past 24 hour labs Labs: Laboratory Results - last 24 hr 01/21/17 01/21/17 01/22/17 10:58 17:16 00:07 ABG pH ABG pCO2 ABG pO2 ABG HCO3 ABG Total CO2 ABG O2 Saturation ABG Base Excess Sodium Potassium Chloride Carbon Dioxide Anion Gap BUN Creatinine GFR Calculation BUN/Creatinine Ratio Glucose POC Glucose 149 H 138 H 109 H Calculated Osmolality Calcium Magnesium 01/22/17 01/22/17 04:55 04:55 ABG pH 7.446 ABG pCO2 48.1 H ABG pO2 87.8 ABG HCO3 32.4 H ABG Total CO2 33.9 H ABG O2 Saturation 96.6 ABG Base Excess 7.4 H Sodium 150 H Potassium 3.5 Chloride 112 H Carbon Dioxide 32 Anion Gap 9.5 BUN 47 H Creatinine 0.80 GFR Calculation 134 BUN/Creatinine Ratio 58.00 H Glucose 103 POC Glucose Calculated Osmolality 309.0 H Calcium 8.4 L Magnesium 2.3 - Diagnostic Findings Procedure: Chest x-ray: report reviewed by me, CT - chest: report reviewed by me - EKG EKG results: interpreted by me EKG shows: atrial fibrillation Quality Measures - VTE Contraindication to Pharmacological VTE Prophylaxis: Already on Theraputic Agent , No Prophylaxis Needed <Bill Ceballos - Last Filed: 01/22/17 11:07> Cardiology - PN: Subj Interval history: I have seen, interviewed, examined the patient and reviewed his chart and discussed the case with the mid-level provider and agree with the plan as outlined in the note. Exam (Progress Note) - Constitutional Vitals: Period Temp Pulse Resp BP Sys/Novak Pulse Ox Last 24 Hr 97.3 F-99.5 F 65-115 14-27 121-170/51-85 97-100 Result/EKG - Labs CBC & BMP: 01/20/17 05:15 01/22/17 04:55 Labs: Laboratory Results - last 24 hr 01/21/17 01/21/17 01/22/17 10:58 17:16 00:07 ABG pH ABG pCO2 ABG pO2 ABG HCO3 ABG Total CO2 ABG O2 Saturation ABG Base Excess Sodium Potassium Chloride Carbon Dioxide Anion Gap BUN Creatinine GFR Calculation BUN/Creatinine Ratio Glucose POC Glucose 149 H 138 H 109 H Calculated Osmolality Calcium Magnesium 01/22/17 01/22/17 04:55 04:55 ABG pH 7.446 ABG pCO2 48.1 H ABG pO2 87.8 ABG HCO3 32.4 H ABG Total CO2 33.9 H ABG O2 Saturation 96.6 ABG Base Excess 7.4 H Sodium 150 H Potassium 3.5 Chloride 112 H Carbon Dioxide 32 Anion Gap 9.5 BUN 47 H Creatinine 0.80 GFR Calculation 134 BUN/Creatinine Ratio 58.00 H Glucose 103 POC Glucose Calculated Osmolality 309.0 H Calcium 8.4 L Magnesium 2.3
[2017-01-22] MEDS ORDERED: CARVEDILOL 12.5 MG TABLET PO ONE (09:35)
[2017-01-22] MEDS: CIPROFLOXACIN INJ 200 MG in PREMIX 1 EACH IV SCH ×2 (09:42→20:28)
[2017-01-22] MEDS: SODIUM HYPOCHLORITE 0.25% IRRIG 473 ML BOTTLE TOP SCH ×2 (09:43→20:30)
--- NOTE | 2017-01-22 10:27 | Pulmonology Progress Note ---
Pulmonary - PN: Subj Interval history: This is a 81-year-old black male. I saw him in pulmonary consultation on 2016. He had aspirated and he required fiberoptic bronchoscopy. Small pieces of meat and multiple green peas were removed during bronchoscopy. See my note concerning that. My impressions were. 1. Acute respiratory failure requiring intubation mechanical ventilation. [place] to be secondary to acute aspiration. 2. Recent intracerebral bleed with neuro logical sequela including difficulty swallowing 3. Hypothyroidism 4. Mild anemia 5. Low calcium probably secondary to low albumin. Look for vitamin D deficiency. 01/15/2017, vitamin D level is low 6. Hypotension requiring pressor agents. For 2016. Now normotensive off pressors. 7. Hypoproteinemia, hypoalbuminemia, mild increase globulins. 8. Atrial fib 9. Valvular heart disease. Type unknown. 01/15/2017. Echocardiogram showed ejection fraction of 60%. There was +1 aortic stenosis with a mean peak gradient of 12/18 mmHg, +1 aortic regurgitation, +1 mitral regurgitation. Pulmonary artery pressures were 39 mmHg with +2 or 3 tricuspid regurgitation. Small to moderate size circumferential pericardial effusion with no evidence of tamponade. Pleural fluid was also noted. 10. History of high blood pressure 11. Azotemia. Creatinine 1.6. 12. See past history. 01/15/2017. Today's chest x-ray shows cardiomegaly with small bilateral pleural effusions and atelectasis in the right middle lung and the left lower lung. ABGs on mechanical ventilation showed pH is 7.47, PCO2 of 42, PO2 of 158 and a bicarb of 30.2. Natruretic peptide is elevated at 300. Vitamin D level is low at 6.8. White blood cell count is 12,800 with 71 segs 18 lymphs and 9 monos. Electrolytes are normal. Creatinine has dropped from 1.70-1.00 with a BUN of 47. Urine has grown Enterococcus faecalis. Blood cultures from 01/11/2017 were reported as growing a gram-negative tommie. Cultures and sensitivities are not yet available. Bronchial lavage from 01/12/2017 is growing a yeast. Abscess culture from 01/12/2017 is growing a gram-negative tommie and gram-positive cocci. So far no identification or sensitivities to antibiotics are available. Labs been reviewed. Medicines have been reviewed. 01/16/2017. Earlier today the patient had a fiberoptic bronchoscopy. See report. Gastric acid injuries are healing. There is mild to moderate underlying COPD with collapsible large and small airways. I found no additional food particles. Patient had a moderate amount of retained secretions which were removed. These were predominantly in the right lower left lower lung where there has been some atelectasis on his chest x-ray. He tolerated procedure well and I have discussed the procedure with Dr. Dolly Manzanares. ABGs look good. Patient is much stronger. He is progressing very well with his weaning protocol. Tomorrow morning at 5 AM I am going to give him a T- tube trial to 7 AM and will check his blood gases and his status at that time. Electrolytes normal. Creatinine is 0.8 with a BUN of 48. White count is 10, 700 down from 21,600. H&H is stable at 9.9/32.3. 01/22/2017. This weekend the patient treated his endotracheal tube into an at Lam had to replace it. He now has a nasal endotracheal tube. #7.5. He required a repeat bronchoscopy and food particles were found. See Dr. Lam's note. Today's chest x-ray shows cardiomegaly. There is central vascular engorgement. Endotracheal tube is in good position creatinine is 0.8. BUN is 47. Sodium is 150. Potassium 3.5. ABGs on mechanical ventilation show a pH of 7.45, PCO2 48, PO2 of 88 and a bicarb of 32.4 on 01/21/2017 the patient went almost 18 hours on CPAP and tolerated it well. We will give him a short T-tube trial today. Pleural fluid has grown methicillin-resistant staph aureus. On chest x-ray there is no pleural effusion today but the chest tube will be placed and I agree with this because this by definition is an empyema and needs drainage. Wound also has grown Bacteroides. Abscess culture has grown E. coli and enterococcus. I have reviewed the antibiotics. I have stopped Azactam. I have started Cipro and will continue this patient on Cleocin. Her methicillin- resistant staph aureus is exquisitely sensitive to Cleocin and the Bacteroides should be sensitive although no sensitivities were done on this organism bronchial washings also grew [place] albicans. Previous blood cultures have been positive for Bacteroides Physical exam. Vital signs. See below. Neurologic. Patient can be awakened easily and he is now cooperative.. Neck. Symmetrical. No meningismus Lymphatics. No submandibular cervical supraclavicular or epitrochlear adenopathy Chest. Mild large airway congestion Heart. No gallop Abdomen. Rare bowel sounds. Extremities. Nothing to suggest deep venous thrombophlebitis. The remainder the exam is noncontributory. Plan. 1. 01/12/2017. Bronchoscopy to evaluate for aspiration 2. Repeat BNP 3. 01/12/2017. Doppler venograms of lower extremities 4. 01/12/2017. Mechanical ventilation weaning protocol 5. 01/12/2017. Mechanical ventilation physical therapy protocol 6. 01/12/2017. Agree with protocol antibiotics but will decrease Levaquin from 750-500 mg because of azotemia. 7. 01/12/2017. Wean pressor agents as tolerated 8. TSH 9. Echocardiogram. Evaluate output and abnormal valves 10. Vitamin D level 11. See orders 12. 01/15/2017. Follow-up fiberoptic bronchoscopy has been scheduled for 2016. Continue weaning protocol. Patient is now on stage IV. See my note above from today. 13. 01/16/2017. See today's note above 14. 01/22/2017. Left empyema secondary to methicillin-resistant staph aureus. See today's note above Exam (Progress Note) - Constitutional Vitals: Period Temp Pulse Resp BP Sys/Novak Pulse Ox Last 24 Hr 97.1 F-99.5 F 64-115 14-27 106-170/46-85 97-100 Results - Labs CBC & BMP: 01/20/17 05:15 01/22/17 04:55
--- NOTE | 2017-01-22 10:49 | Event Note ---
General Surgery Progress Note Chief complaint This patient is a 81-year-old man who was admitted with aspiration pneumonia and sepsis but also found to have a foul-smelling sacral decubitus wound that was controlled with excisional debridement with drainage of abscess on 01/12/2017 Interval history The patient has no changes medically. He still on the ventilator. Physical exam The sacral wound has a thin layer of necrotic tissue at the base but there is no purulence or evidence of infection. Labs Reviewed Imaging Reviewed Assessment and plan Continue wound care with Dakin's twice daily to the sacral wound. Continue local wound care. No further debridement is needed at this time. I do not plan for further debridement unless the current wound becomes infected or has a significant increase in the amount of necrotic tissue.
--- NOTE | 2017-01-22 10:53 | Hospitalist Progress Note ---
Assessment and Plan (1) Acute respiratory failure Status: Acute Assessment and plan: 1)large left pleural effusion with MRSA in pleural fluid- MRSA empyema- chest tube today. On amp, clinda, and azactam- change clinda to daptomycin. 2)resp failure following aspiration of meal- food found each time he has been bronched. Slow to wean from vent- was reintubated. Referred to LTAC. Dr Lam is his pot fluxer. He is comfortable off sedation at this point. 3)H/O ICH fairly recently- no anticoagulation 4)a fib- rate is ok on dilt drip. 5)sepsis- grew Bacteroides in sacral wound (that was present on admission and contributed to his septic shock) and a blood culture. Dr Adler has debrided the wound and does not think currently it is a source of infection. He also has MRSA in pleural fluid. antibiotics have been changed several times since admission, now on clinda day 2 and cipro day 3 and ampicillin day 7. 6)nutrition- tolerating tube feeds. 7)high glucose- uncontrolled DM- increase Lantus, continue SSI. 8)anasarca-stop the routine albumin and decrease the lasix- his sodium is rising indicating free water deficit. He continues to third space and has significant scrotal edema. Recheck labs in am/ 9)anemia-stable. Current Visit: Yes Qualifiers: Respiratory failure complication: hypoxia Qualified Code(s): J96.01 - Acute respiratory failure with hypoxia (2) NICM (nonischemic cardiomyopathy) Status: Chronic Current Visit: Yes (3) Atrial fibrillation Status: Chronic Current Visit: No Qualifiers: Atrial fibrillation type: chronic Qualified Code(s): I48.2 - Chronic atrial fibrillation (4) HTN (hypertension) Status: Chronic Current Visit: No Qualifiers: Hypertension type: essential hypertension Qualified Code(s): I10 - Essential (primary) hypertension (5) Atrial fibrillation Status: Chronic Current Visit: Yes Qualifiers: Atrial fibrillation type: paroxysmal Qualified Code(s): I48.0 - Paroxysmal atrial fibrillation (6) Congestive heart failure Status: Acute Current Visit: Yes (7) Fever Status: Acute Current Visit: Yes (8) Urinary tract infection Status: Acute Current Visit: Yes (9) Sepsis Status: Acute Current Visit: Yes Qualifiers: Sepsis type: sepsis due to unspecified organism Qualified Code(s): A41.9 - Sepsis, unspecified organism (10) Aspiration pneumonia Status: Acute Current Visit: Yes Qualifiers: Aspiration pneumonia type: due to regurgitated food Laterality: right Lung location: unspecified part of lung Qualified Code(s): J69.0 - Pneumonitis due to inhalation of food and vomit (11) History of intracranial hemorrhage Status: Resolved Current Visit: Yes (12) Acute kidney injury Status: Acute Current Visit: Yes (13) Sacral decubitus ulcer Status: Acute Current Visit: Yes (14) Blood bacterial culture positive Status: Acute Current Visit: Yes (15) Bacteremia Status: Acute Current Visit: Yes (16) Pericardial effusion Status: Chronic Current Visit: Yes (17) CVA (cerebral vascular accident) Status: Chronic Current Visit: Yes (18) Anemia Status: Acute Current Visit: Yes (19) Atelectasis of left lung Status: Acute Current Visit: Yes (20) Pleural effusion, left Status: Acute Current Visit: Yes (21) Anasarca Status: Acute Current Visit: Yes Hospitalist: Subjective Interval history: Mr Celaya is stable this morning on the vent and comfortable off sedation since last week. He is to have chest tube placed for his empyema this morning. He has been referred to LTAC. Exam - Constitutional Vitals: Period Temp Pulse Resp BP Sys/Novak Pulse Ox Last 24 Hr 97.1 F-99.5 F 64-115 14-27 106-170/46-85 97-100 General appearance: no acute distress, morbidly obese - Head Head exam: Present: normocephalic, atraumatic - Eye Eye exam: Present: EOMI. Absent: scleral icterus - Respiratory Respiratory exam: Present: rales, rhonchi. Absent: wheezes - Cardiovascular Cardiovascular exam: Present: irregular rhythm - GI/Abdominal GI/Abdominal exam: Present: normal bowel sounds, soft. Absent: tenderness - Extremities Exam Extremities exam: Absent: edema - Neurological Exam Neurological exam: Present: alert - Skin Skin exam: Present: warm, dry Results - Labs CBC & BMP: 01/20/17 05:15 01/22/17 04:55 Lab Results: I have reviewed the past 24 hour labs Quality Measures - VTE Contraindication to Pharmacological VTE Prophylaxis: Already on Theraputic Agent , No Prophylaxis Needed
--- NOTE | 2017-01-22 12:15 | Pathology Report from [facility] ---
ACCESSION # : [id number] PATIENT NAME : Beto Celaya ORDERING DR : AGUSTÍN CASTRO MD CLINICAL HX: Left Pleural Effusion POST-OP DX: Same SPECIMEN INFO: Fluid,Pleural,Left - 900 ml's yellow, hazy CLASS: I CLASS COMMENTS: Benign mesothelial cells.CELL BLOCK: Same. CLASS LEGEND: CLASS 0 Material inadequate for diagnosis because of (see comment) CLASS I Absence of atypical or abnormal cells CLASS II Atypical Cytology but no evidence of malignancy CLASS III Cytology suggestive of but not conclusive for malignancy CLASS IV Cytology strongly suggestive of malignancy CLASS V Cytology conclusive for malignancy SERVICE DATE: 01/19/2017 REPORT DATE: 01/22/2017 PATHOLOGIST: Jason Fajardo M.D. [facility]
--- NOTE | 2017-01-22 13:27 | Post Interventional Procedure ---
Pre-op diagnosis: Pleural effusion Post-op diagnosis: same Procedure: Image guided left pleural drain catheter placement Radiologist: Juni Chavez Anesthesia: local Specimens: none sent Estimated blood loss: none Complications: none Condition: stable Description/Findings: Low continuous wall suction
--- NOTE | 2017-01-22 15:28 | Ultrasound Report ---
US thoracentesis w tube place Indication: Left pleural effusion. Transfer to LTAC. Left CHEST TUBE PLACEMENT, ULTRASOUND-GUIDED Description: A formal timeout was performed. With the patient right lateral decubitus on the bed in the ICU, the left back was studied with ultrasound and pleural fluid identified posteriorly. After sterile prep and drape the area, maximum sterile barrier technique was instituted. Under ultrasound guidance, a vascular needle was advanced into the pleural fluid from a posterior approach. Captured sonographic image documents needle position. Needle was exchanged over wire for a vascular dilator followed by placement of a 10 Chadian pigtail drain catheter in the pleural space. Pigtail catheter was formed and anchored with a StatLock device. Catheter was connected to a Pleur-evac. Impression: 1. Uncomplicated placement of left posterior 10 Chadian pleural drain catheter. PROCEDURE INTERPRETED AT [facility] DEPARTMENT OF RADIOLOGY Final Report Signed by: Juni Chavez M.D.
--- NOTE | 2017-01-22 15:29 | XRay Report ---
XR chest post procedure Indication: Left chest tube. Chest 1 view: Small caliber left chest tube is now present. Left pleural effusion is small, and there is no pneumothorax. Haziness to the right lung base is unchanged from this morning. Cardiomegaly, endotracheal tube, NG tube and surgical clips at thoracic inlet are all unchanged. Impression: New chest tube. No pneumothorax. PROCEDURE INTERPRETED AT [facility] DEPARTMENT OF RADIOLOGY Final Report Signed by: Juni Chavez M.D.
[2017-01-22] MEDS: CARVEDILOL 25 MG TABLET PO SCH (20:29)
[2017-01-23] MEDS: LORazepam 2 MG/1 ML VIAL IV PRN (00:13)
[2017-01-23] MEDS: CLINDAMYCIN INJ 600 MG in PREMIX 1 EACH IV SCH ×2 (00:13→08:26)
[2017-01-23] MEDS: ALBUTEROL/IPRATROPIUM 3 ML NEB RESP TX SCH ×3 (00:48→13:30)
[2017-01-23 04:40] LABS: ABG Base Excess 7.7 MMOL/L (-2.5-2.5); ABG HCO3 31.5 MMOL/L (20-26); ABG Oxygen Saturation 99.9 % (95-100); ABG PCO2 51.5 MM HG (35-48); ABG PH 7.419 (7.35-7.45); ABG TCO2 30.8 MMOL/L (23-27)
[2017-01-23 04:40] LABS: Basophils % 0.3 % (0.0-0.8); Eosinophils # 0.4 10*3/uL (0.0-0.87); Eosinophils % 2.6 % (0.00-10.9); Hemoglobin 8.9 GM/DL (14.0-18.0); Immature Granulocytes % 0.9 %; Immature Granulocytes Absolute 0.13 #; Lymphocytes # 1.9 10*3/uL (1.4-4.0); Lymphocytes % 12.8 % (21.2-54.2); Mean Corpuscular HGB Conc 30.7 GM/DL (32-36); Mean Corpuscular Hemoglobin 31 PG (27-34); Mean Corpuscular Volume 99.3 FL (87-102); Mean Platelet Volume 11.5 FL (9.6-12.0); Monocytes # 1.2 10*3/uL (0.11-0.8); Monocytes % 8.3 % (1.7-12.7); Neutrophils # 10.9 10*3/uL (1.4-7.4); Neutrophils % 75.1 % (38.7-73.9); Platelet Count 251 T/CUMM (130-400); Red Blood Count 2.92 MC/CUMM (3.8-5.5); Red Cell Distribution Width 15.5 % (9.3-17.3); White Blood Count 14.5 T/CUMM (4-12)
[2017-01-23 05:36] LABS: Alanine Aminotransferase < 9 U/L (16-61); Albumin 2.8 G/DL (3.4-5.0); Alkaline Phosphatase 43 U/L (45-117); Aspartate Amino Transferase 9 U/L (0-37); Bilirubin,Total < 0.39 MG/DL (0.2-1.0); Blood Urea Nitrogen 43 MG/DL (7-18); Glucose 118 MG/DL (74-106); Osmolality,Calculated 307.1 MOS/KG (273-304); Potassium 3.7 MMOL/L (3.5-5.1); Sodium 149 MMOL/L (136-145); Total Protein 6.1 G/DL (6.4-8.3)
[2017-01-23] MEDS: INSULIN LISPRO 100 UNIT/ML SUBCUT SCH ×2 (05:56→12:40)
[2017-01-23] MEDS: AMPICILLIN INJ 1,000 MG in SODIUM CHLORIDE 0.9% 100 ML IV SCH ×2 (05:57→13:30)
[2017-01-23] MEDS: POTASSIUM CHLORIDE RIDER 20 MEQ in PREMIX 1 EACH IV PRN (06:23)
[2017-01-23] MEDS: LEVOTHYROXINE 175 MCG TABLET PO SCH (06:23)
--- NOTE | 2017-01-23 07:41 | XRay Report ---
Referring Physician: Michael Rodarte Exam: XR chest 1V portable Date: January 23, 2017 at 3:12 AM Reason: Ventilation Comparison: Chest postprocedure January 22, 2017 Findings: There is now a left pleural drainage catheter at the left lower lung zone. An endotracheal tube and feeding tube are also again in place. The cardiac silhouette is again enlarged, suggesting cardiomegaly and/or a pericardial effusion. Hazy opacities are seen within the right lower lung zone and could represent atelectasis or pneumonia. No pneumothorax is identified, and no significant pleural fluid is seen. The osseous structures appear stable. Surgical clips are noted at the lower neck. Impression: There is improved aeration of both lower lung zones. No pneumothorax is identified. PROCEDURE INTERPRETED AT [facility] DEPARTMENT OF RADIOLOGY Final Report Signed by: Dr. Konstantin Ahumada
--- NOTE | 2017-01-23 07:45 | Discharge Summary ---
<Mary Zhu - Last Filed: 01/23/17 07:40> Diagnosis - Discharge Diagnosis (1) Acute respiratory failure Status: Acute (2) NICM (nonischemic cardiomyopathy) Status: Chronic (3) Atrial fibrillation Status: Chronic (4) HTN (hypertension) Status: Chronic (5) Congestive heart failure Status: Acute (6) Fever Status: Resolved (7) Urinary tract infection Status: Acute (8) Sepsis Status: Resolved (9) Aspiration pneumonia Status: Acute (10) History of intracranial hemorrhage Status: Resolved (11) Acute kidney injury Status: Acute (12) Sacral decubitus ulcer Status: Acute (13) Blood bacterial culture positive Status: Acute (14) Bacteremia Status: Acute (15) Pericardial effusion Status: Chronic (16) CVA (cerebral vascular accident) Status: Chronic (17) Anemia Status: Acute (18) Atelectasis of left lung Status: Acute (19) Pleural effusion, left Status: Acute (20) Anasarca Status: Acute Discharge Plan - Discharge Data Disposition: Disch/Xfer to [facility] Condition at Discharge: Guarded Discharge Diet: other (tube feeding at goal) Activity: as per physical therapy - Discharge Medications New Ampicillin Inj 1,000 mg IV Q8H vial Aspirin Chew Tab 81 mg PO DAILY tablet Carvedilol [Coreg] 25 mg PO BID tablet Ciprofloxacin Inj [Cipro Inj] 200 mg IV Q12H Clindamycin Inj [Cleocin Inj] 600 mg IV Q8H Dextrose 50% [D50] 25 gm IV PRN PRN #0 vial PRN Reason: Hypoglycemia with IV access Diltiazem Tab [Cardizem Tab] 30 mg PO QID tablet Glucagon 1 mg IM PRN PRN #0 vial PRN Reason: Hypoglycemia w/o IV access Insulin Lispro [HumaLOG] See Protocol SUBCUT Q6HR unit LORazepam INJ [Ativan Inj] 2 mg IV Q4H PRN #0 vial PRN Reason: Agitation Morphine Inj 2 mg IV Q4H PRN #0 syringe PRN Reason: Pain Severe (8-10) Pantoprazole Inj [Protonix Inj] 40 mg IV DAILY vial Potassium Chloride Kale 10 meq IV .PER PROTOCOL PRN #0 PRN Reason: Per Protocol Sodium Hypochlorite 0.25% Irr [Dakins 1/2 Strength 0.25% Soln] 1 applic TOP BID applic Spironolactone [Aldactone] 25 mg PO BID tablet Albuterol Neb [Proventil Neb] 2.5 mg RESP TX RT Q1H PRN #0 PRN Reason: Shortness Of Breath/Wheezing Albuterol/Ipratropium Neb [Duoneb] 3 ml RESP TX RT Q6H Cholecalciferol [Vitamin D3] 2,000 unit PO DAILY tablet Furosemide Inj [Lasix Inj] 40 mg IV DAILY vial Ondansetron Inj [Zofran Inj] 4 mg IV Q4H PRN #0 vial PRN Reason: Nausea Potassium Chloride Kale 20 meq IV .PER PROTOCOL PRN #0 PRN Reason: Per Protocol Continue Levothyroxine Tab [Synthroid Tab] 175 mcg PO DAILY@0700 #30 tablet Finasteride [Proscar] 5 mg PO DAILY Discontinued Dabigatran [Pradaxa] 150 mg PO BID Aspirin EC Tab 81 mg PO DAILY hydrALAZINE TAB [Apresoline Tab] 50 mg PO TID Potassium Chloride [Klor-Con M20] 20 meq PO DAILY NIFEdipine [Nifedipine ER] 30 mg PO DAILY Lovastatin 20 mg PO BEDTIME Lisinopril 40 mg PO DAILY Gabapentin Cap/Tab [Neurontin Cap/Tab] 300 mg PO DAILY Carvedilol [Coreg] 25 mg PO BID Furosemide Tab [Lasix Tab] 40 mg PO BID DIURETIC #90 tablet - Follow Up or Referral - Forms/Instructions Exam - Constitutional Vitals: Period Temp Pulse Resp BP Sys/Novak Pulse Ox Last 24 Hr 97.2 F-98.5 F 57-108 3-23 90-153/50-93 96-100 General appearance: no acute distress, over weight - Eye Eye exam: Present: EOMI. Absent: scleral icterus - Respiratory Respiratory exam: Present: rhonchi - Cardiovascular Cardiovascular exam: Present: irregular rhythm - GI/Abdominal GI/Abdominal exam: Present: normal bowel sounds, soft. Absent: tenderness - Extremities Exam Extremities exam: Absent: edema (anasarca, scrotal edema) - Neurological Exam Neurological exam: Present: alert - Skin Skin exam: Present: warm, dry Discharge Results Procedures and tests throughout hospitalization: Pending Orders 01/12/17 Fungal Culture w/ Prep Stat 01/16/17 Fungal Culture w/ Prep Stat 01/18/17 AFB Culture/Smears Routine Fungal Culture w/ Prep Routine Fungal Culture w/ Prep Stat 01/18/17 10:32 Cytology Request Routine 01/22/17 MRSA Surveillence, Inf Control Routine 01/24/17 04:00 XR chest 1V portable IN AM ABG [Arterial Blood Gas] IN AM BMP w/ Mg [Basic Metabolic Panel w/Mg] IN AM CBC [Comp Blood Count Auto Diff] IN AM 01/25/17 04:00 BMP w/ Mg [Basic Metabolic Panel w/Mg] IN AM CBC [Comp Blood Count Auto Diff] IN AM 01/26/17 04:00 BMP w/ Mg [Basic Metabolic Panel w/Mg] IN AM CBC [Comp Blood Count Auto Diff] IN AM Labs on day of discharge: Labs from last 24 hours 01/23/17 01/23/17 01/23/17 05:56 04:40 04:25 WBC RBC Hgb Hct MCV MCH MCHC RDW Plt Count MPV Neut % (Auto) Lymph % (Auto) Pettis % (Auto) Eos % (Auto) Baso % (Auto) Neut # (Auto) Lymph # (Auto) Pettis # (Auto) Eos # (Auto) Baso # (Auto) Immature Gran % Nucleated RBC % Immature Gran # Nucleated RBCs # ABG pH 7.419 ABG pCO2 51.5 H ABG pO2 224.0 H ABG HCO3 31.5 H ABG Total CO2 30.8 H ABG O2 Saturation 99.9 ABG Base Excess 7.7 H Sodium Potassium Chloride Carbon Dioxide Anion Gap BUN Creatinine GFR Calculation BUN/Creatinine Ratio Glucose POC Glucose 89 Calculated Osmolality Calcium Magnesium 2.4 Total Bilirubin AST ALT Alkaline Phosphatase Total Protein Albumin Globulin Albumin/Globulin Ratio 01/23/17 01/23/17 01/22/17 04:25 04:25 23:44 WBC 14.5 H D RBC 2.92 L Hgb 8.9 L Hct 29.0 L MCV 99.3 MCH 31 MCHC 30.7 L RDW 15.5 Plt Count 251 MPV 11.5 Neut % (Auto) 75.1 H Lymph % (Auto) 12.8 L Pettis % (Auto) 8.3 Eos % (Auto) 2.6 Baso % (Auto) 0.3 Neut # (Auto) 10.9 H Lymph # (Auto) 1.9 Pettis # (Auto) 1.2 H Eos # (Auto) 0.4 Baso # (Auto) 0.0 Immature Gran % 0.9 Nucleated RBC % 0.0 Immature Gran # 0.13 Nucleated RBCs # 0.00 ABG pH ABG pCO2 ABG pO2 ABG HCO3 ABG Total CO2 ABG O2 Saturation ABG Base Excess Sodium 149 H Potassium 3.7 Chloride 111 H Carbon Dioxide 34 H Anion Gap 7.7 BUN 43 H Creatinine 0.70 GFR Calculation 142 BUN/Creatinine Ratio 61.00 H Glucose 118 H POC Glucose 112 H Calculated Osmolality 307.1 H Calcium 8.0 L Magnesium Total Bilirubin < 0.39 AST 9 ALT < 9 L Alkaline Phosphatase 43 L Total Protein 6.1 L Albumin 2.8 L Globulin 3.3 Albumin/Globulin Ratio 0.8 L 01/22/17 01/22/17 17:46 10:55 WBC RBC Hgb Hct MCV MCH MCHC RDW Plt Count MPV Neut % (Auto) Lymph % (Auto) Pettis % (Auto) Eos % (Auto) Baso % (Auto) Neut # (Auto) Lymph # (Auto) Pettis # (Auto) Eos # (Auto) Baso # (Auto) Immature Gran % Nucleated RBC % Immature Gran # Nucleated RBCs # ABG pH ABG pCO2 ABG pO2 ABG HCO3 ABG Total CO2 ABG O2 Saturation ABG Base Excess Sodium Potassium Chloride Carbon Dioxide Anion Gap BUN Creatinine GFR Calculation BUN/Creatinine Ratio Glucose POC Glucose 100 103 Calculated Osmolality Calcium Magnesium Total Bilirubin AST ALT Alkaline Phosphatase Total Protein Albumin Globulin Albumin/Globulin Ratio Preliminary micro results at discharge 01/12/17 Unknown Fungal Culture - Preliminary Bronchial Washings [place] albicans DS: Provider Date of admission: 01/11/17 21:40 Primary care physician: Alana Sepulveda Attending physician on admission: Mary Zhu MD Consults: 01/12/17 10:12 Consult to Physician [CONS] Routine Comment: sacral wound Consulting Provider: Bernard Adler Person Notified: [email or web address] Date Notified: 01/12/17 Time Notified: 10:52 01/12/17 10:22 Consult to Dietitian [CONS] Routine Reason for Dietitian: TF-Initiate/Manage 01/12/17 11:13 Consult to Anesthesiology [CONS] Routine Consulting Provider: Reason for Anesthesiology: Pre-op Clearance 01/15/17 17:21 Consult to Case Mgmt/Social Srvs [CONS] Routine Reason for Case Mgmt/Social Srvs: LTAC Consult Comment: good regency candidate 01/15/17 17:41 Consult to Physician [CONS] Routine Comment: mod size pericardial effusion on echo & aifb Consulting Provider: Kendra Valle When should Consulting Provider be notified: Now 01/17/17 07:58 Consult to Occupational Therapy [CONS] Routine Reason for Occupational Therapy: Evaluate and Treat Consult to Physical Therapy [CONS] Routine Reason for Physical Therapy: Evaluate and Treat Discharging clinician: Mary Zhu MD <Avi Morales - Last Filed: 01/23/17 10:11> Hospital Course - Hospital Course Hospital Course: This is a very poor and unfortunate 81 year old male that presented to the ED at on 01/11 from [facility] for evaluation of shortness of breath. The patient has a very extensive medical history significant for hypertension, atrial fibrillation, cerebral vascular accident, and acute respiratory failure. Apparently, the patient was currently admitted at [facility] for acute rehab. On the day of presentation, he was being fed when he started experiencing difficulty breathing. He was immediately transported to the ED at for further evaluation. At the time of arrival, the patient was noted to have gurgling respirations and to be in extreme respiratory distress. He was immediately intubated in the ED and sent to ICU for continuation of care. The patient had been recently hospitalized in [place] for intracranial hemorrhage for 2-3 weeks related to anticoagulation; which was discontinued at the time of admission. He was then discharged to the correction where he had been for 1 week prior to presentation. As a result of his recent brain hemorrhage, the patient was experienced dysphagia; requiring modified diet. This further suggests and confirms his acute presentation of acute aspiration and aspiration syndrome causing respiratory failure. In addition, the patient acquired decubitus ulcerations to the sacrum during the inpatient admission in [place]. Prior to these events, the patient was ambulatory and functioning normally at home. Today, his condition is stable. He will transferred to [facility] for continuation of care.
[2017-01-23] MEDS: PANTOPRAZOLE 40 MG VIAL IV SCH (08:23)
[2017-01-23] MEDS: ASPIRIN CHEW 81 MG TABLET PO SCH (08:24)
[2017-01-23] MEDS: DILTIAZEM 30 MG TABLET PO SCH ×2 (08:24→12:50)
[2017-01-23] MEDS: SPIRONOLACTONE 25 MG TABLET PO SCH (08:24)
[2017-01-23] MEDS: CARVEDILOL 25 MG TABLET PO SCH (08:25)
[2017-01-23] MEDS: CHOLECALCIFEROL 1,000 UNIT TABLET PO SCH (08:25)
[2017-01-23] MEDS: FINASTERIDE 5 MG TABLET PO SCH (08:25)
[2017-01-23] MEDS: CIPROFLOXACIN INJ 200 MG in PREMIX 1 EACH IV SCH (08:27)
[2017-01-23] MEDS ORDERED: FUROSEMIDE 40 MG/4 ML VIAL IV SCH (09:00)
--- NOTE | 2017-01-23 10:04 | Pulmonology Progress Note ---
Pulmonary - PN: Subj Interval history: This is a 81-year-old black male. I saw him in pulmonary consultation on 2016. He had aspirated and he required fiberoptic bronchoscopy. Small pieces of meat and multiple green peas were removed during bronchoscopy. See my note concerning that. My impressions were. 1. Acute respiratory failure requiring intubation mechanical ventilation. [place] to be secondary to acute aspiration. 2. Recent intracerebral bleed with neuro logical sequela including difficulty swallowing 3. Hypothyroidism 4. Mild anemia 5. Low calcium probably secondary to low albumin. Look for vitamin D deficiency. 01/15/2017, vitamin D level is low 6. Hypotension requiring pressor agents. For 2016. Now normotensive off pressors. 7. Hypoproteinemia, hypoalbuminemia, mild increase globulins. 8. Atrial fib 9. Valvular heart disease. Type unknown. 01/15/2017. Echocardiogram showed ejection fraction of 60%. There was +1 aortic stenosis with a mean peak gradient of 12/18 mmHg, +1 aortic regurgitation, +1 mitral regurgitation. Pulmonary artery pressures were 39 mmHg with +2 or 3 tricuspid regurgitation. Small to moderate size circumferential pericardial effusion with no evidence of tamponade. Pleural fluid was also noted. 10. History of high blood pressure 11. Azotemia. Creatinine 1.6. 12. See past history. 01/15/2017. Today's chest x-ray shows cardiomegaly with small bilateral pleural effusions and atelectasis in the right middle lung and the left lower lung. ABGs on mechanical ventilation showed pH is 7.47, PCO2 of 42, PO2 of 158 and a bicarb of 30.2. Natruretic peptide is elevated at 300. Vitamin D level is low at 6.8. White blood cell count is 12,800 with 71 segs 18 lymphs and 9 monos. Electrolytes are normal. Creatinine has dropped from 1.70-1.00 with a BUN of 47. Urine has grown Enterococcus faecalis. Blood cultures from 01/11/2017 were reported as growing a gram-negative tommie. Cultures and sensitivities are not yet available. Bronchial lavage from 01/12/2017 is growing a yeast. Abscess culture from 01/12/2017 is growing a gram-negative tommie and gram-positive cocci. So far no identification or sensitivities to antibiotics are available. Labs been reviewed. Medicines have been reviewed. 01/16/2017. Earlier today the patient had a fiberoptic bronchoscopy. See report. Gastric acid injuries are healing. There is mild to moderate underlying COPD with collapsible large and small airways. I found no additional food particles. Patient had a moderate amount of retained secretions which were removed. These were predominantly in the right lower left lower lung where there has been some atelectasis on his chest x-ray. He tolerated procedure well and I have discussed the procedure with Dr. Dolly Manzanares. ABGs look good. Patient is much stronger. He is progressing very well with his weaning protocol. Tomorrow morning at 5 AM I am going to give him a T- tube trial to 7 AM and will check his blood gases and his status at that time. Electrolytes normal. Creatinine is 0.8 with a BUN of 48. White count is 10, 700 down from 21,600. H&H is stable at 9.9/32.3. 01/22/2017. This weekend the patient treated his endotracheal tube into an at Lam had to replace it. He now has a nasal endotracheal tube. #7.5. He required a repeat bronchoscopy and food particles were found. See Dr. Lam's note. Today's chest x-ray shows cardiomegaly. There is central vascular engorgement. Endotracheal tube is in good position creatinine is 0.8. BUN is 47. Sodium is 150. Potassium 3.5. ABGs on mechanical ventilation show a pH of 7.45, PCO2 48, PO2 of 88 and a bicarb of 32.4 on 01/21/2017 the patient went almost 18 hours on CPAP and tolerated it well. We will give him a short T-tube trial today. Pleural fluid has grown methicillin-resistant staph aureus. On chest x-ray there is no pleural effusion today but the chest tube will be placed and I agree with this because this by definition is an empyema and needs drainage. Wound also has grown Bacteroides. Abscess culture has grown E. coli and enterococcus. I have reviewed the antibiotics. I have stopped Azactam. I have started Cipro and will continue this patient on Cleocin. Her methicillin- resistant staph aureus is exquisitely sensitive to Cleocin and the Bacteroides should be sensitive although no sensitivities were done on this organism bronchial washings also grew [place] albicans. Previous blood cultures have been positive for Bacteroides 01/23/2017. Chest x-ray shows cardiomegaly. Small left chest tube is in place. Note the patient grew staph aureus from his left pleural effusion. This is being treated as if it is an empyema. Patient has several other positive cultures. These cultures and medicine therapy and treated with are documented in my note 01/22/2017. There are no new cultures today. Patient is advancing to stage weaning protocol today. His ABGs show pH 7.42, PCO2 51.5, PO2 224 with a bicarbonate 31.5. He has had a big increase in his PCO2 today. Sodium is 149. Potassium is 3.7. Creatinine is 0.7. BUN is 43. White blood cell count is elevated at 14,500. H&H is 8.9/29.0. Platelets are 252,000. Glucoses are under good control. Liver function tests are normal. Protein and albumin are low at 6.1 and 2.8 respectively. Globulin is normal at 3.3. This patient has been accepted at [facility] for long-term acute care. I will sign off. Reconsult me if needed. Physical exam. Vital signs. See below. Neurologic. Patient can be awakened easily and he is now cooperative.. Neck. Symmetrical. No meningismus Lymphatics. No submandibular cervical supraclavicular or epitrochlear adenopathy Chest. Mild large airway congestion Heart. No gallop Abdomen. Rare bowel sounds. Extremities. Nothing to suggest deep venous thrombophlebitis. The remainder the exam is noncontributory. Plan. 1. 01/12/2017. Bronchoscopy to evaluate for aspiration 2. Repeat BNP 3. 01/12/2017. Doppler venograms of lower extremities 4. 01/12/2017. Mechanical ventilation weaning protocol 5. 01/12/2017. Mechanical ventilation physical therapy protocol 6. 01/12/2017. Agree with protocol antibiotics but will decrease Levaquin from 750-500 mg because of azotemia. 7. 01/12/2017. Wean pressor agents as tolerated 8. TSH 9. Echocardiogram. Evaluate output and abnormal valves 10. Vitamin D level 11. See orders 12. 01/15/2017. Follow-up fiberoptic bronchoscopy has been scheduled for 2016. Continue weaning protocol. Patient is now on stage IV. See my note above from today. 13. 01/16/2017. See today's note above 14. 01/22/2017. Left empyema secondary to methicillin-resistant staph aureus. See today's note above 15. 01/23/2017. See today's note above. Patient has been accepted for long- term acute care at [facility]. I will sign off. Please reconsult as needed. Exam (Progress Note) - Constitutional Vitals: Period Temp Pulse Resp BP Sys/Novak Pulse Ox Last 24 Hr 97.2 F-98.5 F 57-108 3-23 90-153/50-93 96-100 Results - Labs CBC & BMP: 01/23/17 04:25 01/23/17 04:25
[2017-01-23] MEDS: SODIUM HYPOCHLORITE 0.25% IRRIG 473 ML BOTTLE TOP SCH (10:35)
[2017-01-23 12:38] VITALS: BP 106/56
== END 2017-01-23 13:03 | DRG 853 ==
LOC: EDUNIT# → EDBD → N.ED 19:02 → N.EDINP 21:40 → SUATTDRO 21:40 → N.CC 22:39
PROVIDERS: ADMIT Internal Medicine; ATTEND Internal Medicine
PROC: IRTHORA (2017-01-18 16:15)

== ENCOUNTER 2017-06-08 00:11 | Inpatient (IN) ==
[2017-06-08] MEDS ORDERED: methylPREDNISolone SOD SUC 125 MG/2 ML VIAL IV STA (00:27)
[2017-06-08] MEDS ORDERED: SODIUM CHLORIDE 0.9% 1,000 ML IV STA (00:27)
[2017-06-08] MEDS ORDERED: VANCOMYCIN INJ 1,000 MG in SODIUM CHLORIDE 0.9% 250 ML IV STA (00:27)
[2017-06-08] MEDS ORDERED: ALBUTEROL 2.5 MG/3 ML NEB RESP TX SCH (00:30)
--- NOTE | 2017-06-08 00:35 | Emergency Department Note ---
Arrival - Arrival Chief Complaint: Shortness of Breath Stated Complaint: shortness of breath ED Nursing Triage Note: Patient to ED via EMS with c/o SOB for 1 days time worse over the last couple of hours. Patient is on continuos peg tube feedings at home and EMS report that patient was laying flat and gurgling when they arrival on scene. CBG 137. Patient arrives to ED awake and able to tell you his name. history is limtited but family is en route. Peg feeding held upon arrival. Patient resp shallow. Mode of Arrival: Stretcher Time Seen by Provider: 06/08/17 00:27 - History of Present Illness HPI Narrative: This 82-year-old black male presents via EMS with acute shortness of breath evolving over the last 24 hours. There is a mixed story as to his mental status. His family member who followed him over says the patient is his usual self excepting for significant increasing breathlessness which is experienced the last 2 days. The patient has had a previous admission in January for a MRSA empyema comp located by respiratory failure with ventilatory support support for extended period. Since discharge she had done well until the last 24 hours. The patient denies chest pain, nausea, vomiting, chills, or fever. The patient is bedbound without specific specific paralysis since her recent stroke. Currently he is in mild respiratory distress speaking in short clips rather than full sentences. Onset (ago): day(s) (Patient presents 2 days post onset of symptoms) Allergies/Adverse Reactions: Allergies Allergy/AdvReac Type Severity Reaction Status Date / Time No Known Allergies Allergy Verified 06/08/17 00:31 Home Medications: Home Medications Medication Instructions Recorded Confirmed Type Finasteride [Proscar] 5 mg PO DAILY 10/03/16 02/21/17 History Albuterol Neb [Proventil Neb] 2.5 mg RESP TX RT Q1H PRN #0 01/23/17 02/21/17 Rx Albuterol/Ipratropium Neb [Duoneb] 3 ml RESP TX RT Q6H 01/23/17 02/21/17 Rx Ampicillin Inj 1,000 mg IV Q8H vial 01/23/17 02/21/17 Rx Aspirin Chew Tab 81 mg PO DAILY tablet 01/23/17 02/21/17 Rx Carvedilol [Coreg] 25 mg PO BID tablet 01/23/17 02/21/17 Rx Cholecalciferol [Vitamin D3] 2,000 unit PO DAILY tablet 01/23/17 02/21/17 Rx Furosemide Inj [Lasix Inj] 40 mg IV DAILY vial 01/23/17 02/21/17 Rx Insulin Lispro [HumaLOG] See Protocol SUBCUT Q6HR unit 01/23/17 02/21/17 Rx Sodium Hypochlorite 0.25% Irr 1 applic TOP BID applic 01/23/17 02/21/17 Rx [Dakins 1/2 Strength 0.25% Soln] Ciprofloxacin Tab [Cipro Tab] 500 mg PO BID 02/21/17 02/21/17 History Famotidine Tab [Pepcid Tab] 20 mg PO BID 02/21/17 02/21/17 History Levothyroxine Tab [Synthroid Tab] 200 mcg PO DAILY@0700 02/21/17 02/21/17 History Spironolactone [Aldactone] 25 mg PO DAILY 02/21/17 02/21/17 History Review of System - Review of System 12 point system: reviewed and no additional remarkable complaints except as stated - Review of System Respiratory: Present: as per HPI Musculoskeletal: Present: as per HPI Medical,Surgical,& Family Hx - Medical History Cardio: History of: Cardiac Dysrhythmia (atrial fib), Cerebrovascular Disease, CHF, CAD, Hypertension, Valvular Heart Disease (A-FIB) Neurology: History of: Cerebral Hemorrhage (Recent hemorrhage 3-4 weeks ago), Cerebrovascular Accident (Ischemic stroke 15+ years ago), Peripheral Neuropathy No history of: Seizures HEENT: History of: Eye Problem (prostethic eye-right) Endocrine: History of: Diabetes Mellitus (IDDM), Dyslipidemia Respiratory: History of: Pneumonia, Respiratory Problems (ventilator 2016- respiratory failure) Genitourinary: History of: Bladder Problem (salazar catheter-january 2017) Gastrointestinal: History of: GERD, GI Problems (dysphagia) - Surgical History Cardiac Surgeries: Patient Denies: Cardiac Catheterization Neurologic Surgeries: Surgical HX of: Cerebral Hemorrhage (Recent hemorrhage 3- 4 weeks ago) Abdominal Surgeries: Patient denies: Abdominal Surgery - Family History Family History: Reports;: Family Hypertension - Social History Smoking Status: Unknown if ever smoked Frequency of Alcohol Use: None Type of Drug Use: None Exam Physical Examination: GENERAL: Well developed, well nourished black male in mild distress. HEENT: Normocephalic. No trauma. Moist mucous membranes. EOMI. PERRLA. ENT NML NECK: Supple. No adenopathy. CARDIAC: Regular. No murmurs. Heart rate 100 CHEST: Scattered expiratory rhonchi and wheezes with breath sounds diminished on the left. Mild respiratory distress respiratory distress. O2 sat 90% ABDOMEN: Soft. Nontender. Active bowel sounds. Feeding tube left upper quadrant EXTREMITIES: No trauma. Normal ROM. No pedal edema. SKIN: No diaphoresis. No rash. Clean sacral decubitus NEURO: Alert. Oriented 3. Generalized weakness with motor, sensory, vibratory intact. No focal deficits. Vital Signs: Vital Signs Temperature 98.6 F 06/08/17 00:13 Pulse Rate 84 06/08/17 00:13 Respiratory Rate 20 06/08/17 01:00 Blood Pressure 125/75 06/08/17 00:13 O2 Sat by Pulse Oximetry 98 06/08/17 01:00 Course - Reevaluation(s) Reevaluation #1: His cast with patient need for hospitalization given his current clinical situation. - Consultations Consultation #1: Discussed with hospitalist service who will admit for further evaluation treatment. Procedures - EJ/Peripheral Line Neck R Consent Obtained: verbal consent Time Out Performed: Yes Skin Cleansed in Sterile Fashion: Yes Size: 18 IV Secured and Dressing Applied: Yes Patient Tolerated Procedure: no complications Results - Labs CBC & BMP: 06/08/17 00:23 06/08/17 00:23 Labs: I reviewed the laboratory noted the moderately depressed hematocrit and evidence of azotemia with elevated BUN. - Impressions EKG: Atrial fibrillation at 100 with normal QRS duration. Nonspecific ST changes with no acute injury pattern noted. - Diagnostic Findings Procedure: Chest x-ray: image reviewed by me, report reviewed by me (Left pleural effusion and infiltrate) Disposition Clinical Impression: Left pleural effusion, Left pneumonia, Feeding gastrostomy Case discussed with: patient, patient's family Disposition: Still a Patient Condition: Guarded Time of Disposition: 02:01
[2017-06-08 00:46] LABS: Basophils # 0.1 10*3/uL (0.0-0.2); Basophils % 0.4 % (0.0-0.8); Eosinophils % 0.3 % (0.00-10.9); Immature Granulocytes % 1.3 %; Immature Granulocytes Absolute 0.14 #; Lymphocytes # 1.7 10*3/uL (1.4-4.0); Lymphocytes % 15.1 % (21.2-54.2); Mean Corpuscular HGB Conc 32.4 GM/DL (32-36); Mean Corpuscular Hemoglobin 32 PG (27-34); Mean Corpuscular Volume 98.3 FL (87-102); Mean Platelet Volume 10.3 FL (9.6-12.0); Monocytes # 0.9 10*3/uL (0.11-0.8); Monocytes % 7.9 % (1.7-12.7); Neutrophils # 8.4 10*3/uL (1.4-7.4); Platelet Count 254 T/CUMM (130-400); Red Blood Count 3.46 MC/CUMM (3.8-5.5); White Blood Count 11.2 T/CUMM (4-12)
[2017-06-08 00:59] LABS: INR 1.1; Partial Thromboplastin Time 27.8 SECS (0-40)
[2017-06-08] MEDS ORDERED: VANCOMYCIN 1,000 MG VIAL ONE (01:06)
[2017-06-08] MEDS ORDERED: methylPREDNISolone SOD SUC 125 MG/2 ML VIAL ONE (01:07)
[2017-06-08 01:12] LABS: Lactic Acid 0.8 MMOL/L (0.4-2.0)
[2017-06-08 01:13] LABS: Troponin I Only < 0.015 NG/ML (0.00-0.045)
[2017-06-08 01:46] LABS: Albumin 2.8 G/DL (3.4-5.0); Bilirubin,Total 0.4 MG/DL (0.2-1.0); Calcium 8.4 MG/DL (8.5-10.1); Total Protein 7.4 G/DL (6.4-8.3)
--- NOTE | 2017-06-08 03:33 | Hospitalist History & Physical ---
Assessment and Plan (1) Acute respiratory failure Status: Acute Current Visit: No Qualifiers: Respiratory failure complication: hypoxia Qualified Code(s): J96.01 - Acute respiratory failure with hypoxia (2) Aspiration into airway Status: Acute Current Visit: No (3) Aspiration pneumonia Status: Acute Current Visit: No Qualifiers: Aspiration pneumonia type: due to regurgitated food Laterality: right Lung location: unspecified part of lung Qualified Code(s): J69.0 - Pneumonitis due to inhalation of food and vomit (4) History of intracranial hemorrhage Status: Resolved Current Visit: No (5) Sacral decubitus ulcer Status: Acute Current Visit: No (6) Pleural effusion, left Status: Acute Assessment and plan: Patient still receiving nutrition through his PEG tube. Will admit the patient to our service. Patient looks more ill than his labs. His chest x-ray does look like a pneumonia picture versus mucus plugging on the left with a pleural effusion. I am going to put him on IV antibiotics and continue home meds as appropriate once they are confirmed. Patient will also be placed on breathing treatments. I would like to consult pulmonology. Patient might need a Bronch. Discussed CODE STATUS with daughter and she wants him to be a full code. Current Visit: No History of Present Illness Chief complaint: Shortness of breath and lethargy History of present illness: Mr. Celaya is a 82 year old male with past medical history of sepsis, aspiration pneumonia, history of intracranial hemorrhage, atrial fibrillation, hypertension , respiratory failure, and decubitus ulcer who was in his normal state of poor health till today. Patient is cared for by his family. He has been in and out of the hospital for the past year quite frequently. According to the daughter today he had decreased responsiveness and diaphoresis. She said that he did been having trouble breathing. When the paramedics set him up his symptoms seem to improve. While in the ER was noticing his O2 sats. Greatly from time to time. Patient seems to be more alert 1 minute and then, does off the next. Patient looks much worse than his labs at this time. Patient had a history of MRSA empyema. Currently he is in mild respiratory distress. And I was consulted to admit him through the emergency room. Home Medications Medication Instructions Recorded Confirmed Type Finasteride [Proscar] 5 mg PO DAILY 10/03/16 02/21/17 History Albuterol Neb [Proventil Neb] 2.5 mg RESP TX RT Q1H PRN #0 01/23/17 02/21/17 Rx Albuterol/Ipratropium Neb [Duoneb] 3 ml RESP TX RT Q6H 01/23/17 02/21/17 Rx Ampicillin Inj 1,000 mg IV Q8H vial 01/23/17 02/21/17 Rx Aspirin Chew Tab 81 mg PO DAILY tablet 01/23/17 02/21/17 Rx Carvedilol [Coreg] 25 mg PO BID tablet 01/23/17 02/21/17 Rx Cholecalciferol [Vitamin D3] 2,000 unit PO DAILY tablet 01/23/17 02/21/17 Rx Furosemide Inj [Lasix Inj] 40 mg IV DAILY vial 01/23/17 02/21/17 Rx Insulin Lispro [HumaLOG] See Protocol SUBCUT Q6HR unit 01/23/17 02/21/17 Rx Sodium Hypochlorite 0.25% Irr 1 applic TOP BID applic 01/23/17 02/21/17 Rx [Dakins 1/2 Strength 0.25% Soln] Ciprofloxacin Tab [Cipro Tab] 500 mg PO BID 02/21/17 02/21/17 History Famotidine Tab [Pepcid Tab] 20 mg PO BID 02/21/17 02/21/17 History Levothyroxine Tab [Synthroid Tab] 200 mcg PO DAILY@0700 02/21/17 02/21/17 History Spironolactone [Aldactone] 25 mg PO DAILY 02/21/17 02/21/17 History Allergies Allergy/AdvReac Type Severity Reaction Status Date / Time No Known Allergies Allergy Verified 06/08/17 00:31 Medical,Surgical,& Family Hx - Medical History Cardio: History of: Cardiac Dysrhythmia (atrial fib), Cerebrovascular Disease, CHF, CAD, Hypertension, Valvular Heart Disease (A-FIB) Neurology: History of: Cerebral Hemorrhage (Recent hemorrhage 3-4 weeks ago), Cerebrovascular Accident (Ischemic stroke 15+ years ago), Peripheral Neuropathy No history of: Seizures HEENT: History of: Eye Problem (prostethic eye-right) Endocrine: History of: Diabetes Mellitus (IDDM), Dyslipidemia Respiratory: History of: Pneumonia, Respiratory Problems (ventilator 2017- respiratory failure) Genitourinary: History of: Bladder Problem (salazar catheter-january 2017) Gastrointestinal: History of: GERD, GI Problems (dysphagia) - Surgical History Cardiac Surgeries: Patient Denies: Cardiac Catheterization Neurologic Surgeries: Surgical HX of: Cerebral Hemorrhage (Recent hemorrhage 3- 4 weeks ago) Abdominal Surgeries: Patient denies: Abdominal Surgery - Family History Family History: Reports;: Family Hypertension - Social History Smoking Status: Unknown if ever smoked Frequency of Alcohol Use: None Type of Drug Use: None ROS unobtainable: due to mental status Exam - Constitutional Vitals: Period Temp Pulse Resp BP Sys/Novak Pulse Ox Last 24 Hr 98.6 F-98.6 F 84-84 20-28 125-125/75-75 90-98 General appearance: normal weight, mild distress - Head Head exam: Present: normal inspection - Eye Eye exam: Present: other (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) - ENT ENT exam: Present: normal exam - Neck Neck exam: Present: normal inspection - Respiratory Respiratory exam: Present: rhonchi, wheezes - Cardiovascular Cardiovascular exam: Present: irregular rhythm, tachycardia - GI/Abdominal GI/Abdominal exam: Present: hypoactive bowel sounds - Extremities Exam Extremities exam: Present: normal inspection - Back Exam Back exam: Present: normal inspection - Neurological Exam Neurological exam: Present: altered - Psychiatric Psychiatric exam: Present: flat affect - Skin Skin exam: Present: normal color Results - Labs CBC & BMP: 06/08/17 00:23 06/08/17 00:23
[2017-06-08] MEDS ORDERED: ALBUTEROL 2.5 MG/3 ML NEB RESP TX PRN (03:48)
[2017-06-08] MEDS ORDERED: ONDANSETRON 4 MG/2 ML VIAL IV PRN (03:48)
[2017-06-08] MEDS: PANTOPRAZOLE 40 MG VIAL IV SCH (05:35)
[2017-06-08] MEDS: PIPERACILLIN/TAZOBACTAM 3,375 MG in SODIUM CHLORIDE 0.9% 100 ML IV SCH ×4 (06:20→23:45)
--- NOTE | 2017-06-08 06:49 | CT Report ---
CT brain Indication: Altered mental status Comparison: 20 December 2016 Technique: Axial CT imaging of the brain is performed without contrast with 3 mm increments. Findings: No evidence of hemorrhage, mass mass effect midline shift or acute infarct seen. There is severe diffuse cerebral atrophy. There are areas of decreased density seen within the white matter. More focal decreased density is seen in the left basal ganglia similar to previous exam likely prior lacunar infarct. Otherwise the brain parenchyma attenuation and differentiation appears within normal limits. The ventricles and cisterns are appropriate in caliber. Right eye prosthesis present and there is a pelvic tilt within the retro-orbital space of similar to previous exam. No other cranial or skull base abnormality is identified. Impression: No evidence of acute process or interval change. This CT exam was performed using one or more the following dose reduction techniques: Automated exposure control, adjustment of the MA and/or KV according to patient size, or use of iterative reconstruction technique. PROCEDURE INTERPRETED AT [facility] DEPARTMENT OF RADIOLOGY Final Report Signed by: Dr. Jackson Adam
--- NOTE | 2017-06-08 07:02 | Pulmonology Consult Note ---
Assessment and Plan (1) Aspiration pneumonia Status: Acute Assessment and plan: Oxygen saturations acceptable. Patient is responsive. Treat with empiric antibiotics. Do not think he needs bronchoscopy. Chest x-ray today actually looks better than one in December of this year last time he was here. Current Visit: No Qualifiers: Aspiration pneumonia type: due to regurgitated food Laterality: right Lung location: unspecified part of lung Qualified Code(s): J69.0 - Pneumonitis due to inhalation of food and vomit (2) Atelectasis of left lung Status: Acute Assessment and plan: Treat with antibiotics and IPPB with bronchodilators. Current Visit: No (3) Atrial fibrillation Status: Chronic Assessment and plan: Has paroxysmal atrial fibrillation. He is in sinus rhythm at present. Current Visit: No Qualifiers: Atrial fibrillation type: chronic Qualified Code(s): I48.2 - Chronic atrial fibrillation (4) History of intracranial hemorrhage Status: Resolved Assessment and plan: Has left hemiparesis. Able to use both hands somewhat and move right leg on command. Left leg does not move much. He is able to talk. Being fed per PEG tube. Current Visit: No History of Present Illness Chief complaint: Shortness of breath History of present illness: Mr. Celaya is a 82 year old male who has had a previous intracerebral bleed with a left hemiparesis. He lives at home with his family and has a PEG tube. He apparently had increased difficulty with his breathing yesterday which improved after sitting him up. He is now in the ICU. He has chronic changes in his left lung that look pretty much like he did in December of this year. He has some mild pulmonary hypertension normal LV function on echo in December of this year. Unable to obtain any more history from the patient. Home Medications Medication Instructions Recorded Confirmed Type Finasteride [Proscar] 5 mg PO DAILY 10/03/16 06/08/17 History Albuterol Neb [Proventil Neb] 2.5 mg RESP TX RT Q1H PRN #0 01/23/17 06/08/17 Rx Aspirin Chew Tab 81 mg PO DAILY tablet 01/23/17 06/08/17 Rx Carvedilol [Coreg] 25 mg PO BID tablet 01/23/17 06/08/17 Rx Furosemide Inj [Lasix Inj] 40 mg IV DAILY vial 01/23/17 06/08/17 Rx Insulin Lispro [HumaLOG] See Protocol SUBCUT Q6HR unit 01/23/17 06/08/17 Rx Sodium Hypochlorite 0.25% Irr 1 applic TOP BID applic 01/23/17 06/08/17 Rx [Dakins 1/2 Strength 0.25% Soln] Famotidine Tab [Pepcid Tab] 20 mg PO BID 02/21/17 06/08/17 History Levothyroxine Tab [Synthroid Tab] 200 mcg PO DAILY@0700 02/21/17 06/08/17 History Spironolactone [Aldactone] 25 mg PO DAILY 02/21/17 06/08/17 History Allergies Allergy/AdvReac Type Severity Reaction Status Date / Time No Known Allergies Allergy Verified 06/08/17 00:31 ROS unobtainable: due to mental status Exam (Pulmonay) H&P - Constitutional Vitals: Period Temp Pulse Resp BP Sys/Novak Pulse Ox Last 24 Hr 98.6 F-98.6 F 84-84 20-28 125-125/75-75 90-98 Exam: Vital signs normal. O2 sat 96% on 2 L. Left pupil react to light. Has prosthetic right eye. Poor oral hygiene. Neck is supple. She has reveals a few rhonchi in the left lung. Heart normal rate rhythm no murmurs. Abdomen soft nontender no masses. PEG tube in place. Extremities no clubbing cyanosis or edema. Calves nontender Medical,Surgical,& Family Hx - Medical History Cardio: History of: Cardiac Dysrhythmia (atrial fib), Cerebrovascular Disease, CHF, CAD, Hypertension, Valvular Heart Disease (A-FIB) Neurology: History of: Cerebral Hemorrhage (Recent hemorrhage 3-4 weeks ago), Cerebrovascular Accident (Ischemic stroke 15+ years ago), Peripheral Neuropathy No history of: Seizures HEENT: History of: Eye Problem (prostethic eye-right) Endocrine: History of: Diabetes Mellitus (IDDM), Dyslipidemia Respiratory: History of: Pneumonia, Respiratory Problems (ventilator 2016- respiratory failure) Genitourinary: History of: Bladder Problem (salazar catheter-january 2017) Gastrointestinal: History of: GERD, GI Problems (dysphagia) - Surgical History Cardiac Surgeries: Patient Denies: Cardiac Catheterization Neurologic Surgeries: Surgical HX of: Cerebral Hemorrhage (Recent hemorrhage 3- 4 weeks ago) Abdominal Surgeries: Patient denies: Abdominal Surgery - Family History Family History: Reports;: Family Hypertension - Social History Smoking Status: Unknown if ever smoked Frequency of Alcohol Use: None Type of Drug Use: None Results - Labs CBC & BMP: 06/08/17 00:23 06/08/17 00:23 Lab Results: I have reviewed the past 24 hour labs - Diagnostic Findings Procedure: Chest x-ray: image reviewed by me (Chronic left pleural changes left basilar infiltrate. Cardiomegaly. Little change from last x-ray here in December of this year. Actually looks a little better.)
[2017-06-08] MEDS: ALBUTEROL/IPRATROPIUM 3 ML NEB RESP TX SCH ×3 (07:17→20:15)
[2017-06-08 07:21] LABS: Basophils % 0.3 % (0.0-0.8); Eosinophils % 0.1 % (0.00-10.9); Hematocrit 34.5 VOL% (42.0-52.0); Hemoglobin 11.3 GM/DL (14.0-18.0); Lymphocytes # 0.9 10*3/uL (1.4-4.0); Lymphocytes % 8.7 % (21.2-54.2); Mean Corpuscular HGB Conc 32.8 GM/DL (32-36); Mean Corpuscular Hemoglobin 32 PG (27-34); Mean Corpuscular Volume 97.7 FL (87-102); Mean Platelet Volume 10.5 FL (9.6-12.0); Monocytes # 0.1 10*3/uL (0.11-0.8); Monocytes % 1.2 % (1.7-12.7); Neutrophils # 8.6 10*3/uL (1.4-7.4); Neutrophils % 87.7 % (38.7-73.9); Platelet Count 248 T/CUMM (130-400); Red Blood Count 3.53 MC/CUMM (3.8-5.5); White Blood Count 9.8 T/CUMM (4-12)
--- NOTE | 2017-06-08 07:45 | XRay Report ---
XR chest 1V portable Indication: Shortness of breath Comparison: 27 February 2017 Findings: The heart and mediastinum are stable in size and configuration. The pulmonary vascularity is increased with bilateral increased interstitial lung density. Similar findings were present on previous. There is increased left lower lung density and effusion. No other other lung infiltrates, effusions, pneumothorax or other abnormality is demonstrated. Impression: Findings suggest cardiac decompensation. PROCEDURE INTERPRETED AT [facility] DEPARTMENT OF RADIOLOGY Final Report Signed by: Dr. Jackson Adam
[2017-06-08 07:51] LABS: Albumin 2.9 G/DL (3.4-5.0); Bilirubin,Total 0.9 MG/DL (0.2-1.0); Calcium 8.5 MG/DL (8.5-10.1); Osmolality,Calculated 279.1 MOS/KG (273-304); Potassium 5.2 MMOL/L (3.5-5.1); Total Protein 7.8 G/DL (6.4-8.3)
--- NOTE | 2017-06-08 09:13 | EKG Report ---
Stationary ECG Study [facility] ER Test Date: 06/08/2017 12:20:19 AM Pat Name: JOSEPH LICONA Department: Room: 106 Gender: M [employer]: : 1935 Requested by: Per Diallo Order Number: [id number] Chang MD: DOMINICK MEJIA Intervals [place] Rate: 101 P: 999 TX: 0 QRS: 48 QRSD: 89 T: 61 QT: 315 QTc: 373 Interpretive Statements ATRIAL FIBRILLATION WITH RAPID VENTRICULAR RESPONSE ABNORMAL RHYTHM ECG Electronically Signed On 06-08-17 17:07:00 CDT by DOMINICK MEJIA [email or web address]
[2017-06-08] MEDS ORDERED: GLUCAGON 1 MG VIAL IM PRN (13:22)
[2017-06-08] MEDS: CARVEDILOL 25 MG TABLET PO SCH (22:00)
[2017-06-08] MEDS: SODIUM HYPOCHLORITE 0.25% IRRIG 473 ML BOTTLE TOP SCH (23:36)
[2017-06-09] MEDS: ALBUTEROL/IPRATROPIUM 3 ML NEB RESP TX SCH ×4 (01:19→19:04)
[2017-06-09 04:54] LABS: Basophils % 0.4 % (0.0-0.8); Hematocrit 34.6 VOL% (42.0-52.0); Immature Granulocytes % 0.6 %; Immature Granulocytes Absolute 0.06 #; Lymphocytes # 1.9 10*3/uL (1.4-4.0); Lymphocytes % 20.2 % (21.2-54.2); Mean Corpuscular HGB Conc 31.8 GM/DL (32-36); Mean Corpuscular Hemoglobin 32 PG (27-34); Mean Corpuscular Volume 99.4 FL (87-102); Mean Platelet Volume 10.5 FL (9.6-12.0); Monocytes # 1.6 10*3/uL (0.11-0.8); Monocytes % 17.1 % (1.7-12.7); Neutrophils # 5.7 10*3/uL (1.4-7.4); Neutrophils % 61.7 % (38.7-73.9); Platelet Count 230 T/CUMM (130-400); Red Blood Count 3.48 MC/CUMM (3.8-5.5); Red Cell Distribution Width 15.4 % (9.3-17.3); White Blood Count 9.3 T/CUMM (4-12)
[2017-06-09] MEDS: PANTOPRAZOLE 40 MG VIAL IV SCH (05:00)
[2017-06-09] MEDS: PIPERACILLIN/TAZOBACTAM 3,375 MG in SODIUM CHLORIDE 0.9% 100 ML IV SCH ×3 (05:00→16:37)
[2017-06-09 05:25] LABS: Calcium 8.7 MG/DL (8.5-10.1); Magnesium 2.6 MG/DL (1.8-2.4); Osmolality,Calculated 286.7 MOS/KG (273-304); Potassium 5.1 MMOL/L (3.5-5.1)
[2017-06-09 05:29] LABS: Magnesium 2.7 MG/DL (1.8-2.4); Phosphorous 4.5 MG/DL (2.5-4.9); Prealbumin 13.6 MG/DL (20-40)
[2017-06-09 05:46] LABS: Lymphocytes 23 % (20-55); Myelocytes 1 %; Platelet Estimate Normal; Promyelocytes 1 %; Segmented Neutrophils 67 % (50-85); Smudge Cells Moderate; Total Cells Counted 100
--- NOTE | 2017-06-09 06:37 | Pulmonology Progress Note ---
Pulmonary - PN: Subj Interval history: This 82-year-old white male has a history of previous CVA and difficulty controlling his airway. Came in with coarse rhonchi and had a decreased level of consciousness. This has improved. We have him on medications to thin his secretions. Does have a cough and is responsive. Treating him empirically for aspiration pneumonia. Exam (Progress Note) - Constitutional Vitals: Period Temp Pulse Resp BP Sys/Novak Pulse Ox Last 24 Hr 98.3 F-100.2 F 76-106 10-27 91-149/52-86 91-109 Exam: Patient's alert and responsive but confused. Vital signs are normal. Pupils react to light. throat clear. neck supple no bruits. chest reveals some rhonchi bilaterally. heart normal rate and rhythm no murmurs. Abdomen soft nontender no masses PEG tube in place. Extremities no clubbing cyanosis edema. Calves nontender. Results - Labs CBC & BMP: 06/09/17 04:38 06/09/17 04:38 Lab Results: I have reviewed the past 24 hour labs Assessment and Plan (1) Aspiration pneumonia Status: Acute Assessment and plan: Oxygen saturations acceptable. Patient is responsive. Treat with empiric antibiotics. Do not think he needs bronchoscopy. Chest x-ray today actually looks better than one in December of this year last time he was here. 06/09/2017 again oxygen saturations acceptable in patient responsive. Has pretty good cough. Difficulty getting secretions up however. Continue with mucolytics antibiotics bronchodilators. Current Visit: No Qualifiers: Aspiration pneumonia type: due to regurgitated food Laterality: right Lung location: unspecified part of lung Qualified Code(s): J69.0 - Pneumonitis due to inhalation of food and vomit (2) Atelectasis of left lung Status: Acute Assessment and plan: Treat with antibiotics and IPPB with bronchodilators. 06/09/2017 continuing with respiratory therapy. Current Visit: No (3) Atrial fibrillation Status: Chronic Assessment and plan: Has paroxysmal atrial fibrillation. He is in sinus rhythm at present. Current Visit: No Qualifiers: Atrial fibrillation type: chronic Qualified Code(s): I48.2 - Chronic atrial fibrillation (4) History of intracranial hemorrhage Status: Resolved Assessment and plan: Has left hemiparesis. Able to use both hands somewhat and move right leg on command. Left leg does not move much. He is able to talk. Being fed per PEG tube. 06/09/2017 remote history of intracerebral bleed with left hemiparesis. Little change neurologically. Need to keep his hand elevated. Current Visit: No Specialty Discharge - Follow Up or Referrals
[2017-06-09] MEDS: ASPIRIN CHEW 81 MG TABLET PO SCH (08:48)
[2017-06-09] MEDS: CARVEDILOL 25 MG TABLET PO SCH ×2 (08:48→22:00)
[2017-06-09] MEDS: LEVOTHYROXINE 200 MCG TABLET PO SCH (08:48)
[2017-06-09] MEDS: FINASTERIDE 5 MG TABLET PO SCH (08:48)
[2017-06-09] MEDS: SODIUM HYPOCHLORITE 0.25% IRRIG 473 ML BOTTLE TOP SCH (09:41)
--- NOTE | 2017-06-09 13:37 | Hospitalist Progress Note ---
Assessment and Plan (1) Acute respiratory failure Status: Resolved Current Visit: No Qualifiers: Respiratory failure complication: hypoxia Qualified Code(s): J96.01 - Acute respiratory failure with hypoxia (2) Aspiration pneumonia Status: Acute Assessment and plan: Continue zosyn Tolerating tube feeds Current Visit: No Qualifiers: Aspiration pneumonia type: due to regurgitated food Laterality: right Lung location: unspecified part of lung Qualified Code(s): J69.0 - Pneumonitis due to inhalation of food and vomit (3) Sacral decubitus ulcer Status: Acute Current Visit: No (4) Bacteremia Status: Acute Assessment and plan: Blood cultures growing gram positive cocci MRSA PCR negative Continue zosyn Current Visit: No Hospitalist: Subjective Interval history: No acute events overnight. Patient is much more awake and alert today. Tolerating tube feeds well. Exam - Constitutional Vitals: Period Temp Pulse Resp BP Sys/Novak Pulse Ox Last 24 Hr 98.4 F-100.2 F 73-106 10-27 91-141/50-83 91-109 General appearance: normal weight - Head Head exam: Present: normocephalic, atraumatic - Eye Eye exam: Present: EOMI Pupils: Present: PREMA - ENT ENT exam: Present: normal exam - Neck Neck exam: Present: normal inspection - Respiratory Respiratory exam: Present: clear to auscultation bilaterally. Absent: rhonchi, wheezes - Cardiovascular Cardiovascular exam: Present: regular rate and rhythm - GI/Abdominal GI/Abdominal exam: Present: normal bowel sounds, soft. Absent: tenderness, rebound - Extremities Exam Extremities exam: Present: normal inspection - Back Exam Back exam: Present: normal inspection - Neurological Exam Neurological exam: Present: alert, oriented X3 - Psychiatric Psychiatric exam: Present: normal affect, normal mood - Skin Skin exam: Present: warm, intact Results - Labs CBC & BMP: 06/09/17 04:38 06/09/17 04:38 Specialty Discharge - Follow Up or Referrals
[2017-06-10] MEDS: ALBUTEROL/IPRATROPIUM 3 ML NEB RESP TX SCH ×5 (00:36→23:56)
[2017-06-10] MEDS: SODIUM HYPOCHLORITE 0.25% IRRIG 473 ML BOTTLE TOP SCH ×3 (02:50→21:32)
[2017-06-10] MEDS: PIPERACILLIN/TAZOBACTAM 3,375 MG in SODIUM CHLORIDE 0.9% 100 ML IV SCH ×4 (02:50→17:59)
[2017-06-10] MEDS: PANTOPRAZOLE 40 MG VIAL IV SCH (05:50)
[2017-06-10 06:22] LABS: Basophils # 0.1 10*3/uL (0.0-0.2); Basophils % 0.7 % (0.0-0.8); Eosinophils % 0.5 % (0.00-10.9); Hematocrit 33.5 VOL% (42.0-52.0); Hemoglobin 10.8 GM/DL (14.0-18.0); Immature Granulocytes % 0.4 %; Immature Granulocytes Absolute 0.03 #; Lymphocytes # 2.3 10*3/uL (1.4-4.0); Lymphocytes % 30.4 % (21.2-54.2); Mean Corpuscular HGB Conc 32.2 GM/DL (32-36); Mean Corpuscular Hemoglobin 32 PG (27-34); Mean Corpuscular Volume 99.7 FL (87-102); Mean Platelet Volume 10.7 FL (9.6-12.0); Monocytes # 1.5 10*3/uL (0.11-0.8); Monocytes % 19.2 % (1.7-12.7); Neutrophils # 3.8 10*3/uL (1.4-7.4); Neutrophils % 48.8 % (38.7-73.9); Platelet Count 230 T/CUMM (130-400); Red Blood Count 3.36 MC/CUMM (3.8-5.5); Red Cell Distribution Width 15.6 % (9.3-17.3); White Blood Count 7.7 T/CUMM (4-12)
[2017-06-10] MEDS: LEVOTHYROXINE 200 MCG TABLET PO SCH (06:44)
--- NOTE | 2017-06-10 06:47 | Pulmonology Progress Note ---
Pulmonary - PN: Subj Interval history: This 82-year-old white male has a history of previous CVA and difficulty controlling his airway. Came in with coarse rhonchi and had a decreased level of consciousness. This has improved. We have him on medications to thin his secretions. Does have a cough and is responsive. Treating him empirically for aspiration pneumonia. 06/10/2017 patient is a little more responsive. Has a pretty fair cough. Oxygen saturation acceptable. Continuing antibiotics and bronchodilators. Systolic blood pressure is around 90 but he has a good urine output. Could be moved to the floor from pulmonary standpoint. Exam (Progress Note) - Constitutional Vitals: Period Temp Pulse Resp BP Sys/Novak Pulse Ox Last 24 Hr 97.6 F-99.6 F 73-100 10-29 73-141/48-83 91-100 Exam: Patient's alert and more responsive. Vital signs are normal. Pupils react to light. throat clear. neck supple no bruits. chest reveals some rhonchi bilaterally. heart normal rate and rhythm no murmurs. Abdomen soft nontender no masses PEG tube in place. Extremities no clubbing cyanosis edema. Calves nontender. Results - Labs CBC & BMP: 06/10/17 04:56 06/09/17 04:38 Lab Results: I have reviewed the past 24 hour labs Assessment and Plan (1) Aspiration pneumonia Status: Acute Assessment and plan: Oxygen saturations acceptable. Patient is responsive. Treat with empiric antibiotics. Do not think he needs bronchoscopy. Chest x-ray today actually looks better than one in December of this year last time he was here. 06/09/2017 again oxygen saturations acceptable in patient responsive. Has pretty good cough. Difficulty getting secretions up however. Continue with mucolytics antibiotics bronchodilators. 06/10/2017 oxygen saturations acceptable. Patient seems to be clearing his airway. Keep head elevated. Current Visit: No Qualifiers: Aspiration pneumonia type: due to regurgitated food Laterality: right Lung location: unspecified part of lung Qualified Code(s): J69.0 - Pneumonitis due to inhalation of food and vomit (2) Atelectasis of left lung Status: Acute Assessment and plan: Treat with antibiotics and IPPB with bronchodilators. 06/09/2017 continuing with respiratory therapy. 06/10/2017 this has improved with current therapy. Current Visit: No (3) Atrial fibrillation Status: Chronic Assessment and plan: Has paroxysmal atrial fibrillation. He is in sinus rhythm at present. Current Visit: No Qualifiers: Atrial fibrillation type: chronic Qualified Code(s): I48.2 - Chronic atrial fibrillation (4) History of intracranial hemorrhage Status: Resolved Assessment and plan: Has left hemiparesis. Able to use both hands somewhat and move right leg on command. Left leg does not move much. He is able to talk. Being fed per PEG tube. 06/09/2017 remote history of intracerebral bleed with left hemiparesis. Little change neurologically. Need to keep his hand elevated. 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
[2017-06-10 06:55] LABS: Calcium 8.5 MG/DL (8.5-10.1); Magnesium 2.6 MG/DL (1.8-2.4); Osmolality,Calculated 288.7 MOS/KG (273-304); Potassium 4.7 MMOL/L (3.5-5.1)
[2017-06-10 07:50] LABS: Eosinophils 1 % (0-10); Hypochromasia 2+; Lymphocytes 32 % (20-55); Microcytosis Slight; Nucleated Red Blood Cells 1 (0-5); Platelet Estimate Adequate; Segmented Neutrophils 58 % (50-85); Total Cells Counted 100
[2017-06-10] MEDS: FINASTERIDE 5 MG TABLET PO SCH (09:33)
[2017-06-10] MEDS: ASPIRIN CHEW 81 MG TABLET PO SCH (09:33)
[2017-06-10] MEDS: CARVEDILOL 25 MG TABLET PO SCH ×2 (09:34→21:31)
--- NOTE | 2017-06-10 11:43 | Hospitalist Progress Note ---
Assessment and Plan (1) Acute respiratory failure Status: Resolved Current Visit: No Qualifiers: Respiratory failure complication: hypoxia Qualified Code(s): J96.01 - Acute respiratory failure with hypoxia (2) Aspiration pneumonia Status: Acute Assessment and plan: Continue zosyn Tolerating tube feeds Current Visit: No Qualifiers: Aspiration pneumonia type: due to regurgitated food Laterality: right Lung location: unspecified part of lung Qualified Code(s): J69.0 - Pneumonitis due to inhalation of food and vomit (3) Sacral decubitus ulcer Status: Acute Current Visit: No (4) Bacteremia Status: Acute Assessment and plan: Blood cultures growing gram positive cocci MRSA PCR negative Continue zosyn Current Visit: No Hospitalist: Subjective Interval history: No acute events overnight. Patient continues to do well with tube feedings. He remains awake and alert. He does still have some excess secretions. Will transfer to the floor today. Exam - Constitutional Vitals: Period Temp Pulse Resp BP Sys/Novak Pulse Ox Last 24 Hr 97.6 F-99.6 F 73-100 10-29 73-122/48-79 94-100 General appearance: normal weight - Head Head exam: Present: normocephalic, atraumatic - Eye Eye exam: Present: EOMI Pupils: Present: PREMA - ENT ENT exam: Present: normal exam - Neck Neck exam: Present: normal inspection - Respiratory Respiratory exam: Present: clear to auscultation bilaterally. Absent: rhonchi, wheezes - Cardiovascular Cardiovascular exam: Present: regular rate and rhythm - GI/Abdominal GI/Abdominal exam: Present: normal bowel sounds - Extremities Exam Extremities exam: Present: normal inspection - Back Exam Back exam: Present: normal inspection - Neurological Exam Neurological exam: Present: alert, oriented X3 - Psychiatric Psychiatric exam: Present: normal affect, normal mood - Skin Skin exam: Present: warm, intact Results - Labs CBC & BMP: 06/10/17 04:56 06/10/17 04:56 Specialty Discharge - Follow Up or Referrals
[2017-06-10] MEDS: SCOPOLAMINE 1.5 MG PATCH TRANSDERM SCH (12:02)
[2017-06-11] MEDS: PIPERACILLIN/TAZOBACTAM 3,375 MG in SODIUM CHLORIDE 0.9% 100 ML IV SCH ×4 (00:17→18:02)
[2017-06-11] MEDS: PANTOPRAZOLE 40 MG VIAL IV SCH (04:59)
[2017-06-11] MEDS: LEVOTHYROXINE 200 MCG TABLET PO SCH (06:15)
[2017-06-11] MEDS: ALBUTEROL/IPRATROPIUM 3 ML NEB RESP TX SCH ×3 (07:14→19:18)
[2017-06-11 07:21] LABS: Basophils # 0.1 10*3/uL (0.0-0.2); Basophils % 0.8 % (0.0-0.8); Eosinophils # 0.1 10*3/uL (0.0-0.87); Eosinophils % 1.6 % (0.00-10.9); Hematocrit 35.4 VOL% (42.0-52.0); Hemoglobin 11.4 GM/DL (14.0-18.0); Immature Granulocytes % 0.6 %; Immature Granulocytes Absolute 0.04 #; Lymphocytes # 2.3 10*3/uL (1.4-4.0); Lymphocytes % 32.9 % (21.2-54.2); Mean Corpuscular HGB Conc 32.2 GM/DL (32-36); Mean Corpuscular Hemoglobin 32 PG (27-34); Mean Corpuscular Volume 100.3 FL (87-102); Mean Platelet Volume 10.6 FL (9.6-12.0); Monocytes # 1.3 10*3/uL (0.11-0.8); Monocytes % 18.8 % (1.7-12.7); Neutrophils # 3.2 10*3/uL (1.4-7.4); Neutrophils % 45.3 % (38.7-73.9); Platelet Count 239 T/CUMM (130-400); Red Blood Count 3.53 MC/CUMM (3.8-5.5); Red Cell Distribution Width 15.4 % (9.3-17.3); White Blood Count 7.1 T/CUMM (4-12)
[2017-06-11 08:25] LABS: Eosinophils 5 % (0-10); Lymphocytes 33 % (20-55); Segmented Neutrophils 45 % (50-85); Total Cells Counted 100
[2017-06-11 08:26] LABS: Hypochromasia 1+; Macrocytosis Slight
[2017-06-11 08:27] LABS: Platelet Estimate Normal
--- NOTE | 2017-06-11 08:31 | Pulmonology Progress Note ---
Pulmonary - PN: Subj Interval history: This 82-year-old white male has a history of previous CVA and difficulty controlling his airway. Came in with coarse rhonchi and had a decreased level of consciousness. This has improved. We have him on medications to thin his secretions. Does have a cough and is responsive. Treating him empirically for aspiration pneumonia. 06/10/2017 patient is a little more responsive. Has a pretty fair cough. Oxygen saturation acceptable. Continuing antibiotics and bronchodilators. Systolic blood pressure is around 90 but he has a good urine output. Could be moved to the floor from pulmonary standpoint. 06/11/2017 elderly patient with previous stroke and apparent aspiration pneumonia. He had a decreased level of consciousness on admission. He is being fed through PEG tube. Feeling much better and is more alert now. Recheck x-ray tomorrow. Continuing antibiotics. If x-ray is stable could probably be changed to antibiotics per PEG tube and plan for discharge. Exam (Progress Note) - Constitutional Vitals: Period Temp Pulse Resp BP Sys/Novak Pulse Ox Last 24 Hr 97.1 F-98.2 F 61-93 12-27 87-109/48-69 93-100 Exam: Patient's alert and responsive. Vital signs are normal, systolic blood pressure 102. Pupils react to light. throat clear. neck supple no bruits. chest reveals some rhonchi bilaterally. heart normal rate and rhythm no murmurs. Abdomen soft nontender no masses PEG tube in place. Extremities no clubbing cyanosis edema. Calves nontender. Results - Labs CBC & BMP: 06/11/17 06:24 06/10/17 04:56 Lab Results: I have reviewed the past 24 hour labs Assessment and Plan (1) Aspiration pneumonia Status: Acute Assessment and plan: Oxygen saturations acceptable. Patient is responsive. Treat with empiric antibiotics. Do not think he needs bronchoscopy. Chest x-ray today actually looks better than one in December of this year last time he was here. 06/09/2017 again oxygen saturations acceptable in patient responsive. Has pretty good cough. Difficulty getting secretions up however. Continue with mucolytics antibiotics bronchodilators. 06/10/2017 oxygen saturations acceptable. Patient seems to be clearing his airway. Keep head elevated. 06/11/2017 continuing antibiotics. Cough is better. Recheck x-rays tomorrow. Current Visit: No Qualifiers: Aspiration pneumonia type: due to regurgitated food Laterality: right Lung location: unspecified part of lung Qualified Code(s): J69.0 - Pneumonitis due to inhalation of food and vomit (2) Atelectasis of left lung Status: Acute Assessment and plan: Treat with antibiotics and IPPB with bronchodilators. 06/09/2017 continuing with respiratory therapy. 06/10/2017 this has improved with current therapy. 06/11/2017 improving with medications. Current Visit: No (3) Atrial fibrillation Status: Chronic Assessment and plan: Has paroxysmal atrial fibrillation. He is in sinus rhythm at present. 06/11/2017 remains in sinus rhythm. Current Visit: No Qualifiers: Atrial fibrillation type: chronic Qualified Code(s): I48.2 - Chronic atrial fibrillation (4) History of intracranial hemorrhage Status: Resolved Assessment and plan: Has left hemiparesis. Able to use both hands somewhat and move right leg on command. Left leg does not move much. He is able to talk. Being fed per PEG tube. 06/09/2017 remote history of intracerebral bleed with left hemiparesis. Little change neurologically. Need to keep his hand elevated. 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 Current Visit: No Specialty Discharge - Follow Up or Referrals
[2017-06-11] MEDS: CARVEDILOL 25 MG TABLET PO SCH ×2 (10:17→20:55)
[2017-06-11] MEDS: FINASTERIDE 5 MG TABLET PO SCH (10:19)
[2017-06-11] MEDS: ASPIRIN CHEW 81 MG TABLET PO SCH (10:19)
[2017-06-11] MEDS: SODIUM HYPOCHLORITE 0.25% IRRIG 473 ML BOTTLE TOP SCH (10:44)
--- NOTE | 2017-06-11 15:43 | Hospitalist Progress Note ---
Assessment and Plan (1) Acute respiratory failure with hypoxia Status: Acute Assessment and plan: Result Current Visit: Yes (2) Sacral decubitus ulcer, stage IV Status: Acute Assessment and plan: Patient should have his positions in bed changed frequently continue wound care. The wound itself seemed to be granulating. Continue nutritional support avoid shear forces and infection Current Visit: Yes (3) Aspiration pneumonia Status: Acute Assessment and plan: Continue antibiotics as now. Encourage pulmonary toiletry. Raise the head of bed at about 40. Current Visit: No Qualifiers: Aspiration pneumonia type: due to regurgitated food Laterality: right Lung location: unspecified part of lung Qualified Code(s): J69.0 - Pneumonitis due to inhalation of food and vomit Hospitalist: Subjective Interval history: Patient has been seen interviewed and examined and chart has been reviewed. Is my first encounter with this patient. He has no complete acute complaints. He has been in no service for some time with acute respiratory failure one point that there is no aspiration into the airway with pneumonia that is being treated history of intracranial hemorrhage patient is cannot be fed by mouth he has a PEG tube. He is of pleural effusion. 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) - ENT ENT exam: Present: normal exam - Neck Neck exam: Present: normal inspection - Respiratory Respiratory exam: Present: clear to auscultation bilaterally - Cardiovascular Cardiovascular exam: Present: regular rate and rhythm - GI/Abdominal GI/Abdominal exam: Present: normal bowel sounds, soft, other (And is opaque to dysfunction) - Neurological Exam Neurological exam: Present: alert, oriented X3, CN II-XII intact - Psychiatric Psychiatric exam: Present: normal affect, normal mood - Skin Skin exam: Present: normal color, warm, dry Results - Labs CBC & BMP: 06/11/17 06:24 06/10/17 04:56 Lab Results: I have reviewed the past 24 hour labs Specialty Discharge - Follow Up or Referrals
[2017-06-12] MEDS: PIPERACILLIN/TAZOBACTAM 3,375 MG in SODIUM CHLORIDE 0.9% 100 ML IV SCH ×4 (00:14→18:11)
[2017-06-12] MEDS: ALBUTEROL/IPRATROPIUM 3 ML NEB RESP TX SCH ×4 (02:14→19:06)
[2017-06-12] MEDS: PANTOPRAZOLE 40 MG VIAL IV SCH (06:55)
[2017-06-12] MEDS: LEVOTHYROXINE 200 MCG TABLET PO SCH (06:59)
[2017-06-12 08:08] LABS: Calcium 8.4 MG/DL (8.5-10.1); Osmolality,Calculated 288.4 MOS/KG (273-304); Potassium 4.7 MMOL/L (3.5-5.1)
--- NOTE | 2017-06-12 08:31 | XRay Report ---
XR chest 1V portable Indication: Aspiration pneumonia Comparison: Chest x-ray June 08, 2017 Technique: Single frontal view of the chest. Findings: Continued marked cardiomegaly. Interval increased hazy opacification within the right lower lung as well as interval increased opacification within the left mid lung suggesting worsened pulmonary edema or pneumonia. There is continued significant pleural-parenchymal abnormality on the left with suspected large left pleural fluid. Visualized osseous and surrounding soft tissue structures appear grossly unchanged. IMPRESSION: As above. PROCEDURE INTERPRETED AT [facility] DEPARTMENT OF RADIOLOGY Final Report Signed by: Dr Jarrett Huff
--- NOTE | 2017-06-12 09:24 | Pulmonology Progress Note ---
Pulmonary - PN: Subj Interval history: This 82-year-old white male has a history of previous CVA and difficulty controlling his airway. Came in with coarse rhonchi and had a decreased level of consciousness. This has improved. We have him on medications to thin his secretions. Does have a cough and is responsive. Treating him empirically for aspiration pneumonia. 06/10/2017 patient is a little more responsive. Has a pretty fair cough. Oxygen saturation acceptable. Continuing antibiotics and bronchodilators. Systolic blood pressure is around 90 but he has a good urine output. Could be moved to the floor from pulmonary standpoint. 06/11/2017 elderly patient with previous stroke and apparent aspiration pneumonia. He had a decreased level of consciousness on admission. He is being fed through PEG tube. Feeling much better and is more alert now. Recheck x-ray tomorrow. Continuing antibiotics. If x-ray is stable could probably be changed to antibiotics per PEG tube and plan for discharge. 06/12/2017 patient continues to have cough congestion wheezing. His cough is ineffective. Chest x-ray does not show any improvement. I think we should plan bronchoscopy and clean him out. Exam (Progress Note) - Constitutional Vitals: Period Temp Pulse Resp BP Sys/Novak Pulse Ox Last 24 Hr 97.0 F-98.1 F 75-93 16-20 100-112/61-71 95-100 Exam: Patient's alert and responsive. Vital signs are normal, systolic blood pressure 102. Pupils react to light. throat clear. neck supple no bruits. chest reveals some rhonchi bilaterally, more coarse and worse on the left. heart normal rate and rhythm no murmurs. Abdomen soft nontender no masses PEG tube in place. Extremities no clubbing cyanosis edema. Calves nontender. Results - Labs CBC & BMP: 06/11/17 06:24 06/12/17 06:27 Lab Results: I have reviewed the past 24 hour labs - Diagnostic Findings Procedure: Chest x-ray: image reviewed by me (Persistent left lower lobe infiltrate with probable pleural thickening and/or effusion.) Assessment and Plan (1) Aspiration pneumonia Status: Acute Assessment and plan: Oxygen saturations acceptable. Patient is responsive. Treat with empiric antibiotics. Do not think he needs bronchoscopy. Chest x-ray today actually looks better than one in December of this year last time he was here. 06/09/2017 again oxygen saturations acceptable in patient responsive. Has pretty good cough. Difficulty getting secretions up however. Continue with mucolytics antibiotics bronchodilators. 06/10/2017 oxygen saturations acceptable. Patient seems to be clearing his airway. Keep head elevated. 06/11/2017 continuing antibiotics. Cough is better. Recheck x-rays tomorrow. 06/12/2017 stable on antibiotics but not improving much. We will plan bronchoscopy. Current Visit: No Qualifiers: Aspiration pneumonia type: due to regurgitated food Laterality: right Lung location: unspecified part of lung Qualified Code(s): J69.0 - Pneumonitis due to inhalation of food and vomit (2) Atelectasis of left lung Status: Acute Assessment and plan: Treat with antibiotics and IPPB with bronchodilators. 06/09/2017 continuing with respiratory therapy. 06/10/2017 this has improved with current therapy. 06/11/2017 improving with medications. 06/12/2017 poor cough, plan bronchoscopy. Current Visit: No (3) Atrial fibrillation Status: Chronic Assessment and plan: Has paroxysmal atrial fibrillation. He is in sinus rhythm at present. 06/11/2017 remains in sinus rhythm. 06/12/17 patient continues to be in sinus rhythm by physical exam. Current Visit: No Qualifiers: Atrial fibrillation type: chronic Qualified Code(s): I48.2 - Chronic atrial fibrillation (4) History of intracranial hemorrhage Status: Resolved Assessment and plan: Has left hemiparesis. Able to use both hands somewhat and move right leg on command. Left leg does not move much. He is able to talk. Being fed per PEG tube. 06/09/2017 remote history of intracerebral bleed with left hemiparesis. Little change neurologically. Need to keep his hand elevated. 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 Current Visit: No Specialty Discharge - Follow Up or Referrals
--- NOTE | 2017-06-12 10:04 | Hospitalist Progress Note ---
Assessment and Plan (1) Atrial fibrillation Status: Chronic Assessment and plan: He is presently in normal sinus rhythm;he has paroxysmal atrial fibrillation. Current Visit: No Qualifiers: Atrial fibrillation type: paroxysmal Qualified Code(s): I48.0 - Paroxysmal atrial fibrillation (2) Aspiration pneumonia Status: Acute Assessment and plan: He continues treatment with intravenous Zosyn. Current Visit: No Qualifiers: Aspiration pneumonia type: due to regurgitated food Laterality: right Lung location: unspecified part of lung Qualified Code(s): J69.0 - Pneumonitis due to inhalation of food and vomit (3) History of intracranial hemorrhage Status: Resolved Current Visit: No (4) Atelectasis of left lung Status: Acute Assessment and plan: Dr. Lam of pulmonary plans to perform a bronchoscopy tomorrow. Current Visit: No Hospitalist: Subjective Interval history: Patient continues to have a significant amount of coughing and wheezing. Chest x-ray demonstrates no significant changes. He is being followed by Dr. Lam of pulmonary who plans to do a bronchoscopy tomorrow. Exam - Constitutional Vitals: Period Temp Pulse Resp BP Sys/Novak Pulse Ox Last 24 Hr 93.2 F-98.1 F 75-100 16-20 100-112/61-71 95-100 General appearance: no acute distress - Head Head exam: Present: normal inspection - Neck Neck exam: Present: normal inspection - Respiratory Respiratory exam: Present: other (Scattered rhonchi and wheezes.) - Cardiovascular Cardiovascular exam: Present: regular rate and rhythm - GI/Abdominal GI/Abdominal exam: Present: normal bowel sounds, soft, other (Nontender with no palpable masses or hepatosplenomegaly.) - Extremities Exam Extremities exam: Present: normal inspection - Skin Skin exam: Present: normal color, warm, intact Results - Labs CBC & BMP: 06/11/17 06:24 06/12/17 06:27 Specialty Discharge - Follow Up or Referrals
[2017-06-12] MEDS: CARVEDILOL 25 MG TABLET PO SCH ×2 (10:43→21:04)
[2017-06-12] MEDS: FINASTERIDE 5 MG TABLET PO SCH (10:44)
[2017-06-12] MEDS: ASPIRIN CHEW 81 MG TABLET PO SCH (10:44)
[2017-06-12] MEDS: SODIUM HYPOCHLORITE 0.25% IRRIG 473 ML BOTTLE TOP SCH (10:44)
[2017-06-12] MEDS: DEXTROSE 50% 25 GM/50 ML SYRINGE IV PRN (11:49)
[2017-06-12] MEDS ORDERED: TUBERCULIN SKIN TEST 0.1 ML SYRINGE INTRADERM ONE (16:38)
[2017-06-13] MEDS: PIPERACILLIN/TAZOBACTAM 3,375 MG in SODIUM CHLORIDE 0.9% 100 ML IV SCH ×5 (00:30→23:25)
[2017-06-13] MEDS: ALBUTEROL/IPRATROPIUM 3 ML NEB RESP TX SCH ×4 (00:34→19:40)
[2017-06-13] MEDS: PANTOPRAZOLE 40 MG VIAL IV SCH (06:37)
[2017-06-13] MEDS: DEXTROSE 50% 25 GM/50 ML SYRINGE IV PRN ×2 (06:51→11:10)
[2017-06-13] MEDS ORDERED: PROMETHAZINE 25 MG/1 ML VIAL IM ONE (07:00)
[2017-06-13] MEDS ORDERED: MIDAZOLAM 2 MG/2 ML VIAL ONE (07:16)
[2017-06-13] MEDS ORDERED: LIDOCAINE 1% 20 ML VIAL MISC INJ ONE (07:30)
[2017-06-13] MEDS ORDERED: LIDOCAINE 2% 20 ML VIAL RESP TX ONE (07:30)
[2017-06-13] MEDS ORDERED: MIDAZOLAM 2 MG/2 ML VIAL IV ONE (07:30)
--- NOTE | 2017-06-13 07:56 | Operative Note ---
Date of procedure: 06/13/17 (Fiberoptic bronchoscopy with lavage of left lower lobe) Pre-op diagnosis: Unresolved pneumonia left lower lobe atelectasis Post-op diagnosis: same (Plus extrinsic compression left lower lobe, right vocal cord paralysis) Procedure: The patient was given Phenergan preoperatively on the board. He was transported to bronchoscopy suite. After an appropriate timeout to be sure we were dealing with Beto Celaya, the patient was topically anesthetized in the nose and nasopharynx with Xylocaine. 3 L of nasal oxygen was placed in the left naris. 1 mg of Versed was given intravenously. The fiberoptic bronchoscope was introduced via the right naris. The vocal cords were identified and it was noted that the right vocal cord did not move with formation. It appeared to be paralyzed in the midline. Left vocal cord did move. After further topical anesthesia the trachea was entered. There were retained secretions throughout the tracheobronchial tree. There were no lesions in the trachea. The peter was sharp. We examine the right side first and there were no endobronchial lesions. A moderate amount of fairly thin white mucopurulent secretions were removed from the right lung. On the left side the left lower lobe appeared to be extrinsically compressed. There was some bronchial wall edema. I was able to get the bronchoscope into the left lower lobe. We removed once again a moderate amount of retained thicker white mucopurulent secretions from the left side. Bronchoalveolar lavage was undertaken. I then did a brushing of the left lower lobe. Bronchial washings once again were done. The bronchoscope was removed. The patient returned to his room in stable condition. Oxygen saturation remained in the mid to upper 90s throughout the procedure Anesthesia: conscious sedation Surgeon / Physician: Dylon Lam Estimated blood loss: none Specimens: other (Bronchial washings with lavage left lower lobe, brushing left lower lobe) Condition: stable Disposition: floor Results - Labs CBC & BMP: 06/11/17 06:24 06/12/17 06:27 Discharge Plan - Discharge Medications No Action Aspirin Chew Tab 81 mg PO DAILY tablet Carvedilol [Coreg] 25 mg PO BID tablet Insulin Lispro [HumaLOG] See Protocol SUBCUT Q6HR unit Sodium Hypochlorite 0.25% Irr [Dakins 1/2 Strength 0.25% Soln] 1 applic TOP BID applic Levothyroxine Tab [Synthroid Tab] 200 mcg PO DAILY@0700 Spironolactone [Aldactone] 25 mg PO DAILY Finasteride [Proscar] 5 mg PO DAILY Albuterol Neb [Proventil Neb] 2.5 mg RESP TX RT Q1H PRN #0 PRN Reason: Shortness Of Breath/Wheezing Furosemide Inj [Lasix Inj] 40 mg IV DAILY vial Famotidine Tab [Pepcid Tab] 20 mg PO BID - Follow Up or Referral - Forms/Instructions Instructions: Aspiration Pneumonia (GEN), Chronic Obstructive Pulmonary Disease (GEN)
--- NOTE | 2017-06-13 07:58 | Pulmonology Progress Note ---
Pulmonary - PN: Subj Interval history: This 82-year-old white male has a history of previous CVA and difficulty controlling his airway. Came in with coarse rhonchi and had a decreased level of consciousness. This has improved. We have him on medications to thin his secretions. Does have a cough and is responsive. Treating him empirically for aspiration pneumonia. 06/10/2017 patient is a little more responsive. Has a pretty fair cough. Oxygen saturation acceptable. Continuing antibiotics and bronchodilators. Systolic blood pressure is around 90 but he has a good urine output. Could be moved to the floor from pulmonary standpoint. 06/11/2017 elderly patient with previous stroke and apparent aspiration pneumonia. He had a decreased level of consciousness on admission. He is being fed through PEG tube. Feeling much better and is more alert now. Recheck x-ray tomorrow. Continuing antibiotics. If x-ray is stable could probably be changed to antibiotics per PEG tube and plan for discharge. 06/12/2017 patient continues to have cough congestion wheezing. His cough is ineffective. Chest x-ray does not show any improvement. I think we should plan bronchoscopy and clean him out. 06/13/2017 patient still has a poor cough. He was taken for bronchoscopy earlier this morning. Please see notes from that. He has some extrinsic compression of left lower lobe bronchi and had retained secretions bilaterally. He also has a right vocal cord paralysis. He appears to have a left pleural effusion but I suspect this is an old chronic one and may not be freely flowing. We will check a left lateral decubitus film. Exam (Progress Note) - Constitutional Vitals: Period Temp Pulse Resp BP Sys/Novak Pulse Ox Last 24 Hr 93.2 F-97.7 F 77-113 10-20 97-121/53-76 91-99 Exam: Patient's alert and responsive. Speech is somewhat garbled. Vital signs are normal, systolic blood pressure 102. Pupils react to light. throat clear. neck supple no bruits. chest reveals some rhonchi bilaterally, more coarse and worse on the left. heart normal rate and rhythm no murmurs. Abdomen soft nontender no masses PEG tube in place. Extremities no clubbing cyanosis edema. Calves nontender. Results - Labs CBC & BMP: 06/11/17 06:24 06/12/17 06:27 Lab Results: I have reviewed the past 24 hour labs Assessment and Plan (1) Aspiration pneumonia Status: Acute Assessment and plan: Oxygen saturations acceptable. Patient is responsive. Treat with empiric antibiotics. Do not think he needs bronchoscopy. Chest x-ray today actually looks better than one in December of this year last time he was here. 06/09/2017 again oxygen saturations acceptable in patient responsive. Has pretty good cough. Difficulty getting secretions up however. Continue with mucolytics antibiotics bronchodilators. 06/10/2017 oxygen saturations acceptable. Patient seems to be clearing his airway. Keep head elevated. 06/11/2017 continuing antibiotics. Cough is better. Recheck x-rays tomorrow. 06/12/2017 stable on antibiotics but not improving much. We will plan bronchoscopy. 06/13/2017 continuing antibiotics empirically for aspiration pneumonia. He has extrinsic compression of his left lower lobe bronchus. We need to see if there is any significant free-flowing left pleural effusion that we could tap to relieve some of that. Current Visit: No Qualifiers: Aspiration pneumonia type: due to regurgitated food Laterality: right Lung location: unspecified part of lung Qualified Code(s): J69.0 - Pneumonitis due to inhalation of food and vomit (2) Atelectasis of left lung Status: Acute Assessment and plan: Treat with antibiotics and IPPB with bronchodilators. 06/09/2017 continuing with respiratory therapy. 06/10/2017 this has improved with current therapy. 06/11/2017 improving with medications. 06/12/2017 poor cough, plan bronchoscopy. 06/13/2017 remove retained secretions from left lower lobe. Has extrinsic compression of left lower lobe bronchus. Brushing was undertaken. 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 He is in sinus rhythm at present. 06/11/2017 remains in sinus rhythm. 06/12/17 patient continues to be in sinus rhythm by physical exam. 06/13/2017 rate is controlled and he seems to be in a sinus rhythm at present. Current Visit: No Qualifiers: Atrial fibrillation type: paroxysmal Qualified Code(s): I48.0 - Paroxysmal atrial fibrillation (4) History of intracranial hemorrhage Status: Resolved Assessment and plan: Has left hemiparesis. Able to use both hands somewhat and move right leg on command. Left leg does not move much. He is able to talk. Being fed per PEG tube. 06/09/2017 remote history of intracerebral bleed with left hemiparesis. Little change neurologically. Need to keep his hand elevated. 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 06/13/2017 neurologic deficits from previous intracranial hemorrhage. This may have been the cause of the right vocal cord paralysis as well Current Visit: No Specialty Discharge - Follow Up or Referrals
[2017-06-13] MEDS: ASPIRIN CHEW 81 MG TABLET PO SCH (08:29)
[2017-06-13] MEDS: CARVEDILOL 25 MG TABLET PO SCH ×2 (08:29→21:58)
[2017-06-13] MEDS: FINASTERIDE 5 MG TABLET PO SCH (08:29)
[2017-06-13] MEDS: LEVOTHYROXINE 200 MCG TABLET PO SCH (08:29)
[2017-06-13] MEDS: SODIUM HYPOCHLORITE 0.25% IRRIG 473 ML BOTTLE TOP SCH (08:30)
[2017-06-13] MEDS: SCOPOLAMINE 1.5 MG PATCH TRANSDERM SCH (08:35)
[2017-06-13] MEDS ORDERED: FUROSEMIDE 40 MG/4 ML VIAL IV ONE (13:09)
--- NOTE | 2017-06-13 15:42 | XRay Report ---
Left lateral decubitus chest. Indication: Left-sided pleural effusion. In the patient is placed in the left lateral decubitus position, the pleural effusion layers out. The the left-sided pleural effusion is very large. PROCEDURE INTERPRETED AT [facility] DEPARTMENT OF RADIOLOGY Final Report Signed by: Dr. Yulia Brito
[2017-06-14] MEDS: ALBUTEROL/IPRATROPIUM 3 ML NEB RESP TX SCH ×4 (00:09→19:15)
[2017-06-14] MEDS: PIPERACILLIN/TAZOBACTAM 3,375 MG in SODIUM CHLORIDE 0.9% 100 ML IV SCH ×3 (04:59→21:41)
[2017-06-14] MEDS: PANTOPRAZOLE 40 MG VIAL IV SCH (05:02)
[2017-06-14] MEDS: LEVOTHYROXINE 200 MCG TABLET PO SCH (06:06)
--- NOTE | 2017-06-14 08:44 | Pulmonology Progress Note ---
Pulmonary - PN: Subj Interval history: This 82-year-old white male has a history of previous CVA and difficulty controlling his airway. Came in with coarse rhonchi and had a decreased level of consciousness. This has improved. We have him on medications to thin his secretions. Does have a cough and is responsive. Treating him empirically for aspiration pneumonia. 06/10/2017 patient is a little more responsive. Has a pretty fair cough. Oxygen saturation acceptable. Continuing antibiotics and bronchodilators. Systolic blood pressure is around 90 but he has a good urine output. Could be moved to the floor from pulmonary standpoint. 06/11/2017 elderly patient with previous stroke and apparent aspiration pneumonia. He had a decreased level of consciousness on admission. He is being fed through PEG tube. Feeling much better and is more alert now. Recheck x-ray tomorrow. Continuing antibiotics. If x-ray is stable could probably be changed to antibiotics per PEG tube and plan for discharge. 06/12/2017 patient continues to have cough congestion wheezing. His cough is ineffective. Chest x-ray does not show any improvement. I think we should plan bronchoscopy and clean him out. 06/13/2017 patient still has a poor cough. He was taken for bronchoscopy earlier this morning. Please see notes from that. He has some extrinsic compression of left lower lobe bronchi and had retained secretions bilaterally. He also has a right vocal cord paralysis. He appears to have a left pleural effusion but I suspect this is an old chronic one and may not be freely flowing. We will check a left lateral decubitus film. 06/14/2017 patient is responsive. Again has poor cough. Bronchial wash cultures are pending. Will evaluate for left pleural effusion. He did have extrinsic compression of the left lower lobe at bronchoscopy. Exam (Progress Note) - Constitutional Vitals: Period Temp Pulse Resp BP Sys/Novak Pulse Ox Last 24 Hr 96.8 F-98.6 F 76-100 14-24 92-128/58-88 93-100 Exam: Patient's alert and responsive. Speech is somewhat garbled. Vital signs are normal, systolic blood pressure is normal. Pupils react to light. throat clear. neck supple no bruits. chest reveals some rhonchi bilaterally, more coarse and worse on the left. heart normal rate and rhythm no murmurs. Abdomen soft nontender no masses PEG tube in place. Extremities no clubbing cyanosis edema. Calves nontender. Results - Labs CBC & BMP: 06/11/17 06:24 06/12/17 06:27 Lab Results: I have reviewed the past 24 hour labs Assessment and Plan (1) Aspiration pneumonia Status: Acute Assessment and plan: Oxygen saturations acceptable. Patient is responsive. Treat with empiric antibiotics. Do not think he needs bronchoscopy. Chest x-ray today actually looks better than one in December of this year last time he was here. 06/09/2017 again oxygen saturations acceptable in patient responsive. Has pretty good cough. Difficulty getting secretions up however. Continue with mucolytics antibiotics bronchodilators. 06/10/2017 oxygen saturations acceptable. Patient seems to be clearing his airway. Keep head elevated. 06/11/2017 continuing antibiotics. Cough is better. Recheck x-rays tomorrow. 06/12/2017 stable on antibiotics but not improving much. We will plan bronchoscopy. 06/13/2017 continuing antibiotics empirically for aspiration pneumonia. He has extrinsic compression of his left lower lobe bronchus. We need to see if there is any significant free-flowing left pleural effusion that we could tap to relieve some of that. 06/14/2017 continuing empiric antibiotics for aspiration pneumonia. Cultures are pending. Checking for possible left effusion Current Visit: No Qualifiers: Aspiration pneumonia type: due to regurgitated food Laterality: right Lung location: unspecified part of lung Qualified Code(s): J69.0 - Pneumonitis due to inhalation of food and vomit (2) Atelectasis of left lung Status: Acute Assessment and plan: Treat with antibiotics and IPPB with bronchodilators. 06/09/2017 continuing with respiratory therapy. 06/10/2017 this has improved with current therapy. 06/11/2017 improving with medications. 06/12/2017 poor cough, plan bronchoscopy. 06/13/2017 remove retained secretions from left lower lobe. Has extrinsic compression of left lower lobe bronchus. Brushing was undertaken. 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 Will remove retained secretions yesterday. Recheck chest x-ray with lateral decubitus. Current Visit: No (3) Atrial fibrillation Status: Chronic Assessment and plan: Has paroxysmal atrial fibrillation. He is in sinus rhythm at present. 06/11/2017 remains in sinus rhythm. 06/12/17 patient continues to be in sinus rhythm by physical exam. 06/13/2017 rate is controlled and he seems to be in a sinus rhythm at present. Current Visit: No Qualifiers: Atrial fibrillation type: paroxysmal Qualified Code(s): I48.0 - Paroxysmal atrial fibrillation (4) History of intracranial hemorrhage Status: Resolved Assessment and plan: Has left hemiparesis. Able to use both hands somewhat and move right leg on command. Left leg does not move much. He is able to talk. Being fed per PEG tube. 06/09/2017 remote history of intracerebral bleed with left hemiparesis. Little change neurologically. Need to keep his hand elevated. 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 06/13/2017 neurologic deficits from previous intracranial hemorrhage. This may have been the cause of the right vocal cord paralysis as well 06/14/2017 has neurologic sequelae from a previous intracranial bleed. also has right vocal cord paralysis. Being fed per PEG tube. High risk for aspiration. Current Visit: No Specialty Discharge - Follow Up or Referrals
[2017-06-14] MEDS: ASPIRIN CHEW 81 MG TABLET PO SCH (08:52)
[2017-06-14] MEDS: FINASTERIDE 5 MG TABLET PO SCH (08:52)
[2017-06-14] MEDS: CARVEDILOL 25 MG TABLET PO SCH ×2 (08:52→21:14)
[2017-06-14] MEDS: SODIUM HYPOCHLORITE 0.25% IRRIG 473 ML BOTTLE TOP SCH (08:52)
[2017-06-14 10:56] LABS: Blood Urea Nitrogen 35 MG/DL (7-18); Calcium 8.5 MG/DL (8.5-10.1); Glucose 84 MG/DL (74-106); Magnesium 2.5 MG/DL (1.8-2.4); Osmolality,Calculated 287.3 MOS/KG (273-304); Phosphorous 2.6 MG/DL (2.5-4.9); Potassium 4.6 MMOL/L (3.5-5.1); Prealbumin 13.7 MG/DL (20-40); Sodium 141 MMOL/L (136-145)
[2017-06-14] MEDS ORDERED: PIPERACILLIN/TAZOBACTAM 3,375 MG in SODIUM CHLORIDE 0.9% 100 ML IV SCH (11:00)
--- NOTE | 2017-06-14 12:01 | XRay Report ---
Exam: XR chest 1V portable Date: 06/14/2017 6:57 AM Indication: Pneumonia Comparison: 06/12/2017 Technical: AP Findings: Cardiomegaly is present. Bilateral basal effusions are present left greater than right with underlying atelectatic change infiltrate in the left lung. Previous surgical changes in the thyroid bed. Bony structures are intact. Mediastinum is otherwise unremarkable Impression: 1. Cardiomegaly 2. Bibasilar atelectatic change and infiltrates left greater than right with low volume effusion on the left. PROCEDURE INTERPRETED AT [facility] DEPARTMENT OF RADIOLOGY Final Report Signed by: Dr. Beto Owen
--- NOTE | 2017-06-14 12:02 | XRay Report ---
Exam: XR chest lateral decubitus LT Date: 06/14/2017 6:58 AM Indication: Pleural effusion Comparison: Routine chest earlier today Technical: Left lateral decubitus image Findings: Cardiomegaly is present. There is a layering left pleural effusion measuring up to approximately 3.7 cm. Only a small amount of residual aerated lung is present in the left apex. Impression: 1. Layering left pleural effusion measuring up to 3.7 cm 2. Gastrostomy tube in place 3. Cardiomegaly 4. Previous surgical changes in the thyroid bed PROCEDURE INTERPRETED AT [facility] DEPARTMENT OF RADIOLOGY Final Report Signed by: Dr. Beto Owen
--- NOTE | 2017-06-14 13:15 | Pathology Report from [facility] ---
[facility] – [place] ACCESSION # : [id number] PATIENT NAME : Beto Celaya ORDERING DR : LEONCIO JOYNER MD CLINICAL HX: Aspiration Pneumonia POST-OP DX: Same SPECIMEN INFO: Washing,Bronchial,BOB - 10 mls blood-tinged, mucoid CLASS: I CLASS COMMENTS: Few macrophages and inflammatory cells.CELL BLOCK: Same. CLASS LEGEND: CLASS 0 Material inadequate for diagnosis because of (see comment) CLASS I Absence of atypical or abnormal cells CLASS II Atypical Cytology but no evidence of malignancy CLASS III Cytology suggestive of but not conclusive for malignancy CLASS IV Cytology strongly suggestive of malignancy CLASS V Cytology conclusive for malignancy COLLECTED DATE: 06/13/2017 [facility] REPORT DATE: 06/14/2017 ELECTRONICALLY SIGNED BY: Jason Fajardo M.D. 06/14/2017 - 10:03:26 MTDKelly
--- NOTE | 2017-06-14 13:16 | Pathology Report from [facility] ---
[facility] – [place] ACCESSION # : [id number] PATIENT NAME : Beto Celaya ORDERING DR : LEONCIO JOYNER MD CLINICAL HX: Aspiration Pneumonia POST-OP DX: Same SPECIMEN INFO: Brushing,Bronchial,LLL - 1 brush (Received in Cytolyt) CLASS: I CLASS COMMENTS: Benign respiratory epithelium.CELL BLOCK: No cells present. CLASS LEGEND: CLASS 0 Material inadequate for diagnosis because of (see comment) CLASS I Absence of atypical or abnormal cells CLASS II Atypical Cytology but no evidence of malignancy CLASS III Cytology suggestive of but not conclusive for malignancy CLASS IV Cytology strongly suggestive of malignancy CLASS V Cytology conclusive for malignancy COLLECTED DATE: 06/13/2017 [facility] REPORT DATE: 06/14/2017 ELECTRONICALLY SIGNED BY: Jason Fajardo M.D. 06/14/2017 - 10:03:29 MTDKelly
--- NOTE | 2017-06-14 18:24 | Hospitalist Progress Note ---
Assessment and Plan (1) Acute on chronic diastolic heart failure Status: Acute Assessment and plan: Patient has significant edema all extremities bilaterally mostly lower extremities. He also has significant JVD. The first 2 days chest x-rays commented on vascular congestion and CHF. He clinically is in heart failure with JVD and edema. 2D echo done December this year showed EF 60%. Start furosemide and monitor urine output. He may need a Pena if we cannot otherwise document adequate output. Current Visit: Yes (2) Anasarca Status: Acute Assessment and plan: Stable, plan per pulmonary medicine. He has left pleural effusion which pulmonary is following. Current Visit: No (3) Aspiration pneumonia Status: Acute Current Visit: No Qualifiers: Aspiration pneumonia type: due to regurgitated food Laterality: right Lung location: unspecified part of lung Qualified Code(s): J69.0 - Pneumonitis due to inhalation of food and vomit (4) Edema Status: Acute Current Visit: No (5) Pleural effusion, left Status: Acute Current Visit: No (6) Atrial fibrillation Status: Chronic Assessment and plan: Stable. Not on anticoagulants due to history of hemorrhagic stroke. Current Visit: No Qualifiers: Atrial fibrillation type: paroxysmal Qualified Code(s): I48.0 - Paroxysmal atrial fibrillation Hospitalist: Subjective Interval history: Patient has no complaints. He says he is doing "pretty good." Exam - Constitutional Vitals: Period Temp Pulse Resp BP Sys/Novak Pulse Ox Last 24 Hr 97.1 F-98.6 F 70-109 14-20 92-123/58-78 94-100 - Respiratory Respiratory exam: Present: other (Dullness left base) - Cardiovascular Cardiovascular exam: Present: JVD (Patient has significant 3-4+ JVD), regular rate and rhythm - Extremities Exam Extremities exam: Present: edema (3-4+ edema lower extremities including 3+ pitting edema of the thigh bilaterally, not just left side of his stroke.) Results - Labs CBC & BMP: 06/11/17 06:24 06/14/17 07:34 Specialty Discharge - Follow Up or Referrals
[2017-06-14] MEDS: FUROSEMIDE 40 MG/4 ML VIAL IV SCH (18:31)
[2017-06-15] MEDS: ALBUTEROL/IPRATROPIUM 3 ML NEB RESP TX SCH ×4 (01:09→20:14)
[2017-06-15] MEDS: PANTOPRAZOLE 40 MG VIAL IV SCH (05:51)
[2017-06-15] MEDS: PIPERACILLIN/TAZOBACTAM 3,375 MG in SODIUM CHLORIDE 0.9% 100 ML IV SCH ×3 (05:52→21:06)
[2017-06-15] MEDS: LEVOTHYROXINE 200 MCG TABLET PO SCH (06:26)
[2017-06-15 06:56] LABS: Basophils % 0.6 % (0.0-0.8); Eosinophils # 0.3 10*3/uL (0.0-0.87); Eosinophils % 4.2 % (0.00-10.9); Hematocrit 35.3 VOL% (42.0-52.0); Hemoglobin 11.4 GM/DL (14.0-18.0); Immature Granulocytes % 0.4 %; Immature Granulocytes Absolute 0.03 #; Lymphocytes # 2.6 10*3/uL (1.4-4.0); Lymphocytes % 38.5 % (21.2-54.2); Mean Corpuscular HGB Conc 32.3 GM/DL (32-36); Mean Corpuscular Hemoglobin 32 PG (27-34); Mean Corpuscular Volume 100.3 FL (87-102); Mean Platelet Volume 11.1 FL (9.6-12.0); Monocytes # 1.2 10*3/uL (0.11-0.8); Monocytes % 17.1 % (1.7-12.7); Neutrophils # 2.7 10*3/uL (1.4-7.4); Neutrophils % 39.2 % (38.7-73.9); Platelet Count 208 T/CUMM (130-400); Red Blood Count 3.52 MC/CUMM (3.8-5.5); Red Cell Distribution Width 15.5 % (9.3-17.3); White Blood Count 6.8 T/CUMM (4-12)
[2017-06-15 07:34] LABS: Albumin 2.7 G/DL (3.4-5.0); Bilirubin,Total 0.7 MG/DL (0.2-1.0); Calcium 8.5 MG/DL (8.5-10.1); Osmolality,Calculated 287.3 MOS/KG (273-304); Potassium 4.4 MMOL/L (3.5-5.1)
[2017-06-15 07:36] LABS: Lymphocytes 47 % (20-55); Segmented Neutrophils 38 % (50-85); Total Cells Counted 100
[2017-06-15 07:37] LABS: Hypochromasia 1+; Macrocytosis Slight; Platelet Estimate Normal
--- NOTE | 2017-06-15 08:59 | Pulmonology Progress Note ---
Pulmonary - PN: Subj Interval history: This 82-year-old white male has a history of previous CVA and difficulty controlling his airway. Came in with coarse rhonchi and had a decreased level of consciousness. This has improved. We have him on medications to thin his secretions. Does have a cough and is responsive. Treating him empirically for aspiration pneumonia. 06/10/2017 patient is a little more responsive. Has a pretty fair cough. Oxygen saturation acceptable. Continuing antibiotics and bronchodilators. Systolic blood pressure is around 90 but he has a good urine output. Could be moved to the floor from pulmonary standpoint. 06/11/2017 elderly patient with previous stroke and apparent aspiration pneumonia. He had a decreased level of consciousness on admission. He is being fed through PEG tube. Feeling much better and is more alert now. Recheck x-ray tomorrow. Continuing antibiotics. If x-ray is stable could probably be changed to antibiotics per PEG tube and plan for discharge. 06/12/2017 patient continues to have cough congestion wheezing. His cough is ineffective. Chest x-ray does not show any improvement. I think we should plan bronchoscopy and clean him out. 06/13/2017 patient still has a poor cough. He was taken for bronchoscopy earlier this morning. Please see notes from that. He has some extrinsic compression of left lower lobe bronchi and had retained secretions bilaterally. He also has a right vocal cord paralysis. He appears to have a left pleural effusion but I suspect this is an old chronic one and may not be freely flowing. We will check a left lateral decubitus film. 06/14/2017 patient is responsive. Again has poor cough. Bronchial wash cultures are pending. Will evaluate for left pleural effusion. He did have extrinsic compression of the left lower lobe at bronchoscopy. 06/15/2017 patient is more alert. Able to sit up on the side of the bed. Left lateral decubitus film showed significant pleural effusion. We did a thoracentesis this morning with removal of about 1500 mL of clear tito fluid which was sent for studies. Please see dictation for that. Exam (Progress Note) - Constitutional Vitals: Period Temp Pulse Resp BP Sys/Novak Pulse Ox Last 24 Hr 97.1 F-98.6 F 70-109 18-20 97-120/56-76 94-100 Exam: Patient's alert and responsive. Speech is somewhat garbled. Vital signs are normal, systolic blood pressure is normal. Pupils react to light. throat clear. neck supple no bruits. chest reveals some rhonchi bilaterally, more coarse and worse on the left. heart normal rate and rhythm no murmurs. Abdomen soft nontender no masses PEG tube in place. Extremities no clubbing cyanosis edema. Calves nontender. Results - Labs CBC & BMP: 06/15/17 05:52 06/15/17 05:52 Lab Results: I have reviewed the past 24 hour labs - Diagnostic Findings Procedure: Chest x-ray: image reviewed by me (Significant amount of left pleural effusion layers out.) Assessment and Plan (1) Aspiration pneumonia Status: Acute Assessment and plan: Oxygen saturations acceptable. Patient is responsive. Treat with empiric antibiotics. Do not think he needs bronchoscopy. Chest x-ray today actually looks better than one in December of this year last time he was here. 06/09/2017 again oxygen saturations acceptable in patient responsive. Has pretty good cough. Difficulty getting secretions up however. Continue with mucolytics antibiotics bronchodilators. 06/10/2017 oxygen saturations acceptable. Patient seems to be clearing his airway. Keep head elevated. 06/11/2017 continuing antibiotics. Cough is better. Recheck x-rays tomorrow. 06/12/2017 stable on antibiotics but not improving much. We will plan bronchoscopy. 06/13/2017 continuing antibiotics empirically for aspiration pneumonia. He has extrinsic compression of his left lower lobe bronchus. We need to see if there is any significant free-flowing left pleural effusion that we could tap to relieve some of that. 06/14/2017 continuing empiric antibiotics for aspiration pneumonia. Cultures are pending. Checking for possible left effusion 06/15/2017 continuing empiric antibiotics for aspiration pneumonia. Current Visit: No Qualifiers: Aspiration pneumonia type: due to regurgitated food Laterality: right Lung location: unspecified part of lung Qualified Code(s): J69.0 - Pneumonitis due to inhalation of food and vomit (2) Atelectasis of left lung Status: Acute Assessment and plan: Treat with antibiotics and IPPB with bronchodilators. 06/09/2017 continuing with respiratory therapy. 06/10/2017 this has improved with current therapy. 06/11/2017 improving with medications. 06/12/2017 poor cough, plan bronchoscopy. 06/13/2017 remove retained secretions from left lower lobe. Has extrinsic compression of left lower lobe bronchus. Brushing was undertaken. 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 Will remove retained secretions yesterday. Recheck chest x-ray with lateral decubitus. 06/15/2017 this is probably extrinsic compression due to the pleural effusion. Thoracentesis was done today. Please see report from that. Current Visit: No (3) Atrial fibrillation Status: Chronic Assessment and plan: Has paroxysmal atrial fibrillation. He is in sinus rhythm at present. 06/11/2017 remains in sinus rhythm. 06/12/17 patient continues to be in sinus rhythm by physical exam. 06/13/2017 rate is controlled and he seems to be in a sinus rhythm at present. Current Visit: No Qualifiers: Atrial fibrillation type: paroxysmal Qualified Code(s): I48.0 - Paroxysmal atrial fibrillation (4) History of intracranial hemorrhage Status: Resolved Assessment and plan: Has left hemiparesis. Able to use both hands somewhat and move right leg on command. Left leg does not move much. He is able to talk. Being fed per PEG tube. 06/09/2017 remote history of intracerebral bleed with left hemiparesis. Little change neurologically. Need to keep his hand elevated. 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 06/13/2017 neurologic deficits from previous intracranial hemorrhage. This may have been the cause of the right vocal cord paralysis as well 06/14/2017 has neurologic sequelae from a previous intracranial bleed. also has right vocal cord paralysis. Being fed per PEG tube. High risk for aspiration. 06/13/2017 he does have some neurologic sequelae from the above. Current Visit: No Specialty Discharge - Follow Up or Referrals
--- NOTE | 2017-06-15 09:01 | Operative Note ---
Date of procedure: 06/15/17 (Left thoracentesis) Pre-op diagnosis: Left pleural effusion with compression of left lower lobe, etiology unknown Post-op diagnosis: same (Fluid was clear and yellow. Suggests being a transudate however the studies are not back as yet.) Procedure: After an appropriate timeout to be sure we were dealing with Beto Celaya, the patient was seated on the side of the bed. I percussed his left chest and found an interspace to below the top of the dullness. He was prepped with Betadine. Local anesthesia instilled with 1% Xylocaine. We used the needle and catheter supplied on the arrow tray. We obtained 1500 mL of clear yellow fluid in the bag supplied. There was no bleeding. We stopped going off fluid at that time. It was not totally dry. There were no immediate complications. The catheter was removed. The patient remained in his room in stable condition. Chest x-ray is pending. Fluid was sent for studies. Anesthesia: local Surgeon / Physician: Dylon Lam Estimated blood loss: none Specimens: other (1500 mL of clear yellow fluid.) Condition: stable Disposition: floor Results - Labs CBC & BMP: 06/15/17 05:52 06/15/17 05:52 Discharge Plan - Discharge Medications No Action Aspirin Chew Tab 81 mg PO DAILY tablet Carvedilol [Coreg] 25 mg PO BID tablet Insulin Lispro [HumaLOG] See Protocol SUBCUT Q6HR unit Sodium Hypochlorite 0.25% Irr [Dakins 1/2 Strength 0.25% Soln] 1 applic TOP BID applic Levothyroxine Tab [Synthroid Tab] 200 mcg PO DAILY@0700 Spironolactone [Aldactone] 25 mg PO DAILY Finasteride [Proscar] 5 mg PO DAILY Albuterol Neb [Proventil Neb] 2.5 mg RESP TX RT Q1H PRN #0 PRN Reason: Shortness Of Breath/Wheezing Furosemide Inj [Lasix Inj] 40 mg IV DAILY vial Famotidine Tab [Pepcid Tab] 20 mg PO BID - Follow Up or Referral - Forms/Instructions Instructions: Aspiration Pneumonia (GEN), Chronic Obstructive Pulmonary Disease (GEN)
[2017-06-15] MEDS: FUROSEMIDE 40 MG/4 ML VIAL IV SCH ×2 (09:30→15:36)
[2017-06-15] MEDS: CARVEDILOL 25 MG TABLET PO SCH ×2 (09:34→20:41)
[2017-06-15] MEDS: ASPIRIN CHEW 81 MG TABLET PO SCH (09:34)
[2017-06-15] MEDS: FINASTERIDE 5 MG TABLET PO SCH (09:34)
[2017-06-15 10:32] LABS: Total Protein,Body Fluid 3.3 G/DL
[2017-06-15 10:42] LABS: Lymphocytes,Pleural Fluid 51 %; Monocytes,Pleural Fluid 27 %; Neutrophils,Pleural Fluid 22 %
[2017-06-15 10:43] LABS: RBC,Pleural Fluid < 1 T/CUMM
--- NOTE | 2017-06-15 13:20 | XRay Report ---
XR chest 1V Indication: Thoracentesis Comparison: 14 June 2017 Findings: There is near-complete drainage of left pleural effusion The heart and mediastinum are similar in size and configuration. The pulmonary vascularity is prominent similar to previous exams. No other lung infiltrates, effusions, pneumothorax or other abnormality is demonstrated. Impression: Near complete drainage of left pleural effusion. PROCEDURE INTERPRETED AT [facility] DEPARTMENT OF RADIOLOGY Final Report Signed by: Dr. Jackson Adam
--- NOTE | 2017-06-15 14:27 | Hospitalist Progress Note ---
Assessment and Plan - Time spent with patient Time spent with patient: Greater than 30 minutes (1) Atrial fibrillation Status: Chronic Assessment and plan: We are continuing on IV antibiotics until we have culture report back. Pulmonology is following Also on IV diuresis 40 mg of Lasix twice daily, monitor input and output, monitor electrolytes. Continue PEG tube feeding and watch for aspiration. Continue breathing treatment Continue use of CHF regimen Current Visit: No Qualifiers: Atrial fibrillation type: paroxysmal Qualified Code(s): I48.0 - Paroxysmal atrial fibrillation (2) HTN (hypertension) Status: Chronic Current Visit: No Qualifiers: Hypertension type: essential hypertension Qualified Code(s): I10 - Essential (primary) hypertension (3) Congestive heart failure Status: Acute Current Visit: No (4) Acute respiratory failure Status: Resolved Current Visit: No Qualifiers: Respiratory failure complication: hypoxia Qualified Code(s): J96.01 - Acute respiratory failure with hypoxia (5) CVA (cerebral vascular accident) Status: Chronic Current Visit: No (6) Pleural effusion, left Status: Acute Current Visit: No Hospitalist: Subjective Interval history: 82-year-old man with history of previous intracerebral bleed and left hemiparesis. He is on PEG tube feeding and lives at home. Admitted for respiratory failure due to large pleural effusion, status post left thoracentesis today. Fluid studies are still pending. He seems to have tolerated procedure well, he has been stable postprocedure. He was sleeping quietly at the time of my arrival Exam - Constitutional Vitals: Period Temp Pulse Resp BP Sys/Novak Pulse Ox Last 24 Hr 97.1 F-98.6 F 70-103 18-20 101-120/56-76 94-100 General appearance: no acute distress - Head Head exam: Present: normocephalic - Respiratory Respiratory exam: Present: decreased breath sounds, rhonchi. Absent: chest wall tenderness - Cardiovascular Cardiovascular exam: Present: irregular rhythm - GI/Abdominal GI/Abdominal exam: Present: normal bowel sounds, soft Results - Labs CBC & BMP: 06/15/17 05:52 06/15/17 05:52 Specialty Discharge - Follow Up or Referrals
[2017-06-15] MEDS: SODIUM HYPOCHLORITE 0.25% IRRIG 473 ML BOTTLE TOP SCH (15:01)
[2017-06-16] MEDS: ALBUTEROL/IPRATROPIUM 3 ML NEB RESP TX SCH ×4 (01:01→19:18)
[2017-06-16] MEDS: PANTOPRAZOLE 40 MG VIAL IV SCH (05:20)
[2017-06-16] MEDS: PIPERACILLIN/TAZOBACTAM 3,375 MG in SODIUM CHLORIDE 0.9% 100 ML IV SCH ×3 (05:21→21:08)
[2017-06-16] MEDS: LEVOTHYROXINE 200 MCG TABLET PO SCH (06:01)
[2017-06-16 06:53] LABS: Basophils % 0.6 % (0.0-0.8); Eosinophils # 0.2 10*3/uL (0.0-0.87); Eosinophils % 2.4 % (0.00-10.9); Hematocrit 31.8 VOL% (42.0-52.0); Hemoglobin 10.2 GM/DL (14.0-18.0); Immature Granulocytes % 0.3 %; Immature Granulocytes Absolute 0.02 #; Lymphocytes # 2.8 10*3/uL (1.4-4.0); Lymphocytes % 41.9 % (21.2-54.2); Mean Corpuscular HGB Conc 32.1 GM/DL (32-36); Mean Corpuscular Hemoglobin 32 PG (27-34); Mean Platelet Volume 10.6 FL (9.6-12.0); Monocytes # 1.1 10*3/uL (0.11-0.8); Monocytes % 16.9 % (1.7-12.7); Neutrophils # 2.5 10*3/uL (1.4-7.4); Neutrophils % 37.9 % (38.7-73.9); Platelet Count 209 T/CUMM (130-400); Red Blood Count 3.18 MC/CUMM (3.8-5.5); Red Cell Distribution Width 15.7 % (9.3-17.3); White Blood Count 6.6 T/CUMM (4-12)
[2017-06-16 07:35] LABS: Albumin 2.4 G/DL (3.4-5.0); Bilirubin,Total 0.4 MG/DL (0.2-1.0); Calcium 8.4 MG/DL (8.5-10.1); Osmolality,Calculated 286.3 MOS/KG (273-304); Potassium 4.1 MMOL/L (3.5-5.1); Total Protein 6.3 G/DL (6.4-8.3)
[2017-06-16] MEDS: FUROSEMIDE 40 MG/4 ML VIAL IV SCH ×2 (07:57→16:11)
[2017-06-16] MEDS: SCOPOLAMINE 1.5 MG PATCH TRANSDERM SCH ×2 (07:58→08:18)
[2017-06-16] MEDS: CARVEDILOL 25 MG TABLET PO SCH ×2 (07:59→20:22)
[2017-06-16] MEDS: FINASTERIDE 5 MG TABLET PO SCH (07:59)
[2017-06-16] MEDS: ASPIRIN CHEW 81 MG TABLET PO SCH (07:59)
[2017-06-16 08:19] LABS: Eosinophils 5 % (0-10); Lymphocytes 38 % (20-55); Platelet Estimate Adequate; Segmented Neutrophils 41 % (50-85); Total Cells Counted 100
[2017-06-16 08:20] LABS: Giant Platelets Few; Hypochromasia 1+; Microcytosis Slight; Ovalocytes Slight
--- NOTE | 2017-06-16 09:28 | Hospitalist Progress Note ---
Assessment and Plan - Time spent with patient Time spent with patient: Greater than 30 minutes (1) Atrial fibrillation Status: Chronic Assessment and plan: We are continuing current IV antibiotics and follow pleural fluid cultures. Pulmonology is following Continue IV diuresis 40 mg of Lasix twice daily, monitor input and output, monitor electrolytes. Continue PEG tube feeding and watch for aspiration. Continue breathing treatment Continue CHF regimen Will likely be able to discharge on Sunday. Current Visit: No Qualifiers: Atrial fibrillation type: paroxysmal Qualified Code(s): I48.0 - Paroxysmal atrial fibrillation (2) HTN (hypertension) Status: Chronic Current Visit: No Qualifiers: Hypertension type: essential hypertension Qualified Code(s): I10 - Essential (primary) hypertension (3) Congestive heart failure Status: Acute Current Visit: No (4) CVA (cerebral vascular accident) Status: Chronic Current Visit: No (5) Pleural effusion, left Status: Acute Current Visit: No Hospitalist: Subjective Interval history: Respiratory status has remained stable after thoracentesis yesterday. No fever. Pleural fluid analysis shows elevated WBC, Gram stain shows no organism, culture report is pending. Blood sugars are stable, he continues to be on tube feeding. Exam - Constitutional Vitals: Period Temp Pulse Resp BP Sys/Novak Pulse Ox Last 24 Hr 97.6 F-99.1 F 71-103 16-20 96-116/58-63 93-100 Exam: General appearance: no acute distress - Head Head exam: Present: normocephalic - Respiratory Respiratory exam: Present: decreased breath sounds, rhonchi. Absent: chest wall tenderness - Cardiovascular Cardiovascular exam: Present: irregular rhythm - GI/Abdominal GI/Abdominal exam: Present: normal bowel sounds, soft - Extremities Exam Extremities exam: Present: edema Results - Labs CBC & BMP: 06/16/17 06:16 06/16/17 06:16 Lab Results: I have reviewed the past 24 hour labs Specialty Discharge - Follow Up or Referrals
[2017-06-16] MEDS: SODIUM HYPOCHLORITE 0.25% IRRIG 473 ML BOTTLE TOP SCH (11:08)
--- NOTE | 2017-06-16 13:27 | Pulmonology Progress Note ---
Pulmonary - PN: Subj Interval history: The patient is an 82-year-old black man that has had a previous CVA. He has dementia and is very debilitated. He may be aspirating. He has a history of COPD. He came in with pneumonia and possible heart failure. He did have a large left effusion that was tapped yesterday. His breathing is better today and he is comfortable lying in bed. Overall he has been reasonably stable. Exam (Progress Note) - Constitutional Vitals: Period Temp Pulse Resp BP Sys/Novak Pulse Ox Last 24 Hr 97.6 F-99.1 F 71-103 16-20 95-116/58-63 93-100 General appearance: no acute distress (He looks comfortable lying in bed.), over weight - Head Head exam: Present: normal inspection, normocephalic - Eye Eye exam: Present: EOMI. Absent: scleral icterus Pupils: Present: PREMA - ENT ENT exam: Present: normal exam - Neck Neck exam: Absent: lymphadenopathy, thyromegaly - Respiratory Respiratory exam: Present: decreased breath sounds, rhonchi. Absent: wheezes - Cardiovascular Cardiovascular exam: Present: irregular rhythm, other (PMI is laterally displaced). Absent: gallop, systolic murmur - GI/Abdominal GI/Abdominal exam: Present: normal bowel sounds, soft. Absent: organomegaly, tenderness - Extremities Exam Extremities exam: Absent: calf tenderness, edema - Neurological Exam Neurological exam: Present: other (He responds fairly well but is quite debilitated.) - Psychiatric Psychiatric exam: Present: normal affect - Skin Skin exam: Present: warm, dry Results - Labs CBC & BMP: 06/16/17 06:16 06/16/17 06:16 - Diagnostic Findings Procedure: Chest x-ray: image reviewed by me, report reviewed by me (Chest x- ray showed marked cardiomegaly but no CHF.) Assessment and Plan (1) NICM (nonischemic cardiomyopathy) Status: Chronic Assessment and plan: Patient has a cardiomyopathy and has had heart failure in the past. He appears to be relatively stable at present. Current Visit: No (2) Atrial fibrillation Status: Chronic Assessment and plan: Patient's heart rate is controlled. Current Visit: No Qualifiers: Atrial fibrillation type: paroxysmal Qualified Code(s): I48.0 - Paroxysmal atrial fibrillation (3) Congestive heart failure Status: Acute Assessment and plan: The patient's heart failure is much improved now. Current Visit: No (4) Aspiration into airway Status: Acute Assessment and plan: The patient has had aspiration in the past but seems to be doing okay at present. Current Visit: No (5) Pleural effusion, left Status: Acute Assessment and plan: Patient is a large left effusion remove and is breathing comfortably now. Current Visit: No Specialty Discharge - Follow Up or Referrals
[2017-06-16] MEDS ORDERED: MAGNESIUM CITRATE 300 ML BOTTLE PO ONE (16:20)
[2017-06-17] MEDS: ALBUTEROL/IPRATROPIUM 3 ML NEB RESP TX SCH ×4 (00:59→19:22)
[2017-06-17] MEDS: PANTOPRAZOLE 40 MG VIAL IV SCH (05:41)
[2017-06-17] MEDS: PIPERACILLIN/TAZOBACTAM 3,375 MG in SODIUM CHLORIDE 0.9% 100 ML IV SCH ×3 (05:42→21:38)
[2017-06-17] MEDS: LEVOTHYROXINE 200 MCG TABLET PO SCH (06:13)
[2017-06-17 07:19] LABS: Albumin 2.4 G/DL (3.4-5.0); Bilirubin,Total 0.7 MG/DL (0.2-1.0); Calcium 8.3 MG/DL (8.5-10.1); Osmolality,Calculated 284.4 MOS/KG (273-304); Potassium 5.1 MMOL/L (3.5-5.1); Total Protein 6.8 G/DL (6.4-8.3)
[2017-06-17 07:41] LABS: Basophils # 0.1 10*3/uL (0.0-0.2); Basophils % 0.6 % (0.0-0.8); Eosinophils # 0.2 10*3/uL (0.0-0.87); Eosinophils % 2.4 % (0.00-10.9); Hematocrit 38.1 VOL% (42.0-52.0); Hemoglobin 12.1 GM/DL (14.0-18.0); Immature Granulocytes % 0.3 %; Immature Granulocytes Absolute 0.02 #; Lymphocytes # 2.6 10*3/uL (1.4-4.0); Mean Corpuscular HGB Conc 31.8 GM/DL (32-36); Mean Corpuscular Hemoglobin 32 PG (27-34); Mean Corpuscular Volume 100.3 FL (87-102); Mean Platelet Volume 11.2 FL (9.6-12.0); Monocytes # 1.5 10*3/uL (0.11-0.8); Monocytes % 18.3 % (1.7-12.7); Neutrophils # 3.6 10*3/uL (1.4-7.4); Neutrophils % 45.4 % (38.7-73.9); Platelet Count 198 T/CUMM (130-400); White Blood Count 7.9 T/CUMM (4-12)
[2017-06-17 08:04] LABS: Lymphocytes 27 % (20-55); Segmented Neutrophils 45 % (50-85); Total Cells Counted 100
[2017-06-17 08:05] LABS: Giant Platelets Few; Hypochromasia 1+; Microcytosis Slight; Platelet Estimate Normal
--- NOTE | 2017-06-17 09:26 | Hospitalist Progress Note ---
Assessment and Plan - Time spent with patient Time spent with patient: Greater than 30 minutes (1) Atrial fibrillation Status: Chronic Assessment and plan: We are continuing current IV antibiotics and follow pleural fluid cultures. Pulmonology is following Continue IV diuresis 40 mg of Lasix twice daily, monitor input and output, monitor electrolytes. Continue PEG tube feeding and watch for aspiration. Continue breathing treatment Continue CHF regimen Consult case management tomorrow for placement arrangement, may go on his current regimen if placement is found. Current Visit: No Qualifiers: Qualified Code(s): I48.0 - Paroxysmal atrial fibrillation (2) HTN (hypertension) Status: Chronic Current Visit: No Qualifiers: Qualified Code(s): I10 - Essential (primary) hypertension (3) Congestive heart failure Status: Acute Current Visit: No (4) CVA (cerebral vascular accident) Status: Chronic Current Visit: No (5) Pleural effusion, left Status: Acute Current Visit: No Hospitalist: Subjective Interval history: No new events reported overnight. Overall he has remained hemodynamically stable. He is breathing better saturation is good. He still has some residual bilateral lower extremity swelling which is improving with IV diuresis. His electrolytes are stable. There is no fever. his family have requested placement since they will not be able to continue to care for him at home in his current state, From a medical standpoint, he may go tomorrow if placement is found. Exam - Constitutional Vitals: Period Temp Pulse Resp BP Sys/Novak Pulse Ox Last 24 Hr 97.2 F-99.2 F 60-107 16-22 95-125/54-79 96-99 Exam: General appearance: no acute distress - Head Head exam: Present: normocephalic - Respiratory Respiratory exam: Present: decreased breath sounds, rhonchi. Absent: chest wall tenderness - Cardiovascular Cardiovascular exam: Present: irregular rhythm - GI/Abdominal GI/Abdominal exam: Present: normal bowel sounds, soft Results - Labs CBC & BMP: 06/17/17 07:14 06/17/17 05:44 Lab Results: I have reviewed the past 24 hour labs Specialty Discharge - Follow Up or Referrals
[2017-06-17] MEDS: CARVEDILOL 25 MG TABLET PO SCH ×2 (09:44→21:38)
[2017-06-17] MEDS: FUROSEMIDE 40 MG/4 ML VIAL IV SCH ×2 (09:44→16:42)
[2017-06-17] MEDS: FINASTERIDE 5 MG TABLET PO SCH (09:44)
[2017-06-17] MEDS: ASPIRIN CHEW 81 MG TABLET PO SCH (09:44)
[2017-06-17] MEDS: SODIUM HYPOCHLORITE 0.25% IRRIG 473 ML BOTTLE TOP SCH (09:44)
--- NOTE | 2017-06-17 11:46 | Pulmonology Progress Note ---
Pulmonary - PN: Subj Interval history: The patient is an 82-year-old black man that has had a previous CVA. He has dementia and is very debilitated. He may be aspirating. He has a history of COPD. He came in with pneumonia and possible heart failure. He did have a large left effusion that was tapped yesterday. The pleural fluid was fairly benign looking. He says he is feeling much better and his breathing is better. He still has a lot of edema but his weight is down and he is diuresing some. Overall he feels like he is better. Exam (Progress Note) - Constitutional Vitals: Period Temp Pulse Resp BP Sys/Novak Pulse Ox Last 24 Hr 97.2 F-99.2 F 60-107 16-22 95-125/54-79 96-99 Exam: General appearance: no acute distress (He looks comfortable lying in bed. He is not having any respiratory distress.), over weight - Head Head exam: Present: normal inspection, normocephalic - Eye Eye exam: Present: EOMI. Absent: scleral icterus Pupils: Present: PREMA - ENT ENT exam: Present: normal exam - Neck Neck exam: Absent: lymphadenopathy, thyromegaly - Respiratory Respiratory exam: Present: He has fair breath sounds bilaterally and is moving air fairly well without wheezing. - Cardiovascular Cardiovascular exam: Present: irregular rhythm, other (PMI is laterally displaced). Absent: gallop, systolic murmur - GI/Abdominal GI/Abdominal exam: Present: normal bowel sounds, soft. Absent: organomegaly, tenderness - Extremities Exam Extremities exam: he does have some brawny edema in the lower extremities. - Neurological Exam Neurological exam: Present: other (He responds fairly well but is quite debilitated. He is alert today.) - Psychiatric Psychiatric exam: Present: normal affect - Skin Skin exam: Present: warm, dry Results - Labs CBC & BMP: 06/17/17 07:14 06/17/17 05:44 - Diagnostic Findings Procedure: Chest x-ray: image reviewed by me, report reviewed by me (Chest x- ray shows marked cardiomegaly but no CHF now.) Assessment and Plan (1) NICM (nonischemic cardiomyopathy) Status: Chronic Assessment and plan: Patient has a cardiomyopathy and has had heart failure in the past. He appears to be relatively stable at present. His breathing is comfortable at present. Current Visit: No (2) Atrial fibrillation Status: Chronic Assessment and plan: Patient's heart rate is controlled. Current Visit: No Qualifiers: Atrial fibrillation type: paroxysmal Qualified Code(s): I48.0 - Paroxysmal atrial fibrillation (3) Congestive heart failure Status: Acute Assessment and plan: The patient's heart failure is much improved now. He is getting IV Lasix and has diuresed fairly well. Current Visit: No (4) Aspiration into airway Status: Acute Assessment and plan: The patient has had aspiration in the past but seems to be doing okay at present. He is not coughing or having shortness of breath now. Current Visit: No (5) Pleural effusion, left Status: Acute Assessment and plan: Patient is a large left effusion remove and is breathing comfortably now. The pleural fluid was reasonably benign. His x-ray looks better. Current Visit: No Specialty Discharge - Follow Up or Referrals
[2017-06-18] MEDS: ALBUTEROL/IPRATROPIUM 3 ML NEB RESP TX SCH ×4 (00:26→19:08)
[2017-06-18] MEDS: PANTOPRAZOLE 40 MG VIAL IV SCH (05:22)
[2017-06-18] MEDS: PIPERACILLIN/TAZOBACTAM 3,375 MG in SODIUM CHLORIDE 0.9% 100 ML IV SCH ×3 (05:23→22:46)
[2017-06-18] MEDS: LEVOTHYROXINE 200 MCG TABLET PO SCH (06:03)
--- NOTE | 2017-06-18 08:34 | Pulmonology Progress Note ---
Pulmonary - PN: Subj Interval history: This 82-year-old male has a history of previous CVA and difficulty controlling his airway. Came in with coarse rhonchi and had a decreased level of consciousness. This has improved. We have him on medications to thin his secretions. Does have a cough and is responsive. Treating him empirically for aspiration pneumonia. 06/10/2017 patient is a little more responsive. Has a pretty fair cough. Oxygen saturation acceptable. Continuing antibiotics and bronchodilators. Systolic blood pressure is around 90 but he has a good urine output. Could be moved to the floor from pulmonary standpoint. 06/11/2017 elderly patient with previous stroke and apparent aspiration pneumonia. He had a decreased level of consciousness on admission. He is being fed through PEG tube. Feeling much better and is more alert now. Recheck x-ray tomorrow. Continuing antibiotics. If x-ray is stable could probably be changed to antibiotics per PEG tube and plan for discharge. 06/12/2017 patient continues to have cough congestion wheezing. His cough is ineffective. Chest x-ray does not show any improvement. I think we should plan bronchoscopy and clean him out. 06/13/2017 patient still has a poor cough. He was taken for bronchoscopy earlier this morning. Please see notes from that. He has some extrinsic compression of left lower lobe bronchi and had retained secretions bilaterally. He also has a right vocal cord paralysis. He appears to have a left pleural effusion but I suspect this is an old chronic one and may not be freely flowing. We will check a left lateral decubitus film. 06/14/2017 patient is responsive. Again has poor cough. Bronchial wash cultures are pending. Will evaluate for left pleural effusion. He did have extrinsic compression of the left lower lobe at bronchoscopy. 06/15/2017 patient is more alert. Able to sit up on the side of the bed. Left lateral decubitus film showed significant pleural effusion. We did a thoracentesis this morning with removal of about 1500 mL of clear tito fluid which was sent for studies. Please see dictation for that. 06/18/2017 this 82-year-old black male is being treated for probable aspiration pneumonia. He has had a previous CVA and has a PEG tube. Bronchoscopy showed extrinsic compression of his lower lobe bronchi. We removed a lot of secretions. Cultures have been negative. Left thoracentesis showed pleural fluid that is probably an old transudate. The total protein is slightly high but LDH is normal and white cell counts are low. Patient is feeling much better. His chest x-ray postthoracentesis shows marked cardiomegaly but his lungs are almost clear now. Await cytology on pleural fluid. Suggest getting an echocardiogram to see what to do to manage his congestive heart failure. His BNP was only minimally elevated last week. Exam (Progress Note) - Constitutional Vitals: Period Temp Pulse Resp BP Sys/Novak Pulse Ox Last 24 Hr 97.6 F-98.9 F 81-99 14-20 85-110/53-72 93-98 Exam: Patient's alert and responsive. Speech is easier to understand today.. Vital signs are normal, systolic blood pressure is normal. Pupils react to light. throat clear. neck supple no bruits. chest reveals few rhonchi bilaterally, more coarse and worse on the left. heart normal rate and rhythm no murmurs. Abdomen soft nontender no masses PEG tube in place. Extremities no clubbing cyanosis edema. Calves nontender. Results - Labs CBC & BMP: 06/17/17 07:14 06/17/17 05:44 Lab Results: I have reviewed the past 24 hour labs Assessment and Plan (1) Aspiration pneumonia Status: Acute Assessment and plan: Oxygen saturations acceptable. Patient is responsive. Treat with empiric antibiotics. Do not think he needs bronchoscopy. Chest x-ray today actually looks better than one in December of this year last time he was here. 06/09/2017 again oxygen saturations acceptable in patient responsive. Has pretty good cough. Difficulty getting secretions up however. Continue with mucolytics antibiotics bronchodilators. 06/10/2017 oxygen saturations acceptable. Patient seems to be clearing his airway. Keep head elevated. 06/11/2017 continuing antibiotics. Cough is better. Recheck x-rays tomorrow. 06/12/2017 stable on antibiotics but not improving much. We will plan bronchoscopy. 06/13/2017 continuing antibiotics empirically for aspiration pneumonia. He has extrinsic compression of his left lower lobe bronchus. We need to see if there is any significant free-flowing left pleural effusion that we could tap to relieve some of that. 06/14/2017 continuing empiric antibiotics for aspiration pneumonia. Cultures are pending. Checking for possible left effusion 06/15/2017 continuing empiric antibiotics for aspiration pneumonia. 06/18/2017 improved with empiric antibiotics. He has had bronchoscopy and left thoracentesis as well. Needs follow-up chest x-ray. Current Visit: No Qualifiers: Aspiration pneumonia type: due to regurgitated food Laterality: right Lung location: unspecified part of lung Qualified Code(s): J69.0 - Pneumonitis due to inhalation of food and vomit (2) Atelectasis of left lung Status: Acute Assessment and plan: Treat with antibiotics and IPPB with bronchodilators. 06/09/2017 continuing with respiratory therapy. 06/10/2017 this has improved with current therapy. 06/11/2017 improving with medications. 06/12/2017 poor cough, plan bronchoscopy. 06/13/2017 remove retained secretions from left lower lobe. Has extrinsic compression of left lower lobe bronchus. Brushing was undertaken. 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 Will remove retained secretions yesterday. Recheck chest x-ray with lateral decubitus. 06/15/2017 this is probably extrinsic compression due to the pleural effusion. Thoracentesis was done today. Please see report from that. 06/18/2017 left lower lobe atelectasis due to retained secretions and a left pleural effusion. This is improved. Current Visit: No (3) Atrial fibrillation Status: Chronic Assessment and plan: Has paroxysmal atrial fibrillation. He is in sinus rhythm at present. 06/11/2017 remains in sinus rhythm. 06/12/17 patient continues to be in sinus rhythm by physical exam. 06/13/2017 rate is controlled and he seems to be in a sinus rhythm at present. 06/18/2017 regular rhythm now. Current Visit: No Qualifiers: Atrial fibrillation type: paroxysmal Qualified Code(s): I48.0 - Paroxysmal atrial fibrillation (4) History of intracranial hemorrhage Status: Resolved Assessment and plan: Has left hemiparesis. Able to use both hands somewhat and move right leg on command. Left leg does not move much. He is able to talk. Being fed per PEG tube. 06/09/2017 remote history of intracerebral bleed with left hemiparesis. Little change neurologically. Need to keep his hand elevated. 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 06/13/2017 neurologic deficits from previous intracranial hemorrhage. This may have been the cause of the right vocal cord paralysis as well 06/14/2017 has neurologic sequelae from a previous intracranial bleed. also has right vocal cord paralysis. Being fed per PEG tube. High risk for aspiration. 06/13/2017 he does have some neurologic sequelae from the above. 06/18/2017 patient is interactive now. Current Visit: No Specialty Discharge - Follow Up or Referrals
[2017-06-18] MEDS: FUROSEMIDE 40 MG/4 ML VIAL IV SCH ×2 (09:01→15:36)
[2017-06-18] MEDS: ASPIRIN CHEW 81 MG TABLET PO SCH (09:44)
[2017-06-18] MEDS: FINASTERIDE 5 MG TABLET PO SCH (09:44)
[2017-06-18] MEDS: CARVEDILOL 25 MG TABLET PO SCH ×2 (09:44→22:46)
[2017-06-18] MEDS: SODIUM HYPOCHLORITE 0.25% IRRIG 473 ML BOTTLE TOP SCH (11:45)
--- NOTE | 2017-06-18 12:17 | Pathology Report from [facility] ---
[facility] – [place] ACCESSION # : [id number] PATIENT NAME : Beto Celaya ORDERING DR : LEONCIO JOYNER MD CLINICAL HX: Left Pleural effusion with compression of left lower lobe, etiology unknown POST-OP DX: Same SPECIMEN INFO: Fluid,Pleural,Left - 1500 mls dark yellow, cloudy CLASS: I CLASS COMMENTS: Fibrin, blood and few benign mesothelial cellsCELL BLOCK: Same CLASS LEGEND: CLASS 0 Material inadequate for diagnosis because of (see comment) CLASS I Absence of atypical or abnormal cells CLASS II Atypical Cytology but no evidence of malignancy CLASS III Cytology suggestive of but not conclusive for malignancy CLASS IV Cytology strongly suggestive of malignancy CLASS V Cytology conclusive for malignancy COLLECTED DATE: 06/15/2017 [facility] REPORT DATE: 06/18/2017 ELECTRONICALLY SIGNED BY: Alex Zapata M.D. 06/18/2017 - 9:11:13 SHADE
--- NOTE | 2017-06-18 13:33 | ECHO Report ---
Beto Celaya 06/18/2017 Exam Date: 09:05 Referring Physician: Vonnie Peters Technologist: REGINA Age: 82 Ht (in): 72 Wt (lb): 225 MExam Location: [facility] Gender: Echo [id number]: acute resp failure, sob, hypoxia, chfIndications: BP: 122 / 75 HR: 105 OtherRhythm: Technical Quality: IMPRESSIONS Left ventricular ejection fraction is estimated at 55-60 %. There is mild to moderate concentric left ventricular hypertrophy. Moderately enlarged left atrium. Mild aortic valve regurgitation. Trace tricuspid valve regurgitation. There is a moderate-sized pericardial effusion which is larger in the posterolateral region. There is no evidence of tamponade/hemodynamic compromise. MEASUREMENTS (Male / Female) Normal Values 2D ECHO LV Diastolic Diameter PLAX 4.5 cm 4.2 - 5.9 / 3.9 - 5.3 cm LV Systolic Diameter PLAX 2.1 cm LV Fractional Shortening PLAX 54.2 % IVS Diastolic Thickness 1.1 cm 0.6 - 1.0 / 0.6 - 0.9 cm LVPW Diastolic Thickness 1.0 cm 0.6 - 1.0 / 0.6 - 0.9 cm Aortic Root Diameter 3.5 cm LA Systolic Diameter LX 5.3 cm 3.0 - 4.0 / 2.7 - 3.8 cm DOPPLER TR Peak Velocity 287.0 cm/s TR Peak Gradient 32.9 mmHg FINDINGS Left Ventricle Normal left ventricular cavity size. Left ventricular ejection fraction is estimated at 55-60 %. There is mild to moderate concentric left ventricular hypertrophy. Right Ventricle Normal right ventricular size. Right Atrium Normal right atrial size. Left Atrium Moderately enlarged left atrium. Mitral Valve Mild mitral annular calcification and mild mitral valve leaflet thickening with trace mitral valve regurgitation. Aortic Valve Moderate aortic valve sclerosis without stenosis. Mild aortic valve regurgitation. Tricuspid Valve Morphologically normal tricuspid valve. Trace tricuspid valve regurgitation. Tricuspid regurgitation velocities suggest a PAP of 32.9 mmHg + RAP. Pulmonic Valve Pulmonic valve not well visualized. Pericardium There is a moderate-sized pericardial effusion which is larger in the posterolateral region. There is no evidence of tamponade/hemodynamic compromise. Aorta Normal size aortic root and proximal ascending aorta. Bill Ceballos (Electronically Signed) 18 June 2017 Final Date: 13:32
--- NOTE | 2017-06-18 14:02 | Cardiology Consult Note ---
I, Zoila Cruz RN, am scribing for, and in the presence of, Bill Ceballos MD 13:55. 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 This is been present since at least September of this year and does not appear to have changed significantly. I do not think this is a good candidate for pericardiocentesis. I think I would continue to manage him conservatively. I do not see any reason to make any changes in his management today. His cardiac status is stable. I am going to drop off his case at this time. He can follow-up with Dr. Valle on a routine basis as an outpatient. Current Visit: No (2) Aspiration pneumonia Status: Acute Assessment and plan: This is being treated and the patient is clinically improving. Current Visit: No Qualifiers: Aspiration pneumonia type: due to regurgitated food Laterality: right Lung location: unspecified part of lung Qualified Code(s): J69.0 - Pneumonitis due to inhalation of food and vomit (3) Atelectasis of left lung Status: Acute Current Visit: No (4) Atrial fibrillation Status: Chronic Assessment and plan: He has chronic atrial fibrillation and the rate seems adequately controlled. He does not have any specific symptoms associated with this. He has been intolerant to full anticoagulation secondary to bleeding in the past. Current Visit: No Qualifiers: Atrial fibrillation type: paroxysmal Qualified Code(s): I48.0 - Paroxysmal atrial fibrillation (5) HTN (hypertension) Status: Chronic Current Visit: No Qualifiers: Hypertension type: essential hypertension Qualified Code(s): I10 - Essential (primary) hypertension History of Present Illness - Data of Consult Patient: known to practice within the last 3 years Consult date: 06/18/17 Requesting Physician: Mary Zhu - Consult Narrative Reason for consult: Pericardial effusion History of present illness: Manager Of Program: Dr. Valle Mr. Celaya is a 82 year old male who is followed by Dr. Valle. He was last seen in cardiology clinic September 2016. There is no family at bedside and he is limited in how much of his history he is able to assist me with. Most of the history is obtained from previous records. He has a history of hypertension , dyslipidemia, and atrial fibrillation. He has a history of previous stroke with some difficulty controlling his airway. He also has had a chronic pericardial effusion. In September 2016 he was found to have a moderate to large pericardial effusion and pleural effusion. Echocardiogram done January 12, 2017 with ejection fraction of 60% as well as moderate size pericardial effusion According to the record, he was admitted June 08 with decreased responsiveness, diaphoresis, and trouble breathing. He was not having any cardiac specific complaints. He has chronic atrial fibrillation but this rate appears to be adequately controlled. He has been unable to tolerate long-term full anticoagulation secondary to bleeding in the past. He has a history of a stroke in has trouble controlling his airway. It appears that he had a aspiration pneumonia. He subsequently underwent a bronchoscopy with suctioning out of his airways, as well as a thoracentesis. EKG on admission showed atrial fibrillation with heart rate of 101. CT of the head did not indicate evidence of acute process or interval change. His chest x-ray and echocardiogram both show persistence of the pericardial effusion. We have been consulted for recommendations regarding its management. Mr. Coronado is seen resting in bed. He has no specific complaints and denies any cardiac symptoms such as chest pain, palpitations, or syncope. Home Medications Medication Instructions Recorded Confirmed Type Finasteride [Proscar] 5 mg PO DAILY 10/03/16 06/08/17 History Albuterol Neb [Proventil Neb] 2.5 mg RESP TX RT Q1H PRN #0 01/23/17 06/08/17 Rx Aspirin Chew Tab 81 mg PO DAILY tablet 01/23/17 06/08/17 Rx Carvedilol [Coreg] 25 mg PO BID tablet 01/23/17 06/08/17 Rx Furosemide Inj [Lasix Inj] 40 mg IV DAILY vial 01/23/17 06/08/17 Rx Insulin Lispro [HumaLOG] See Protocol SUBCUT Q6HR unit 01/23/17 06/08/17 Rx Sodium Hypochlorite 0.25% Irr 1 applic TOP BID applic 01/23/17 06/08/17 Rx [Dakins 1/2 Strength 0.25% Soln] Famotidine Tab [Pepcid Tab] 20 mg PO BID 02/21/17 06/08/17 History Levothyroxine Tab [Synthroid Tab] 200 mcg PO DAILY@0700 02/21/17 06/08/17 History Spironolactone [Aldactone] 25 mg PO DAILY 02/21/17 06/08/17 History CC: Mary Zhu MD - Home Medications and Allergies Home Medications: Home Medications Medication Instructions Recorded Confirmed Type Finasteride [Proscar] 5 mg PO DAILY 10/03/16 06/08/17 History Albuterol Neb [Proventil Neb] 2.5 mg RESP TX RT Q1H PRN #0 01/23/17 06/08/17 Rx Aspirin Chew Tab 81 mg PO DAILY tablet 01/23/17 06/08/17 Rx Carvedilol [Coreg] 25 mg PO BID tablet 01/23/17 06/08/17 Rx Furosemide Inj [Lasix Inj] 40 mg IV DAILY vial 01/23/17 06/08/17 Rx Insulin Lispro [HumaLOG] See Protocol SUBCUT Q6HR unit 01/23/17 06/08/17 Rx Sodium Hypochlorite 0.25% Irr 1 applic TOP BID applic 01/23/17 06/08/17 Rx [Dakins 1/2 Strength 0.25% Soln] Famotidine Tab [Pepcid Tab] 20 mg PO BID 02/21/17 06/08/17 History Levothyroxine Tab [Synthroid Tab] 200 mcg PO DAILY@0700 02/21/17 06/08/17 History Spironolactone [Aldactone] 25 mg PO DAILY 02/21/17 06/08/17 History Allergies/Adverse Reactions: Allergies Allergy/AdvReac Type Severity Reaction Status Date / Time No Known Allergies Allergy Verified 06/08/17 00:31 ROS unobtainable: due to mental status Medical,Surgical,& Family Hx - Medical History Cardio: History of: Cardiac Dysrhythmia (atrial fib), Cerebrovascular Disease, CHF, Hypertension Neurology: History of: Cerebral Hemorrhage, Cerebrovascular Accident (Ischemic stroke 15+ years ago), Peripheral Neuropathy HEENT: History of: Eye Problem (prostethic eye-right) Endocrine: History of: Diabetes Mellitus (IDDM), Dyslipidemia Respiratory: History of: Pneumonia, Respiratory Problems (ventilator 2017- respiratory failure) Gastrointestinal: History of: GERD, GI Problems (dysphagia) - Surgical History Abdominal Surgeries: Surgical HX of: Abdominal Surgery (PEG tube placement) - Family History Family History: Reports;: Family Hypertension - Social History Smoking Status: Unknown if ever smoked Frequency of Alcohol Use: None Type of Drug Use: None Physical Examination Vital Signs Temp Pulse Resp BP Pulse Ox 98.6 F 84 28 H 125/75 90 L 06/08/17 00:13 06/08/17 00:13 06/08/17 00:13 06/08/17 00:13 06/08/17 00:13 General: Present: Other (Ill-appearing) HEENT: Present: Mucus Membranes Moist, Other (Prosthetic right eye) Neck: Present: Supple Neck, Midline Trachea, No Bruit Cardiac: Present: Irregularly Regular, Systolic Murmur, Other (slight fx rub). Absent: Tachycardia, Bradycardia Lungs: Present: Scattered Rhonchi, Oxygen (Via nasal cannula), No Wheezes Neuro: Present: Cranial Nerve 2-12 Intact, Other (confusion). Absent: Resting Tremor, Essential Tremor Abdomen: Present: Soft, Active Bowel Sounds, Other (PEG tube). Absent: Organomegaly, Distended Skin: Absent: Rash, Suspicious Lesions Musculoskeletal: Present: Decreased Range of Motion Gait: Present: Other (unable to ambulate) Extremities: Present: Normal Upper Extr. Pulses, Normal Lower Extr. Pulses, Edema (Brawny edema in lower extremities) Result/EKG - Labs CBC & BMP: 06/17/17 07:14 06/17/17 05:44 Lab Results: I have reviewed the past 24 hour labs Labs: Laboratory Results - last 24 hr 06/17/17 06/18/17 06/18/17 19:00 00:30 06:09 POC Glucose 115 H 112 H 108 H 06/18/17 12:06 POC Glucose 92 - Diagnostic Findings Procedure: Chest x-ray: report reviewed by me - EKG EKG results: interpreted by vt EKG shows: atrial fibrillation Specialty Discharge - Follow Up or Referrals I, Bill Ceballos MD, personally performed the services described in this documentation, ascribed by Zoila Cruz RN in my presence, and it is both accurate and complete 401 .
--- NOTE | 2017-06-18 14:46 | Hospitalist Progress Note ---
Assessment and Plan (1) Aspiration pneumonia Status: Acute Assessment and plan: 1)aspiration pneumonia- on antibiotics, continue these as he is improving. Needs follow up chest xray. atelecatasis resolved after effusion tapped and bronch removed secretions. 2)CHF with effusion- stable, no changes recommended at this time. pleural effusion is transudate. Continue diuresis, current meds. 3)h/o intracranial hemorrhage 4)dispo- home tomorrow. Current Visit: No Qualifiers: Aspiration pneumonia type: due to regurgitated food Laterality: right Lung location: unspecified part of lung Qualified Code(s): J69.0 - Pneumonitis due to inhalation of food and vomit (2) NICM (nonischemic cardiomyopathy) Status: Chronic Current Visit: No (3) Atrial fibrillation Status: Chronic Current Visit: No Qualifiers: Atrial fibrillation type: paroxysmal Qualified Code(s): I48.0 - Paroxysmal atrial fibrillation (4) HTN (hypertension) Status: Chronic Current Visit: No Qualifiers: Hypertension type: essential hypertension Qualified Code(s): I10 - Essential (primary) hypertension (5) CVA (cerebral vascular accident) Status: Chronic Current Visit: No (6) Pleural effusion, left Status: Acute Current Visit: No Hospitalist: Subjective Interval history: MR Celaya had no complaints this morning. He is getting better he reports and denies shortness of breath or pain. He had effusion of echo and DR Oliva has reviewed it- he has no tampanade and it has not changed since September so he does not recommend any changes at this time. Exam - Constitutional Vitals: Period Temp Pulse Resp BP Sys/Novak Pulse Ox Last 24 Hr 97.7 F-98.9 F 81-105 14-20 85-122/53-75 91-99 General appearance: no acute distress, over weight - Eye Eye exam: Present: EOMI. Absent: scleral icterus - Respiratory Respiratory exam: Present: rhonchi - Cardiovascular Cardiovascular exam: Present: regular rate and rhythm - GI/Abdominal GI/Abdominal exam: Present: normal bowel sounds, soft. Absent: tenderness - Extremities Exam Extremities exam: Absent: edema Results - Labs CBC & BMP: 06/17/17 07:14 06/17/17 05:44 Lab Results: I have reviewed the past 24 hour labs Specialty Discharge - Follow Up or Referrals
[2017-06-19] MEDS: ALBUTEROL/IPRATROPIUM 3 ML NEB RESP TX SCH ×4 (00:21→19:20)
[2017-06-19] MEDS: PIPERACILLIN/TAZOBACTAM 3,375 MG in SODIUM CHLORIDE 0.9% 100 ML IV SCH ×3 (05:35→21:56)
[2017-06-19] MEDS: LEVOTHYROXINE 200 MCG TABLET PO SCH (06:33)
--- NOTE | 2017-06-19 08:22 | XRay Report ---
History: Left pleural effusion. Follow-up Date: 06/19/2017 Study: Chest x-ray AP portable Comparison exam: June 15, 2017 There is continued cardiomegaly. The pulmonary vasculature is upper normal. There is increasing strandy and patchy atelectasis with or without infiltrate in the left mid to lower lung compared to the previous study. There is mild left-sided pleural effusion which is likely increased. The right lung is generally clear. Osseous structures are unchanged. Surgical clips overlie the thyroid bed bilaterally. Impression: Increasing atelectasis/infiltrate in the left mid to lower lung compared to the previous study. Probable increased mild left pleural effusion. Otherwise unchanged PROCEDURE INTERPRETED AT [facility] DEPARTMENT OF RADIOLOGY Final Report Signed by: Dr. Shraddha Ford
[2017-06-19] MEDS: FUROSEMIDE 40 MG TABLET PO SCH ×2 (09:15→16:22)
[2017-06-19] MEDS: PANTOPRAZOLE 40 MG TABLET PO SCH (09:15)
[2017-06-19] MEDS: FINASTERIDE 5 MG TABLET PO SCH (09:15)
[2017-06-19] MEDS: SCOPOLAMINE 1.5 MG PATCH TRANSDERM SCH (09:15)
[2017-06-19] MEDS: ASPIRIN CHEW 81 MG TABLET PO SCH (09:15)
[2017-06-19] MEDS: CARVEDILOL 25 MG TABLET PO SCH ×2 (09:15→21:56)
--- NOTE | 2017-06-19 09:16 | Pulmonology Progress Note ---
Pulmonary - PN: Subj Interval history: This 82-year-old male has a history of previous CVA and difficulty controlling his airway. Came in with coarse rhonchi and had a decreased level of consciousness. This has improved. We have him on medications to thin his secretions. Does have a cough and is responsive. Treating him empirically for aspiration pneumonia. 06/10/2017 patient is a little more responsive. Has a pretty fair cough. Oxygen saturation acceptable. Continuing antibiotics and bronchodilators. Systolic blood pressure is around 90 but he has a good urine output. Could be moved to the floor from pulmonary standpoint. 06/11/2017 elderly patient with previous stroke and apparent aspiration pneumonia. He had a decreased level of consciousness on admission. He is being fed through PEG tube. Feeling much better and is more alert now. Recheck x-ray tomorrow. Continuing antibiotics. If x-ray is stable could probably be changed to antibiotics per PEG tube and plan for discharge. 06/12/2017 patient continues to have cough congestion wheezing. His cough is ineffective. Chest x-ray does not show any improvement. I think we should plan bronchoscopy and clean him out. 06/13/2017 patient still has a poor cough. He was taken for bronchoscopy earlier this morning. Please see notes from that. He has some extrinsic compression of left lower lobe bronchi and had retained secretions bilaterally. He also has a right vocal cord paralysis. He appears to have a left pleural effusion but I suspect this is an old chronic one and may not be freely flowing. We will check a left lateral decubitus film. 06/14/2017 patient is responsive. Again has poor cough. Bronchial wash cultures are pending. Will evaluate for left pleural effusion. He did have extrinsic compression of the left lower lobe at bronchoscopy. 06/15/2017 patient is more alert. Able to sit up on the side of the bed. Left lateral decubitus film showed significant pleural effusion. We did a thoracentesis this morning with removal of about 1500 mL of clear tito fluid which was sent for studies. Please see dictation for that. 06/18/2017 this 82-year-old black male is being treated for probable aspiration pneumonia. He has had a previous CVA and has a PEG tube. Bronchoscopy showed extrinsic compression of his lower lobe bronchi. We removed a lot of secretions. Cultures have been negative. Left thoracentesis showed pleural fluid that is probably an old transudate. The total protein is slightly high but LDH is normal and white cell counts are low. Patient is feeling much better. His chest x-ray postthoracentesis shows marked cardiomegaly but his lungs are almost clear now. Await cytology on pleural fluid. Suggest getting an echocardiogram to see what to do to manage his congestive heart failure. His BNP was only minimally elevated last week. 06/19/2017 again the patient is feeling better. He has some return of the left pleural effusion today. He also has pericardial effusion on echo. Cytology pending on the pleural fluid. May have pleural pericarditis. Will bump with steroids. However the pleural fluid did not appear to be particularly inflammatory. We will try to diurese Exam (Progress Note) - Constitutional Vitals: Period Temp Pulse Resp BP Sys/Novak Pulse Ox Last 24 Hr 96.6 F-99.7 F 64-116 17- 90-111/51-65 92-99 Exam: Patient's alert and responsive. Speech is easier to understand today.. Vital signs are normal, systolic blood pressure is normal. Pupils react to light. throat clear. neck supple no bruits. chest reveals few rhonchi bilaterally, more coarse and worse on the left. heart normal rate and rhythm no murmurs. Abdomen soft nontender no masses PEG tube in place. Extremities no clubbing cyanosis edema. Calves nontender. Results - Labs CBC & BMP: 06/17/17 07:14 06/17/17 05:44 Lab Results: I have reviewed the past 24 hour labs - Diagnostic Findings Procedure: Chest x-ray: image reviewed by me (Cardiomegaly. Small left pleural effusion. Hazy infiltrate left upper lobe.) Assessment and Plan (1) Aspiration pneumonia Status: Acute Assessment and plan: Oxygen saturations acceptable. Patient is responsive. Treat with empiric antibiotics. Do not think he needs bronchoscopy. Chest x-ray today actually looks better than one in December of this year last time he was here. 06/09/2017 again oxygen saturations acceptable in patient responsive. Has pretty good cough. Difficulty getting secretions up however. Continue with mucolytics antibiotics bronchodilators. 06/10/2017 oxygen saturations acceptable. Patient seems to be clearing his airway. Keep head elevated. 06/11/2017 continuing antibiotics. Cough is better. Recheck x-rays tomorrow. 06/12/2017 stable on antibiotics but not improving much. We will plan bronchoscopy. 06/13/2017 continuing antibiotics empirically for aspiration pneumonia. He has extrinsic compression of his left lower lobe bronchus. We need to see if there is any significant free-flowing left pleural effusion that we could tap to relieve some of that. 06/14/2017 continuing empiric antibiotics for aspiration pneumonia. Cultures are pending. Checking for possible left effusion 06/15/2017 continuing empiric antibiotics for aspiration pneumonia. 06/18/2017 improved with empiric antibiotics. He has had bronchoscopy and left thoracentesis as well. Needs follow-up chest x-ray. 06/19/2017 continuing empiric antibiotics. Current Visit: No Qualifiers: Aspiration pneumonia type: due to regurgitated food Laterality: right Lung location: unspecified part of lung Qualified Code(s): J69.0 - Pneumonitis due to inhalation of food and vomit (2) Atelectasis of left lung Status: Acute Assessment and plan: Treat with antibiotics and IPPB with bronchodilators. 06/09/2017 continuing with respiratory therapy. 06/10/2017 this has improved with current therapy. 06/11/2017 improving with medications. 06/12/2017 poor cough, plan bronchoscopy. 06/13/2017 remove retained secretions from left lower lobe. Has extrinsic compression of left lower lobe bronchus. Brushing was undertaken. 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 Will remove retained secretions yesterday. Recheck chest x-ray with lateral decubitus. 06/15/2017 this is probably extrinsic compression due to the pleural effusion. Thoracentesis was done today. Please see report from that. 06/18/2017 left lower lobe atelectasis due to retained secretions and a left pleural effusion. This is improved. 06/19/2017 the left lower lobe atelectasis was due to the left pleural effusion primarily. It did improve with thoracentesis. Current Visit: No (3) Atrial fibrillation Status: Chronic Assessment and plan: Has paroxysmal atrial fibrillation. He is in sinus rhythm at present. 06/11/2017 remains in sinus rhythm. 06/12/17 patient continues to be in sinus rhythm by physical exam. 06/13/2017 rate is controlled and he seems to be in a sinus rhythm at present. 06/18/2017 regular rhythm now. Current Visit: No Qualifiers: Atrial fibrillation type: paroxysmal Qualified Code(s): I48.0 - Paroxysmal atrial fibrillation (4) History of intracranial hemorrhage Status: Resolved Assessment and plan: Has left hemiparesis. Able to use both hands somewhat and move right leg on command. Left leg does not move much. He is able to talk. Being fed per PEG tube. 06/09/2017 remote history of intracerebral bleed with left hemiparesis. Little change neurologically. Need to keep his hand elevated. 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 06/13/2017 neurologic deficits from previous intracranial hemorrhage. This may have been the cause of the right vocal cord paralysis as well 06/14/2017 has neurologic sequelae from a previous intracranial bleed. also has right vocal cord paralysis. Being fed per PEG tube. High risk for aspiration. 06/13/2017 he does have some neurologic sequelae from the above. 06/18/2017 patient is interactive now. Current Visit: No Specialty Discharge - Follow Up or Referrals
--- NOTE | 2017-06-19 10:04 | Case Mgmt Physician Query Form ---
TB Signs and Symptoms Screening ([place]) INSTRUCTIONS: To be completed annually on residents/staff with a significant Tuberculin Skin Test (TST) upon admission/hire or a prior significant TST. To be completed on all staff at hire. Please respond to each listed symptom with an (X) in either the "YES" or "NO" box. Do you currently have any of the following symptoms: YES NO ( ) (x ) A cough If yes, is it: ( ) Productive ( ) Non- productive ( ) (x ) Hemoptysis (spitting up blood) ( ) (x) Chest pains ( ) ( x) Weight Loss ( ) (x ) Fever ( ) ( x) Night Sweats ( ) ( x) Weakness ( ) ( x) Loss of Appetite ( ) (x ) Difficulty Breathing If you answered YES" to any of the above questions, how long have symptoms been present? Comments: If you have any questions, please contact me . Thank you, Estela MARTE Email: [email or web address] [facility]
--- NOTE | 2017-06-19 11:22 | Hospitalist Progress Note ---
Assessment and Plan (1) Aspiration pneumonia Status: Acute Assessment and plan: 1)aspiration pneumonia- on antibiotics, continue these as he is improving. atelecatasis resolved after effusion tapped and bronch removed secretions, but on today's film it looks like increase in effusion and atelectasis. Steroids started. cytology on pleural fluid pending. diuresing. 2)CHF with effusion- stable, no changes recommended at this time. pleural effusion is transudate. Continue diuresis, current meds. 3)h/o intracranial hemorrhage 4)dispo- discuss with Dr Lam- patient has bed at [facility]. Current Visit: No Qualifiers: Aspiration pneumonia type: due to regurgitated food Laterality: right Lung location: unspecified part of lung Qualified Code(s): J69.0 - Pneumonitis due to inhalation of food and vomit (2) NICM (nonischemic cardiomyopathy) Status: Chronic Current Visit: No (3) Atrial fibrillation Status: Chronic Current Visit: No Qualifiers: Atrial fibrillation type: paroxysmal Qualified Code(s): I48.0 - Paroxysmal atrial fibrillation (4) HTN (hypertension) Status: Chronic Current Visit: No Qualifiers: Hypertension type: essential hypertension Qualified Code(s): I10 - Essential (primary) hypertension (5) CVA (cerebral vascular accident) Status: Chronic Current Visit: No (6) Pleural effusion, left Status: Acute Current Visit: No Hospitalist: Subjective Interval history: Mr Celaya is doing well this morning. He denies pain or shortness of breath. He is tolerating his tube feeds. Dr Lam has started steroids to address his effusions pleural and pericardial. I have not seen any family with him yesterday or today. Exam - Constitutional Vitals: Period Temp Pulse Resp BP Sys/Novak Pulse Ox Last 24 Hr 96.6 F-99.7 F 64-116 17-24 96-111/51-65 92-99 General appearance: no acute distress, over weight - Eye Eye exam: Present: EOMI. Absent: scleral icterus - Respiratory Respiratory exam: Present: clear to auscultation bilaterally (decreased breath sounds at bases) - Cardiovascular Cardiovascular exam: Present: regular rate and rhythm - GI/Abdominal GI/Abdominal exam: Present: normal bowel sounds, soft. Absent: tenderness - Extremities Exam Extremities exam: Absent: edema - Neurological Exam Neurological exam: Present: alert, oriented X3 - Skin Skin exam: Present: warm, dry Results - Labs CBC & BMP: 06/17/17 07:14 06/17/17 05:44 Lab Results: I have reviewed the past 24 hour labs Specialty Discharge - Follow Up or Referrals
[2017-06-19] MEDS: SODIUM HYPOCHLORITE 0.25% IRRIG 473 ML BOTTLE TOP SCH (16:05)
[2017-06-20] MEDS: ALBUTEROL/IPRATROPIUM 3 ML NEB RESP TX SCH ×4 (00:03→19:38)
[2017-06-20] MEDS: PIPERACILLIN/TAZOBACTAM 3,375 MG in SODIUM CHLORIDE 0.9% 100 ML IV SCH ×3 (05:44→22:04)
[2017-06-20] MEDS: LEVOTHYROXINE 200 MCG TABLET PO SCH (06:31)
--- NOTE | 2017-06-20 07:30 | Pulmonology Progress Note ---
Pulmonary - PN: Subj Interval history: This 82-year-old male has a history of previous CVA and difficulty controlling his airway. Came in with coarse rhonchi and had a decreased level of consciousness. This has improved. We have him on medications to thin his secretions. Does have a cough and is responsive. Treating him empirically for aspiration pneumonia. 06/10/2017 patient is a little more responsive. Has a pretty fair cough. Oxygen saturation acceptable. Continuing antibiotics and bronchodilators. Systolic blood pressure is around 90 but he has a good urine output. Could be moved to the floor from pulmonary standpoint. 06/11/2017 elderly patient with previous stroke and apparent aspiration pneumonia. He had a decreased level of consciousness on admission. He is being fed through PEG tube. Feeling much better and is more alert now. Recheck x-ray tomorrow. Continuing antibiotics. If x-ray is stable could probably be changed to antibiotics per PEG tube and plan for discharge. 06/12/2017 patient continues to have cough congestion wheezing. His cough is ineffective. Chest x-ray does not show any improvement. I think we should plan bronchoscopy and clean him out. 06/13/2017 patient still has a poor cough. He was taken for bronchoscopy earlier this morning. Please see notes from that. He has some extrinsic compression of left lower lobe bronchi and had retained secretions bilaterally. He also has a right vocal cord paralysis. He appears to have a left pleural effusion but I suspect this is an old chronic one and may not be freely flowing. We will check a left lateral decubitus film. 06/14/2017 patient is responsive. Again has poor cough. Bronchial wash cultures are pending. Will evaluate for left pleural effusion. He did have extrinsic compression of the left lower lobe at bronchoscopy. 06/15/2017 patient is more alert. Able to sit up on the side of the bed. Left lateral decubitus film showed significant pleural effusion. We did a thoracentesis this morning with removal of about 1500 mL of clear tito fluid which was sent for studies. Please see dictation for that. 06/18/2017 this 82-year-old black male is being treated for probable aspiration pneumonia. He has had a previous CVA and has a PEG tube. Bronchoscopy showed extrinsic compression of his lower lobe bronchi. We removed a lot of secretions. Cultures have been negative. Left thoracentesis showed pleural fluid that is probably an old transudate. The total protein is slightly high but LDH is normal and white cell counts are low. Patient is feeling much better. His chest x-ray postthoracentesis shows marked cardiomegaly but his lungs are almost clear now. Await cytology on pleural fluid. Suggest getting an echocardiogram to see what to do to manage his congestive heart failure. His BNP was only minimally elevated last week. 06/19/2017 again the patient is feeling better. He has some return of the left pleural effusion today. He also has pericardial effusion on echo. Cytology pending on the pleural fluid. May have pleural pericarditis. Will bump with steroids. However the pleural fluid did not appear to be particularly inflammatory. We will try to diurese 06/20/2017 he does have some recurrence of the left pleural effusion has a pericardial effusion. Fluid was a transudate. We will continue to try to diurese. Exam (Progress Note) - Constitutional Vitals: Period Temp Pulse Resp BP Sys/Novak Pulse Ox Last 24 Hr 97.3 F-99.7 F 76-106 18-24 95-111/49-67 91-100 Exam: Patient's alert and responsive. Speech is easier to understand today.. Vital signs are normal, systolic blood pressure is normal. Pupils react to light. throat clear. neck supple no bruits. chest reveals few rhonchi bilaterally, more coarse and worse on the left. heart normal rate and rhythm no murmurs. Abdomen soft nontender no masses PEG tube in place. Extremities no clubbing cyanosis edema. Calves nontender. Results - Labs CBC & BMP: 06/17/17 07:14 06/17/17 05:44 Lab Results: I have reviewed the past 24 hour labs Assessment and Plan (1) Aspiration pneumonia Status: Acute Assessment and plan: Oxygen saturations acceptable. Patient is responsive. Treat with empiric antibiotics. Do not think he needs bronchoscopy. Chest x-ray today actually looks better than one in December of this year last time he was here. 06/09/2017 again oxygen saturations acceptable in patient responsive. Has pretty good cough. Difficulty getting secretions up however. Continue with mucolytics antibiotics bronchodilators. 06/10/2017 oxygen saturations acceptable. Patient seems to be clearing his airway. Keep head elevated. 06/11/2017 continuing antibiotics. Cough is better. Recheck x-rays tomorrow. 06/12/2017 stable on antibiotics but not improving much. We will plan bronchoscopy. 06/13/2017 continuing antibiotics empirically for aspiration pneumonia. He has extrinsic compression of his left lower lobe bronchus. We need to see if there is any significant free-flowing left pleural effusion that we could tap to relieve some of that. 06/14/2017 continuing empiric antibiotics for aspiration pneumonia. Cultures are pending. Checking for possible left effusion 06/15/2017 continuing empiric antibiotics for aspiration pneumonia. 06/18/2017 improved with empiric antibiotics. He has had bronchoscopy and left thoracentesis as well. Needs follow-up chest x-ray. 06/19/2017 continuing empiric antibiotics. 06/20/2017 has had 10 days of antibiotics. These could be stopped. Cultures have been negative. Current Visit: No Qualifiers: Aspiration pneumonia type: due to regurgitated food Laterality: right Lung location: unspecified part of lung Qualified Code(s): J69.0 - Pneumonitis due to inhalation of food and vomit (2) Atelectasis of left lung Status: Acute Assessment and plan: Treat with antibiotics and IPPB with bronchodilators. 06/09/2017 continuing with respiratory therapy. 06/10/2017 this has improved with current therapy. 06/11/2017 improving with medications. 06/12/2017 poor cough, plan bronchoscopy. 06/13/2017 remove retained secretions from left lower lobe. Has extrinsic compression of left lower lobe bronchus. Brushing was undertaken. 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 Will remove retained secretions yesterday. Recheck chest x-ray with lateral decubitus. 06/15/2017 this is probably extrinsic compression due to the pleural effusion. Thoracentesis was done today. Please see report from that. 06/18/2017 left lower lobe atelectasis due to retained secretions and a left pleural effusion. This is improved. 06/19/2017 the left lower lobe atelectasis was due to the left pleural effusion primarily. It did improve with thoracentesis. 06/20/2017 left lower lobe atelectasis was due to compression from left effusion and it did improve with thoracentesis. Current Visit: No (3) Atrial fibrillation Status: Chronic Assessment and plan: Has paroxysmal atrial fibrillation. He is in sinus rhythm at present. 06/11/2017 remains in sinus rhythm. 06/12/17 patient continues to be in sinus rhythm by physical exam. 06/13/2017 rate is controlled and he seems to be in a sinus rhythm at present. 06/18/2017 regular rhythm now. 06/20/2017 rate is well controlled Current Visit: No Qualifiers: Atrial fibrillation type: paroxysmal Qualified Code(s): I48.0 - Paroxysmal atrial fibrillation (4) History of intracranial hemorrhage Status: Resolved Assessment and plan: Has left hemiparesis. Able to use both hands somewhat and move right leg on command. Left leg does not move much. He is able to talk. Being fed per PEG tube. 06/09/2017 remote history of intracerebral bleed with left hemiparesis. Little change neurologically. Need to keep his hand elevated. 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 06/13/2017 neurologic deficits from previous intracranial hemorrhage. This may have been the cause of the right vocal cord paralysis as well 06/14/2017 has neurologic sequelae from a previous intracranial bleed. also has right vocal cord paralysis. Being fed per PEG tube. High risk for aspiration. 06/13/2017 he does have some neurologic sequelae from the above. 06/18/2017 patient is interactive now. Current Visit: No Specialty Discharge - Follow Up or Referrals
[2017-06-20] MEDS: FUROSEMIDE 40 MG TABLET PO SCH ×2 (09:23→15:52)
[2017-06-20] MEDS: PANTOPRAZOLE 40 MG TABLET PO SCH (09:23)
[2017-06-20] MEDS: CARVEDILOL 25 MG TABLET PO SCH ×2 (09:23→21:23)
[2017-06-20] MEDS: metOLazone 2.5 MG TABLET PO SCH (09:24)
[2017-06-20] MEDS: SODIUM HYPOCHLORITE 0.25% IRRIG 473 ML BOTTLE TOP SCH (09:24)
[2017-06-20] MEDS: ASPIRIN CHEW 81 MG TABLET PO SCH (09:24)
[2017-06-20] MEDS: FINASTERIDE 5 MG TABLET PO SCH (09:24)
--- NOTE | 2017-06-20 11:51 | Hospitalist Progress Note ---
Assessment and Plan (1) Aspiration pneumonia Status: Acute Assessment and plan: 1)aspiration pneumonia- on antibiotics, continue these as he is improving. atelecatasis resolved after effusion tapped and bronch removed secretions, but on today's film it looks like increase in effusion and atelectasis. Steroids started. cytology on pleural fluid pending. diuresing. If effusions do not improve on repeat CXR, may need pleurodesis. I have coordinated care with Dr Lam this morning. 2)CHF with effusion- stable, no changes recommended at this time. pleural effusion is transudate. Continue diuresis, current meds. 3)h/o intracranial hemorrhage affecting his swallow and cough and making him very vulnerable to aspiration. 4)dispo- discuss with Dr Lam- patient has bed at [facility]. Current Visit: No Qualifiers: Aspiration pneumonia type: due to regurgitated food Laterality: right Lung location: unspecified part of lung Qualified Code(s): J69.0 - Pneumonitis due to inhalation of food and vomit (2) NICM (nonischemic cardiomyopathy) Status: Chronic Current Visit: No (3) Atrial fibrillation Status: Chronic Current Visit: No Qualifiers: Atrial fibrillation type: paroxysmal Qualified Code(s): I48.0 - Paroxysmal atrial fibrillation (4) HTN (hypertension) Status: Chronic Current Visit: No Qualifiers: Hypertension type: essential hypertension Qualified Code(s): I10 - Essential (primary) hypertension (5) CVA (cerebral vascular accident) Status: Chronic Current Visit: No (6) Pleural effusion, left Status: Acute Current Visit: No Hospitalist: Subjective Interval history: Mr Celaya denies pain or shortness of breath. When I encouraged him to cough he said he just can't cough. He is getting percussion therapy with RT and suctioning when necessary. No pain. Tolerating tube feeds. Exam - Constitutional Vitals: Period Temp Pulse Resp BP Sys/Novak Pulse Ox Last 24 Hr 97.3 F-99.4 F 76-106 19-24 95-109/49-67 91-100 General appearance: no acute distress, over weight - Eye Eye exam: Present: EOMI. Absent: scleral icterus - Respiratory Respiratory exam: Present: rhonchi - Cardiovascular Cardiovascular exam: Present: regular rate and rhythm - GI/Abdominal GI/Abdominal exam: Present: normal bowel sounds, soft. Absent: tenderness - Extremities Exam Extremities exam: Absent: edema - Neurological Exam Neurological exam: Present: alert - Skin Skin exam: Present: warm, dry Results - Labs CBC & BMP: 06/17/17 07:14 06/17/17 05:44 Lab Results: I have reviewed the past 24 hour labs Specialty Discharge - Follow Up or Referrals
[2017-06-21] MEDS: LEVOTHYROXINE 200 MCG TABLET PO SCH (06:01)
[2017-06-21] MEDS: PIPERACILLIN/TAZOBACTAM 3,375 MG in SODIUM CHLORIDE 0.9% 100 ML IV SCH (06:01)
[2017-06-21 06:39] LABS: Basophils # 0.1 10*3/uL (0.0-0.2); Basophils % 0.8 % (0.0-0.8); Eosinophils # 0.3 10*3/uL (0.0-0.87); Hematocrit 34.5 VOL% (42.0-52.0); Hemoglobin 11.1 GM/DL (14.0-18.0); Immature Granulocytes % 0.6 %; Immature Granulocytes Absolute 0.04 #; Lymphocytes # 2.1 10*3/uL (1.4-4.0); Lymphocytes % 32.4 % (21.2-54.2); Mean Corpuscular HGB Conc 32.2 GM/DL (32-36); Mean Corpuscular Hemoglobin 32 PG (27-34); Mean Corpuscular Volume 99.7 FL (87-102); Mean Platelet Volume 11.7 FL (9.6-12.0); Monocytes # 1.1 10*3/uL (0.11-0.8); Monocytes % 16.9 % (1.7-12.7); Neutrophils # 2.9 10*3/uL (1.4-7.4); Neutrophils % 44.3 % (38.7-73.9); Platelet Count 188 T/CUMM (130-400); Red Blood Count 3.46 MC/CUMM (3.8-5.5); Red Cell Distribution Width 16.1 % (9.3-17.3); White Blood Count 6.6 T/CUMM (4-12)
[2017-06-21 06:54] LABS: Calcium 8.4 MG/DL (8.5-10.1); Osmolality,Calculated 285.5 MOS/KG (273-304)
[2017-06-21] MEDS: ALBUTEROL/IPRATROPIUM 3 ML NEB RESP TX SCH ×2 (07:20)
[2017-06-21 07:29] LABS: Giant Platelets Few; Hypochromasia Slight; Lymphocytes 24 % (20-55); Microcytosis Slight; Platelet Estimate Adequate; Segmented Neutrophils 59 % (50-85); Total Cells Counted 100
--- NOTE | 2017-06-21 08:07 | Pulmonology Progress Note ---
Pulmonary - PN: Subj Interval history: This 82-year-old male has a history of previous CVA and difficulty controlling his airway. Came in with coarse rhonchi and had a decreased level of consciousness. This has improved. We have him on medications to thin his secretions. Does have a cough and is responsive. Treating him empirically for aspiration pneumonia. 06/10/2017 patient is a little more responsive. Has a pretty fair cough. Oxygen saturation acceptable. Continuing antibiotics and bronchodilators. Systolic blood pressure is around 90 but he has a good urine output. Could be moved to the floor from pulmonary standpoint. 06/11/2017 elderly patient with previous stroke and apparent aspiration pneumonia. He had a decreased level of consciousness on admission. He is being fed through PEG tube. Feeling much better and is more alert now. Recheck x-ray tomorrow. Continuing antibiotics. If x-ray is stable could probably be changed to antibiotics per PEG tube and plan for discharge. 06/12/2017 patient continues to have cough congestion wheezing. His cough is ineffective. Chest x-ray does not show any improvement. I think we should plan bronchoscopy and clean him out. 06/13/2017 patient still has a poor cough. He was taken for bronchoscopy earlier this morning. Please see notes from that. He has some extrinsic compression of left lower lobe bronchi and had retained secretions bilaterally. He also has a right vocal cord paralysis. He appears to have a left pleural effusion but I suspect this is an old chronic one and may not be freely flowing. We will check a left lateral decubitus film. 06/14/2017 patient is responsive. Again has poor cough. Bronchial wash cultures are pending. Will evaluate for left pleural effusion. He did have extrinsic compression of the left lower lobe at bronchoscopy. 06/15/2017 patient is more alert. Able to sit up on the side of the bed. Left lateral decubitus film showed significant pleural effusion. We did a thoracentesis this morning with removal of about 1500 mL of clear tito fluid which was sent for studies. Please see dictation for that. 06/18/2017 this 82-year-old black male is being treated for probable aspiration pneumonia. He has had a previous CVA and has a PEG tube. Bronchoscopy showed extrinsic compression of his lower lobe bronchi. We removed a lot of secretions. Cultures have been negative. Left thoracentesis showed pleural fluid that is probably an old transudate. The total protein is slightly high but LDH is normal and white cell counts are low. Patient is feeling much better. His chest x-ray postthoracentesis shows marked cardiomegaly but his lungs are almost clear now. Await cytology on pleural fluid. Suggest getting an echocardiogram to see what to do to manage his congestive heart failure. His BNP was only minimally elevated last week. 06/19/2017 again the patient is feeling better. He has some return of the left pleural effusion today. He also has pericardial effusion on echo. Cytology pending on the pleural fluid. May have pleural pericarditis. Will bump with steroids. However the pleural fluid did not appear to be particularly inflammatory. We will try to diurese 06/20/2017 he does have some recurrence of the left pleural effusion has a pericardial effusion. Fluid was a transudate. We will continue to try to diurese. 06/21/2017 patient seems comfortable. May require a repeat left thoracentesis if diuresis does not work. This appears to be transudate if. The left lower lobe pneumonia may have aggravated that. He has a chronic left pleural effusion. Exam (Progress Note) - Constitutional Vitals: Period Temp Pulse Resp BP Sys/Novak Pulse Ox Last 24 Hr 97 F-98.7 F 80-92 18-22 90-100/46-64 93-99 Exam: Patient's alert and responsive. Speech is easier to understand today.. Vital signs are normal, systolic blood pressure is normal. Pupils react to light. throat clear. neck supple no bruits. chest reveals few rhonchi bilaterally, more coarse and worse on the left. heart normal rate and rhythm no murmurs. Abdomen soft nontender no masses PEG tube in place. Extremities no clubbing cyanosis edema. Calves nontender. Results - Labs CBC & BMP: 06/21/17 05:46 06/21/17 05:46 Lab Results: I have reviewed the past 24 hour labs Assessment and Plan (1) Aspiration pneumonia Status: Acute Assessment and plan: Oxygen saturations acceptable. Patient is responsive. Treat with empiric antibiotics. Do not think he needs bronchoscopy. Chest x-ray today actually looks better than one in December of this year last time he was here. 06/09/2017 again oxygen saturations acceptable in patient responsive. Has pretty good cough. Difficulty getting secretions up however. Continue with mucolytics antibiotics bronchodilators. 06/10/2017 oxygen saturations acceptable. Patient seems to be clearing his airway. Keep head elevated. 06/11/2017 continuing antibiotics. Cough is better. Recheck x-rays tomorrow. 06/12/2017 stable on antibiotics but not improving much. We will plan bronchoscopy. 06/13/2017 continuing antibiotics empirically for aspiration pneumonia. He has extrinsic compression of his left lower lobe bronchus. We need to see if there is any significant free-flowing left pleural effusion that we could tap to relieve some of that. 06/14/2017 continuing empiric antibiotics for aspiration pneumonia. Cultures are pending. Checking for possible left effusion 06/15/2017 continuing empiric antibiotics for aspiration pneumonia. 06/18/2017 improved with empiric antibiotics. He has had bronchoscopy and left thoracentesis as well. Needs follow-up chest x-ray. 06/19/2017 continuing empiric antibiotics. 06/20/2017 has had 10 days of antibiotics. These could be stopped. Cultures have been negative. 06/21/2017 antibiotics can be stopped. Current Visit: No Qualifiers: Aspiration pneumonia type: due to regurgitated food Laterality: right Lung location: unspecified part of lung Qualified Code(s): J69.0 - Pneumonitis due to inhalation of food and vomit (2) Atelectasis of left lung Status: Acute Assessment and plan: Treat with antibiotics and IPPB with bronchodilators. 06/09/2017 continuing with respiratory therapy. 06/10/2017 this has improved with current therapy. 06/11/2017 improving with medications. 06/12/2017 poor cough, plan bronchoscopy. 06/13/2017 remove retained secretions from left lower lobe. Has extrinsic compression of left lower lobe bronchus. Brushing was undertaken. 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 Will remove retained secretions yesterday. Recheck chest x-ray with lateral decubitus. 06/15/2017 this is probably extrinsic compression due to the pleural effusion. Thoracentesis was done today. Please see report from that. 06/18/2017 left lower lobe atelectasis due to retained secretions and a left pleural effusion. This is improved. 06/19/2017 the left lower lobe atelectasis was due to the left pleural effusion primarily. It did improve with thoracentesis. 06/20/2017 left lower lobe atelectasis was due to compression from left effusion and it did improve with thoracentesis. 06/21/2017 improved post left thoracentesis. Current Visit: No (3) Atrial fibrillation Status: Chronic Assessment and plan: Has paroxysmal atrial fibrillation. He is in sinus rhythm at present. 06/11/2017 remains in sinus rhythm. 06/12/17 patient continues to be in sinus rhythm by physical exam. 06/13/2017 rate is controlled and he seems to be in a sinus rhythm at present. 06/18/2017 regular rhythm now. 06/20/2017 rate is well controlled Current Visit: No Qualifiers: Atrial fibrillation type: paroxysmal Qualified Code(s): I48.0 - Paroxysmal atrial fibrillation (4) History of intracranial hemorrhage Status: Resolved Assessment and plan: Has left hemiparesis. Able to use both hands somewhat and move right leg on command. Left leg does not move much. He is able to talk. Being fed per PEG tube. 06/09/2017 remote history of intracerebral bleed with left hemiparesis. Little change neurologically. Need to keep his hand elevated. 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 06/13/2017 neurologic deficits from previous intracranial hemorrhage. This may have been the cause of the right vocal cord paralysis as well 06/14/2017 has neurologic sequelae from a previous intracranial bleed. also has right vocal cord paralysis. Being fed per PEG tube. High risk for aspiration. 06/13/2017 he does have some neurologic sequelae from the above. 06/18/2017 patient is interactive now. Current Visit: No Specialty Discharge - Follow Up or Referrals
[2017-06-21] MEDS: CARVEDILOL 25 MG TABLET PO SCH (08:31)
[2017-06-21] MEDS: metOLazone 2.5 MG TABLET PO SCH (08:31)
[2017-06-21] MEDS: PANTOPRAZOLE 40 MG TABLET PO SCH (08:31)
[2017-06-21] MEDS: FUROSEMIDE 40 MG TABLET PO SCH (08:31)
[2017-06-21] MEDS: FINASTERIDE 5 MG TABLET PO SCH (08:31)
[2017-06-21] MEDS: ASPIRIN CHEW 81 MG TABLET PO SCH (08:31)
--- NOTE | 2017-06-21 09:18 | XRay Report ---
Exam: XR chest 1V Date: 06/21/2017 4:00 AM Comparison: 06/19/2017 Indication: Pleural effusion Technique:[Portable AP sitting chest] Findings: Stable cardiomegaly and motion artifact on the film with minimally progressive diffuse parenchymal findings with minimally larger pleural effusions. Stable mediastinum and osseous structures. Postoperative findings in the thyroid bed. Impression: Progressive bilateral pneumonia/CHF with increased atelectasis and enlarging small right and moderate left pleural effusions. Follow-up chest x-ray recommended. PROCEDURE INTERPRETED AT [facility] DEPARTMENT OF RADIOLOGY Final Report Signed by: Dr. Reina Cordova
--- NOTE | 2017-06-21 10:39 | Discharge Summary ---
Hospital Course - Hospital Course Hospital Course: Mr Celaya came from home with aspiration pneumonia, acute resp failure and left pleural effusion. He was treated with IV antibiotics and diuresis and his resp status improved to baseline. It was also discovered that he has pericardial effusion that is unchanged from September. He was seen by pulmonary and cardiology. He has a history of intracranial hemorrhage and has poor swallow at baseline and is bedfast. He has been cared for at home but his family need him to get stronger before they can take him home. He is fed with tube feeds. He will go today to swing bed. He will have a CXR in a week with the results to Dr Lam to monitor the effusion and confirm that it resolves with diuresis. If it does not he may require pleurodiesis. He had his effusion tapped here and it was a transudate. He does not need antibiotics anymore but will continue diuresis. Dr Ceballos did not feel there was anything more to do about his stable pericardial effusion. - Time spent with patient Time with patient DS: Greater than 30 minutes (45 minutes spent in coordination of care, medicine reconciliation, discharge planning and documentation) Diagnosis - Discharge Diagnosis (1) Aspiration pneumonia Status: Resolved (2) NICM (nonischemic cardiomyopathy) Status: Chronic (3) Atrial fibrillation Status: Chronic (4) HTN (hypertension) Status: Chronic (5) CVA (cerebral vascular accident) Status: Chronic (6) Pleural effusion, left Status: Acute Specialty Discharge - Follow Up or Referrals Follow up with: Dylon Lam MD [Physician] - 07/04/17 2:00 pm (f/u effusion) Discharge Plan - Discharge Data Disposition: Disch/Xfer to [facility] Condition at Discharge: Stable Discharge Diet: other (tube feed diet) - Discharge Medications New Albuterol/Ipratropium Neb [Duoneb] 3 ml RESP TX RT Q6H Furosemide Tab [Lasix Tab] 40 mg PO BID DIURETIC tablet metOLazone [Zaroxolyn] 2.5 mg PO DAILY tablet Scopolamine 1.5 mg Patch [Transderm Scop 1.5 mg/72 hr Patch] 1 patch TRANSDERM Q3DAY PRN patch PRN Reason: nausea, vomiting Albuterol Neb [Proventil Neb] 2.5 mg RESP TX RT Q1H PRN PRN Reason: Shortness Of Breath/Wheezing Continue Aspirin Chew Tab 81 mg PO DAILY tablet Carvedilol [Coreg] 25 mg PO BID tablet Insulin Lispro [HumaLOG] See Protocol SUBCUT Q6HR unit Sodium Hypochlorite 0.25% Irr [Dakins 1/2 Strength 0.25% Soln] 1 applic TOP BID applic Levothyroxine Tab [Synthroid Tab] 200 mcg PO DAILY@0700 Finasteride [Proscar] 5 mg PO DAILY Famotidine Tab [Pepcid Tab] 20 mg PO BID Discontinued Spironolactone [Aldactone] 25 mg PO DAILY Albuterol Neb [Proventil Neb] 2.5 mg RESP TX RT Q1H PRN #0 PRN Reason: Shortness Of Breath/Wheezing Furosemide Inj [Lasix Inj] 40 mg IV DAILY vial - Follow Up or Referral Follow Up: Dylon Lam MD [Physician] - 07/04/17 2:00 pm (f/u effusion) - Forms/Instructions Instructions: Aspiration Pneumonia (GEN), Chronic Obstructive Pulmonary Disease (GEN) Additional Discharge Instructions: CXR in [address] Lam. wear O2 at all times Exam - Constitutional Vitals: Period Temp Pulse Resp BP Sys/Novak Pulse Ox Last 24 Hr 97 F-98.7 F 80-92 18-22 90-100/46-64 93-99 General appearance: no acute distress, over weight - Eye Eye exam: Present: EOMI. Absent: scleral icterus - Respiratory Respiratory exam: Present: clear to auscultation bilaterally (with decreased breath sounds at bases, left greated than right) - Cardiovascular Cardiovascular exam: Present: irregular rhythm - GI/Abdominal GI/Abdominal exam: Present: normal bowel sounds, soft. Absent: tenderness - Extremities Exam Extremities exam: Absent: edema Discharge Results Procedures and tests throughout hospitalization: Pending Orders 06/08/17 00:23 Blood Culture Stat 06/13/17 AFB Culture/Smears Routine Fungal Culture w/ Prep Routine 06/13/17 07:49 Cytology Request Routine 06/15/17 08:40 AFB Culture/Smears Routine 06/15/17 09:02 Cytology Request Routine Labs on day of discharge: Labs from last 24 hours 06/21/17 06/21/17 06/21/17 07:13 05:46 05:46 WBC 6.6 RBC 3.46 L Hgb 11.1 L Hct 34.5 L MCV 99.7 MCH 32 MCHC 32.2 RDW 16.1 Plt Count 188 MPV 11.7 Neut % (Auto) 44.3 Lymph % (Auto) 32.4 Winston % (Auto) 16.9 H Eos % (Auto) 5.0 Baso % (Auto) 0.8 Neut # (Auto) 2.9 Lymph # (Auto) 2.1 Winston # (Auto) 1.1 H Eos # (Auto) 0.3 Baso # (Auto) 0.1 Total Counted 100 Immature Gran % 0.6 Nucleated RBC % 0.0 Immature Gran # 0.04 Segmented Neutrophils 59 Lymphocytes 24 Monocytes 17 H Nucleated RBCs # 0.00 Platelet Estimate Adequate Giant Platelets Few Hypochromasia Slight Microcytosis Slight Sodium 139 Potassium 4.0 Chloride 95 L Carbon Dioxide 40 H Anion Gap 8.0 BUN 38 H Creatinine 1.00 GFR Calculation 106 BUN/Creatinine Ratio 38.00 H Glucose 97 POC Glucose 121 H Calculated Osmolality 285.5 Calcium 8.4 L 06/21/17 06/20/17 06/20/17 05:31 23:29 17:45 WBC RBC Hgb Hct MCV MCH MCHC RDW Plt Count MPV Neut % (Auto) Lymph % (Auto) Winston % (Auto) Eos % (Auto) Baso % (Auto) Neut # (Auto) Lymph # (Auto) Winston # (Auto) Eos # (Auto) Baso # (Auto) Total Counted Immature Gran % Nucleated RBC % Immature Gran # Segmented Neutrophils Lymphocytes Monocytes Nucleated RBCs # Platelet Estimate Giant Platelets Hypochromasia Microcytosis Sodium Potassium Chloride Carbon Dioxide Anion Gap BUN Creatinine GFR Calculation BUN/Creatinine Ratio Glucose POC Glucose 124 H 126 H 127 H Calculated Osmolality Calcium 06/20/17 11:39 WBC RBC Hgb Hct MCV MCH MCHC RDW Plt Count MPV Neut % (Auto) Lymph % (Auto) Winston % (Auto) Eos % (Auto) Baso % (Auto) Neut # (Auto) Lymph # (Auto) Winston # (Auto) Eos # (Auto) Baso # (Auto) Total Counted Immature Gran % Nucleated RBC % Immature Gran # Segmented Neutrophils Lymphocytes Monocytes Nucleated RBCs # Platelet Estimate Giant Platelets Hypochromasia Microcytosis Sodium Potassium Chloride Carbon Dioxide Anion Gap BUN Creatinine GFR Calculation BUN/Creatinine Ratio Glucose POC Glucose 118 H Calculated Osmolality Calcium Preliminary micro results at discharge 06/08/17 00:23 Blood Culture - Preliminary Blood Staphylococcus hominis MRS Gram positive rods DS: Provider Date of admission: 06/08/17 03:48 Primary care physician: Bernard Adler MD Attending physician on admission: Juni Newman MD Consults: 06/08/17 04:03 Consult to Physician [CONS] Routine Comment: Consulting Provider: Dylon Lam Consult to Specialist Group: Pulmonology Consult Notification Comment: Dr. Lam saw 06/08/17 04:07 Consult to Wound Care - [place] [CONS] Routine Reason for Wound Care: Wound Care Management 06/08/17 07:04 Consult to Pulmonary Rehabilitation [CONS] Routine Reason for Pulmonary Rehabilitation: COPD Consult to Pulmonary Rehabilitation [CONS] Routine Reason for Pulmonary Rehabilitation: COPD 06/11/17 16:32 Consult to Case Mgmt/Social Srvs [CONS] Routine Reason for Case Mgmt/Social Srvs: Swingbed/SNF/Skilled Nursing Consult Comment: for [place] [facility] 06/18/17 10:56 Consult to Physician [CONS] Routine Comment: Pericardial effusion Consulting Provider: Juni Wilson Consult to Specialist Group: Cardiology Person Notified: Sander Date Notified: 06/18/17 Time Notified: 10:58 Discharging clinician: Mary Zhu MD
[2017-06-21 12:16] VITALS: BP 102/74
[2017-06-21] MEDS: SODIUM HYPOCHLORITE 0.25% IRRIG 473 ML BOTTLE TOP SCH (12:41)
== END 2017-06-21 12:39 | DRG 166 ==
LOC: EDUNIT# → EDBD → N.ED 00:11 → N.EDINP 03:48 → SUATTDRO 03:48 → N.ICU 04:30 → N.5E 06-10 15:16
PROVIDERS: ADMIT Internal Medicine; ATTEND Internal Medicine